=== PATIENT | female | born 1955 | race Caucasian/White ===

== ENCOUNTER 2017-11-01 23:59 | Inpatient (IN) | payer MEDICAID ==
[~2017-11-01] VITALS: Ht 160 cm; Wt 68.2 kg
[~2017-11-01 23:59] MED LIST: ALB0.5UD IH; ALEN70TA13 PO; ASPI81TA52 PO; BUDE10.23 IH; CARB1TAB23 PO; GLIP-126 PO; INSU100V36 SQ; INSU100V9 SQ; LEVA15HF4 IH; LOSA50TA37 PO; METF500T PO; NORCO10T PO; OMEP40CA37 PO; RANI150T12 PO; SPIIN INH; SUCR1TAB PO; TEMA15CA5 PO; TIZA4CAP PO; VERA-1 PO
[2017-11-02] MEDS ORDERED: dextrose 50%-water 50ml dispensing syringe IV ONE ×3 (00:12→03:30)
[2017-11-02] MEDS ORDERED: phenobarbital inj 260 MG in normal saline 100ml IV soln 99 ML IV STA (00:33)
[2017-11-02] MEDS ORDERED: LORazepam 2 mg/ml vial IV ONE (00:35)
[2017-11-02] MEDS ORDERED: thiamine inj. 100 MG in normal saline 100ml IV soln 99 ML IV ONE (00:35)
[2017-11-02] MEDS ORDERED: magnesium 2GM in 50ml NS 50 ML IV ONE (00:35)
[2017-11-02] MEDS ORDERED: ondansetron/PF 4mg/2ml inj IV ONE (00:35)
[2017-11-02] MEDS ORDERED: BUPIVAcaine/PF 2.5 mg/ml (0.25%) 30ml vial IJ ONE (00:35)
[2017-11-02] MEDS ORDERED: normal saline 1000ML IV soln IVB ONE (00:35)
[2017-11-02] MEDS ORDERED: TETanus/Pertussis (Acell)/Diphther VAC/PF (Tdap-Adult) 0.5ml syringe IM ONE (00:35)
[2017-11-02] MEDS ORDERED: thiamine 100mg/ml 2ml inj. IV STA (00:57)
[2017-11-02 00:59] LABS: PARTIAL THROMBOPLASTIN TIME 25 SECONDS (22-32); PROTHROMBIN TIME 9.9 SECONDS (9.0-12.0)
[2017-11-02 01:00] LABS: CLARITY,URINE CLEAR (Clear); COLOR,URINE YELLOW (Yellow); GLUCOSE, URINE 250 mg/dl (Neg); KETONES,URINE NEGATIVE (Neg); LEUKOCYTE ESTERASE ,URINE NEGATIVE (Neg); NITRITES, URINE NEGATIVE (Neg); OCCULT BLOOD,URINE TRACE-INTACT (Neg); PH,URINE 5.5 (4.8-8.0); PROTEIN,URINE NEGATIVE (Neg); UROBILINOGEN,URINE 0.2 E.U/dL (0.2-1.0)
[2017-11-02] MEDS ORDERED: haloperidol lactate 5mg/ml inj IM ONE ×2 (01:00→01:01)
[2017-11-02] MEDS ORDERED: diphenhydrAMINE 50 mg/ml inj IV ONE (01:00)
[2017-11-02 01:02] LABS: UA COLLECTION TYPE FOLEY CATH
[2017-11-02] MEDS ORDERED: diphenhydrAMINE 50 mg/ml inj ONE (01:02)
[2017-11-02 01:10] LABS: URINE AMPHETAMINE SCREEN NEGATIVE (Neg); URINE BARBITUATE SCREEN NEGATIVE (Neg); URINE BENZODIAZEPINES SCREEN NEGATIVE (Neg); URINE CANNABINOID SCREEN NEGATIVE (Neg); URINE COCAINE SCREEN NEGATIVE (Neg); URINE METHADONE SCREEN NEGATIVE (Neg); URINE OPIATE SCREEN POSITIVE (Neg); URINE PHENCYCLIDINE SCREEN NEGATIVE (Neg)
[2017-11-02] MEDS ORDERED: phenobarbital inj 130 MG in normal saline 100ml IV soln 99 ML IV STA (01:11)
[2017-11-02 01:22] LABS: BASOPHILS # (AUTO) 0.1 X10'3 (0-0.2); BASOPHILS % (AUTO) 1.3 % (0-1); EOSINOPHILS # (AUTO) 0.2 X10'3 (0-0.9); EOSINOPHILS % (AUTO) 1.9 % (0-6); HEMATOCRIT 39.6 % (35.0-45.0); HEMOGLOBIN 13.8 g/dl (12.0-16.0); LYMPHOCYTES # (AUTO) 2.9 X10'3 (1.1-4.8); LYMPHOCYTES % (AUTO) 27.9 % (21-51); MEAN CORPUSCULAR HEMOGLOBIN 32.6 PG (27.0-31.0); MEAN CORPUSCULAR HGB CONC 34.8 % (33.0-36.5); MEAN CORPUSCULAR VOLUME 93.7 FL (78-98); MEAN PLATELET VOLUME 7.4 FL (7.4-10.4); MONOCYTES # (AUTO) 0.9 X10'3 (0-0.9); MONOCYTES % (AUTO) 8.9 % (2-12); NEUTROPHILS # (AUTO) 6.2 X10'3 (1.8-7.7); PLATELET COUNT 197 X10'3 (140-440); RED BLOOD COUNT 4.23 X10'6 (4.20-5.60); RED CELL DISTRIBUTION WIDTH 12.5 % (11.5-14.5); WHITE BLOOD COUNT 10.3 X10'3 (4.5-11.0)
[2017-11-02 01:24] LABS: BACTERIA,URINE NONE SEEN /HPF (Neg); MUCUS STRANDS FEW /LPF (Neg); RBC,URINE 0-2 /HPF (0-2); SQUAMOUS EPITHELIAL CELL,UR FEW /LPF (FEW); WBC,URINE 0-4 /HPF (0-4)
[2017-11-02 01:35] LABS: ALANINE AMINOTRANSFERASE 62 U/L (12-78); ALBUMIN 3.7 G/DL (3.4-5.0); ALBUMIN/GLOBULIN RATIO 1.3 (1.1-1.5); ALKALINE PHOSPHATASE 83 IU/L (46-116); ANION GAP 9 (8-16); ASPARTATE AMINO TRANSFERASE 36 U/L (10-37); BILIRUBIN,TOTAL 0.2 MG/DL (0.1-1.0); BLOOD UREA NITROGEN 17 MG/DL (7-18); BUN/CREATININE RATIO 21.3 (6.6-38.0); CALCIUM 8.1 MG/DL (8.5-10.1); CHLORIDE 110 MMOL/L (99-107); CREATINE KINASE 289 U/L (26-192); ETHANOL 0.227 GM/DL (0.0-0.010); GLUCOSE 51 MG/DL (70-104); LIPASE < 50 U/L (73-393); MAGNESIUM 1.7 MG/DL (1.5-2.4); SODIUM 146 MMOL/L (135-145); TOTAL CARBON DIOXIDE 26.6 MMOL/L (24-32); TOTAL PROTEIN 6.6 G/DL (6.4-8.2); TROPONIN I < 0.04 NG/ML (0.0-0.05); eGFR 73 ML/MIN
[2017-11-02 01:36] LABS: POTASSIUM 3.8 MMOL/L (3.5-5.1)
[2017-11-02] MEDS ORDERED: iohexol 300mg/ml 100ml inj. ONE (01:43)
[2017-11-02] MEDS ORDERED: sodium chloride inj. 154 MEQ in Dextrose 10%-water IV solution 961.5 ML IV SCH (03:40)
[2017-11-02] MEDS ORDERED: Dextrose 10%-water IV solution 1,000 ML ONE (03:50)
[2017-11-02] MEDS ORDERED: dextrose 5%-1/2 normal saline 1,000 ML IV SCH (03:59)
[2017-11-02] MEDS ORDERED: magnesium Cl slow-release 64mg tablet PO PRN (04:00)
[2017-11-02] MEDS ORDERED: magnesium 4gm in 100ml NS 100 ML IV PRN (04:00)
[2017-11-02] MEDS ORDERED: pantoprazole 40 MG vial IV ONE (04:00)
[2017-11-02] MEDS ORDERED: dextrose 50%-water 50ml dispensing syringe IV PRN ×3 (04:00→12:55)
[2017-11-02] MEDS ORDERED: thiamine 100mg/ml 2ml inj. IV ONE (04:00)
[2017-11-02] MEDS ORDERED: haloperidol lactate 5mg/ml inj IM PRN (04:00)
[2017-11-02] MEDS ORDERED: magnesium 2GM in 50ml NS 50 ML IV PRN (04:00)
[2017-11-02] MEDS ORDERED: magnesium hydroxide 30ml (MOM) UD suspension PO PRN (04:00)
[2017-11-02] MEDS ORDERED: potassium Cl 40MEQ/NS 500ml 500 ML IV PRN ×2 (04:00)
[2017-11-02] MEDS ORDERED: ondansetron/PF 4mg/2ml inj IV PRN (04:00)
[2017-11-02] MEDS ORDERED: haloperidol 5mg tablet PO PRN (04:00)
[2017-11-02] MEDS ORDERED: acetaminophen 325mg tablet PO PRN (04:00)
[2017-11-02] MEDS ORDERED: potassium Cl 20 mEq SR tablet PO PRN ×2 (04:00)
[2017-11-02] MEDS ORDERED: LORazepam 2 mg/ml vial IV PRN (04:00)
[2017-11-02 05:00] VITALS: BP 163/98
[2017-11-02 07:00] VITALS: BP 173/101
[2017-11-02] MEDS: pantoprazole 40mg Tablet.DR PO SCH (07:30)
[2017-11-02] MEDS: K and/or MAG REPLACEMENT MC SCH (08:00)
[2017-11-02] MEDS: verapamil SR 120mg (sust. release) tab PO SCH ×2 (08:00→12:49)
[2017-11-02] MEDS ORDERED: famotidine 20mg tablet PO SCH (08:00)
[2017-11-02] MEDS: losartan 50mg tablet PO SCH ×2 (08:00→12:49)
[2017-11-02 08:26] LABS: PHOSPHORUS 3.5 MG/DL (2.3-4.5)
[2017-11-02] MEDS: thiamine inj. 100 MG, magnesium sulf injection 2 GM, MVI, adult No.4 with vit. K 10 ML ... IV SCH ×4 (10:00)
[2017-11-02 11:00] VITALS: BP 181/89
[2017-11-02 11:45] LABS: OCCULT BLOOD STOOL POSITIVE (Neg)
[2017-11-02] MEDS ORDERED: insulin Lispro (HumaLOG) vial - multi-dose SQ SCH (12:55)
[2017-11-02] MEDS ORDERED: MESSAGE TO PHARMACY PO ONE (12:55)
[2017-11-02] MEDS ORDERED: glucagon, human recombinant 1mg kit SUBCUT PRN (12:55)
[2017-11-02] MEDS ORDERED: dextrose ORAL solution 15 GM/59 ML bottle PO PRN ×2 (12:55)
[2017-11-02 13:00] LABS: BASOPHILS % (AUTO) 0.6 % (0-1); EOSINOPHILS # (AUTO) 0.1 X10'3 (0-0.9); EOSINOPHILS % (AUTO) 1.3 % (0-6); HEMATOCRIT 40.5 % (35.0-45.0); HEMOGLOBIN 13.9 g/dl (12.0-16.0); LYMPHOCYTES # (AUTO) 2.2 X10'3 (1.1-4.8); MEAN CORPUSCULAR HEMOGLOBIN 32.3 PG (27.0-31.0); MEAN CORPUSCULAR HGB CONC 34.3 % (33.0-36.5); MEAN CORPUSCULAR VOLUME 94.1 FL (78-98); MEAN PLATELET VOLUME 7.4 FL (7.4-10.4); MONOCYTES # (AUTO) 0.6 X10'3 (0-0.9); MONOCYTES % (AUTO) 8.6 % (2-12); NEUTROPHILS # (AUTO) 4.4 X10'3 (1.8-7.7); NEUTROPHILS % (AUTO) 59.5 % (42-75); PLATELET COUNT 155 X10'3 (140-440); RED BLOOD COUNT 4.31 X10'6 (4.20-5.60); RED CELL DISTRIBUTION WIDTH 12.6 % (11.5-14.5); WHITE BLOOD COUNT 7.4 X10'3 (4.5-11.0)
[2017-11-02 13:10] LABS: ALBUMIN 3.9 G/DL (3.4-5.0); ANION GAP 13 (8-16); BLOOD UREA NITROGEN 18 MG/DL (7-18); BUN/CREATININE RATIO 22.5 (6.6-38.0); CALCIUM 8.3 MG/DL (8.5-10.1); CHLORIDE 110 MMOL/L (99-107); POTASSIUM 3.9 MMOL/L (3.5-5.1); SODIUM 146 MMOL/L (135-145); TOTAL CARBON DIOXIDE 23.3 MMOL/L (24-32); eGFR 73 ML/MIN
[2017-11-02 13:12] LABS: GLUCOSE 46 MG/DL (70-104)
[2017-11-02 15:00] VITALS: BP 181/100
[2017-11-02] MEDS ORDERED: diltiazem CD 120mg capsule (once-daily) PO SCH (16:00)
[2017-11-02] MEDS: potassium CL 20mEq in D5-1/2NS 1,000 ML IV SCH (16:44)
[2017-11-02] MEDS: lisinopril 20mg tablet PO SCH (16:44)
[2017-11-02 19:00] VITALS: BP 143/103
[2017-11-02] MEDS ORDERED: heparin, porcine 5000 units/ml vial SQ SCH (20:00)
[2017-11-02] MEDS: carbidoba-levodopa 25-100mg tablet PO SCH (21:34)
[2017-11-02] MEDS: mag hydrox/Alum hydrox/simeth 30ml oral suspension PO PRN (21:44)
[2017-11-02 23:00] VITALS: BP 141/79
[2017-11-03 03:00] VITALS: BP 143/69
[2017-11-03] MEDS: potassium CL 20mEq in D5-1/2NS 1,000 ML IV SCH (05:14)
[2017-11-03 07:00] VITALS: BP 158/87
[2017-11-03] MEDS: K and/or MAG REPLACEMENT MC SCH (08:00)
[2017-11-03 08:23] LABS: ALANINE AMINOTRANSFERASE 39 U/L (12-78); ALBUMIN 3.1 G/DL (3.4-5.0); ALBUMIN/GLOBULIN RATIO 1.1 (1.1-1.5); ALKALINE PHOSPHATASE 74 IU/L (46-116); ANION GAP 6 (8-16); ASPARTATE AMINO TRANSFERASE 37 U/L (10-37); BILIRUBIN,TOTAL 0.6 MG/DL (0.1-1.0); BLOOD UREA NITROGEN 7 MG/DL (7-18); BUN/CREATININE RATIO 11.7 (6.6-38.0); CALCIUM 7.6 MG/DL (8.5-10.1); CHLORIDE 106 MMOL/L (99-107); GLUCOSE 140 MG/DL (70-104); MAGNESIUM 1.7 MG/DL (1.5-2.4); POTASSIUM 3.7 MMOL/L (3.5-5.1); SODIUM 141 MMOL/L (135-145); TOTAL CARBON DIOXIDE 28.8 MMOL/L (24-32); TOTAL PROTEIN 5.8 G/DL (6.4-8.2); eGFR > 90 ML/MIN
[2017-11-03 08:28] LABS: BASOPHILS % (AUTO) 0.1 % (0-1); EOSINOPHILS # (AUTO) 0.1 X10'3 (0-0.9); EOSINOPHILS % (AUTO) 1.1 % (0-6); HEMOGLOBIN 12.9 g/dl (12.0-16.0); LYMPHOCYTES # (AUTO) 1.8 X10'3 (1.1-4.8); MEAN CORPUSCULAR HEMOGLOBIN 32.2 PG (27.0-31.0); MEAN CORPUSCULAR HGB CONC 34.8 % (33.0-36.5); MEAN CORPUSCULAR VOLUME 92.7 FL (78-98); MEAN PLATELET VOLUME 7.3 FL (7.4-10.4); MONOCYTES # (AUTO) 0.8 X10'3 (0-0.9); MONOCYTES % (AUTO) 8.6 % (2-12); NEUTROPHILS # (AUTO) 6.2 X10'3 (1.8-7.7); NEUTROPHILS % (AUTO) 70.2 % (42-75); PLATELET COUNT 138 X10'3 (140-440); RED BLOOD COUNT 3.99 X10'6 (4.20-5.60); RED CELL DISTRIBUTION WIDTH 12.5 % (11.5-14.5); WHITE BLOOD COUNT 8.8 X10'3 (4.5-11.0)
[2017-11-03] MEDS: losartan 50mg tablet PO SCH (08:58)
[2017-11-03] MEDS: verapamil SR 120mg (sust. release) tab PO SCH (08:59)
[2017-11-03] MEDS: lisinopril 20mg tablet PO SCH (08:59)
[2017-11-03] MEDS: calcium carbonate/vitamin D3 tablet PO SCH (08:59)
[2017-11-03] MEDS ORDERED: sodium chloride 0.45% 1,000 ML IV SCH (09:10)
[2017-11-03] MEDS: pantoprazole 40mg Tablet.DR PO SCH (09:15)
[2017-11-03] MEDS: thiamine inj. 100 MG, magnesium sulf injection 2 GM, MVI, adult No.4 with vit. K 10 ML ... IV SCH ×4 (09:16)
[2017-11-03 11:00] VITALS: BP 171/97
[2017-11-03] MEDS: mag hydrox/Alum hydrox/simeth 30ml oral suspension PO PRN (13:10)
[2017-11-03] MEDS ORDERED: FLU VACC QS2017-18 36MOS UP/PF 60 MCG/0.5 ML SYRINGE IMVAC ONE (13:30)
[2017-11-03 15:00] VITALS: BP 147/81
[2017-11-03 18:30] VITALS: BP 146/80
[2017-11-03] MEDS: carbidoba-levodopa 25-100mg tablet PO SCH (20:20)
[2017-11-03] MEDS ORDERED: insulin glargine (Lantus) pen - multi-dose SQ SCH (21:00)
[2017-11-03 22:00] VITALS: BP 161/84
[2017-11-04 02:00] VITALS: BP 170/100
[2017-11-04] MEDS: HYDROcodone/acetaminophen 5mg/325mg tablet PO PRN ×2 (03:13→08:02)
[2017-11-04] MEDS ORDERED: LORazepam 1 MG tablet PO PRN (04:00)
[2017-11-04] MEDS ORDERED: LORazepam 2 mg/ml vial IV PRN (04:00)
[2017-11-04 05:56] LABS: BASOPHILS % (AUTO) 0.3 % (0-1); EOSINOPHILS # (AUTO) 0.2 X10'3 (0-0.9); EOSINOPHILS % (AUTO) 2.8 % (0-6); HEMATOCRIT 37.3 % (35.0-45.0); HEMOGLOBIN 12.8 g/dl (12.0-16.0); LYMPHOCYTES # (AUTO) 1.6 X10'3 (1.1-4.8); LYMPHOCYTES % (AUTO) 22.9 % (21-51); MEAN CORPUSCULAR HEMOGLOBIN 32.1 PG (27.0-31.0); MEAN CORPUSCULAR HGB CONC 34.4 % (33.0-36.5); MEAN CORPUSCULAR VOLUME 93.2 FL (78-98); MEAN PLATELET VOLUME 7.4 FL (7.4-10.4); MONOCYTES # (AUTO) 0.7 X10'3 (0-0.9); MONOCYTES % (AUTO) 10.2 % (2-12); NEUTROPHILS # (AUTO) 4.5 X10'3 (1.8-7.7); NEUTROPHILS % (AUTO) 63.8 % (42-75); PLATELET COUNT 139 X10'3 (140-440); RED CELL DISTRIBUTION WIDTH 12.7 % (11.5-14.5); WHITE BLOOD COUNT 7.1 X10'3 (4.5-11.0)
[2017-11-04 06:20] LABS: ALANINE AMINOTRANSFERASE 17 U/L (12-78); ALKALINE PHOSPHATASE 75 IU/L (46-116); ANION GAP 3 (8-16); ASPARTATE AMINO TRANSFERASE 28 U/L (10-37); BILIRUBIN,TOTAL 0.6 MG/DL (0.1-1.0); BLOOD UREA NITROGEN 9 MG/DL (7-18); BUN/CREATININE RATIO 11.3 (6.6-38.0); CALCIUM 8.2 MG/DL (8.5-10.1); CHLORIDE 108 MMOL/L (99-107); GLUCOSE 111 MG/DL (70-104); MAGNESIUM 1.8 MG/DL (1.5-2.4); SODIUM 143 MMOL/L (135-145); TOTAL CARBON DIOXIDE 31.6 MMOL/L (24-32); eGFR 73 ML/MIN
[2017-11-04 07:00] VITALS: BP 153/95
[2017-11-04] MEDS: pantoprazole 40mg Tablet.DR PO SCH (07:42)
[2017-11-04] MEDS: losartan 50mg tablet PO SCH (07:42)
[2017-11-04] MEDS: lisinopril 20mg tablet PO SCH (07:42)
[2017-11-04] MEDS: verapamil SR 120mg (sust. release) tab PO SCH (07:43)
[2017-11-04] MEDS: calcium carbonate/vitamin D3 tablet PO SCH (07:43)
[2017-11-04] MEDS ORDERED: multivitamins, therapeutics tablet PO SCH (08:00)
[2017-11-04] MEDS: K and/or MAG REPLACEMENT MC SCH (08:00)
[2017-11-04] MEDS ORDERED: thiamine 100mg tablet PO SCH (08:00)
[2017-11-04] MEDS ORDERED: Potassium Cl inj 20 MEQ in sodium chloride 0.45% 990 ML IV SCH (09:10)
[2017-11-04] MEDS ORDERED: LISI-600 PO (10:57)
[2017-11-04] MEDS ORDERED: THI100T PO (10:57)
[2017-11-04] MEDS ORDERED: FOLI1TAB16 PO (10:57)
[2017-11-04 11:00] VITALS: BP 150/100
[2017-11-06] MEDS ORDERED: LORazepam 2 mg/ml vial IV PRN (04:00)
[2017-11-06] MEDS ORDERED: LORazepam 1 MG tablet PO PRN (04:00)
== END 2017-11-04 12:40 | disposition home or self-care (01) | DRG 775 ==
LOC: ER 23:59 → ED HOLD 11-02 03:59 → PCU 3S 11-02 05:02
PROVIDERS: ADMIT Internal Medicine; ATTEND Internal Medicine
PROC: BW251ZZ Computerized Tomography (CT Scan) of Chest, Abdomen and Pelvis using Low Osmolar Contrast (ICD-10-PCS; principal; 2017-11-02)
DX: F10.229 Alcohol dependence with intoxication, unspecified (principal); F10.239 Alcohol dependence with withdrawal, unspecified; G92 Toxic encephalopathy; E87.0 Hyperosmolality and hypernatremia; E11.649 Type 2 diabetes mellitus with hypoglycemia without coma; M62.82 Rhabdomyolysis; F03.90 Unspecified dementia, unspecified severity, without behavioral disturbance, psychotic disturbance, mood disturbance, and anxiety; G20 Parkinson's disease; K92.2 Gastrointestinal hemorrhage, unspecified; E83.51 Hypocalcemia; S30.1XXA Contusion of abdominal wall, initial encounter; F15.90 Other stimulant use, unspecified, uncomplicated; Y90.1 Blood alcohol level of 20-39 mg/100 ml; S02.2XXA Fracture of nasal bones, initial encounter for closed fracture; S50.11XA Contusion of right forearm, initial encounter; E86.0 Dehydration; I49.8 Other specified cardiac arrhythmias; F41.9 Anxiety disorder, unspecified; G89.29 Other chronic pain; M54.9 Dorsalgia, unspecified; B19.20 Unspecified viral hepatitis C without hepatic coma; E78.00 Pure hypercholesterolemia, unspecified; E78.5 Hyperlipidemia, unspecified; J43.9 Emphysema, unspecified; K21.9 Gastro-esophageal reflux disease without esophagitis; S81.011A Laceration without foreign body, right knee, initial encounter; Z60.2 Problems related to living alone; S20.219A Contusion of unspecified front wall of thorax, initial encounter; I10 Essential (primary) hypertension; M81.0 Age-related osteoporosis without current pathological fracture; W18.39XA Other fall on same level, initial encounter; R29.6 Repeated falls; Z79.82 Long term (current) use of aspirin; Z86.010 Personal history of colon polyps; Z86.73 Personal history of transient ischemic attack (TIA), and cerebral infarction without residual deficits; Z82.5 Family history of asthma and other chronic lower respiratory diseases; Z87.01 Personal history of pneumonia (recurrent); Z87.11 Personal history of peptic ulcer disease; Z88.0 Allergy status to penicillin; Z88.1 Allergy status to other antibiotic agents; Z88.8 Allergy status to other drugs, medicaments and biological substances; Z91.013 Allergy to seafood; Z88.6 Allergy status to analgesic agent; Z90.49 Acquired absence of other specified parts of digestive tract; Z98.891 History of uterine scar from previous surgery; Z82.49 Family history of ischemic heart disease and other diseases of the circulatory system; Z79.4 Long term (current) use of insulin; Y93.89 Activity, other specified; Y92.89 Other specified places as the place of occurrence of the external cause; Y99.8 Other external cause status
CPT/HCPCS: 36415; 70450; 70486; 71260; 72125; 74177; 80048; 80053; 80305; 80320; 81001; 82272; 82550; 82553; 82948; 83036; 83690; 83735; 83874; 84100; 84484; 85025; 85610; 85730; 86885; 86900; 86901; 87070; 90471; 90715; 93005; 96365; 96372; 96375; 96376; 99285; A4315; A6209; A6212; J1200; J1630; J1815; J2060; J2405; J2560; J3411; J3475; J3480; J3490; J7030; J7060; J7131; Q2037; Q9967

== ENCOUNTER 2018-02-08 01:03 | Emergency (ER) | payer MEDICAID ==
[~2018-02-08] VITALS: Ht 149.9 cm; Wt 54.5 kg
[~2018-02-08 01:03] MED LIST changes: +FOLI1TAB16 PO; -GLIP-126 PO; +LISI-600 PO; -METF500T PO; -NORCO10T PO; -RANI150T12 PO; -SUCR1TAB PO; +THI100T PO; -TIZA4CAP PO
[2018-02-08 01:46] VITALS: BP 161/113
[2018-02-08] MEDS ORDERED: dexamethasone sod phosphate 10mg/ml inj IV STA (02:13)
[2018-02-08] MEDS ORDERED: ipratropium/albuterol 3ml nebule NEB ONE (02:15)
[2018-02-08 02:20] LABS: PROTHROMBIN TIME 10.5 SECONDS (9.0-12.0)
[2018-02-08 02:26] LABS: ALANINE AMINOTRANSFERASE 61 U/L (12-78); ALBUMIN 3.5 G/DL (3.4-5.0); ALBUMIN/GLOBULIN RATIO 0.9 (1.1-1.5); ALKALINE PHOSPHATASE 91 IU/L (46-116); ANION GAP 9 (8-16); ASPARTATE AMINO TRANSFERASE 34 U/L (10-37); BLOOD UREA NITROGEN 18 MG/DL (7-18); BUN/CREATININE RATIO 21.4 (6.6-38.0); CALCIUM 8.8 MG/DL (8.5-10.1); CHLORIDE 102 MMOL/L (99-107); CREATININE 0.84 MG/DL (0.40-0.90); GLUCOSE 212 MG/DL (70-104); POTASSIUM 4.8 MMOL/L (3.5-5.1); SODIUM 139 MMOL/L (135-145); TOTAL CARBON DIOXIDE 28.1 MMOL/L (24-32); TOTAL PROTEIN 7.4 G/DL (6.4-8.2); eGFR 69 ML/MIN
[2018-02-08 02:46] LABS: ABG HCO3 25.3 mmol/L (22.0-26.0); ABG OXYGEN SATURATION 94.1 % (95-98); ABG PH (T) 7.385 (7.350-7.450); ALLEN'S TEST Positive; FLOW 2 L/min; FMetHb 0.1 % (0.3-1.12); FO2Hb 93.1 % (94-100); PATIENT TEMPERATURE 36.7
[2018-02-08] MEDS ORDERED: DOXY100C43 PO (02:57)
[2018-02-08] MEDS ORDERED: PRED5TAB PO (02:57)
[2018-02-08 02:58] LABS: BASOPHILS % (AUTO) 0.3 % (0-1); EOSINOPHILS % (AUTO) 0 % (0-6); HEMATOCRIT 40.3 % (35.0-45.0); HEMOGLOBIN 13.6 g/dl (12.0-16.0); LYMPHOCYTES # (AUTO) 1.1 X10'3 (1.1-4.8); MEAN CORPUSCULAR HEMOGLOBIN 32.1 PG (27.0-31.0); MEAN CORPUSCULAR HGB CONC 33.8 % (33.0-36.5); MEAN CORPUSCULAR VOLUME 94.9 FL (78-98); MEAN PLATELET VOLUME 7.6 FL (7.4-10.4); MONOCYTES # (AUTO) 1.1 X10'3 (0-0.9); MONOCYTES % (AUTO) 8.3 % (2-12); NEUTROPHILS # (AUTO) 11.4 X10'3 (1.8-7.7); NEUTROPHILS % (AUTO) 83.4 % (42-75); PLATELET COUNT 163 X10'3 (140-440); RED BLOOD COUNT 4.25 X10'6 (4.20-5.60); RED CELL DISTRIBUTION WIDTH 14.2 % (11.5-14.5); WHITE BLOOD COUNT 13.6 X10'3 (4.5-11.0)
[2018-02-08 07:12] LABS: PLATELET ESTIMATE NORMAL; TOTAL CELLS COUNTED 100
== END 2018-02-08 03:25 | disposition home or self-care (01) ==
LOC: ER 01:03
DX: J44.1 Chronic obstructive pulmonary disease with (acute) exacerbation (principal); E78.00 Pure hypercholesterolemia, unspecified; I10 Essential (primary) hypertension; I49.9 Cardiac arrhythmia, unspecified; K21.9 Gastro-esophageal reflux disease without esophagitis; G89.29 Other chronic pain; F15.10 Other stimulant abuse, uncomplicated; Z86.19 Personal history of other infectious and parasitic diseases; Z86.73 Personal history of transient ischemic attack (TIA), and cerebral infarction without residual deficits; Z87.891 Personal history of nicotine dependence; Z90.49 Acquired absence of other specified parts of digestive tract; Z98.890 Other specified postprocedural states; Z60.2 Problems related to living alone; Z99.81 Dependence on supplemental oxygen; Z88.0 Allergy status to penicillin; Z88.8 Allergy status to other drugs, medicaments and biological substances; Z91.013 Allergy to seafood; Z79.82 Long term (current) use of aspirin; Z79.4 Long term (current) use of insulin; Z79.899 Other long term (current) drug therapy
CPT/HCPCS: 36415; 36600; 71045; 80053; 82803; 83880; 85018; 85025; 85610; 93005; 94640; 94760; 96374; 99285; J1100; 84484

== ENCOUNTER 2018-02-23 22:49 | Inpatient (IN) | payer MEDICAID ==
[~2018-02-23] VITALS: Ht 149.9 cm; Wt 69.1 kg
[2018-02-23 08:04] VITALS: BP 147/73
[~2018-02-23 22:49] MED LIST changes: +PRED5TAB PO
[2018-02-23] MEDS ORDERED: normal saline 1000ml 1,000 ML IV ONE (23:25)
[2018-02-23] MEDS ORDERED: normal saline 1000ML IV soln IV ONE (23:30)
[2018-02-23] MEDS ORDERED: flumazenil 0.1 mg/ml inj. IV ONE (23:30)
[2018-02-24] VITALS (21 sets, daily range): BP systolic 110–158; BP diastolic 60–99
[2018-02-24 00:02] LABS: CLARITY,URINE CLEAR (Clear); COLOR,URINE YELLOW (Yellow); GLUCOSE, URINE NEGATIVE (Neg); KETONES,URINE TRACE mg/dl (Neg); LEUKOCYTE ESTERASE ,URINE NEGATIVE (Neg); NITRITES, URINE NEGATIVE (Neg); OCCULT BLOOD,URINE NEGATIVE (Neg); PROTEIN,URINE TRACE mg/dl (Neg); UA COLLECTION TYPE CLN CATCH MIDSTREAM; UROBILINOGEN,URINE 0.2 E.U/dL (0.2-1.0)
[2018-02-24 00:08] LABS: BACTERIA,URINE 1+ /HPF (Neg); MUCUS STRANDS FEW /LPF (Neg); RBC,URINE 0-2 /HPF (0-2); SQUAMOUS EPITHELIAL CELL,UR NONE SEEN /LPF (FEW)
[2018-02-24 00:10] LABS: URINE AMPHETAMINE SCREEN NEGATIVE (Neg); URINE BARBITUATE SCREEN NEGATIVE (Neg); URINE BENZODIAZEPINES SCREEN NEGATIVE (Neg); URINE CANNABINOID SCREEN NEGATIVE (Neg); URINE COCAINE SCREEN NEGATIVE (Neg); URINE METHADONE SCREEN NEGATIVE (Neg); URINE OPIATE SCREEN POSITIVE (Neg); URINE PHENCYCLIDINE SCREEN NEGATIVE (Neg)
[2018-02-24] MEDS ORDERED: NORepinephrine 8mg/ 250ml NS 250 ML IV SCH (00:20)
[2018-02-24 00:22] LABS: BASOPHILS % (AUTO) 0.4 % (0-1); EOSINOPHILS # (AUTO) 0.1 X10'3 (0-0.9); EOSINOPHILS % (AUTO) 0.8 % (0-6); HEMATOCRIT 30.2 % (35.0-45.0); HEMOGLOBIN 10.2 g/dl (12.0-16.0); LYMPHOCYTES # (AUTO) 2.2 X10'3 (1.1-4.8); LYMPHOCYTES % (AUTO) 27.5 % (21-51); MEAN CORPUSCULAR HEMOGLOBIN 31.8 PG (27.0-31.0); MEAN CORPUSCULAR HGB CONC 33.6 % (33.0-36.5); MEAN CORPUSCULAR VOLUME 94.6 FL (78-98); MEAN PLATELET VOLUME 6.9 FL (7.4-10.4); NEUTROPHILS # (AUTO) 4.6 X10'3 (1.8-7.7); NEUTROPHILS % (AUTO) 58.3 % (42-75); PLATELET COUNT 136 X10'3 (140-440); RED BLOOD COUNT 3.19 X10'6 (4.20-5.60); RED CELL DISTRIBUTION WIDTH 14.3 % (11.5-14.5); WHITE BLOOD COUNT 7.9 X10'3 (4.5-11.0)
[2018-02-24] MEDS ORDERED: vancomycin inj 1,000 MG in normal saline 250ml IV soln 250 ML IV STA (00:29)
[2018-02-24] MEDS ORDERED: CefTRIAXone 2gm/D5W 50ml 50 ML IV ONE (00:30)
[2018-02-24] MEDS ORDERED: acetaminophen 650mg rectal suppository RC STA (00:31)
[2018-02-24 00:35] LABS: PARTIAL THROMBOPLASTIN TIME 28 SECONDS (22-32); PROTHROMBIN TIME 10.8 SECONDS (9.0-12.0)
[2018-02-24 00:38] LABS: ALANINE AMINOTRANSFERASE 16 U/L (12-78); ALBUMIN 2.5 G/DL (3.4-5.0); ALKALINE PHOSPHATASE 65 IU/L (46-116); ANION GAP 8 (8-16); ASPARTATE AMINO TRANSFERASE 56 U/L (10-37); BILIRUBIN,TOTAL 0.3 MG/DL (0.1-1.0); BLOOD UREA NITROGEN 19 MG/DL (7-18); BUN/CREATININE RATIO 9.2 (6.6-38.0); CALCIUM 7.4 MG/DL (8.5-10.1); CHLORIDE 104 MMOL/L (99-107); CREATININE 2.06 MG/DL (0.40-0.90); ETHANOL < 0.010 GM/DL (0.0-0.010); GLUCOSE 110 MG/DL (70-104); MAGNESIUM 1.8 MG/DL (1.5-2.4); POTASSIUM 4.6 MMOL/L (3.5-5.1); SODIUM 137 MMOL/L (135-145); TOTAL CARBON DIOXIDE 24.9 MMOL/L (24-32); TOTAL PROTEIN 4.9 G/DL (6.4-8.2); eGFR 24 ML/MIN
[2018-02-24] MEDS ORDERED: rocuronium 10mg/ml inj IV ONE ×2 (00:40→06:00)
[2018-02-24] MEDS ORDERED: vancomycin/NS 1 GM ADD-VANTAGE 250 ML IV SCH (01:00)
[2018-02-24] MEDS ORDERED: propofol 1000mg/100ml bottle 100 ML IV PRN (01:36)
[2018-02-24] MEDS ORDERED: acetaminophen 325mg tablet PO PRN ×2 (01:55→20:00)
[2018-02-24] MEDS ORDERED: potassium Cl 40MEQ/250ML bag 250 ML IV SCH (01:55)
[2018-02-24] MEDS: K, MAG and/or Phos replacement - Verify level? MC SCH ×2 (01:55→08:00)
[2018-02-24] MEDS ORDERED: ondansetron/PF 4mg/2ml inj IV PRN (01:55)
[2018-02-24] MEDS ORDERED: potassium Cl 40MEQ/250ML bag 250 ML IV PRN (01:55)
[2018-02-24] MEDS ORDERED: morphine 4 MG/ML inj SYRINge IV PRN ×2 (01:55)
[2018-02-24] MEDS ORDERED: potassium Cl 20 mEq SR tablet PO PRN ×2 (01:55)
[2018-02-24] MEDS ORDERED: ipratropium/albuterol 3ml nebule NEB PRN (01:55)
[2018-02-24 02:27] LABS: ACETAMINOPHEN 10.7 UG/ML (10-30)
[2018-02-24] MEDS: FENTANYL-0.9 % NACL/PF 100 ML IV PRN ×3 (04:23→20:58)
[2018-02-24] MEDS: midazolam 100mg in NS 100ml 100 ML IV PRN ×2 (04:23→11:53)
[2018-02-24 04:26] LABS: ABG BASE EXCESS -4.4 mmol/L (-2.0-3.0); ABG HCO3 21.2 mmol/L (22.0-26.0); ABG PCO2 (T) 41.5 mmHg (32.0-45.0); ABG PH (T) 7.328 (7.350-7.450); ABG PO2 (T) 91.4 mmHg (83-108); FCOHb 0.3 % (0.5-1.5); FMetHb 0.2 % (0.3-1.12); FO2Hb 95.5 % (94-100); MINUTE VOLUME 7 L/min; PATIENT TEMPERATURE 37.2; PEEP 5 cm H2O; RESPIRATORY RATE 16 b/min; RESPIRATORY RATE (OBSERVED) 16 b/min; TIDAL VOLUME 400 mL; TOTAL HEMOGLOBIN 11.9 G/dl (12.0-16.0)
[2018-02-24] MEDS: normal saline 1000ml 1,000 ML IV SCH ×3 (04:30→20:58)
[2018-02-24] MEDS ORDERED: NORepinephrine bitartrate 8 MG in NS 250 ML BAG (32 mcg/ml) IV ONE (06:00)
[2018-02-24] MEDS ORDERED: sodium chloride 0.9% 10ml vial - diluent IJ ONE (06:00)
[2018-02-24] MEDS ORDERED: insulin Lispro (HumaLOG) vial - multi-dose SQ SCH (06:10)
[2018-02-24] MEDS ORDERED: dextrose 50%-water 50ml dispensing syringe IV PRN ×2 (06:10)
[2018-02-24] MEDS ORDERED: dextrose ORAL solution 15 GM/59 ML bottle PO PRN ×2 (06:10)
[2018-02-24] MEDS ORDERED: dextrose 50%-water 50ml dispensing syringe IV ONE (06:10)
[2018-02-24] MEDS ORDERED: glucagon, human recombinant 1mg kit SUBCUT PRN (06:10)
[2018-02-24] MEDS: pantoprazole 40 MG vial IV SCH (07:46)
[2018-02-24] MEDS: heparin, porcine 5000 units/ml vial SQ SCH ×2 (07:47→20:10)
[2018-02-24] MEDS: lactobacillus rhamnosus 10,000 MMU CELLS/CAPSULE PO SCH ×2 (07:47→20:10)
[2018-02-24] MEDS ORDERED: levoFLOXACIN-Levaquin 750MG/D5 150 ML IV SCH (08:00)
[2018-02-24 08:58] LABS: PHOSPHORUS 4.3 MG/DL (2.3-4.5)
[2018-02-24 09:27] LABS: SMUDGE CELLS FEW; TOTAL CELLS COUNTED 100
[2018-02-24 09:40] LABS: HEMOGLOBIN A1C 8.3 % (4.5-6.2); PLATELET ESTIMATE NORMAL
[2018-02-24] MEDS ORDERED: folic acid inj. 2 MG, thiamine inj. 100 MG, MVI, adult No.4 with vit. K 10 ML in dextro... IV SCH ×4 (11:00)
[2018-02-24] MEDS ORDERED: ACET-2006 PO (13:12)
[2018-02-24] MEDS ORDERED: LACT10SO67 PO (13:12)
[2018-02-24] MEDS ORDERED: GABA-532 PO (13:12)
[2018-02-24] MEDS ORDERED: FERR325T28 PO (13:12)
[2018-02-24] MEDS ORDERED: ONDA4TAB12 PO (13:12)
[2018-02-24] MEDS ORDERED: LOSA100T28 PO (13:12)
[2018-02-24] MEDS ORDERED: QUET25TA PO (13:12)
[2018-02-24] MEDS ORDERED: TIZA4TAB11 PO (13:12)
[2018-02-24] MEDS ORDERED: albuterol 2.5 MG/3 ML nebule NEB PRN (14:40)
[2018-02-24] MEDS ORDERED: LEVALBUTEROL TARTRATE IH PRN (14:40)
[2018-02-24] MEDS ORDERED: ondansetron 4mg rapidly disintigrating tab PO PRN (14:40)
[2018-02-24] MEDS ORDERED: non-formulary drug (Alendronate Sodium 1 TABLET) PO SCH (14:40)
[2018-02-24] MEDS: CefTRIAXone 2gm/D5W 50ml 50 ML IV SCH (14:42)
[2018-02-24] MEDS: albuterol 2.5 MG/3 ML nebule NEB SCH ×2 (15:24→19:27)
[2018-02-24] MEDS ORDERED: non-formulary drug (Budesonide/Formoterol Fumarate (Symbicort 160-4.5 Mcg Inhaler) 1 PUFF) IH SCH (20:00)
[2018-02-24] MEDS: gabapentin 300mg capsule PO SCH (20:10)
[2018-02-24] MEDS: carbidoba-levodopa 25-100mg tablet PO SCH (20:10)
[2018-02-24] MEDS: ferrous sulfate 325mg tablet PO SCH (20:13)
[2018-02-24] MEDS: QUEtiapine 25mg tablet PO SCH (21:00)
[2018-02-24] MEDS: insulin glargine (Lantus) pen - multi-dose SQ SCH (21:00)
[2018-02-25] VITALS (24 sets, daily range): BP systolic 90–158; BP diastolic 47–79
[2018-02-25] MEDS: budesonide 0.5mg/2ml UD nebule IH SCH ×3 (00:34→19:25)
[2018-02-25] MEDS ORDERED: vancomycin/NS 1 GM ADD-VANTAGE 250 ML IV SCH (01:00)
[2018-02-25] MEDS: midazolam 100mg in NS 100ml 100 ML IV PRN (02:09)
[2018-02-25] MEDS: mineral oil/petrolatum ophthal oint EACHEYE SCH ×4 (02:09→20:01)
[2018-02-25 03:01] LABS: BASOPHILS % (AUTO) 0.7 % (0-1); EOSINOPHILS # (AUTO) 0.1 X10'3 (0-0.9); EOSINOPHILS % (AUTO) 1.6 % (0-6); HEMATOCRIT 32.9 % (35.0-45.0); LYMPHOCYTES # (AUTO) 1.2 X10'3 (1.1-4.8); LYMPHOCYTES % (AUTO) 22.8 % (21-51); MEAN CORPUSCULAR HEMOGLOBIN 31.7 PG (27.0-31.0); MEAN CORPUSCULAR HGB CONC 33.4 % (33.0-36.5); MEAN CORPUSCULAR VOLUME 94.9 FL (78-98); MONOCYTES # (AUTO) 0.6 X10'3 (0-0.9); MONOCYTES % (AUTO) 11.2 % (2-12); NEUTROPHILS # (AUTO) 3.3 X10'3 (1.8-7.7); NEUTROPHILS % (AUTO) 63.7 % (42-75); PLATELET COUNT 123 X10'3 (140-440); RED BLOOD COUNT 3.46 X10'6 (4.20-5.60); RED CELL DISTRIBUTION WIDTH 14.5 % (11.5-14.5); WHITE BLOOD COUNT 5.1 X10'3 (4.5-11.0)
[2018-02-25 03:28] LABS: ALANINE AMINOTRANSFERASE 33 U/L (12-78); ALBUMIN 2.2 G/DL (3.4-5.0); ALBUMIN/GLOBULIN RATIO 0.8 (1.1-1.5); ALKALINE PHOSPHATASE 83 IU/L (46-116); ANION GAP 9 (8-16); ASPARTATE AMINO TRANSFERASE 90 U/L (10-37); BILIRUBIN,TOTAL 0.4 MG/DL (0.1-1.0); BLOOD UREA NITROGEN 6 MG/DL (7-18); BUN/CREATININE RATIO 11.8 (6.6-38.0); CALCIUM 7.2 MG/DL (8.5-10.1); CHLORIDE 109 MMOL/L (99-107); CREATININE 0.51 MG/DL (0.40-0.90); GLUCOSE 91 MG/DL (70-104); MAGNESIUM 1.4 MG/DL (1.5-2.4); PHOSPHORUS 2.3 MG/DL (2.3-4.5); POTASSIUM 3.7 MMOL/L (3.5-5.1); SODIUM 142 MMOL/L (135-145); eGFR > 90 ML/MIN
[2018-02-25 04:11] LABS: ABG HCO3 23.5 mmol/L (22.0-26.0); ABG OXYGEN SATURATION 94.1 % (95-98); ABG PCO2 (T) 44.3 mmHg (32.0-45.0); ABG PH (T) 7.346 (7.350-7.450); ABG PO2 (T) 78.4 mmHg (83-108); FCOHb 0.4 % (0.5-1.5); FMetHb 0.3 % (0.3-1.12); FO2Hb 93.4 % (94-100); MINUTE VOLUME 7 L/min; PATIENT TEMPERATURE 37.7; PEEP 5 cm H2O; RESPIRATORY RATE 16 b/min; RESPIRATORY RATE (OBSERVED) 16 b/min; TIDAL VOLUME 400 mL; TOTAL HEMOGLOBIN 12.3 G/dl (12.0-16.0)
[2018-02-25] MEDS: albuterol 2.5 MG/3 ML nebule NEB SCH ×4 (07:02→19:26)
[2018-02-25] MEDS: pantoprazole 40 MG vial IV SCH (07:14)
[2018-02-25] MEDS: heparin, porcine 5000 units/ml vial SQ SCH ×2 (07:14→20:01)
[2018-02-25] MEDS: thiamine 100mg tablet PO SCH (07:15)
[2018-02-25] MEDS: CefTRIAXone 2gm/D5W 50ml 50 ML IV SCH (07:15)
[2018-02-25] MEDS: folic acid 1mg tablet PO SCH (07:15)
[2018-02-25] MEDS: lactobacillus rhamnosus 10,000 MMU CELLS/CAPSULE PO SCH ×2 (07:15→20:01)
[2018-02-25] MEDS: ferrous sulfate 325mg tablet PO SCH ×2 (07:15→20:00)
[2018-02-25] MEDS: lisinopril 20mg tablet PO SCH (07:16)
[2018-02-25] MEDS: gabapentin 300mg capsule PO SCH ×3 (07:16→20:00)
[2018-02-25] MEDS: multivitamins, therapeutics tablet PO SCH (07:16)
[2018-02-25] MEDS: normal saline 1000ml 1,000 ML IV SCH (07:16)
[2018-02-25] MEDS: K, MAG and/or Phos replacement - Verify level? MC SCH (07:16)
[2018-02-25] MEDS: lactulose 20gm/30ml cup PO SCH (07:20)
[2018-02-25] MEDS ORDERED: aspirin 81mg tablet.DR PO SCH (08:00)
[2018-02-25] MEDS: K and/or MAG REPLACEMENT MC SCH (08:00)
[2018-02-25] MEDS ORDERED: potassium Cl 20 mEq SR tablet PO PRN ×2 (09:10)
[2018-02-25] MEDS: vancomycin/NS 1 GM ADD-VANTAGE 250 ML IV SCH ×2 (09:25→16:52)
[2018-02-25] MEDS: FENTANYL-0.9 % NACL/PF 100 ML IV PRN (10:05)
[2018-02-25] MEDS: magnesium 2GM in 50ml NS 50 ML IV PRN ×2 (10:05→16:52)
[2018-02-25] MEDS: dexmedetomidin/NS 400mcg/100ml 100 ML IV SCH (10:47)
[2018-02-25] MEDS: carbidoba-levodopa 25-100mg tablet PO SCH (20:01)
[2018-02-25] MEDS: QUEtiapine 25mg tablet PO SCH (21:00)
[2018-02-25] MEDS: insulin regular, human vial - multi-dose SQ SCH (21:17)
[2018-02-25] MEDS: insulin glargine (Lantus) pen - multi-dose SQ SCH (21:18)
[2018-02-26] VITALS (20 sets, daily range): BP systolic 108–174; BP diastolic 60–84
[2018-02-26] MEDS ORDERED: VANCOMYCIN LEVEL IV NR (00:30)
[2018-02-26] MEDS: vancomycin/NS 1 GM ADD-VANTAGE 250 ML IV SCH (00:53)
[2018-02-26] MEDS: insulin regular, human vial - multi-dose SQ SCH (02:39)
[2018-02-26] MEDS: mineral oil/petrolatum ophthal oint EACHEYE SCH ×4 (02:40→20:43)
[2018-02-26 02:49] LABS: BASOPHILS % (AUTO) 0.7 % (0-1); EOSINOPHILS # (AUTO) 0.1 X10'3 (0-0.9); EOSINOPHILS % (AUTO) 1.6 % (0-6); HEMATOCRIT 32.9 % (35.0-45.0); HEMOGLOBIN 11.1 g/dl (12.0-16.0); LYMPHOCYTES # (AUTO) 1.2 X10'3 (1.1-4.8); MEAN CORPUSCULAR HEMOGLOBIN 32.2 PG (27.0-31.0); MEAN CORPUSCULAR HGB CONC 33.7 % (33.0-36.5); MEAN CORPUSCULAR VOLUME 95.6 FL (78-98); MEAN PLATELET VOLUME 6.9 FL (7.4-10.4); MONOCYTES # (AUTO) 0.6 X10'3 (0-0.9); MONOCYTES % (AUTO) 11.8 % (2-12); NEUTROPHILS # (AUTO) 2.8 X10'3 (1.8-7.7); NEUTROPHILS % (AUTO) 59.9 % (42-75); PLATELET COUNT 123 X10'3 (140-440); RED BLOOD COUNT 3.44 X10'6 (4.20-5.60); RED CELL DISTRIBUTION WIDTH 14.1 % (11.5-14.5); WHITE BLOOD COUNT 4.7 X10'3 (4.5-11.0)
[2018-02-26 03:14] LABS: ALANINE AMINOTRANSFERASE 40 U/L (12-78); ALBUMIN 2.1 G/DL (3.4-5.0); ALBUMIN/GLOBULIN RATIO 0.7 (1.1-1.5); ALKALINE PHOSPHATASE 88 IU/L (46-116); ANION GAP 5 (8-16); ASPARTATE AMINO TRANSFERASE 37 U/L (10-37); BILIRUBIN,TOTAL 0.3 MG/DL (0.1-1.0); BLOOD UREA NITROGEN 8 MG/DL (7-18); BUN/CREATININE RATIO 14.8 (6.6-38.0); CALCIUM 7.6 MG/DL (8.5-10.1); CHLORIDE 107 MMOL/L (99-107); CREATININE 0.54 MG/DL (0.40-0.90); GLUCOSE 209 MG/DL (70-104); MAGNESIUM 1.9 MG/DL (1.5-2.4); PHOSPHORUS 2.2 MG/DL (2.3-4.5); POTASSIUM 4.3 MMOL/L (3.5-5.1); PREALBUMIN 11.7 MG/DL (19-36); SODIUM 140 MMOL/L (135-145); TOTAL CARBON DIOXIDE 27.8 MMOL/L (24-32); TOTAL PROTEIN 5.2 G/DL (6.4-8.2); eGFR > 90 ML/MIN
[2018-02-26 03:36] LABS: ABG BASE EXCESS -0.1 mmol/L (-2.0-3.0); ABG HCO3 25.2 mmol/L (22.0-26.0); ABG PCO2 (T) 44.5 mmHg (32.0-45.0); ABG PH (T) 7.373 (7.350-7.450); ABG PO2 (T) 67.5 mmHg (83-108); FCOHb 0.4 % (0.5-1.5); FMetHb 0.3 % (0.3-1.12); FO2Hb 91.4 % (94-100); MINUTE VOLUME 6 L/min; PATIENT TEMPERATURE 37.4; PEEP 5 cm H2O; RESPIRATORY RATE 12 b/min; RESPIRATORY RATE (OBSERVED) 12 b/min; TIDAL VOLUME 425 mL
[2018-02-26] MEDS: dexmedetomidin/NS 400mcg/100ml 100 ML IV SCH (05:48)
[2018-02-26] MEDS: CefTRIAXone 2gm/D5W 50ml 50 ML IV SCH (07:13)
[2018-02-26] MEDS: pantoprazole 40 MG vial IV SCH (07:21)
[2018-02-26] MEDS: albuterol 2.5 MG/3 ML nebule NEB SCH ×4 (07:25→20:58)
[2018-02-26] MEDS: heparin, porcine 5000 units/ml vial SQ SCH ×2 (07:26→20:43)
[2018-02-26] MEDS: gabapentin 300mg capsule PO SCH ×3 (07:27→20:42)
[2018-02-26] MEDS: lactobacillus rhamnosus 10,000 MMU CELLS/CAPSULE PO SCH ×2 (07:28→20:42)
[2018-02-26] MEDS: lisinopril 20mg tablet PO SCH (07:28)
[2018-02-26] MEDS: folic acid 1mg tablet PO SCH (07:28)
[2018-02-26] MEDS: multivitamins, therapeutics tablet PO SCH (07:28)
[2018-02-26] MEDS: ferrous sulfate 325mg tablet PO SCH ×2 (07:28→20:42)
[2018-02-26] MEDS: thiamine 100mg tablet PO SCH (07:28)
[2018-02-26] MEDS: lactulose 20gm/30ml cup PO SCH (07:29)
[2018-02-26] MEDS: K, MAG and/or Phos replacement - Verify level? MC SCH (08:00)
[2018-02-26] MEDS ORDERED: levoFLOXACIN-Levaquin 500mg/D5 150 ML IV SCH (08:00)
[2018-02-26] MEDS: K and/or MAG REPLACEMENT MC SCH (08:00)
[2018-02-26] MEDS: budesonide 0.5mg/2ml UD nebule IH SCH ×2 (09:19→20:59)
[2018-02-26] MEDS: vancomycin inj 1,250 MG in normal saline 250ml IV soln 250 ML IV SCH ×2 (10:05→17:33)
[2018-02-26] MEDS ORDERED: aspirin 81mg tablet.DR PO SCH (10:35)
[2018-02-26] MEDS: aspirin 81mg tab.chew PO SCH (11:08)
[2018-02-26 11:10] LABS: ABG HCO3 26.3 mmol/L (22.0-26.0); ABG OXYGEN SATURATION 94.5 % (95-98); ABG PCO2 (T) 44.8 mmHg (32.0-45.0); ABG PH (T) 7.387 (7.350-7.450); ABG PO2 (T) 70.8 mmHg (83-108); FCOHb 0.2 % (0.5-1.5); FMetHb 0.1 % (0.3-1.12); FO2Hb 94.2 % (94-100); MINUTE VOLUME 8 L/min; PEEP 5 cm H2O; RESPIRATORY RATE (OBSERVED) 18 b/min; TIDAL VOLUME 513 mL; TOTAL HEMOGLOBIN 12.4 G/dl (12.0-16.0)
[2018-02-26] MEDS: acetaminophen 325mg tablet PO PRN ×2 (14:56→21:26)
[2018-02-26] MEDS: carbidoba-levodopa 25-100mg tablet PO SCH (20:42)
[2018-02-26] MEDS: QUEtiapine 25mg tablet PO SCH (20:43)
[2018-02-26] MEDS: insulin glargine (Lantus) pen - multi-dose SQ SCH (21:33)
[2018-02-26] MEDS: losartan 50mg tablet PO SCH (22:59)
[2018-02-27] VITALS (14 sets, daily range): BP systolic 132–176; BP diastolic 76–98
[2018-02-27] MEDS ORDERED: VANCOMYCIN LEVEL IV NR (00:30)
[2018-02-27] MEDS: vancomycin inj 1,250 MG in normal saline 250ml IV soln 250 ML IV SCH (00:55)
[2018-02-27 00:59] LABS: ALANINE AMINOTRANSFERASE 11 U/L (12-78); ALBUMIN 2.4 G/DL (3.4-5.0); ALBUMIN/GLOBULIN RATIO 0.7 (1.1-1.5); ALKALINE PHOSPHATASE 86 IU/L (46-116); ANION GAP 3 (8-16); ASPARTATE AMINO TRANSFERASE 34 U/L (10-37); BILIRUBIN,TOTAL 0.3 MG/DL (0.1-1.0); BLOOD UREA NITROGEN 7 MG/DL (7-18); BUN/CREATININE RATIO 10.3 (6.6-38.0); CALCIUM 8.5 MG/DL (8.5-10.1); CHLORIDE 110 MMOL/L (99-107); CREATININE 0.68 MG/DL (0.40-0.90); GLUCOSE 227 MG/DL (70-104); MAGNESIUM 1.6 MG/DL (1.5-2.4); PHOSPHORUS 2.9 MG/DL (2.3-4.5); POTASSIUM 4.3 MMOL/L (3.5-5.1); SODIUM 145 MMOL/L (135-145); TOTAL CARBON DIOXIDE 31.6 MMOL/L (24-32); TOTAL PROTEIN 5.7 G/DL (6.4-8.2); eGFR 88 ML/MIN
[2018-02-27 01:12] LABS: VANCOMYCIN,TROUGH 23.6 UG/ML (6.0-14.0)
[2018-02-27 01:52] LABS: BASOPHILS # (AUTO) 0.1 X10'3 (0-0.2); BASOPHILS % (AUTO) 1.6 % (0-1); EOSINOPHILS # (AUTO) 0.1 X10'3 (0-0.9); EOSINOPHILS % (AUTO) 1.8 % (0-6); HEMOGLOBIN 10.8 g/dl (12.0-16.0); LYMPHOCYTES # (AUTO) 0.8 X10'3 (1.1-4.8); LYMPHOCYTES % (AUTO) 17.9 % (21-51); MEAN CORPUSCULAR HEMOGLOBIN 32.1 PG (27.0-31.0); MEAN CORPUSCULAR HGB CONC 33.7 % (33.0-36.5); MEAN CORPUSCULAR VOLUME 95.2 FL (78-98); MEAN PLATELET VOLUME 7.2 FL (7.4-10.4); MONOCYTES # (AUTO) 0.5 X10'3 (0-0.9); MONOCYTES % (AUTO) 11.8 % (2-12); NEUTROPHILS % (AUTO) 66.9 % (42-75); PLATELET COUNT 133 X10'3 (140-440); RED BLOOD COUNT 3.36 X10'6 (4.20-5.60); RED CELL DISTRIBUTION WIDTH 14.2 % (11.5-14.5); WHITE BLOOD COUNT 4.5 X10'3 (4.5-11.0)
[2018-02-27] MEDS: mineral oil/petrolatum ophthal oint EACHEYE SCH ×4 (01:55→21:38)
[2018-02-27] MEDS ORDERED: magnesium 2GM in 50ml NS 50 ML IV ONE (05:05)
[2018-02-27] MEDS: albuterol 2.5 MG/3 ML nebule NEB SCH ×4 (07:00→19:00)
[2018-02-27] MEDS: lactulose 20gm/30ml cup PO SCH (08:00)
[2018-02-27] MEDS: K and/or MAG REPLACEMENT MC SCH (08:00)
[2018-02-27] MEDS: K, MAG and/or Phos replacement - Verify level? MC SCH (08:00)
[2018-02-27] MEDS ORDERED: furosemide 40mg/4ml inj IV ONE (08:45)
[2018-02-27] MEDS ORDERED: vancomycin/NS 1 GM ADD-VANTAGE 250 ML IV SCH (09:00)
[2018-02-27] MEDS: aspirin 81mg tab.chew PO SCH (09:18)
[2018-02-27] MEDS: lactobacillus rhamnosus 10,000 MMU CELLS/CAPSULE PO SCH ×2 (09:18→20:18)
[2018-02-27] MEDS: losartan 50mg tablet PO SCH ×2 (09:18→20:17)
[2018-02-27] MEDS: gabapentin 300mg capsule PO SCH ×3 (09:18→20:17)
[2018-02-27] MEDS: folic acid 1mg tablet PO SCH (09:19)
[2018-02-27] MEDS: ferrous sulfate 325mg tablet PO SCH ×2 (09:19→20:17)
[2018-02-27] MEDS: thiamine 100mg tablet PO SCH (09:19)
[2018-02-27] MEDS: multivitamins, therapeutics tablet PO SCH (09:19)
[2018-02-27] MEDS: heparin, porcine 5000 units/ml vial SQ SCH ×2 (09:21→20:19)
[2018-02-27] MEDS: insulin Lispro (HumaLOG) vial - multi-dose SQ SCH ×3 (09:32→20:15)
[2018-02-27] MEDS: budesonide 0.5mg/2ml UD nebule IH SCH ×2 (09:36→20:02)
[2018-02-27] MEDS: levoFLOXACIN 500mg tablet PO SCH (11:51)
[2018-02-27] MEDS: sucralfate 1gm/10ml UD suspension PO SCH ×3 (11:52→20:17)
[2018-02-27 12:40] LABS: MAGNESIUM 1.9 MG/DL (1.5-2.4)
[2018-02-27] MEDS: HYDROcodone/acetaminophen 10/325mg tab PO PRN ×2 (13:13→21:40)
[2018-02-27] MEDS: QUEtiapine 25mg tablet PO SCH (20:17)
[2018-02-27] MEDS: carbidoba-levodopa 25-100mg tablet PO SCH (20:18)
[2018-02-27] MEDS: insulin glargine (Lantus) pen - multi-dose SQ SCH (23:45)
[2018-02-28 02:00] VITALS: BP 150/82
[2018-02-28] MEDS: mineral oil/petrolatum ophthal oint EACHEYE SCH ×4 (02:00→20:49)
[2018-02-28 05:03] LABS: BASOPHILS % (AUTO) 0.6 % (0-1); EOSINOPHILS # (AUTO) 0.2 X10'3 (0-0.9); EOSINOPHILS % (AUTO) 5.2 % (0-6); HEMATOCRIT 33.9 % (35.0-45.0); HEMOGLOBIN 11.4 g/dl (12.0-16.0); LYMPHOCYTES # (AUTO) 1.1 X10'3 (1.1-4.8); LYMPHOCYTES % (AUTO) 28.7 % (21-51); MEAN CORPUSCULAR HGB CONC 33.6 % (33.0-36.5); MEAN CORPUSCULAR VOLUME 95.1 FL (78-98); MEAN PLATELET VOLUME 6.8 FL (7.4-10.4); MONOCYTES # (AUTO) 0.5 X10'3 (0-0.9); MONOCYTES % (AUTO) 13.8 % (2-12); NEUTROPHILS # (AUTO) 1.9 X10'3 (1.8-7.7); NEUTROPHILS % (AUTO) 51.7 % (42-75); PLATELET COUNT 146 X10'3 (140-440); RED BLOOD COUNT 3.56 X10'6 (4.20-5.60); RED CELL DISTRIBUTION WIDTH 13.7 % (11.5-14.5); WHITE BLOOD COUNT 3.7 X10'3 (4.5-11.0)
[2018-02-28 05:13] LABS: ALBUMIN 2.4 G/DL (3.4-5.0); ANION GAP 2 (8-16); BILIRUBIN,TOTAL 0.4 MG/DL (0.1-1.0); BLOOD UREA NITROGEN 11 MG/DL (7-18); BUN/CREATININE RATIO 17.7 (6.6-38.0); CALCIUM 8.8 MG/DL (8.5-10.1); CHLORIDE 108 MMOL/L (99-107); CREATININE 0.62 MG/DL (0.40-0.90); GLUCOSE 147 MG/DL (70-104); MAGNESIUM 1.6 MG/DL (1.5-2.4); PHOSPHORUS 2.6 MG/DL (2.3-4.5); POTASSIUM 3.6 MMOL/L (3.5-5.1); SODIUM 145 MMOL/L (135-145); TOTAL CARBON DIOXIDE 34.7 MMOL/L (24-32); TOTAL PROTEIN 5.7 G/DL (6.4-8.2); eGFR > 90 ML/MIN
[2018-02-28 05:14] LABS: ALANINE AMINOTRANSFERASE 22 U/L (12-78); ALBUMIN/GLOBULIN RATIO 0.7 (1.1-1.5); ALKALINE PHOSPHATASE 75 IU/L (46-116); ASPARTATE AMINO TRANSFERASE 39 U/L (10-37)
[2018-02-28 06:00] VITALS: BP 166/85
[2018-02-28] MEDS: gabapentin 300mg capsule PO SCH ×3 (08:16→20:49)
[2018-02-28] MEDS: thiamine 100mg tablet PO SCH (08:17)
[2018-02-28] MEDS: lactobacillus rhamnosus 10,000 MMU CELLS/CAPSULE PO SCH ×2 (08:17→20:49)
[2018-02-28] MEDS: losartan 50mg tablet PO SCH ×2 (08:17→20:49)
[2018-02-28] MEDS: multivitamins, therapeutics tablet PO SCH (08:17)
[2018-02-28] MEDS: sucralfate 1gm/10ml UD suspension PO SCH ×4 (08:18→20:49)
[2018-02-28] MEDS: lactulose 20gm/30ml cup PO SCH (08:18)
[2018-02-28] MEDS: folic acid 1mg tablet PO SCH (08:18)
[2018-02-28] MEDS: ferrous sulfate 325mg tablet PO SCH ×2 (08:18→20:49)
[2018-02-28] MEDS: HYDROcodone/acetaminophen 10/325mg tab PO PRN ×3 (08:18→20:54)
[2018-02-28] MEDS: heparin, porcine 5000 units/ml vial SQ SCH ×2 (08:21→20:53)
[2018-02-28] MEDS ORDERED: VANCOMYCIN LEVEL IV NR (08:30)
[2018-02-28] MEDS: insulin Lispro (HumaLOG) vial - multi-dose SQ SCH ×3 (08:34→19:27)
[2018-02-28] MEDS: albuterol 2.5 MG/3 ML nebule NEB SCH ×4 (08:42→20:31)
[2018-02-28] MEDS: budesonide 0.5mg/2ml UD nebule IH SCH ×2 (08:42→20:31)
[2018-02-28] MEDS: levoFLOXACIN 500mg tablet PO SCH (10:40)
[2018-02-28 11:00] VITALS: BP 140/86
[2018-02-28 15:00] VITALS: BP 161/87
[2018-02-28 18:00] VITALS: BP 169/94
[2018-02-28] MEDS: QUEtiapine 25mg tablet PO SCH (20:49)
[2018-02-28] MEDS: carbidoba-levodopa 25-100mg tablet PO SCH (20:54)
[2018-02-28] MEDS: insulin glargine (Lantus) pen - multi-dose SQ SCH (21:47)
[2018-02-28 22:00] VITALS: BP 145/91
[2018-03-01 02:00] VITALS: BP 135/75
[2018-03-01] MEDS: mineral oil/petrolatum ophthal oint EACHEYE SCH ×2 (02:00→08:26)
[2018-03-01 05:25] LABS: BASOPHILS % (AUTO) 0.6 % (0-1); EOSINOPHILS # (AUTO) 0.2 X10'3 (0-0.9); EOSINOPHILS % (AUTO) 7.6 % (0-6); HEMATOCRIT 34.7 % (35.0-45.0); HEMOGLOBIN 11.6 g/dl (12.0-16.0); LYMPHOCYTES # (AUTO) 1.2 X10'3 (1.1-4.8); LYMPHOCYTES % (AUTO) 39.3 % (21-51); MEAN CORPUSCULAR HEMOGLOBIN 31.6 PG (27.0-31.0); MEAN CORPUSCULAR HGB CONC 33.4 % (33.0-36.5); MEAN CORPUSCULAR VOLUME 94.4 FL (78-98); MEAN PLATELET VOLUME 6.9 FL (7.4-10.4); MONOCYTES # (AUTO) 0.5 X10'3 (0-0.9); MONOCYTES % (AUTO) 16.2 % (2-12); NEUTROPHILS # (AUTO) 1.1 X10'3 (1.8-7.7); NEUTROPHILS % (AUTO) 36.3 % (42-75); PLATELET COUNT 162 X10'3 (140-440); RED BLOOD COUNT 3.68 X10'6 (4.20-5.60); RED CELL DISTRIBUTION WIDTH 13.9 % (11.5-14.5); WHITE BLOOD COUNT 2.9 X10'3 (4.5-11.0)
[2018-03-01 05:50] LABS: TOTAL CELLS COUNTED 100
[2018-03-01 05:51] LABS: PLATELET ESTIMATE NORMAL
[2018-03-01 06:00] VITALS: BP 156/81
[2018-03-01 06:00] LABS: ALANINE AMINOTRANSFERASE 32 U/L (12-78); ALBUMIN 2.6 G/DL (3.4-5.0); ALBUMIN/GLOBULIN RATIO 0.8 (1.1-1.5); ALKALINE PHOSPHATASE 78 IU/L (46-116); ANION GAP 5 (8-16); ASPARTATE AMINO TRANSFERASE 37 U/L (10-37); BILIRUBIN,TOTAL 0.3 MG/DL (0.1-1.0); CALCIUM 8.6 MG/DL (8.5-10.1); CHLORIDE 105 MMOL/L (99-107); CREATININE 0.59 MG/DL (0.40-0.90); GLUCOSE 164 MG/DL (70-104); MAGNESIUM 1.7 MG/DL (1.5-2.4); PHOSPHORUS 4.2 MG/DL (2.3-4.5); POTASSIUM 3.9 MMOL/L (3.5-5.1); SODIUM 144 MMOL/L (135-145); TOTAL CARBON DIOXIDE 33.8 MMOL/L (24-32); eGFR > 90 ML/MIN
[2018-03-01 06:11] LABS: BLOOD UREA NITROGEN 9 MG/DL (7-18); BUN/CREATININE RATIO 15.3 (6.6-38.0)
[2018-03-01] MEDS: albuterol 2.5 MG/3 ML nebule NEB SCH (07:27)
[2018-03-01] MEDS: HYDROcodone/acetaminophen 10/325mg tab PO PRN (08:21)
[2018-03-01] MEDS: losartan 50mg tablet PO SCH (08:23)
[2018-03-01] MEDS: sucralfate 1gm/10ml UD suspension PO SCH ×2 (08:23→11:33)
[2018-03-01] MEDS: aspirin 81mg tab.chew PO SCH (08:23)
[2018-03-01] MEDS: lactobacillus rhamnosus 10,000 MMU CELLS/CAPSULE PO SCH (08:24)
[2018-03-01] MEDS: ferrous sulfate 325mg tablet PO SCH (08:24)
[2018-03-01] MEDS: multivitamins, therapeutics tablet PO SCH (08:25)
[2018-03-01] MEDS: gabapentin 300mg capsule PO SCH ×2 (08:25→13:19)
[2018-03-01] MEDS: thiamine 100mg tablet PO SCH (08:25)
[2018-03-01] MEDS: folic acid 1mg tablet PO SCH (08:25)
[2018-03-01] MEDS: heparin, porcine 5000 units/ml vial SQ SCH (08:26)
[2018-03-01] MEDS ORDERED: LEVO500T89 PO (08:35)
[2018-03-01] MEDS ORDERED: SUCR1ORA PO (08:35)
[2018-03-01] MEDS: insulin Lispro (HumaLOG) vial - multi-dose SQ SCH ×2 (08:41→13:24)
[2018-03-01] MEDS: budesonide 0.5mg/2ml UD nebule IH SCH (09:00)
[2018-03-01 11:00] VITALS: BP 164/104
[2018-03-01] MEDS: levoFLOXACIN 500mg tablet PO SCH (11:33)
[2018-03-01 13:53] VITALS: BP 158/82
== END 2018-03-01 13:30 | disposition home or self-care (01) | DRG 710 ==
LOC: ER 22:50 → ED HOLD 02-24 01:51 → CICU 2S 02-24 02:55 → PCU 3S 02-27 12:55
PROVIDERS: ADMIT Internal Medicine Critical Care Medicine; ATTEND Internal Medicine Critical Care Medicine
PROC: 5A1945Z Respiratory Ventilation, 24-96 Consecutive Hours (ICD-10-PCS; principal; 2018-02-24)
PROC: 03HY32Z Insertion of Monitoring Device into Upper Artery, Percutaneous Approach (ICD-10-PCS; 2018-02-24)
PROC: 0BH17EZ Insertion of Endotracheal Airway into Trachea, Via Natural or Artificial Opening (ICD-10-PCS; 2018-02-24)
PROC: 02HV33Z Insertion of Infusion Device into Superior Vena Cava, Percutaneous Approach (ICD-10-PCS; 2018-02-24)
PROC: B548ZZA Ultrasonography of Superior Vena Cava, Guidance (ICD-10-PCS; 2018-02-24)
PROC: 4A133B1 Monitoring of Arterial Pressure, Peripheral, Percutaneous Approach (ICD-10-PCS; 2018-02-24)
PROC: 4A133J1 Monitoring of Arterial Pulse, Peripheral, Percutaneous Approach (ICD-10-PCS; 2018-02-24)
DX: A41.9 Sepsis, unspecified organism (principal); J96.00 Acute respiratory failure, unspecified whether with hypoxia or hypercapnia; I47.2 Ventricular tachycardia; N17.9 Acute kidney failure, unspecified; J18.9 Pneumonia, unspecified organism; E11.51 Type 2 diabetes mellitus with diabetic peripheral angiopathy without gangrene; I95.9 Hypotension, unspecified; D64.9 Anemia, unspecified; E11.9 Type 2 diabetes mellitus without complications; J43.9 Emphysema, unspecified; E78.00 Pure hypercholesterolemia, unspecified; K21.9 Gastro-esophageal reflux disease without esophagitis; B19.20 Unspecified viral hepatitis C without hepatic coma; F41.9 Anxiety disorder, unspecified; G89.29 Other chronic pain; Z60.2 Problems related to living alone; M54.9 Dorsalgia, unspecified; F15.90 Other stimulant use, unspecified, uncomplicated; Z88.0 Allergy status to penicillin; Z88.1 Allergy status to other antibiotic agents; Z88.8 Allergy status to other drugs, medicaments and biological substances; Z91.013 Allergy to seafood; Z86.73 Personal history of transient ischemic attack (TIA), and cerebral infarction without residual deficits; Z87.11 Personal history of peptic ulcer disease; Z82.49 Family history of ischemic heart disease and other diseases of the circulatory system; Z82.5 Family history of asthma and other chronic lower respiratory diseases; Z98.891 History of uterine scar from previous surgery; Z90.49 Acquired absence of other specified parts of digestive tract; Z87.891 Personal history of nicotine dependence; Z79.4 Long term (current) use of insulin
CPT/HCPCS: 36415; 36556; 36569; 36600; 70450; 71045; 76937; 80053; 80202; 80305; 80320; 80329; 81001; 81003; 82140; 82803; 82948; 83036; 83605; 83735; 84100; 84132; 84134; 84145; 85007; 85018; 85025; 85610; 85730; 87040; 87070; 87088; 93005; 94002; 94003; 94640; 94760; 96361; 96365; 96367; 99291; A6212; A6213; A6222; A6223; A6257; A6258; A6449; C9113; J0696; J1644; J1815; J1940; J1956; J2250; J2704; J3370; J3411; J3475; J3490; J7030; J7060; J7626

== ENCOUNTER 2018-03-30 23:51 | Emergency (ER) | payer MEDICAID ==
[~2018-03-30] VITALS: Ht 175.3 cm; Wt 70.5 kg
[~2018-03-30 23:51] MED LIST changes: +ACET-2006 PO; -ALB0.5UD IH; +FERR325T28 PO; +GABA-532 PO; +LACT10SO67 PO; +LEVO500T89 PO; -LISI-600 PO; +LOSA100T28 PO; -LOSA50TA37 PO; -OMEP40CA37 PO; +ONDA4TAB12 PO; -PRED5TAB PO; +QUET25TA PO; +SUCR1ORA PO; -TEMA15CA5 PO
[2018-03-31] MEDS ORDERED: HYDROcodone/acetaminophen 10/325mg tab PO ONE (02:50)
[2018-03-31] MEDS ORDERED: ondansetron 4mg rapidly disintigrating tab PO ONE (02:50)
[2018-03-31] MEDS ORDERED: ONDA4TAB9 PO (05:34)
[2018-03-31] MEDS ORDERED: HYDR-3965 PO (05:34)
[2018-03-31 05:40] VITALS: BP 146/98
[2018-03-31 06:11] LABS: CLARITY,URINE CLEAR (Clear); COLOR,URINE YELLOW (Yellow); GLUCOSE, URINE >=1000 mg/dl (Neg); KETONES,URINE NEGATIVE (Neg); LEUKOCYTE ESTERASE ,URINE NEGATIVE (Neg); NITRITES, URINE NEGATIVE (Neg); OCCULT BLOOD,URINE LARGE (Neg); PROTEIN,URINE NEGATIVE (Neg); UROBILINOGEN,URINE 0.2 E.U/dL (0.2-1.0)
[2018-03-31 06:14] LABS: UA COLLECTION TYPE CLN CATCH MIDSTREAM
[2018-03-31 06:18] LABS: BACTERIA,URINE NONE SEEN /HPF (Neg); MUCUS STRANDS NONE SEEN /LPF (Neg); RBC,URINE 0-2 /HPF (0-2); SQUAMOUS EPITHELIAL CELL,UR NONE SEEN /LPF (FEW); WBC,URINE NONE SEEN /HPF (0-4)
[2018-04-02 13:02] LABS: OCCULT BLOOD STOOL NEGATIVE (Neg)
== END 2018-03-31 06:16 | disposition home or self-care (01) ==
LOC: ER 23:51
DX: S32.2XXA Fracture of coccyx, initial encounter for closed fracture (principal); S30.814A Abrasion of vagina and vulva, initial encounter; E11.9 Type 2 diabetes mellitus without complications; I10 Essential (primary) hypertension; E78.00 Pure hypercholesterolemia, unspecified; Z86.73 Personal history of transient ischemic attack (TIA), and cerebral infarction without residual deficits; J44.9 Chronic obstructive pulmonary disease, unspecified; K21.9 Gastro-esophageal reflux disease without esophagitis; G89.29 Other chronic pain; Z90.49 Acquired absence of other specified parts of digestive tract; Z98.890 Other specified postprocedural states; F15.90 Other stimulant use, unspecified, uncomplicated; Z91.013 Allergy to seafood; Z88.0 Allergy status to penicillin; Z88.1 Allergy status to other antibiotic agents; Z88.6 Allergy status to analgesic agent; Z79.82 Long term (current) use of aspirin; Z79.4 Long term (current) use of insulin; Z79.899 Other long term (current) drug therapy; Z60.2 Problems related to living alone; W01.190A Fall on same level from slipping, tripping and stumbling with subsequent striking against furniture, initial encounter; Y93.89 Activity, other specified; Y92.89 Other specified places as the place of occurrence of the external cause; Y99.8 Other external cause status
CPT/HCPCS: 72131; 72192; 81001; 82272; 82948; 99285; J7030

== ENCOUNTER 2018-04-04 22:06 | Emergency (ER) | payer MEDICAID ==
[~2018-04-04] VITALS: Ht 149.9 cm; Wt 63.6 kg
[~2018-04-04 22:06] MED LIST changes: +HYDR-3965 PO; +ONDA4TAB9 PO
[2018-04-04] MEDS ORDERED: normal saline 1000ML IV soln IV ONE (22:35)
[2018-04-04] MEDS ORDERED: ipratropium/albuterol 3ml nebule NEB ONE (22:35)
[2018-04-04] MEDS ORDERED: albuterol 2.5 MG/3 ML nebule NEB ONE (22:35)
[2018-04-04 22:46] LABS: BASOPHILS % (AUTO) 0.5 % (0-1); EOSINOPHILS # (AUTO) 0.1 X10'3 (0-0.9); EOSINOPHILS % (AUTO) 1.4 % (0-6); HEMATOCRIT 41.3 % (35.0-45.0); HEMOGLOBIN 14.2 g/dl (12.0-16.0); LYMPHOCYTES # (AUTO) 3.1 X10'3 (1.1-4.8); LYMPHOCYTES % (AUTO) 34.4 % (21-51); MEAN CORPUSCULAR HEMOGLOBIN 32.6 PG (27.0-31.0); MEAN CORPUSCULAR HGB CONC 34.3 % (33.0-36.5); MEAN CORPUSCULAR VOLUME 94.8 FL (78-98); MEAN PLATELET VOLUME 7.2 FL (7.4-10.4); MONOCYTES # (AUTO) 1.1 X10'3 (0-0.9); MONOCYTES % (AUTO) 11.6 % (2-12); NEUTROPHILS # (AUTO) 4.7 X10'3 (1.8-7.7); NEUTROPHILS % (AUTO) 52.1 % (42-75); PLATELET COUNT 221 X10'3 (140-440); RED BLOOD COUNT 4.36 X10'6 (4.20-5.60); RED CELL DISTRIBUTION WIDTH 13.5 % (11.5-14.5); WHITE BLOOD COUNT 9.1 X10'3 (4.5-11.0)
[2018-04-04 22:57] LABS: PARTIAL THROMBOPLASTIN TIME 25 SECONDS (22-32); PROTHROMBIN TIME 10.1 SECONDS (9.0-12.0)
[2018-04-04 23:00] LABS: ALANINE AMINOTRANSFERASE 32 U/L (12-78); ALBUMIN 3.9 G/DL (3.4-5.0); ALBUMIN/GLOBULIN RATIO 1.1 (1.1-1.5); ALKALINE PHOSPHATASE 100 IU/L (46-116); ANION GAP 9 (8-16); ASPARTATE AMINO TRANSFERASE 47 U/L (10-37); BILIRUBIN,TOTAL 0.4 MG/DL (0.1-1.0); BLOOD UREA NITROGEN 12 MG/DL (7-18); BUN/CREATININE RATIO 8.9 (6.6-38.0); CALCIUM 8.8 MG/DL (8.5-10.1); CHLORIDE 101 MMOL/L (99-107); CREATININE 1.35 MG/DL (0.40-0.90); GLUCOSE 270 MG/DL (70-104); MAGNESIUM 1.2 MG/DL (1.5-2.4); POTASSIUM 4.1 MMOL/L (3.5-5.1); SODIUM 139 MMOL/L (135-145); TOTAL CARBON DIOXIDE 29.3 MMOL/L (24-32); TOTAL PROTEIN 7.6 G/DL (6.4-8.2); eGFR 40 ML/MIN
[2018-04-04 23:01] LABS: ABG BASE EXCESS -1.2 mmol/L (-2.0-3.0); ABG HCO3 24.7 mmol/L (22.0-26.0); ABG OXYGEN SATURATION 93.8 % (95-98); ABG PCO2 (T) 43.7 mmHg (32.0-45.0); ABG PH (T) 7.365 (7.350-7.450); ABG PO2 (T) 70.2 mmHg (83-108); FCOHb 0.7 % (0.5-1.5); FLOW 4 L/min; FMetHb 0.1 % (0.3-1.12); PATIENT TEMPERATURE 35.9; TOTAL HEMOGLOBIN 13.9 G/dl (12.0-16.0)
[2018-04-05 00:04] LABS: CLARITY,URINE CLEAR (Clear); COLOR,URINE YELLOW (Yellow); GLUCOSE, URINE 250 mg/dl (Neg); KETONES,URINE NEGATIVE (Neg); LEUKOCYTE ESTERASE ,URINE NEGATIVE (Neg); NITRITES, URINE NEGATIVE (Neg); OCCULT BLOOD,URINE NEGATIVE (Neg); PROTEIN,URINE TRACE mg/dl (Neg); UROBILINOGEN,URINE 0.2 E.U/dL (0.2-1.0)
[2018-04-05 00:09] LABS: UA COLLECTION TYPE STRAIGHT CATH
[2018-04-05 00:11] LABS: RBC,URINE NONE SEEN /HPF (0-2); WBC,URINE 0-4 /HPF (0-4)
[2018-04-05 00:12] LABS: BACTERIA,URINE NONE SEEN /HPF (Neg); HYALINE CASTS >30 /LPF (NEGATIVE); MUCUS STRANDS MANY /LPF (Neg); SQUAMOUS EPITHELIAL CELL,UR NONE SEEN /LPF (FEW); TRANSITIONAL EPI CELLS,URINE MODERATE /HPF
[2018-04-05 00:13] LABS: URINE AMPHETAMINE SCREEN NEGATIVE (Neg); URINE BARBITUATE SCREEN NEGATIVE (Neg); URINE BENZODIAZEPINES SCREEN NEGATIVE (Neg); URINE CANNABINOID SCREEN NEGATIVE (Neg); URINE COCAINE SCREEN NEGATIVE (Neg); URINE METHADONE SCREEN NEGATIVE (Neg); URINE OPIATE SCREEN POSITIVE (Neg); URINE PHENCYCLIDINE SCREEN NEGATIVE (Neg)
[2018-04-05] MEDS ORDERED: triamcinolone acetonide 40mg/ml inj IM ONE (00:50)
[2018-04-05] MEDS ORDERED: methylPREDNISolone sod succ 125mg/2ml vial IV ONE (00:50)
[2018-04-05] MEDS ORDERED: levoFLOXACIN 750MG TABLET PO ONE (00:50)
[2018-04-05] MEDS ORDERED: albuterol 2.5 MG/3 ML nebule NEB ONE (00:50)
[2018-04-05] MEDS ORDERED: LEVO500T2 PO (00:51)
[2018-04-05 01:49] VITALS: BP 129/74
== END 2018-04-05 01:50 | disposition home or self-care (01) ==
LOC: ER 22:07
DX: J44.1 Chronic obstructive pulmonary disease with (acute) exacerbation (principal); M53.3 Sacrococcygeal disorders, not elsewhere classified; F15.90 Other stimulant use, unspecified, uncomplicated; E78.00 Pure hypercholesterolemia, unspecified; I10 Essential (primary) hypertension; Z86.73 Personal history of transient ischemic attack (TIA), and cerebral infarction without residual deficits; K21.9 Gastro-esophageal reflux disease without esophagitis; E11.9 Type 2 diabetes mellitus without complications; G89.29 Other chronic pain; Z90.49 Acquired absence of other specified parts of digestive tract; Z98.890 Other specified postprocedural states; Z91.013 Allergy to seafood; Z88.0 Allergy status to penicillin; Z88.1 Allergy status to other antibiotic agents; Z88.6 Allergy status to analgesic agent; Z88.8 Allergy status to other drugs, medicaments and biological substances; Z79.82 Long term (current) use of aspirin; Z79.4 Long term (current) use of insulin; Z79.899 Other long term (current) drug therapy
CPT/HCPCS: 36415; 36600; 70450; 71045; 80053; 80305; 81001; 82803; 82948; 83605; 83735; 84145; 85018; 85025; 85610; 85730; 87040; 93005; 94640; 94760; 96372; 96374; 99285; J2930; J3301; 81003; J7030

== ENCOUNTER 2018-04-06 00:05 | Emergency (ER) | payer MEDICAID ==
[~2018-04-06] VITALS: Ht 149.9 cm; Wt 65.5 kg
[~2018-04-06 00:05] MED LIST changes: +LEVO500T2 PO
[2018-04-06 00:07] VITALS: BP_SYST 169
[2018-04-06] MEDS ORDERED: HYDROcodone/acetaminophen 10/325mg tab PO ONE (00:20)
[2018-04-06 00:36] VITALS: BP_DIAS 169
== END 2018-04-06 00:39 | disposition home or self-care (01) ==
LOC: ER 00:05
DX: G89.29 Other chronic pain (principal); M54.5 Low back pain; E78.00 Pure hypercholesterolemia, unspecified; I10 Essential (primary) hypertension; J44.9 Chronic obstructive pulmonary disease, unspecified; K21.9 Gastro-esophageal reflux disease without esophagitis; E11.9 Type 2 diabetes mellitus without complications; F15.90 Other stimulant use, unspecified, uncomplicated; Z90.89 Acquired absence of other organs; Z98.890 Other specified postprocedural states; Z60.2 Problems related to living alone; Z91.013 Allergy to seafood; Z88.0 Allergy status to penicillin; Z88.8 Allergy status to other drugs, medicaments and biological substances; Z79.82 Long term (current) use of aspirin; Z79.4 Long term (current) use of insulin; Z79.899 Other long term (current) drug therapy
CPT/HCPCS: 99282; 99283

== ENCOUNTER 2018-06-01 00:55 | Emergency (ER) | payer MEDICAID ==
[~2018-06-01] VITALS: Ht 167.6 cm; Wt 64.8 kg
[~2018-06-01 00:55] MED LIST changes: -HYDR-3965 PO; -LEVO500T2 PO; -ONDA4TAB9 PO
[2018-06-01] MEDS ORDERED: levoFLOXACIN-Levaquin 750MG/D5 150 ML IV STA (01:47)
[2018-06-01] MEDS ORDERED: normal saline 1000ML IV soln IV ONE (01:50)
[2018-06-01 03:20] LABS: BASOPHILS # (AUTO) 0.1 X10'3 (0-0.2); BASOPHILS % (AUTO) 0.4 % (0-1); EOSINOPHILS # (AUTO) 0.1 X10'3 (0-0.9); HEMATOCRIT 41.2 % (35.0-45.0); LYMPHOCYTES # (AUTO) 1.9 X10'3 (1.1-4.8); LYMPHOCYTES % (AUTO) 12.9 % (21-51); MEAN CORPUSCULAR HEMOGLOBIN 31.9 PG (27.0-31.0); MEAN CORPUSCULAR VOLUME 93.7 FL (78-98); MONOCYTES # (AUTO) 1.2 X10'3 (0-0.9); MONOCYTES % (AUTO) 8.1 % (2-12); NEUTROPHILS # (AUTO) 11.3 X10'3 (1.8-7.7); NEUTROPHILS % (AUTO) 77.6 % (42-75); PLATELET COUNT 158 X10'3 (140-440); RED BLOOD COUNT 4.39 X10'6 (4.20-5.60); RED CELL DISTRIBUTION WIDTH 14.4 % (11.5-14.5); WHITE BLOOD COUNT 14.5 X10'3 (4.5-11.0)
[2018-06-01 03:26] LABS: PARTIAL THROMBOPLASTIN TIME 25 SECONDS (22-32)
[2018-06-01 03:31] LABS: ALANINE AMINOTRANSFERASE 55 U/L (12-78); ALBUMIN 3.7 G/DL (3.4-5.0); ALBUMIN/GLOBULIN RATIO 1.1 (1.1-1.5); ALKALINE PHOSPHATASE 89 IU/L (46-116); ANION GAP 10 (8-16); ASPARTATE AMINO TRANSFERASE 28 U/L (10-37); BILIRUBIN,TOTAL 0.5 MG/DL (0.1-1.0); BLOOD UREA NITROGEN 20 MG/DL (7-18); CALCIUM 8.6 MG/DL (8.5-10.1); CHLORIDE 101 MMOL/L (99-107); CREATININE 0.91 MG/DL (0.40-0.90); GLUCOSE 115 MG/DL (70-104); SODIUM 136 MMOL/L (135-145); TOTAL CARBON DIOXIDE 25.1 MMOL/L (24-32); eGFR 63 ML/MIN
[2018-06-01] MEDS ORDERED: LEVO750T21 PO (05:07)
[2018-06-01 05:23] LABS: CLARITY,URINE CLEAR (Clear); COLOR,URINE YELLOW (Yellow); GLUCOSE, URINE 100 mg/dl (Neg); KETONES,URINE NEGATIVE (Neg); LEUKOCYTE ESTERASE ,URINE NEGATIVE (Neg); NITRITES, URINE NEGATIVE (Neg); OCCULT BLOOD,URINE NEGATIVE (Neg); PROTEIN,URINE NEGATIVE (Neg); UROBILINOGEN,URINE 0.2 E.U/dL (0.2-1.0)
[2018-06-01 05:33] LABS: UA COLLECTION TYPE CLN CATCH MIDSTREAM
[2018-06-01 05:34] VITALS: BP 138/84
[2018-06-01 11:11] LABS: PLATELET ESTIMATE NORMAL; SMUDGE CELLS 2+; TOTAL CELLS COUNTED 100; TOXIC GRANULATION 1+; TOXIC VACUOLATION 1+
== END 2018-06-01 05:39 | disposition left against medical advice (07) ==
LOC: ER 00:55
DX: J18.9 Pneumonia, unspecified organism (principal); K59.00 Constipation, unspecified; F15.90 Other stimulant use, unspecified, uncomplicated; E78.00 Pure hypercholesterolemia, unspecified; G89.29 Other chronic pain; I10 Essential (primary) hypertension; J44.9 Chronic obstructive pulmonary disease, unspecified; K21.9 Gastro-esophageal reflux disease without esophagitis; Z86.73 Personal history of transient ischemic attack (TIA), and cerebral infarction without residual deficits; E11.9 Type 2 diabetes mellitus without complications; Z90.49 Acquired absence of other specified parts of digestive tract; Z98.890 Other specified postprocedural states; Z91.013 Allergy to seafood; Z88.0 Allergy status to penicillin; Z88.1 Allergy status to other antibiotic agents; Z88.6 Allergy status to analgesic agent; Z88.8 Allergy status to other drugs, medicaments and biological substances; Z79.82 Long term (current) use of aspirin; Z79.4 Long term (current) use of insulin; Z79.899 Other long term (current) drug therapy; Z60.2 Problems related to living alone
CPT/HCPCS: 36415; 71045; 74176; 80053; 81003; 83605; 84145; 84484; 85025; 85610; 85730; 87040; 93005; 96365; 99285; J1956; J7030

== ENCOUNTER 2018-07-07 17:51 | Emergency (ER) | payer MEDICAID ==
[~2018-07-07] VITALS: Ht 149.9 cm; Wt 61.4 kg
[~2018-07-07 17:51] MED LIST changes: +LOSA100T15 PO; -LOSA100T28 PO
[2018-07-07 19:42] LABS: BASOPHILS # (AUTO) 0.1 X10'3 (0-0.2); BASOPHILS % (AUTO) 2.3 % (0-1); EOSINOPHILS # (AUTO) 0.1 X10'3 (0-0.9); EOSINOPHILS % (AUTO) 2.1 % (0-6); HEMATOCRIT 44.3 % (35.0-45.0); HEMOGLOBIN 14.5 g/dl (12.0-16.0); LYMPHOCYTES # (AUTO) 1.5 X10'3 (1.1-4.8); LYMPHOCYTES % (AUTO) 22.8 % (21-51); MEAN CORPUSCULAR HEMOGLOBIN 30.9 PG (27.0-31.0); MEAN CORPUSCULAR HGB CONC 32.8 % (33.0-36.5); MEAN CORPUSCULAR VOLUME 94.1 FL (78-98); MEAN PLATELET VOLUME 7.2 FL (7.4-10.4); MONOCYTES # (AUTO) 0.5 X10'3 (0-0.9); NEUTROPHILS # (AUTO) 4.2 X10'3 (1.8-7.7); NEUTROPHILS % (AUTO) 64.8 % (42-75); PLATELET COUNT 229 X10'3 (140-440); RED BLOOD COUNT 4.71 X10'6 (4.20-5.60); RED CELL DISTRIBUTION WIDTH 13.2 % (11.5-14.5); WHITE BLOOD COUNT 6.4 X10'3 (4.5-11.0)
[2018-07-07 19:51] LABS: ALANINE AMINOTRANSFERASE 14 U/L (12-78); ALBUMIN 3.6 G/DL (3.4-5.0); ALBUMIN/GLOBULIN RATIO 0.9 (1.1-1.5); ALKALINE PHOSPHATASE 82 IU/L (46-116); ANION GAP 7 (8-16); ASPARTATE AMINO TRANSFERASE 27 U/L (10-37); BILIRUBIN,TOTAL 0.5 MG/DL (0.1-1.0); BLOOD UREA NITROGEN 12 MG/DL (7-18); BUN/CREATININE RATIO 14.8 (6.6-38.0); CALCIUM 9.7 MG/DL (8.5-10.1); CHLORIDE 97 MMOL/L (99-107); CREATININE 0.81 MG/DL (0.40-0.90); GLUCOSE 306 MG/DL (70-104); POTASSIUM 4.4 MMOL/L (3.5-5.1); SODIUM 134 MMOL/L (135-145); TOTAL CARBON DIOXIDE 29.6 MMOL/L (24-32); TOTAL PROTEIN 7.4 G/DL (6.4-8.2); eGFR 72 ML/MIN
[2018-07-07 19:57] LABS: PARTIAL THROMBOPLASTIN TIME 25 SECONDS (22-32)
[2018-07-07] MEDS ORDERED: normal saline 1000ML IV soln IVB ONE ×2 (20:40→20:45)
[2018-07-07] MEDS ORDERED: ketorolac trometh inj. 60 MG/2 ML VIAL IM ONE (23:05)
[2018-07-07 23:19] VITALS: BP 149/83
== END 2018-07-07 23:20 | disposition home or self-care (01) ==
LOC: ER 17:56
DX: R55 Syncope and collapse (principal); E78.00 Pure hypercholesterolemia, unspecified; I10 Essential (primary) hypertension; J44.9 Chronic obstructive pulmonary disease, unspecified; K21.9 Gastro-esophageal reflux disease without esophagitis; G89.29 Other chronic pain; E11.9 Type 2 diabetes mellitus without complications; F15.90 Other stimulant use, unspecified, uncomplicated; Z98.890 Other specified postprocedural states; Z90.49 Acquired absence of other specified parts of digestive tract; Z86.73 Personal history of transient ischemic attack (TIA), and cerebral infarction without residual deficits; Z79.899 Other long term (current) drug therapy; Z79.82 Long term (current) use of aspirin; Z79.4 Long term (current) use of insulin; Z91.013 Allergy to seafood; Z88.0 Allergy status to penicillin; Z88.6 Allergy status to analgesic agent; Z88.1 Allergy status to other antibiotic agents
CPT/HCPCS: 36415; 70450; 71045; 80053; 82948; 84484; 85025; 85610; 85730; 93005; 96360; 96372; 99285; J1885

== ENCOUNTER 2018-07-13 12:36 | Emergency (ER) | payer MEDICAID ==
[~2018-07-13] VITALS: Ht 149.9 cm; Wt 61.8 kg
[2018-07-13] MEDS ORDERED: aspirin 81mg tab.chew PO ONE (12:45)
[2018-07-13] MEDS ORDERED: normal saline 1000ML IV soln IVB ONE (12:45)
[2018-07-13 13:14] LABS: BASOPHILS % (AUTO) 0.6 % (0-1); EOSINOPHILS # (AUTO) 0.2 X10'3 (0-0.9); EOSINOPHILS % (AUTO) 4.1 % (0-6); HEMATOCRIT 36.8 % (35.0-45.0); HEMOGLOBIN 12.3 g/dl (12.0-16.0); LYMPHOCYTES # (AUTO) 2.1 X10'3 (1.1-4.8); LYMPHOCYTES % (AUTO) 40.6 % (21-51); MEAN CORPUSCULAR HEMOGLOBIN 31.8 PG (27.0-31.0); MEAN CORPUSCULAR HGB CONC 33.4 % (33.0-36.5); MEAN CORPUSCULAR VOLUME 95.4 FL (78-98); MONOCYTES # (AUTO) 0.7 X10'3 (0-0.9); MONOCYTES % (AUTO) 13.3 % (2-12); NEUTROPHILS # (AUTO) 2.1 X10'3 (1.8-7.7); NEUTROPHILS % (AUTO) 41.4 % (42-75); PLATELET COUNT 208 X10'3 (140-440); RED BLOOD COUNT 3.86 X10'6 (4.20-5.60); RED CELL DISTRIBUTION WIDTH 14.1 % (11.5-14.5); WHITE BLOOD COUNT 5.1 X10'3 (4.5-11.0)
[2018-07-13 13:27] LABS: ALANINE AMINOTRANSFERASE 33 U/L (12-78); ALBUMIN 3.2 G/DL (3.4-5.0); ALBUMIN/GLOBULIN RATIO 1.1 (1.1-1.5); ALKALINE PHOSPHATASE 67 IU/L (46-116); ANION GAP 6 (8-16); ASPARTATE AMINO TRANSFERASE 19 U/L (10-37); BILIRUBIN,TOTAL 0.3 MG/DL (0.1-1.0); BLOOD UREA NITROGEN 10 MG/DL (7-18); BUN/CREATININE RATIO 10.9 (6.6-38.0); CALCIUM 8.9 MG/DL (8.5-10.1); CHLORIDE 102 MMOL/L (99-107); CREATININE 0.92 MG/DL (0.40-0.90); GLUCOSE 281 MG/DL (70-104); POTASSIUM 4.3 MMOL/L (3.5-5.1); SODIUM 138 MMOL/L (135-145); TOTAL PROTEIN 6.2 G/DL (6.4-8.2); eGFR 62 ML/MIN
[2018-07-13 13:33] LABS: ETHANOL < 0.010 GM/DL (0.0-0.010); MAGNESIUM 1.3 MG/DL (1.5-2.4)
[2018-07-13 13:55] LABS: CLARITY,URINE CLOUDY (Clear); COLOR,URINE YELLOW (Yellow); GLUCOSE, URINE 500 mg/dl (Neg); KETONES,URINE NEGATIVE (Neg); LEUKOCYTE ESTERASE ,URINE MODERATE (Neg); NITRITES, URINE NEGATIVE (Neg); OCCULT BLOOD,URINE NEGATIVE (Neg); PH,URINE 5.5 (4.8-8.0); PROTEIN,URINE NEGATIVE (Neg); UROBILINOGEN,URINE 0.2 E.U/dL (0.2-1.0)
[2018-07-13 13:56] LABS: UA COLLECTION TYPE CLN CATCH MIDSTREAM
[2018-07-13 14:03] LABS: MUCUS STRANDS NONE SEEN /LPF (Neg); SQUAMOUS EPITHELIAL CELL,UR FEW /LPF (FEW); TRANSITIONAL EPI CELLS,URINE FEW /HPF
[2018-07-13 14:04] LABS: HYALINE CASTS 0-3 /LPF (NEGATIVE)
[2018-07-13 14:05] LABS: AMORPHOUS URATES 2+; BACTERIA,URINE FEW /HPF (Neg); WBC,URINE 50-100 /HPF (0-4)
[2018-07-13] MEDS ORDERED: CEPH500C5 PO (14:15)
[2018-07-13] MEDS ORDERED: cephalexin 500mg capsule PO ONE (14:15)
[2018-07-13 14:58] VITALS: BP 157/91
== END 2018-07-13 14:59 | disposition home or self-care (01) ==
LOC: ER 12:36
DX: R55 Syncope and collapse (principal); R41.82 Altered mental status, unspecified; F15.10 Other stimulant abuse, uncomplicated; I10 Essential (primary) hypertension; J44.9 Chronic obstructive pulmonary disease, unspecified; K21.9 Gastro-esophageal reflux disease without esophagitis; E78.00 Pure hypercholesterolemia, unspecified; G89.29 Other chronic pain; F41.9 Anxiety disorder, unspecified; E11.9 Type 2 diabetes mellitus without complications; Z87.11 Personal history of peptic ulcer disease; Z87.440 Personal history of urinary (tract) infections; Z79.82 Long term (current) use of aspirin; Z79.4 Long term (current) use of insulin; Z79.899 Other long term (current) drug therapy; Z88.2 Allergy status to sulfonamides; Z88.0 Allergy status to penicillin; Z88.1 Allergy status to other antibiotic agents; Z88.6 Allergy status to analgesic agent; Z88.8 Allergy status to other drugs, medicaments and biological substances
CPT/HCPCS: 36415; 71045; 80053; 80320; 81001; 83735; 83880; 84484; 85025; 87088; 93005; 96360; 99285

== ENCOUNTER 2018-10-29 08:41 | Emergency (ER) | payer MEDICAID ==
[~2018-10-29] VITALS: Ht 149.9 cm; Wt 59.1 kg
[~2018-10-29 08:41] MED LIST changes: -ALEN70TA13 PO; +CALC-3 PO; +FLUO20CA39 PO; -LACT10SO67 PO; -LEVO500T89 PO; -LOSA100T15 PO; +PRED10TA PO; -SUCR1ORA PO; -THI100T PO; +TIZA4CAP PO
--- NOTE | 2018-10-29 09:53 | NUR ---
pt went to [facility] 5 days ago had additional UA ran. timi stated pt had no uti.
[2018-10-29] MEDS ORDERED: normal saline 1000ml 1,000 ML IV ONE (10:40)
[2018-10-29 11:27] LABS: BASOPHILS % (AUTO) 0.6 % (0-1); EOSINOPHILS # (AUTO) 0.1 X10'3 (0-0.9); EOSINOPHILS % (AUTO) 1.8 % (0-6); HEMATOCRIT 38.1 % (35.0-45.0); LYMPHOCYTES # (AUTO) 2.1 X10'3 (1.1-4.8); LYMPHOCYTES % (AUTO) 30.3 % (21-51); MEAN CORPUSCULAR HEMOGLOBIN 31.7 PG (27.0-31.0); MEAN CORPUSCULAR HGB CONC 34.3 g/dL (33.0-36.5); MEAN CORPUSCULAR VOLUME 92.5 FL (78-98); MEAN PLATELET VOLUME 7.4 FL (7.4-10.4); MONOCYTES # (AUTO) 0.5 X10'3 (0-0.9); MONOCYTES % (AUTO) 7.9 % (2-12); NEUTROPHILS # (AUTO) 4.1 X10'3 (1.8-7.7); NEUTROPHILS % (AUTO) 59.4 % (42-75); PLATELET COUNT 178 X10'3 (140-440); RED BLOOD COUNT 4.11 X10'6 (4.20-5.60); RED CELL DISTRIBUTION WIDTH 12.8 % (11.5-14.5); WHITE BLOOD COUNT 6.8 X10'3 (4.5-11.0)
[2018-10-29 11:40] LABS: URINE HCG NEGATIVE (NEG)
[2018-10-29 11:41] LABS: ALANINE AMINOTRANSFERASE 18 U/L (12-78); ALBUMIN 3.4 G/DL (3.4-5.0); ALKALINE PHOSPHATASE 80 IU/L (46-116); ANION GAP 10 (8-16); BILIRUBIN,TOTAL 0.2 MG/DL (0.1-1.0); BLOOD UREA NITROGEN 20 MG/DL (7-18); BUN/CREATININE RATIO 18.7 (6.6-38.0); CALCIUM 8.6 MG/DL (8.5-10.1); CHLORIDE 104 MMOL/L (99-107); CREATININE 1.07 MG/DL (0.40-0.90); GLUCOSE 266 MG/DL (70-104); MAGNESIUM 1.6 MG/DL (1.5-2.4); POTASSIUM 4.3 MMOL/L (3.5-5.1); SODIUM 141 MMOL/L (135-145); TOTAL CARBON DIOXIDE 27.2 MMOL/L (24-32); TOTAL PROTEIN 6.9 G/DL (6.4-8.2); eGFR 52 ML/MIN
[2018-10-29 11:43] LABS: ASPARTATE AMINO TRANSFERASE 14 U/L (10-37)
[2018-10-29 11:44] LABS: PARTIAL THROMBOPLASTIN TIME 24 SECONDS (22-32); PROTHROMBIN TIME 9.9 SECONDS (9.0-12.0)
[2018-10-29 11:46] LABS: CLARITY,URINE SLIGHTLY CLOUDY (Clear); COLOR,URINE YELLOW (Yellow); GLUCOSE, URINE NEGATIVE (Neg); KETONES,URINE TRACE mg/dl (Neg); LEUKOCYTE ESTERASE ,URINE TRACE (Neg); NITRITES, URINE NEGATIVE (Neg); OCCULT BLOOD,URINE NEGATIVE (Neg); PH,URINE 5.5 (4.8-8.0); PROTEIN,URINE NEGATIVE (Neg); UA COLLECTION TYPE STRAIGHT CATH; UROBILINOGEN,URINE 0.2 E.U/dL (0.2-1.0)
[2018-10-29 11:51] LABS: BACTERIA,URINE FEW /HPF (Neg); SQUAMOUS EPITHELIAL CELL,UR FEW /LPF (FEW); URINE AMPHETAMINE SCREEN NEGATIVE (Neg); URINE BARBITUATE SCREEN NEGATIVE (Neg); URINE BENZODIAZEPINES SCREEN NEGATIVE (Neg); URINE CANNABINOID SCREEN NEGATIVE (Neg); URINE COCAINE SCREEN NEGATIVE (Neg); URINE METHADONE SCREEN NEGATIVE (Neg); URINE OPIATE SCREEN POSITIVE (Neg); URINE PHENCYCLIDINE SCREEN NEGATIVE (Neg)
[2018-10-29 11:52] LABS: RBC,URINE 0-2 /HPF (0-2); TRANSITIONAL EPI CELLS,URINE FEW /HPF; WBC,URINE 0-4 /HPF (0-4)
--- NOTE | 2018-10-29 12:13 | NUR ---
assumed care of pt from Raúl VAZQUEZ
--- NOTE | 2018-10-29 12:20 | NUR ---
pt is sleeping, resp even and unlabored
[2018-10-29 13:02] VITALS: BP 127/59
== END 2018-10-29 13:03 | disposition home or self-care (01) ==
LOC: ER 08:43
DX: R41.0 Disorientation, unspecified (principal); T46.1X5A Adverse effect of calcium-channel blockers, initial encounter; E78.00 Pure hypercholesterolemia, unspecified; I10 Essential (primary) hypertension; J44.9 Chronic obstructive pulmonary disease, unspecified; K21.9 Gastro-esophageal reflux disease without esophagitis; G89.29 Other chronic pain; E11.9 Type 2 diabetes mellitus without complications; F15.90 Other stimulant use, unspecified, uncomplicated; Z98.890 Other specified postprocedural states; Z90.49 Acquired absence of other specified parts of digestive tract; Z86.73 Personal history of transient ischemic attack (TIA), and cerebral infarction without residual deficits; Z91.013 Allergy to seafood; Z88.8 Allergy status to other drugs, medicaments and biological substances; Z88.0 Allergy status to penicillin; Z88.1 Allergy status to other antibiotic agents; Z79.82 Long term (current) use of aspirin; Z79.4 Long term (current) use of insulin; Y92.89 Other specified places as the place of occurrence of the external cause
CPT/HCPCS: 36415; 71045; 80053; 80305; 81001; 81025; 82140; 83605; 83735; 84145; 85025; 85610; 85730; 87040; 87088; 93005; 96360; 99284; J7030

== ENCOUNTER 2018-11-05 09:06 | Inpatient (IN) | payer MEDICAID ==
[~2018-11-05] VITALS: Ht 147.3 cm; Wt 60.0 kg
[2018-11-05] MEDS ORDERED: normal saline 1000ML IV soln IVB ONE (09:45)
[2018-11-05 10:35] LABS: BASOPHILS % (AUTO) 0.6 % (0-1); EOSINOPHILS # (AUTO) 0.1 X10'3 (0-0.9); HEMATOCRIT 35.2 % (35.0-45.0); HEMOGLOBIN 12.2 g/dl (12.0-16.0); LYMPHOCYTES # (AUTO) 1.6 X10'3 (1.1-4.8); LYMPHOCYTES % (AUTO) 20.4 % (21-51); MEAN CORPUSCULAR HEMOGLOBIN 31.5 PG (27.0-31.0); MEAN CORPUSCULAR HGB CONC 34.6 g/dL (33.0-36.5); MEAN PLATELET VOLUME 8.1 FL (7.4-10.4); MONOCYTES # (AUTO) 0.7 X10'3 (0-0.9); MONOCYTES % (AUTO) 9.2 % (2-12); NEUTROPHILS # (AUTO) 5.5 X10'3 (1.8-7.7); NEUTROPHILS % (AUTO) 68.8 % (42-75); PLATELET COUNT 183 X10'3 (140-440); RED BLOOD COUNT 3.86 X10'6 (4.20-5.60); RED CELL DISTRIBUTION WIDTH 13.1 % (11.5-14.5)
[2018-11-05 10:50] LABS: PARTIAL THROMBOPLASTIN TIME 24 SECONDS (22-32)
[2018-11-05 10:58] LABS: ANION GAP 11 (8-16); BLOOD UREA NITROGEN 20 MG/DL (7-18); BUN/CREATININE RATIO 18.9 (6.6-38.0); CALCIUM 9.2 MG/DL (8.5-10.1); CHLORIDE 97 MMOL/L (99-107); CREATININE 1.06 MG/DL (0.40-0.90); SODIUM 134 MMOL/L (135-145); TOTAL CARBON DIOXIDE 26.5 MMOL/L (24-32); eGFR 52 ML/MIN
[2018-11-05 10:59] LABS: ALANINE AMINOTRANSFERASE 20 U/L (12-78); ALBUMIN/GLOBULIN RATIO 0.8 (1.1-1.5); ALKALINE PHOSPHATASE 83 IU/L (46-116); BILIRUBIN,TOTAL 0.4 MG/DL (0.1-1.0); MAGNESIUM 1.8 MG/DL (1.5-2.4); TOTAL PROTEIN 6.8 G/DL (6.4-8.2)
[2018-11-05 11:00] LABS: ASPARTATE AMINO TRANSFERASE 19 U/L (10-37); POTASSIUM 4.9 MMOL/L (3.5-5.1)
[2018-11-05 11:05] LABS: GLUCOSE 529 MG/DL (70-104)
[2018-11-05] MEDS ORDERED: insulin regular, human 10 units/0.1 ml syringe IV ONE (11:15)
[2018-11-05] MEDS ORDERED: dextrose 50%-water 50ml dispensing syringe IV PRN ×2 (11:45)
[2018-11-05] MEDS ORDERED: ipratropium/albuterol 3ml nebule NEB PRN (11:45)
[2018-11-05] MEDS ORDERED: potassium Cl 40MEQ/NS 500ml 500 ML IV PRN ×2 (11:45)
[2018-11-05] MEDS ORDERED: potassium Cl 20 mEq SR tablet PO PRN ×2 (11:45)
[2018-11-05] MEDS ORDERED: mag hydrox/Alum hydrox/simeth 30ml oral suspension PO PRN (11:45)
[2018-11-05] MEDS ORDERED: glucagon, human recombinant 1mg kit SUBCUT PRN (11:45)
[2018-11-05] MEDS ORDERED: ondansetron/PF 4mg/2ml inj IV PRN (11:45)
[2018-11-05] MEDS ORDERED: acetaminophen 325mg tablet PO PRN ×2 (11:45→12:10)
[2018-11-05] MEDS ORDERED: dextrose ORAL solution 15 GM/59 ML bottle PO PRN ×2 (11:45)
[2018-11-05] MEDS ORDERED: magnesium 2GM in 50ml NS 50 ML IV PRN (11:45)
[2018-11-05] MEDS ORDERED: magnesium 4gm in 100ml NS 100 ML IV PRN (11:45)
[2018-11-05] MEDS ORDERED: MESSAGE TO PHARMACY PO ONE (11:45)
[2018-11-05] MEDS ORDERED: LEVALBUTEROL TARTRATE IH PRN (12:10)
[2018-11-05] MEDS ORDERED: ondansetron 4mg rapidly disintigrating tab PO PRN (12:10)
[2018-11-05] MEDS: gabapentin 300mg capsule PO SCH ×2 (13:00→21:14)
[2018-11-05 13:18] LABS: CLARITY,URINE CLEAR (Clear); COLOR,URINE YELLOW (Yellow); GLUCOSE, URINE >=1000 mg/dl (Neg); KETONES,URINE NEGATIVE (Neg); LEUKOCYTE ESTERASE ,URINE NEGATIVE (Neg); NITRITES, URINE NEGATIVE (Neg); OCCULT BLOOD,URINE NEGATIVE (Neg); PROTEIN,URINE NEGATIVE (Neg); UROBILINOGEN,URINE 0.2 E.U/dL (0.2-1.0)
[2018-11-05 13:26] LABS: URINE AMPHETAMINE SCREEN NEGATIVE (Neg); URINE BARBITUATE SCREEN NEGATIVE (Neg); URINE BENZODIAZEPINES SCREEN NEGATIVE (Neg); URINE CANNABINOID SCREEN NEGATIVE (Neg); URINE COCAINE SCREEN NEGATIVE (Neg); URINE METHADONE SCREEN NEGATIVE (Neg); URINE OPIATE SCREEN POSITIVE (Neg); URINE PHENCYCLIDINE SCREEN NEGATIVE (Neg)
[2018-11-05 13:28] LABS: HEMOGLOBIN A1C 9.6 % (4.5-6.2)
[2018-11-05 13:50] LABS: UA COLLECTION TYPE STRAIGHT CATH
[2018-11-05 13:51] LABS: SQUAMOUS EPITHELIAL CELL,UR FEW /LPF (FEW)
[2018-11-05 13:52] LABS: BACTERIA,URINE FEW /HPF (Neg); RBC,URINE 0-2 /HPF (0-2); WBC,URINE 0-4 /HPF (0-4)
--- NOTE | 2018-11-05 14:17 | NUR ---
RELIEVING RN FOR BREAK, PT IS IN MRI, FAMILY AT BEDSIDE
[2018-11-05] MEDS: normal saline 1000ml 1,000 ML IV SCH ×2 (15:35→21:35)
[2018-11-05] MEDS ORDERED: cyclobenzaprine 10mg tablet PO PRN (16:00)
[2018-11-05 18:00] VITALS: BP 150/91
--- NOTE | 2018-11-05 18:24 | NUR ---
PAGER ID: [phone] MESSAGE: Margi cortés re Marce boyce in [id number]- can you call me? She wants pain med for back and legs 05/08 and and can we feed her? Thank you!
--- NOTE | 2018-11-05 18:54 | NUR ---
Patient in room ORTHO 4009. I have received report from Margi VAZQUEZ and had the opportunity to ask questions and assume patient care.
[2018-11-05] MEDS: insulin Lispro (HumaLOG) vial - multi-dose SQ SCH (19:24)
[2018-11-05] MEDS ORDERED: non-formulary drug (Budesonide/Formoterol Fumarate (Symbicort 160-4.5 Mcg Inhaler) 1 PUFF) IH SCH (20:00)
[2018-11-05] MEDS: budesonide 0.5mg/2ml UD nebule IH SCH (20:08)
[2018-11-05] MEDS: ferrous sulfate 325mg tablet PO SCH (21:13)
[2018-11-05] MEDS: QUEtiapine 25mg tablet PO SCH (21:14)
[2018-11-05] MEDS: calcium carbonate/vitamin D3 tablet PO SCH (21:14)
[2018-11-05] MEDS: carbidoba-levodopa 25-100mg tablet PO SCH (21:14)
[2018-11-05] MEDS: HYDROcodone/acetaminophen 5mg/325mg tablet PO PRN (21:15)
[2018-11-05] MEDS: insulin glargine (Lantus) pen - multi-dose SQ SCH (21:24)
[2018-11-05 22:00] VITALS: BP 152/102
[2018-11-06 02:00] VITALS: BP 123/87
[2018-11-06] MEDS: HYDROcodone/acetaminophen 5mg/325mg tablet PO PRN ×4 (02:07→19:54)
[2018-11-06] MEDS: normal saline 1000ml 1,000 ML IV SCH ×4 (03:30→16:24)
[2018-11-06 06:00] VITALS: BP 158/88
[2018-11-06 06:20] LABS: BASOPHILS % (AUTO) 0.6 % (0-1); EOSINOPHILS # (AUTO) 0.2 X10'3 (0-0.9); EOSINOPHILS % (AUTO) 2.7 % (0-6); HEMATOCRIT 37.9 % (35.0-45.0); HEMOGLOBIN 12.8 g/dl (12.0-16.0); LYMPHOCYTES # (AUTO) 2.3 X10'3 (1.1-4.8); LYMPHOCYTES % (AUTO) 34.3 % (21-51); MEAN CORPUSCULAR HEMOGLOBIN 31.2 PG (27.0-31.0); MEAN CORPUSCULAR HGB CONC 33.9 g/dL (33.0-36.5); MEAN CORPUSCULAR VOLUME 92.2 FL (78-98); MEAN PLATELET VOLUME 7.7 FL (7.4-10.4); MONOCYTES # (AUTO) 0.7 X10'3 (0-0.9); NEUTROPHILS # (AUTO) 3.5 X10'3 (1.8-7.7); NEUTROPHILS % (AUTO) 52.4 % (42-75); PLATELET COUNT 188 X10'3 (140-440); RED BLOOD COUNT 4.11 X10'6 (4.20-5.60); RED CELL DISTRIBUTION WIDTH 12.9 % (11.5-14.5); WHITE BLOOD COUNT 6.8 X10'3 (4.5-11.0)
--- NOTE | 2018-11-06 06:38 | NUR ---
Problems reprioritized. Patient report given, questions answered & plan of care reviewed with Margi VAZQUEZ.
[2018-11-06 06:44] LABS: ALANINE AMINOTRANSFERASE 19 U/L (12-78); ALBUMIN/GLOBULIN RATIO 0.8 (1.1-1.5); ALKALINE PHOSPHATASE 87 IU/L (46-116); ANION GAP 11 (8-16); ASPARTATE AMINO TRANSFERASE 15 U/L (10-37); BILIRUBIN,TOTAL 0.3 MG/DL (0.1-1.0); BLOOD UREA NITROGEN 9 MG/DL (7-18); BUN/CREATININE RATIO 12.9 (6.6-38.0); CALCIUM 8.5 MG/DL (8.5-10.1); CHLORIDE 109 MMOL/L (99-107); CHOL/HDL RATIO 4.8 (0.00-4.99); CHOLESTEROL 148 MG/DL (0-200); GLUCOSE 98 MG/DL (70-104); HDL CHOLESTEROL 31 MG/DL (35-60); LDL CHOLESTEROL 92 MG/DL (50-100); MAGNESIUM 1.6 MG/DL (1.5-2.4); SODIUM 146 MMOL/L (135-145); TOTAL PROTEIN 6.7 G/DL (6.4-8.2); TRIGLYCERIDES 179 MG/DL (20-135); eGFR 85 ML/MIN
[2018-11-06] MEDS: K and/or MAG REPLACEMENT MC SCH (08:00)
[2018-11-06] MEDS: ferrous sulfate 325mg tablet PO SCH ×2 (08:09→21:11)
[2018-11-06] MEDS: gabapentin 300mg capsule PO SCH ×3 (08:09→21:11)
[2018-11-06] MEDS: enoxaparin 40mg/0.4ml syringe SQ SCH (08:09)
[2018-11-06] MEDS: calcium carbonate/vitamin D3 tablet PO SCH ×2 (08:09→21:11)
[2018-11-06] MEDS: folic acid 1mg tablet PO SCH (08:09)
[2018-11-06] MEDS: FLUoxetine 20mg capsule PO SCH (08:10)
[2018-11-06] MEDS: aspirin 81mg tablet.DR PO SCH (08:10)
--- NOTE | 2018-11-06 09:39 | NUR ---
PAGER ID: [phone] MESSAGE: reggie [phone] mraga Marce Taylor in 4009a- sbp ranging from 167-187, HR 98. verapamil 240mg QD at home. Poss subacute infarct on MRI, do we still need to hold BP meds? Arranging for tele neuro consult this am
--- NOTE | 2018-11-06 09:42 | NUR ---
Initial: Pt admit with encephalopathy and frequent falls likely secondary to subacute CVA per H&P. Pt with T2DM current A1c 9.6. Pt currently not appropriate for education at this time greg/roro brink. Pt seen by ABHINAV 09/01/18 and given written and verbal DM ed with referral to outpatient DM class and RD contact information. Pt currently on CHO controlled diet w/no documented PO intake. LBM 11/06. Will continue to follow. Recommendations: 1) Continue with CHO controlled diet 2) Monitor need for additional DM ed 3) Wt per rx Addendum: 11/06/18 at [address] Amended: Links added.
[2018-11-06 10:00] VITALS: BP 166/82
[2018-11-06] MEDS: ipratropium 0.5 MG/2.5ML nebule NEB SCH ×3 (10:14→20:11)
[2018-11-06] MEDS: budesonide 0.5mg/2ml UD nebule IH SCH ×2 (10:14→20:10)
[2018-11-06 14:00] VITALS: BP 160/87
[2018-11-06] MEDS: insulin Lispro (HumaLOG) vial - multi-dose SQ SCH ×2 (14:17→19:22)
[2018-11-06] MEDS: verapamil SR 120mg (sust. release) tab PO SCH (14:21)
[2018-11-06] MEDS: atorvastatin 20mg tablet PO SCH (17:25)
[2018-11-06 18:00] VITALS: BP 154/97
--- NOTE | 2018-11-06 18:57 | NUR ---
Patient in room ORTHO 4009. I have received report from Margi VAZQUEZ and had the opportunity to ask questions and assume patient care.
[2018-11-06] MEDS: QUEtiapine 25mg tablet PO SCH (21:11)
[2018-11-06] MEDS: carbidoba-levodopa 25-100mg tablet PO SCH (21:12)
[2018-11-06] MEDS: insulin glargine (Lantus) pen - multi-dose SQ SCH (21:14)
[2018-11-06 22:00] VITALS: BP 167/95
[2018-11-07] MEDS: normal saline 1000ml 1,000 ML IV SCH (01:59)
[2018-11-07 02:00] VITALS: BP 173/108
[2018-11-07] MEDS: ipratropium 0.5 MG/2.5ML nebule NEB SCH ×2 (02:00→08:07)
[2018-11-07] MEDS: HYDROcodone/acetaminophen 5mg/325mg tablet PO PRN ×3 (02:01→11:13)
[2018-11-07 06:00] VITALS: BP 181/117
--- NOTE | 2018-11-07 06:36 | NUR ---
Problems reprioritized. Patient report given, questions answered & plan of care reviewed with Mely VAZQUEZ.
[2018-11-07 07:12] LABS: BASOPHILS % (AUTO) 0.3 % (0-1); EOSINOPHILS # (AUTO) 0.1 X10'3 (0-0.9); EOSINOPHILS % (AUTO) 2.5 % (0-6); HEMATOCRIT 33.1 % (35.0-45.0); HEMOGLOBIN 11.4 g/dl (12.0-16.0); LYMPHOCYTES # (AUTO) 1.7 X10'3 (1.1-4.8); LYMPHOCYTES % (AUTO) 28.1 % (21-51); MEAN CORPUSCULAR HEMOGLOBIN 31.6 PG (27.0-31.0); MEAN CORPUSCULAR HGB CONC 34.5 g/dL (33.0-36.5); MEAN CORPUSCULAR VOLUME 91.7 FL (78-98); MEAN PLATELET VOLUME 7.6 FL (7.4-10.4); MONOCYTES # (AUTO) 0.6 X10'3 (0-0.9); MONOCYTES % (AUTO) 10.7 % (2-12); NEUTROPHILS # (AUTO) 3.5 X10'3 (1.8-7.7); NEUTROPHILS % (AUTO) 58.4 % (42-75); PLATELET COUNT 173 X10'3 (140-440); RED BLOOD COUNT 3.62 X10'6 (4.20-5.60); RED CELL DISTRIBUTION WIDTH 12.7 % (11.5-14.5)
[2018-11-07 07:15] LABS: ALANINE AMINOTRANSFERASE 12 U/L (12-78); ALBUMIN 2.8 G/DL (3.4-5.0); ALBUMIN/GLOBULIN RATIO 0.8 (1.1-1.5); ALKALINE PHOSPHATASE 78 IU/L (46-116); ANION GAP 10 (8-16); ASPARTATE AMINO TRANSFERASE 16 U/L (10-37); BILIRUBIN,TOTAL 0.3 MG/DL (0.1-1.0); BLOOD UREA NITROGEN 9 MG/DL (7-18); CALCIUM 9.3 MG/DL (8.5-10.1); CHLORIDE 106 MMOL/L (99-107); CHOL/HDL RATIO 4.3 (0.00-4.99); CHOLESTEROL 120 MG/DL (0-200); GLUCOSE 131 MG/DL (70-104); HDL CHOLESTEROL 28 MG/DL (35-60); LDL CHOLESTEROL 75 MG/DL (50-100); MAGNESIUM 1.4 MG/DL (1.5-2.4); POTASSIUM 3.9 MMOL/L (3.5-5.1); SODIUM 143 MMOL/L (135-145); TOTAL CARBON DIOXIDE 26.7 MMOL/L (24-32); TOTAL PROTEIN 6.1 G/DL (6.4-8.2); TRIGLYCERIDES 147 MG/DL (20-135); eGFR > 90 ML/MIN
[2018-11-07] MEDS: K and/or MAG REPLACEMENT MC SCH (08:00)
[2018-11-07] MEDS: budesonide 0.5mg/2ml UD nebule IH SCH (08:07)
[2018-11-07 09:30] VITALS: BP 181/117
[2018-11-07] MEDS: insulin Lispro (HumaLOG) vial - multi-dose SQ SCH (09:39)
[2018-11-07] MEDS: ferrous sulfate 325mg tablet PO SCH (09:41)
[2018-11-07] MEDS: calcium carbonate/vitamin D3 tablet PO SCH (09:41)
[2018-11-07] MEDS: atorvastatin 20mg tablet PO SCH (09:41)
[2018-11-07] MEDS: verapamil SR 120mg (sust. release) tab PO SCH (09:42)
[2018-11-07] MEDS: aspirin 81mg tablet.DR PO SCH (09:42)
[2018-11-07] MEDS: folic acid 1mg tablet PO SCH (09:42)
[2018-11-07] MEDS: gabapentin 300mg capsule PO SCH (09:42)
[2018-11-07] MEDS: FLUoxetine 20mg capsule PO SCH (09:42)
[2018-11-07] MEDS: enoxaparin 40mg/0.4ml syringe SQ SCH (09:43)
[2018-11-07 10:00] VITALS: BP 192/116
[2018-11-07] MEDS ORDERED: ATOR20TA66 PO (11:02)
[2018-11-07] MEDS ORDERED: MAGN400T6 PO (11:07)
--- NOTE | 2018-11-07 12:00 | NUR ---
Patient discharging home. Refused 1200 blood glucose check.
--- NOTE | 2018-11-07 12:45 | NUR ---
Patient discharged home with daughter. Stable and appropriate for discharge. All belongings taken from room. Medications called into [facility] on [address]. radiation monitor and IV removed.
[2018-11-07] MEDS ORDERED: CLON0.1T PO (19:57)
[2018-11-07] MEDS ORDERED: LISI-600 PO (19:57)
== END 2018-11-07 12:50 | disposition home health service (06) | DRG 45 ==
LOC: ER 09:07 → ED HOLD 11:44 → ORTHO 4S 16:59
PROVIDERS: ADMIT Family Medicine; ATTEND Family Medicine
DX: I63.9 Cerebral infarction, unspecified (principal); G93.41 Metabolic encephalopathy; I11.0 Hypertensive heart disease with heart failure; E11.65 Type 2 diabetes mellitus with hyperglycemia; I50.9 Heart failure, unspecified; J44.9 Chronic obstructive pulmonary disease, unspecified; G25.81 Restless legs syndrome; G89.29 Other chronic pain; B19.20 Unspecified viral hepatitis C without hepatic coma; R29.6 Repeated falls; E78.5 Hyperlipidemia, unspecified; F32.9 Major depressive disorder, single episode, unspecified; F10.21 Alcohol dependence, in remission; F41.9 Anxiety disorder, unspecified; K21.9 Gastro-esophageal reflux disease without esophagitis; E78.00 Pure hypercholesterolemia, unspecified; H54.7 Unspecified visual loss; M81.0 Age-related osteoporosis without current pathological fracture; F15.90 Other stimulant use, unspecified, uncomplicated; M54.9 Dorsalgia, unspecified; Z86.73 Personal history of transient ischemic attack (TIA), and cerebral infarction without residual deficits; Z88.8 Allergy status to other drugs, medicaments and biological substances; Z88.1 Allergy status to other antibiotic agents; Z88.0 Allergy status to penicillin; Z91.013 Allergy to seafood; Z82.5 Family history of asthma and other chronic lower respiratory diseases; Z90.49 Acquired absence of other specified parts of digestive tract; Z87.11 Personal history of peptic ulcer disease; Z87.01 Personal history of pneumonia (recurrent); Z79.899 Other long term (current) drug therapy
CPT/HCPCS: 36415; 70450; 70544; 70547; 70551; 71045; 72125; 80053; 80061; 80305; 81001; 82948; 83036; 83605; 83735; 83880; 84145; 84484; 85025; 85610; 85730; 87040; 87070; 92616; 93005; 93306; 93880; 94640; 94760; 96361; 96374; 97116; 97162; 97530; 99285; G0378; J1650; J1815; J3475; J7030; J7626

== ENCOUNTER 2018-12-21 14:54 | Emergency (ER) | payer MEDICAID ==
[~2018-12-21] VITALS: Ht 149.9 cm; Wt 60.0 kg
[~2018-12-21 14:54] MED LIST changes: +ATOR20TA66 PO; +CLON0.1T PO; +MAGN400T6 PO; -PRED10TA PO; -VERA-1 PO; +VERA240T12 PO
[2018-12-21 15:41] LABS: BASOPHILS % (AUTO) 0.3 % (0-1); EOSINOPHILS % (AUTO) 0.2 % (0-6); HEMATOCRIT 42.5 % (35.0-45.0); HEMOGLOBIN 14.2 g/dl (12.0-16.0); LYMPHOCYTES # (AUTO) 1.1 X10'3 (1.1-4.8); MEAN CORPUSCULAR HEMOGLOBIN 31.4 PG (27.0-31.0); MEAN CORPUSCULAR HGB CONC 33.5 g/dL (33.0-36.5); MEAN CORPUSCULAR VOLUME 93.8 FL (78-98); MEAN PLATELET VOLUME 7.3 FL (7.4-10.4); MONOCYTES # (AUTO) 0.5 X10'3 (0-0.9); NEUTROPHILS # (AUTO) 3.2 X10'3 (1.8-7.7); NEUTROPHILS % (AUTO) 65.5 % (42-75); PLATELET COUNT 137 X10'3 (140-440); RED BLOOD COUNT 4.53 X10'6 (4.20-5.60); WHITE BLOOD COUNT 4.8 X10'3 (4.5-11.0)
[2018-12-21 15:55] LABS: ALANINE AMINOTRANSFERASE 94 U/L (12-78); ALBUMIN 3.4 G/DL (3.4-5.0); ALBUMIN/GLOBULIN RATIO 0.9 (1.1-1.5); ALKALINE PHOSPHATASE 110 IU/L (46-116); ANION GAP 7 (8-16); ASPARTATE AMINO TRANSFERASE 58 U/L (10-37); BILIRUBIN,TOTAL 0.3 MG/DL (0.1-1.0); BLOOD UREA NITROGEN 18 MG/DL (7-18); BUN/CREATININE RATIO 20.9 (6.6-38.0); CALCIUM 8.7 MG/DL (8.5-10.1); CHLORIDE 101 MMOL/L (99-107); CREATININE 0.86 MG/DL (0.40-0.90); GLUCOSE 254 MG/DL (70-104); POTASSIUM 4.4 MMOL/L (3.5-5.1); SODIUM 134 MMOL/L (135-145); TOTAL CARBON DIOXIDE 26.2 MMOL/L (24-32); TOTAL PROTEIN 7.2 G/DL (6.4-8.2); eGFR 67 ML/MIN
[2018-12-21 16:30] LABS: CLARITY,URINE SLIGHTLY CLOUDY (Clear); COLOR,URINE YELLOW (Yellow); GLUCOSE, URINE 500 mg/dl (Neg); KETONES,URINE NEGATIVE (Neg); LEUKOCYTE ESTERASE ,URINE MODERATE (Neg); NITRITES, URINE NEGATIVE (Neg); OCCULT BLOOD,URINE NEGATIVE (Neg); PROTEIN,URINE TRACE mg/dl (Neg); UA COLLECTION TYPE CLN CATCH MIDSTREAM; UROBILINOGEN,URINE 0.2 E.U/dL (0.2-1.0)
[2018-12-21 16:42] LABS: WBC,URINE 50-100 /HPF (0-4)
[2018-12-21 16:43] LABS: BACTERIA,URINE 1+ /HPF (Neg); RBC,URINE NONE SEEN /HPF (0-2); SQUAMOUS EPITHELIAL CELL,UR MODERATE /LPF (FEW); WBC CLUMPS,URINE MODERATE /HPF (NEGATIVE)
--- NOTE | 2018-12-21 17:29 | NUR ---
REPORT TO PRIMARY RN KASSANDRA
--- NOTE | 2018-12-21 17:47 | NUR ---
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
[2018-12-21] MEDS ORDERED: CefTRIAXone 250MG inj IM ONE (17:50)
[2018-12-21] MEDS ORDERED: ipratropium/albuterol 3ml nebule NEB ONE (17:50)
[2018-12-21] MEDS ORDERED: CefTRIAXone 250MG IM Kit w/LIDOcaine IM ONE (17:55)
[2018-12-21] MEDS ORDERED: CefTRIAXone 1000mg IM Kit (w/lidocaine diluent) IM ONE (17:55)
[2018-12-21] MEDS ORDERED: NITR100C PO (19:00)
[2018-12-21] MEDS ORDERED: DOXY100C43 PO (19:00)
[2018-12-21 19:19] VITALS: BP 168/102
[2018-12-21] MEDS ORDERED: IPRA3AMP31 IH (19:25)
[2018-12-21] MEDS ORDERED: GUAI237S46 PO (19:25)
== END 2018-12-22 01:36 | disposition home or self-care (01) ==
LOC: ER 14:55
DX: J44.1 Chronic obstructive pulmonary disease with (acute) exacerbation (principal); N39.0 Urinary tract infection, site not specified; I10 Essential (primary) hypertension; E78.00 Pure hypercholesterolemia, unspecified; K21.9 Gastro-esophageal reflux disease without esophagitis; E11.9 Type 2 diabetes mellitus without complications; G89.29 Other chronic pain; M54.9 Dorsalgia, unspecified; F15.90 Other stimulant use, unspecified, uncomplicated; Z87.891 Personal history of nicotine dependence; Z88.8 Allergy status to other drugs, medicaments and biological substances; Z88.1 Allergy status to other antibiotic agents; Z88.0 Allergy status to penicillin; Z91.013 Allergy to seafood; Z79.82 Long term (current) use of aspirin; Z79.4 Long term (current) use of insulin
CPT/HCPCS: 36415; 71046; 80053; 81001; 83605; 85025; 87040; 87077; 87088; 87186; 87502; 87503; 94640; 94760; 96372; 99284; J0696

== ENCOUNTER 2018-12-31 09:42 | Inpatient (IN) | payer MEDICAID | END 2019-01-02 15:45 | disposition home health service (06) | LOC: ER 09:42 → ED HOLD 14:17 → ORTHO 4S 15:52 ==

== ENCOUNTER 2019-03-03 03:54 | Inpatient (IN) | payer MEDICAID ==
[~2019-03-03] VITALS: Ht 149.9 cm; Wt 68.1 kg
[~2019-03-03 03:54] MED LIST changes: +ALBU18HF2 IH; -ATOR20TA66 PO; +CALC3.7S3 NS; -CLON0.1T PO; -GABA-532 PO; +INSU100I31 SQ; +INSU100I39 SQ; -INSU100V36 SQ; -INSU100V9 SQ; -LEVA15HF4 IH; +LOSA100T57 PO; -MAGN400T6 PO; +MELO-102 PO; +MIRT15TA8 PO; +OMEP-50 PO; -ONDA4TAB12 PO; +POLY1DRO2 EACHEYE; +PRED5DRO23 RIGHTEYE; -QUET25TA PO; -TIZA4CAP PO; +VERA120T9 PO; -VERA240T12 PO
[2019-03-03] MEDS ORDERED: dexamethasone sod phosphate 10mg/ml inj IV STA (03:56)
[2019-03-03] MEDS ORDERED: levoFLOXACIN-Levaquin 750MG/D5 150 ML IV ONE (04:00)
[2019-03-03] MEDS ORDERED: CefTRIAXone 2gm/D5W 50ml 50 ML IV ONE (04:00)
[2019-03-03] MEDS ORDERED: ipratropium/albuterol 3ml nebule NEB ONE (04:00)
[2019-03-03] MEDS ORDERED: normal saline 1000ML IV soln IV ONE (04:00)
[2019-03-03 04:16] LABS: ABG BASE EXCESS -0.3 mmol/L (-2.0-3.0); ABG HCO3 21.8 mmol/L (22.0-26.0); ABG OXYGEN SATURATION 96.4 % (95-98); ABG PCO2 (T) 32.9 mmHg (32.0-45.0); FCOHb 0.8 % (0.5-1.5); FMetHb 0.1 % (0.3-1.12); FO2Hb 95.5 % (94-100); PATIENT TEMPERATURE 40.2; RESPIRATORY RATE 20 b/min; RESPIRATORY RATE (OBSERVED) 28 b/min; TOTAL HEMOGLOBIN 13.4 G/dl (12.0-16.0)
[2019-03-03 04:16] LABS: BASOPHILS % (AUTO) 0.2 % (0-1); EOSINOPHILS # (AUTO) 0.1 X10'3 (0-0.9); EOSINOPHILS % (AUTO) 0.9 % (0-6); HEMATOCRIT 38.8 % (35.0-45.0); LYMPHOCYTES # (AUTO) 1.5 X10'3 (1.1-4.8); LYMPHOCYTES % (AUTO) 16.9 % (21-51); MEAN CORPUSCULAR HEMOGLOBIN 31.5 PG (27.0-31.0); MEAN CORPUSCULAR HGB CONC 33.5 g/dL (33.0-36.5); MEAN CORPUSCULAR VOLUME 94.3 FL (78-98); MEAN PLATELET VOLUME 7.7 FL (7.4-10.4); MONOCYTES # (AUTO) 0.2 X10'3 (0-0.9); MONOCYTES % (AUTO) 1.8 % (2-12); NEUTROPHILS # (AUTO) 7.2 X10'3 (1.8-7.7); NEUTROPHILS % (AUTO) 80.2 % (42-75); PLATELET COUNT 123 X10'3 (140-440); RED BLOOD COUNT 4.12 X10'6 (4.20-5.60); RED CELL DISTRIBUTION WIDTH 13.8 % (11.5-14.5)
[2019-03-03 04:24] LABS: CLARITY,URINE CLOUDY (Clear); COLOR,URINE YELLOW (Yellow); GLUCOSE, URINE NEGATIVE (Neg); KETONES,URINE NEGATIVE (Neg); LEUKOCYTE ESTERASE ,URINE LARGE (Neg); NITRITES, URINE NEGATIVE (Neg); OCCULT BLOOD,URINE LARGE (Neg); PROTEIN,URINE 30 mg/dl (Neg); UROBILINOGEN,URINE 0.2 E.U/dL (0.2-1.0)
[2019-03-03 04:25] LABS: UA COLLECTION TYPE FOLEY CATH
[2019-03-03 04:31] LABS: BACTERIA,URINE 4+ /HPF (Neg); SQUAMOUS EPITHELIAL CELL,UR FEW /LPF (FEW); WBC CLUMPS,URINE FEW /HPF (NEGATIVE); WBC,URINE TNTC /HPF (0-4)
[2019-03-03 04:36] LABS: URINE HCG NEGATIVE (NEG)
[2019-03-03 04:36] LABS: PARTIAL THROMBOPLASTIN TIME 25 SECONDS (22-32)
[2019-03-03 04:38] LABS: ALANINE AMINOTRANSFERASE 28 U/L (12-78); ALBUMIN/GLOBULIN RATIO 0.8 (1.1-1.5); ALKALINE PHOSPHATASE 114 IU/L (46-116); ANION GAP 10 (8-16); ASPARTATE AMINO TRANSFERASE 29 U/L (10-37); BILIRUBIN,TOTAL 0.4 MG/DL (0.1-1.0); BLOOD UREA NITROGEN 15 MG/DL (7-18); BUN/CREATININE RATIO 16.3 (6.6-38.0); CHLORIDE 106 MMOL/L (99-107); CREATININE 0.92 MG/DL (0.40-0.90); GLUCOSE 241 MG/DL (70-104); MAGNESIUM 1.2 MG/DL (1.5-2.4); POTASSIUM 4.3 MMOL/L (3.5-5.1); SODIUM 139 MMOL/L (135-145); TOTAL CARBON DIOXIDE 22.8 MMOL/L (24-32); TOTAL PROTEIN 6.7 G/DL (6.4-8.2); TROPONIN I < 0.04 NG/ML (0.0-0.05); eGFR 62 ML/MIN
[2019-03-03] MEDS ORDERED: magnesium 2GM in 50ml NS 50 ML IV ONE ×2 (05:00→05:05)
--- NOTE | 2019-03-03 05:16 | NUR ---
Dr. Infante to bedside to evaluate patient for admission. Patient updated on POC and daughter to bedside.
[2019-03-03] MEDS ORDERED: ondansetron/PF 4mg/2ml inj IV PRN (05:30)
[2019-03-03] MEDS ORDERED: acetaminophen 325mg tablet PO PRN (05:30)
[2019-03-03] MEDS ORDERED: acetaminophen 650mg rectal suppository RC PRN (05:30)
[2019-03-03] MEDS ORDERED: dextrose 50%-water 50ml dispensing syringe IV PRN ×2 (05:35)
[2019-03-03] MEDS ORDERED: glucagon, human recombinant 1mg kit SUBCUT PRN (05:35)
[2019-03-03] MEDS ORDERED: dextrose ORAL solution 15 GM/59 ML bottle PO PRN ×2 (05:35)
[2019-03-03] MEDS ORDERED: MESSAGE TO PHARMACY PO ONE (05:35)
[2019-03-03] MEDS: normal saline 1000ml 1,000 ML IV SCH (06:01)
--- NOTE | 2019-03-03 06:41 | NUR ---
CALLED REPORT TO JONATAN, BUT SHE'S GETTING REPORT. JONATAN WILL CALL BACK
[2019-03-03] MEDS ORDERED: GABA-532 PO (06:45)
[2019-03-03] MEDS ORDERED: QUET25TA34 PO (06:45)
[2019-03-03] MEDS ORDERED: TIZA-248 PO (06:45)
[2019-03-03 07:58] VITALS: BP 117/65
[2019-03-03] MEDS: prednisoLONE acetate 1% ophth susp 5ml RIGHTEYE SCH ×4 (08:00→21:00)
[2019-03-03] MEDS ORDERED: acetaminophen 1,000mg/100ml IV 100 ML IV ONE (08:00)
[2019-03-03] MEDS: budesonide 0.5mg/2ml UD nebule IH SCH ×2 (08:32→20:19)
[2019-03-03] MEDS: ipratropium/albuterol 3ml nebule NEB SCH ×3 (08:32→20:19)
[2019-03-03 11:11] VITALS: BP 122/66
[2019-03-03] MEDS: FLUoxetine 20mg capsule PO SCH (11:45)
[2019-03-03] MEDS: losartan 50mg tablet PO SCH (11:46)
[2019-03-03] MEDS: pantoprazole 40mg Tablet.DR PO SCH (11:46)
[2019-03-03] MEDS: aspirin 81mg tablet.DR PO SCH (11:46)
[2019-03-03] MEDS: levoFLOXACIN-Levaquin 500mg/D5 100 ML IV SCH (11:47)
[2019-03-03] MEDS: heparin, porcine 5000 units/ml vial SQ SCH ×2 (11:50→21:54)
[2019-03-03] MEDS: verapamil SR 120mg (sust. release) tab PO SCH (12:44)
[2019-03-03] MEDS: HYDROcodone/acetaminophen 5mg/325mg tablet PO PRN ×2 (12:44→19:20)
--- NOTE | 2019-03-03 13:00 | NUR ---
Note Insulin coverage dose is held. No insulin is available.
--- NOTE | 2019-03-03 14:54 | NUR ---
DM consult: Pt admit w/ SOB possible aspiration PNA per MD note. hx DM A1C previous admit in November 07.6 new A1C 9.2. Pt hx multiple CVA's w/ physical assessment pending as well for further mental status information. Currently NPO ABHINAV ordered TOOL CRIB ATTENDANT BSS. Will monitor for diet advancement and appropriateness for DM ed this admit. Addendum: 03/03/19 at [address] Amended: Links added.
--- NOTE | 2019-03-03 14:57 | NUR ---
Gram Negative Rods resulted in Blood Cultures
[2019-03-03] MEDS: CefTRIAXone/D5W-Rocephin 1gm 50 ML IV SCH (16:04)
--- NOTE | 2019-03-03 17:45 | NUR ---
Daughter is the only one who can give a complete and accurate list of home medications.
[2019-03-03 18:00] VITALS: BP 129/84
--- NOTE | 2019-03-03 18:15 | NUR ---
Patient in room PCU 3012. I have received report from Malissa VAZQUEZ and had the opportunity to ask questions and assume patient care. Patient resting in bed, will continue to monitor.
--- NOTE | 2019-03-03 18:31 | NUR ---
Problems reprioritized. Patient report given, questions answered & plan of care reviewed with Kay Francisco RN's.
[2019-03-03] MEDS: insulin Lispro (HumaLOG) vial - multi-dose SQ SCH ×2 (19:16→21:50)
[2019-03-03] MEDS: insulin glargine (Lantus) pen - multi-dose SQ SCH (21:51)
[2019-03-03] MEDS: lactobacillus rhamnosus 10,000 MMU CELLS/CAPSULE PO SCH (21:54)
[2019-03-03] MEDS: mirtazapine 15mg tablet PO SCH (21:55)
[2019-03-03] MEDS: polyvinyl alcohol ophthalmic drops 15ml bottle EACHEYE PRN (22:02)
[2019-03-03] MEDS: carbidoba-levodopa 25-100mg tablet PO SCH (22:05)
[2019-03-03 23:00] VITALS: BP 136/76
[2019-03-04] MEDS: normal saline 1000ml 1,000 ML IV SCH ×4 (01:30→22:58)
[2019-03-04] MEDS: ipratropium/albuterol 3ml nebule NEB SCH ×4 (02:43→20:12)
[2019-03-04 03:00] VITALS: BP 157/92
[2019-03-04] MEDS: HYDROcodone/acetaminophen 5mg/325mg tablet PO PRN ×3 (03:59→22:02)
[2019-03-04 06:00] LABS: BASOPHILS % (AUTO) 0.1 % (0-1); EOSINOPHILS % (AUTO) 0 % (0-6); HEMATOCRIT 33.2 % (35.0-45.0); HEMOGLOBIN 11.1 g/dl (12.0-16.0); LYMPHOCYTES % (AUTO) 5.8 % (21-51); MEAN CORPUSCULAR HEMOGLOBIN 31.6 PG (27.0-31.0); MEAN CORPUSCULAR HGB CONC 33.4 g/dL (33.0-36.5); MEAN CORPUSCULAR VOLUME 94.8 FL (78-98); MEAN PLATELET VOLUME 7.9 FL (7.4-10.4); MONOCYTES % (AUTO) 5.8 % (2-12); NEUTROPHILS # (AUTO) 14.5 X10'3 (1.8-7.7); NEUTROPHILS % (AUTO) 88.3 % (42-75); RED CELL DISTRIBUTION WIDTH 13.9 % (11.5-14.5); WHITE BLOOD COUNT 16.4 X10'3 (4.5-11.0)
[2019-03-04 06:07] LABS: ALANINE AMINOTRANSFERASE 11 U/L (12-78); ALBUMIN 2.6 G/DL (3.4-5.0); ALBUMIN/GLOBULIN RATIO 0.7 (1.1-1.5); ALKALINE PHOSPHATASE 86 IU/L (46-116); ANION GAP 8 (8-16); ASPARTATE AMINO TRANSFERASE 19 U/L (10-37); BILIRUBIN,TOTAL 0.2 MG/DL (0.1-1.0); BLOOD UREA NITROGEN 12 MG/DL (7-18); BUN/CREATININE RATIO 17.1 (6.6-38.0); CALCIUM 8.3 MG/DL (8.5-10.1); CHLORIDE 108 MMOL/L (99-107); GLUCOSE 173 MG/DL (70-104); POTASSIUM 4.3 MMOL/L (3.5-5.1); SODIUM 140 MMOL/L (135-145); TOTAL CARBON DIOXIDE 24.1 MMOL/L (24-32); TOTAL PROTEIN 6.4 G/DL (6.4-8.2); eGFR 85 ML/MIN
--- NOTE | 2019-03-04 06:38 | NUR ---
Problems reprioritized. Patient report given, questions answered & plan of care reviewed with Malissa VAZQUEZ.
--- NOTE | 2019-03-04 06:39 | NUR ---
Orientee documentation: I have reviewed and agree with all interventions, assessments performed and documented by Saba VAZQUEZ. Orientee Medication Administration: For this medication-pass time frame, all medication were reviewed, dispensed, administered and documented per hospital policy by Saba VAZQUEZ.
[2019-03-04 07:02] LABS: PLATELET COUNT 84 X10'3 (140-440)
[2019-03-04 07:10] VITALS: BP 153/92
[2019-03-04] MEDS: heparin, porcine 5000 units/ml vial SQ SCH ×2 (08:00→19:58)
[2019-03-04] MEDS: prednisoLONE acetate 1% ophth susp 5ml RIGHTEYE SCH ×4 (08:00→22:58)
[2019-03-04] MEDS: budesonide 0.5mg/2ml UD nebule IH SCH ×2 (08:15→20:12)
[2019-03-04] MEDS: FLUoxetine 20mg capsule PO SCH (08:45)
[2019-03-04] MEDS: aspirin 81mg tablet.DR PO SCH (08:45)
[2019-03-04] MEDS: verapamil SR 120mg (sust. release) tab PO SCH (08:45)
[2019-03-04] MEDS: lactobacillus rhamnosus 10,000 MMU CELLS/CAPSULE PO SCH ×2 (08:45→22:03)
[2019-03-04] MEDS: pantoprazole 40mg Tablet.DR PO SCH (08:45)
[2019-03-04] MEDS: losartan 50mg tablet PO SCH (08:46)
[2019-03-04] MEDS: insulin Lispro (HumaLOG) vial - multi-dose SQ SCH ×3 (09:15→21:57)
[2019-03-04 11:00] VITALS: BP 143/93
--- NOTE | 2019-03-04 13:04 | NUR ---
Page to regarding discharge instructions PAGER ID: [phone] MESSAGE: Ravin Klein. Pt. Claudia in 3012C has discharge orders and I noticed that the discharge medications have not been ordered.
--- NOTE | 2019-03-04 14:54 | NUR ---
Blood Glucose Coverage: Pt. refused insulin coverage after her was discharged home. The blood glucose coverage will start again after the PM meal.
--- NOTE | 2019-03-04 15:30 | NUR ---
Initial: Pt admit w/ community acquired PNA advanced to carb controlled/heart healthy/mechanical soft ground meats thin liquids since edentulous per PROVIDER RELATIONS REPRESENTATIVE BSS and recs. PO 100% meal last night. Pending today's PO documentation. Pt not present during RD visit; written DM ed and RD contact information left at pt bedside. GLU down to 136 from 385 previous. Will continue to monitor for additional protein needs. Rec: 1. continue carb controlled/heart healthy/mech soft ground meats/thin liquid diet per PROVIDER RELATIONS REPRESENTATIVE/MD 2. wt per rx Addendum: 03/04/19 at [address] Amended: Links added.
[2019-03-04 15:42] VITALS: BP 146/72
[2019-03-04] MEDS: CefTRIAXone/D5W-Rocephin 1gm 50 ML IV SCH (16:06)
[2019-03-04] MEDS: levoFLOXACIN-Levaquin 500mg/D5 100 ML IV SCH (16:07)
--- NOTE | 2019-03-04 16:33 | NUR ---
IV access was accidentally discontinued This happened during report, the PICC line nurse was requested, When the PICC line nurse was at the Pt. bedside, Attending also came to bedside and told Nursing and the PICC team to hold off on the line placement. The intention was to discharge today. The discharge order was received and the Pt. prepared to go home. Later the Discharge was cancelled by the MD. A line was started by the PICC team and the IV antibiotics were given.
--- NOTE | 2019-03-04 18:40 | NUR ---
Patient in room PCU 3012. I have received report from Malissa VAZQUEZ/ Angeline RN and had the opportunity to ask questions and assume patient care. Checked on patient and assisted her to the restroom. Will continue to monitor closely.
[2019-03-04 19:00] VITALS: BP 160/94
[2019-03-04] MEDS: insulin glargine (Lantus) pen - multi-dose SQ SCH (21:56)
[2019-03-04] MEDS: polyvinyl alcohol ophthalmic drops 15ml bottle EACHEYE PRN (22:01)
[2019-03-04] MEDS: mirtazapine 15mg tablet PO SCH (22:01)
[2019-03-04] MEDS: carbidoba-levodopa 25-100mg tablet PO SCH (22:02)
[2019-03-04] MEDS ORDERED: losartan 50mg tablet PO ONE (22:45)
--- NOTE | 2019-03-04 22:45 | NUR ---
Called Dr. Infante re: patient's high BP (173/100). Telephone order to administer 1 time extra dose of Cozaar 50mg PO Stat.
[2019-03-04 23:00] VITALS: BP 173/100
[2019-03-05] MEDS: ipratropium/albuterol 3ml nebule NEB SCH ×3 (02:12→14:54)
[2019-03-05 03:00] VITALS: BP 177/108
--- NOTE | 2019-03-05 03:10 | NUR ---
Notified Dr. Infante of high BP (173/103). No new orders given, he would like to keep monitoring patient.
[2019-03-05 05:41] LABS: BASOPHILS % (AUTO) 0.1 % (0-1); EOSINOPHILS # (AUTO) 0.1 X10'3 (0-0.9); EOSINOPHILS % (AUTO) 0.4 % (0-6); HEMATOCRIT 35.4 % (35.0-45.0); HEMOGLOBIN 12.3 g/dl (12.0-16.0); LYMPHOCYTES # (AUTO) 1.4 X10'3 (1.1-4.8); LYMPHOCYTES % (AUTO) 10.6 % (21-51); MEAN CORPUSCULAR HEMOGLOBIN 32.7 PG (27.0-31.0); MEAN CORPUSCULAR HGB CONC 34.7 g/dL (33.0-36.5); MEAN CORPUSCULAR VOLUME 94.4 FL (78-98); MEAN PLATELET VOLUME 8.3 FL (7.4-10.4); MONOCYTES # (AUTO) 1.2 X10'3 (0-0.9); MONOCYTES % (AUTO) 8.7 % (2-12); NEUTROPHILS # (AUTO) 10.7 X10'3 (1.8-7.7); NEUTROPHILS % (AUTO) 80.2 % (42-75); PLATELET COUNT 110 X10'3 (140-440); RED BLOOD COUNT 3.76 X10'6 (4.20-5.60); RED CELL DISTRIBUTION WIDTH 14.1 % (11.5-14.5); WHITE BLOOD COUNT 13.3 X10'3 (4.5-11.0)
[2019-03-05 05:42] LABS: ALANINE AMINOTRANSFERASE 10 U/L (12-78); ALBUMIN 2.8 G/DL (3.4-5.0); ALBUMIN/GLOBULIN RATIO 0.7 (1.1-1.5); ALKALINE PHOSPHATASE 85 IU/L (46-116); ANION GAP 8 (8-16); ASPARTATE AMINO TRANSFERASE 14 U/L (10-37); BILIRUBIN,TOTAL 0.2 MG/DL (0.1-1.0); BLOOD UREA NITROGEN 17 MG/DL (7-18); BUN/CREATININE RATIO 22.4 (6.6-38.0); CALCIUM 9.1 MG/DL (8.5-10.1); CHLORIDE 107 MMOL/L (99-107); CREATININE 0.76 MG/DL (0.40-0.90); GLUCOSE 157 MG/DL (70-104); POTASSIUM 4.4 MMOL/L (3.5-5.1); SODIUM 140 MMOL/L (135-145); TOTAL CARBON DIOXIDE 25.4 MMOL/L (24-32); eGFR 77 ML/MIN
--- NOTE | 2019-03-05 06:14 | NUR ---
Patient in room PCU 3012. I have received report from GEORGE Corea and had the opportunity to ask questions and assume patient care. Patient is currently resting in bed, bed locked and low, no acute distress, complaining of pain, will address jonathan.
--- NOTE | 2019-03-05 06:28 | NUR ---
Problems reprioritized. Patient report given, questions answered & plan of care reviewed with Betsy VAZQUEZ and Millicent RN.
--- NOTE | 2019-03-05 06:32 | NUR ---
Received report from Nahomy VAZQUEZ and Saba VAZQUEZ. Patient laying in bed, awake and denies complaints at this time. Fluids running per MD order. Bed is low and locked with call light within reach. Will continue to monitor patient at this time.
[2019-03-05 06:56] VITALS: BP 190/114
[2019-03-05] MEDS: HYDROcodone/acetaminophen 5mg/325mg tablet PO PRN ×2 (07:05→12:11)
[2019-03-05] MEDS: normal saline 1000ml 1,000 ML IV SCH (07:05)
[2019-03-05] MEDS: pantoprazole 40mg Tablet.DR PO SCH (07:16)
[2019-03-05] MEDS: aspirin 81mg tablet.DR PO SCH (07:16)
[2019-03-05] MEDS: lactobacillus rhamnosus 10,000 MMU CELLS/CAPSULE PO SCH (07:16)
[2019-03-05] MEDS: FLUoxetine 20mg capsule PO SCH (07:16)
[2019-03-05] MEDS: verapamil SR 120mg (sust. release) tab PO SCH (07:16)
[2019-03-05] MEDS: losartan 50mg tablet PO SCH (07:17)
[2019-03-05] MEDS: levoFLOXACIN-Levaquin 500mg/D5 100 ML IV SCH (07:17)
[2019-03-05] MEDS: budesonide 0.5mg/2ml UD nebule IH SCH (07:56)
[2019-03-05] MEDS: heparin, porcine 5000 units/ml vial SQ SCH (08:00)
[2019-03-05] MEDS: insulin Lispro (HumaLOG) vial - multi-dose SQ SCH ×2 (08:09→13:11)
[2019-03-05] MEDS: prednisoLONE acetate 1% ophth susp 5ml RIGHTEYE SCH ×2 (09:47→13:11)
[2019-03-05 10:09] VITALS: BP 169/98
--- NOTE | 2019-03-05 10:41 | NUR ---
PAGER ID: [phone] MESSAGE: Betsy VAZQUEZ Ext [phone] FYI 3012C Claudia +MDRO in blood and urine. Thank you.
[2019-03-05 11:00] VITALS: BP 164/96
[2019-03-05] MEDS ORDERED: LEVO750T21 PO (12:26)
--- NOTE | 2019-03-05 15:15 | NUR ---
PIV removed from L forearm, catheter tip intact, hemostasis achieved, coban applied over gauze and patient instructed to remove after 1 hour. Telemetry also removed pending ride for discharge.
--- NOTE | 2019-03-05 15:56 | NUR ---
Patient belongings gathered with assistance from family. Patient has discharge packet in hand, denies complaints, has no questions, appears to be in no distress at this time. Patient wheeled down to personal vehicle.
== END 2019-03-05 15:52 | disposition home or self-care (01) | DRG 720 ==
LOC: ER 03:54 → PCU 3S 07:11 → CMPBEDREQ 19:59 → PCU 3S 03-05 10:49
PROVIDERS: ADMIT Internal Medicine; ATTEND Internal Medicine
PROC: 5A09357 Assistance with Respiratory Ventilation, Less than 24 Consecutive Hours, Continuous Positive Airway Pressure (ICD-10-PCS; principal; 2019-03-03)
DX: A41.51 Sepsis due to Escherichia coli [E. coli] (principal); N17.9 Acute kidney failure, unspecified; G20 Parkinson's disease; E11.65 Type 2 diabetes mellitus with hyperglycemia; J43.9 Emphysema, unspecified; B19.20 Unspecified viral hepatitis C without hepatic coma; E78.00 Pure hypercholesterolemia, unspecified; E78.5 Hyperlipidemia, unspecified; F32.9 Major depressive disorder, single episode, unspecified; R06.03 Acute respiratory distress; F15.90 Other stimulant use, unspecified, uncomplicated; F41.9 Anxiety disorder, unspecified; M54.9 Dorsalgia, unspecified; N10 Acute pyelonephritis; Z60.2 Problems related to living alone; G89.4 Chronic pain syndrome; I10 Essential (primary) hypertension; K21.9 Gastro-esophageal reflux disease without esophagitis; Z86.73 Personal history of transient ischemic attack (TIA), and cerebral infarction without residual deficits; Z87.11 Personal history of peptic ulcer disease; Z88.8 Allergy status to other drugs, medicaments and biological substances; Z88.1 Allergy status to other antibiotic agents; Z88.0 Allergy status to penicillin; Z91.013 Allergy to seafood; Z82.49 Family history of ischemic heart disease and other diseases of the circulatory system; Z82.5 Family history of asthma and other chronic lower respiratory diseases; Z79.899 Other long term (current) drug therapy
CPT/HCPCS: 36415; 36600; 71045; 76775; 80053; 81001; 81025; 82803; 82948; 83036; 83605; 83735; 83880; 84145; 84484; 85018; 85025; 85610; 85730; 87040; 87070; 87077; 87088; 87186; 92508; 92616; 93005; 94640; 94660; 94760; 96365; 96368; 96375; 97116; 97161; 97530; 99291; G0378; J0131; J0696; J1100; J1644; J1815; J1956; J3475; J7030; J7626

== ENCOUNTER 2019-04-12 12:30 | Emergency (ER) | payer MEDICAID ==
[~2019-04-12] VITALS: Ht 149.9 cm; Wt 61.8 kg
[~2019-04-12 12:30] MED LIST changes: +GABA-532 PO; +QUET25TA34 PO; +TIZA4TAB5 PO
[2019-04-12 13:08] LABS: BASOPHILS % (AUTO) 0.6 % (0-1); EOSINOPHILS # (AUTO) 0.1 X10'3 (0-0.9); EOSINOPHILS % (AUTO) 1.5 % (0-6); HEMATOCRIT 36.9 % (35.0-45.0); HEMOGLOBIN 12.3 g/dl (12.0-16.0); LYMPHOCYTES % (AUTO) 26.6 % (21-51); MEAN CORPUSCULAR HEMOGLOBIN 31.7 PG (27.0-31.0); MEAN CORPUSCULAR HGB CONC 33.3 g/dL (33.0-36.5); MEAN CORPUSCULAR VOLUME 95.4 FL (78-98); MONOCYTES # (AUTO) 0.6 X10'3 (0-0.9); MONOCYTES % (AUTO) 7.8 % (2-12); NEUTROPHILS # (AUTO) 4.8 X10'3 (1.8-7.7); NEUTROPHILS % (AUTO) 63.5 % (42-75); PLATELET COUNT 159 X10'3 (140-440); RED BLOOD COUNT 3.87 X10'6 (4.20-5.60); RED CELL DISTRIBUTION WIDTH 13.3 % (11.5-14.5); WHITE BLOOD COUNT 7.6 X10'3 (4.5-11.0)
[2019-04-12 13:19] LABS: ALANINE AMINOTRANSFERASE 18 U/L (12-78); ALBUMIN 3.4 G/DL (3.4-5.0); ALKALINE PHOSPHATASE 80 IU/L (46-116); ANION GAP 9 (8-16); ASPARTATE AMINO TRANSFERASE 9 U/L (10-37); BILIRUBIN,TOTAL 0.5 MG/DL (0.1-1.0); BLOOD UREA NITROGEN 22 MG/DL (7-18); BUN/CREATININE RATIO 23.7 (6.6-38.0); CALCIUM 7.9 MG/DL (8.5-10.1); CHLORIDE 103 MMOL/L (99-107); CREATININE 0.93 MG/DL (0.40-0.90); GLUCOSE 114 MG/DL (70-104); PARTIAL THROMBOPLASTIN TIME 29 SECONDS (22-32); SODIUM 136 MMOL/L (135-145); TOTAL PROTEIN 6.9 G/DL (6.4-8.2); eGFR 61 ML/MIN
[2019-04-12] MEDS ORDERED: DOXY100C43 PO (15:06)
[2019-04-12 15:18] VITALS: BP 113/77
== END 2019-04-12 15:20 | disposition home or self-care (01) ==
LOC: ER 12:30
DX: I95.9 Hypotension, unspecified (principal); L73.9 Follicular disorder, unspecified; E78.00 Pure hypercholesterolemia, unspecified; J44.9 Chronic obstructive pulmonary disease, unspecified; K21.9 Gastro-esophageal reflux disease without esophagitis; I10 Essential (primary) hypertension; E11.9 Type 2 diabetes mellitus without complications; F41.9 Anxiety disorder, unspecified; R79.1 Abnormal coagulation profile; G89.29 Other chronic pain; F15.90 Other stimulant use, unspecified, uncomplicated; Z86.19 Personal history of other infectious and parasitic diseases; Z86.73 Personal history of transient ischemic attack (TIA), and cerebral infarction without residual deficits; Z90.49 Acquired absence of other specified parts of digestive tract; Z98.890 Other specified postprocedural states; Z60.2 Problems related to living alone; Z87.891 Personal history of nicotine dependence; Z91.013 Allergy to seafood; Z88.0 Allergy status to penicillin; Z88.8 Allergy status to other drugs, medicaments and biological substances; Z88.6 Allergy status to analgesic agent; Z88.1 Allergy status to other antibiotic agents; Z79.82 Long term (current) use of aspirin; Z79.4 Long term (current) use of insulin; Z79.899 Other long term (current) drug therapy
CPT/HCPCS: 36415; 71045; 80053; 82948; 84484; 85025; 85610; 85730; 93005; 99284

== ENCOUNTER 2019-04-17 16:44 | Emergency (ER) | payer MEDICAID ==
[~2019-04-17] VITALS: Ht 149.9 cm; Wt 66.4 kg
[~2019-04-17 16:44] MED LIST changes: +DOXY100C43 PO
[2019-04-17] MEDS ORDERED: cloNIDine 0.1 mg tablet PO ONE (18:00)
[2019-04-17] MEDS ORDERED: furosemide 20MG tablet PO ONE (18:00)
[2019-04-17 18:36] LABS: BASOPHILS % (AUTO) 0.7 % (0-1); EOSINOPHILS # (AUTO) 0.1 X10'3 (0-0.9); EOSINOPHILS % (AUTO) 2.2 % (0-6); HEMATOCRIT 37.8 % (35.0-45.0); HEMOGLOBIN 12.8 g/dl (12.0-16.0); LYMPHOCYTES # (AUTO) 1.9 X10'3 (1.1-4.8); MEAN CORPUSCULAR HEMOGLOBIN 32.1 PG (27.0-31.0); MEAN CORPUSCULAR VOLUME 94.4 FL (78-98); MEAN PLATELET VOLUME 7.2 FL (7.4-10.4); MONOCYTES # (AUTO) 0.5 X10'3 (0-0.9); MONOCYTES % (AUTO) 7.8 % (2-12); NEUTROPHILS # (AUTO) 3.7 X10'3 (1.8-7.7); NEUTROPHILS % (AUTO) 58.3 % (42-75); PLATELET COUNT 168 X10'3 (140-440); RED CELL DISTRIBUTION WIDTH 13.1 % (11.5-14.5); WHITE BLOOD COUNT 6.3 X10'3 (4.5-11.0)
--- NOTE | 2019-04-17 18:37 | NUR ---
Gloria dunn in ED - 04/17/19 at 1849 by GURDEEP pt assisted to restroom by [employer],urine sample collected,pt denies any dizziness.
[2019-04-17 18:53] LABS: ALANINE AMINOTRANSFERASE 21 U/L (12-78); ALBUMIN 3.5 G/DL (3.4-5.0); ALKALINE PHOSPHATASE 83 IU/L (46-116); ANION GAP 7 (8-16); ASPARTATE AMINO TRANSFERASE 8 U/L (10-37); BILIRUBIN,TOTAL 0.2 MG/DL (0.1-1.0); BLOOD UREA NITROGEN 12 MG/DL (7-18); CALCIUM 8.5 MG/DL (8.5-10.1); CHLORIDE 102 MMOL/L (99-107); CREATININE 0.86 MG/DL (0.40-0.90); GLUCOSE 273 MG/DL (70-104); POTASSIUM 4.3 MMOL/L (3.5-5.1); SODIUM 137 MMOL/L (135-145); TOTAL CARBON DIOXIDE 28.1 MMOL/L (24-32); TOTAL PROTEIN 7.1 G/DL (6.4-8.2); eGFR 67 ML/MIN
[2019-04-17 19:19] VITALS: BP 150/99
[2019-04-17] MEDS ORDERED: POTA10TA10 PO (19:35)
[2019-04-17] MEDS ORDERED: FURO-150 PO (19:35)
== END 2019-04-17 19:44 | disposition home or self-care (01) ==
LOC: ER 16:45
DX: I10 Essential (primary) hypertension (principal); K59.00 Constipation, unspecified; E78.00 Pure hypercholesterolemia, unspecified; J44.9 Chronic obstructive pulmonary disease, unspecified; K21.9 Gastro-esophageal reflux disease without esophagitis; E11.9 Type 2 diabetes mellitus without complications; G89.29 Other chronic pain; F41.9 Anxiety disorder, unspecified; F15.90 Other stimulant use, unspecified, uncomplicated; F10.99 Alcohol use, unspecified with unspecified alcohol-induced disorder; Z86.19 Personal history of other infectious and parasitic diseases; Z86.2 Personal history of diseases of the blood and blood-forming organs and certain disorders involving the immune mechanism; Z86.73 Personal history of transient ischemic attack (TIA), and cerebral infarction without residual deficits; Z90.49 Acquired absence of other specified parts of digestive tract; Z98.890 Other specified postprocedural states; Z87.891 Personal history of nicotine dependence; Z60.2 Problems related to living alone; Z91.013 Allergy to seafood; Z88.0 Allergy status to penicillin; Z88.1 Allergy status to other antibiotic agents; Z88.8 Allergy status to other drugs, medicaments and biological substances; Z88.6 Allergy status to analgesic agent; Z79.82 Long term (current) use of aspirin; Z79.4 Long term (current) use of insulin; Z79.899 Other long term (current) drug therapy; Y90.9 Presence of alcohol in blood, level not specified
CPT/HCPCS: 36415; 80053; 85025; 93005; 99284

== ENCOUNTER 2019-07-20 10:16 | Emergency (ER) | payer MEDICAID ==
[~2019-07-20] VITALS: Ht 149.9 cm; Wt 70.0 kg
[~2019-07-20 10:16] MED LIST changes: -DOXY100C43 PO; +FURO-150 PO
--- NOTE | 2019-07-20 10:39 | NUR ---
PT FELL YESTERDAY AFTER PASSING OUT. HER CAREGIVER WAS WITH HER AND CAUGHT HER SHE FELL. DID NOT HIT HEAD. PT HAS AN IMPLANTED HEART MONITOR. DR SUAZO IS HER HEARING SPECIALIST. PT IS ON BLOOD THINNER ELIQUIS.
[2019-07-20 10:55] LABS: BASOPHILS # (AUTO) 0.1 X10'3 (0-0.2); EOSINOPHILS # (AUTO) 0.1 X10'3 (0-0.9); EOSINOPHILS % (AUTO) 1.5 % (0-6); HEMATOCRIT 43.8 % (35.0-45.0); HEMOGLOBIN 14.9 g/dl (12.0-16.0); LYMPHOCYTES # (AUTO) 2.8 X10'3 (1.1-4.8); LYMPHOCYTES % (AUTO) 30.4 % (21-51); MEAN CORPUSCULAR HEMOGLOBIN 31.6 PG (27.0-31.0); MEAN CORPUSCULAR HGB CONC 33.9 g/dL (33.0-36.5); MEAN CORPUSCULAR VOLUME 93.3 FL (78-98); MEAN PLATELET VOLUME 7.1 FL (7.4-10.4); MONOCYTES % (AUTO) 11.4 % (2-12); NEUTROPHILS # (AUTO) 5.1 X10'3 (1.8-7.7); NEUTROPHILS % (AUTO) 55.7 % (42-75); PLATELET COUNT 183 X10'3 (140-440); RED CELL DISTRIBUTION WIDTH 13.1 % (11.5-14.5); WHITE BLOOD COUNT 9.1 X10'3 (4.5-11.0)
[2019-07-20 11:05] LABS: PARTIAL THROMBOPLASTIN TIME 30 SECONDS (22-32)
[2019-07-20 11:07] LABS: ALANINE AMINOTRANSFERASE 17 U/L (12-78); ALBUMIN 3.7 G/DL (3.4-5.0); ALBUMIN/GLOBULIN RATIO 0.8 (1.1-1.5); ALKALINE PHOSPHATASE 89 IU/L (46-116); ANION GAP 9 (8-16); ASPARTATE AMINO TRANSFERASE 9 U/L (10-37); BILIRUBIN,TOTAL 0.4 MG/DL (0.1-1.0); BLOOD UREA NITROGEN 17 MG/DL (7-18); BUN/CREATININE RATIO 17.9 (6.6-38.0); CHLORIDE 106 MMOL/L (99-107); CREATININE 0.95 MG/DL (0.40-0.90); GLUCOSE 183 MG/DL (70-104); POTASSIUM 4.5 MMOL/L (3.5-5.1); SODIUM 142 MMOL/L (135-145); TOTAL CARBON DIOXIDE 26.6 MMOL/L (24-32); TOTAL PROTEIN 8.1 G/DL (6.4-8.2); eGFR 59 ML/MIN
--- NOTE | 2019-07-20 11:21 | NUR ---
PT TAKEN OUT TO CT VIA W/C BY TECH.
[2019-07-20 11:44] LABS: CLARITY,URINE CLEAR (Clear); COLOR,URINE YELLOW (Yellow); GLUCOSE, URINE NEGATIVE (Neg); KETONES,URINE NEGATIVE (Neg); LEUKOCYTE ESTERASE ,URINE NEGATIVE (Neg); NITRITES, URINE NEGATIVE (Neg); OCCULT BLOOD,URINE NEGATIVE (Neg); PROTEIN,URINE NEGATIVE (Neg); UROBILINOGEN,URINE 0.2 E.U/dL (0.2-1.0)
[2019-07-20 11:49] LABS: UA COLLECTION TYPE STRAIGHT CATH
--- NOTE | 2019-07-20 11:57 | NUR ---
WILL HOLD OFF ON THE IV ACCESS OK PER DR GONZALES. WILL ASSESS LATER IF NEEDED.
[2019-07-20 12:35] VITALS: BP 129/86
== END 2019-07-20 13:28 | disposition home or self-care (01) ==
LOC: ER 10:17
DX: R55 Syncope and collapse (principal); R30.0 Dysuria; E78.00 Pure hypercholesterolemia, unspecified; I10 Essential (primary) hypertension; J44.9 Chronic obstructive pulmonary disease, unspecified; K21.9 Gastro-esophageal reflux disease without esophagitis; E11.9 Type 2 diabetes mellitus without complications; G89.29 Other chronic pain; F15.90 Other stimulant use, unspecified, uncomplicated; Z87.891 Personal history of nicotine dependence; Z86.73 Personal history of transient ischemic attack (TIA), and cerebral infarction without residual deficits; Z90.49 Acquired absence of other specified parts of digestive tract; Z98.890 Other specified postprocedural states; Z91.013 Allergy to seafood; Z88.0 Allergy status to penicillin; Z88.1 Allergy status to other antibiotic agents; Z88.6 Allergy status to analgesic agent; Z79.82 Long term (current) use of aspirin; Z79.899 Other long term (current) drug therapy; Z79.4 Long term (current) use of insulin
CPT/HCPCS: 36415; 70450; 71045; 80053; 81003; 85025; 85610; 85730; 93005; 99284

== ENCOUNTER 2019-07-23 19:37 | Inpatient (IN) | payer MEDICAID ==
[~2019-07-23] VITALS: Ht 149.9 cm; Wt 66.3 kg
[2019-07-23 20:45] LABS: BASOPHILS # (AUTO) 0.1 X10'3 (0-0.2); BASOPHILS % (AUTO) 0.5 % (0-1); EOSINOPHILS # (AUTO) 0.1 X10'3 (0-0.9); EOSINOPHILS % (AUTO) 0.8 % (0-6); HEMATOCRIT 37.8 % (35.0-45.0); LYMPHOCYTES # (AUTO) 2.9 X10'3 (1.1-4.8); LYMPHOCYTES % (AUTO) 24.7 % (21-51); MEAN CORPUSCULAR HEMOGLOBIN 31.9 PG (27.0-31.0); MEAN CORPUSCULAR HGB CONC 34.3 g/dL (33.0-36.5); MEAN PLATELET VOLUME 7.3 FL (7.4-10.4); MONOCYTES # (AUTO) 1.2 X10'3 (0-0.9); MONOCYTES % (AUTO) 10.2 % (2-12); NEUTROPHILS # (AUTO) 7.4 X10'3 (1.8-7.7); NEUTROPHILS % (AUTO) 63.8 % (42-75); PLATELET COUNT 199 X10'3 (140-440); RED BLOOD COUNT 4.07 X10'6 (4.20-5.60); WHITE BLOOD COUNT 11.7 X10'3 (4.5-11.0)
[2019-07-23 20:49] LABS: PARTIAL THROMBOPLASTIN TIME 30 SECONDS (22-32)
[2019-07-23 20:52] LABS: ALANINE AMINOTRANSFERASE 25 U/L (12-78); ALBUMIN 3.2 G/DL (3.4-5.0); ALBUMIN/GLOBULIN RATIO 0.7 (1.1-1.5); ALKALINE PHOSPHATASE 96 IU/L (46-116); ANION GAP 7 (8-16); ASPARTATE AMINO TRANSFERASE 18 U/L (10-37); BILIRUBIN,TOTAL 0.5 MG/DL (0.1-1.0); BLOOD UREA NITROGEN 9 MG/DL (7-18); BUN/CREATININE RATIO 9.9 (6.6-38.0); CALCIUM 8.8 MG/DL (8.5-10.1); CHLORIDE 99 MMOL/L (99-107); CREATININE 0.91 MG/DL (0.40-0.90); GLUCOSE 90 MG/DL (70-104); POTASSIUM 4.2 MMOL/L (3.5-5.1); SODIUM 133 MMOL/L (135-145); TOTAL CARBON DIOXIDE 26.6 MMOL/L (24-32); TOTAL PROTEIN 8.1 G/DL (6.4-8.2); eGFR 62 ML/MIN
[2019-07-23] MEDS ORDERED: DOXYCYCLINE 100MG CAPSULE PO STA (21:14)
[2019-07-23] MEDS ORDERED: CefTRIAXone 2gm/D5W 50ml 50 ML IV ONE (21:15)
[2019-07-23] MEDS ORDERED: magnesium 2GM in 50ml NS 50 ML IV PRN (21:30)
[2019-07-23] MEDS ORDERED: ondansetron/PF 4mg/2ml inj IV PRN (21:30)
[2019-07-23] MEDS ORDERED: magnesium 4gm in 100ml NS 100 ML IV PRN (21:30)
[2019-07-23] MEDS ORDERED: magnesium Cl slow-release 64mg tablet PO PRN (21:30)
[2019-07-23] MEDS ORDERED: mag hydrox/Alum hydrox/simeth 30ml oral suspension PO PRN (21:30)
[2019-07-23] MEDS ORDERED: potassium Cl 20 mEq SR tablet PO PRN ×2 (21:30)
[2019-07-23] MEDS ORDERED: potassium CL 10mEq/100ml bag 100 ML IV PRN ×2 (21:30)
[2019-07-23] MEDS ORDERED: acetaminophen 325mg tablet PO PRN ×2 (21:30)
[2019-07-23] MEDS ORDERED: magnesium hydroxide 30ml (MOM) UD suspension PO PRN (21:30)
[2019-07-23] MEDS ORDERED: ipratropium/albuterol 3ml nebule NEB PRN (21:30)
[2019-07-23 22:05] LABS: CLARITY,URINE CLEAR (Clear); COLOR,URINE YELLOW (Yellow); GLUCOSE, URINE NEGATIVE (Neg); KETONES,URINE NEGATIVE (Neg); LEUKOCYTE ESTERASE ,URINE TRACE (Neg); NITRITES, URINE NEGATIVE (Neg); OCCULT BLOOD,URINE MODERATE (Neg); PROTEIN,URINE NEGATIVE (Neg); UROBILINOGEN,URINE 0.2 E.U/dL (0.2-1.0)
[2019-07-23 22:09] LABS: UA COLLECTION TYPE CLN CATCH MIDSTREAM
[2019-07-23 22:11] LABS: BACTERIA,URINE FEW /HPF (Neg); RBC,URINE 0-2 /HPF (0-2); SQUAMOUS EPITHELIAL CELL,UR FEW /LPF (FEW); WBC,URINE 0-4 /HPF (0-4)
[2019-07-23] MEDS ORDERED: SOFO1TAB3 (22:28)
[2019-07-23] MEDS ORDERED: INSU100I31 (22:29)
[2019-07-23] MEDS ORDERED: CALC3.7S3 (22:34)
[2019-07-23] MEDS ORDERED: ALBU18HF2 INH (22:34)
[2019-07-23] MEDS ORDERED: APIX2.5T PO (22:34)
[2019-07-23] MEDS ORDERED: INSU100V40 (22:34)
[2019-07-23] MEDS ORDERED: INSU100I39 (22:34)
[2019-07-23] MEDS ORDERED: VERA120T9 PO (22:34)
[2019-07-23] MEDS ORDERED: POTA10TA36 PO (22:34)
--- NOTE | 2019-07-23 23:50 | NUR ---
I have received report from Lilli VAZQUEZ and had the opportunity to ask questions and assume patient care.
[2019-07-24] MEDS ORDERED: glucagon, human recombinant 1mg kit SUBCUT PRN (00:20)
[2019-07-24] MEDS ORDERED: dextrose 50%-water 50ml dispensing syringe IV PRN ×2 (00:20)
[2019-07-24] MEDS ORDERED: dextrose ORAL solution 15 GM/59 ML bottle PO PRN ×2 (00:20)
[2019-07-24] MEDS ORDERED: MESSAGE TO PHARMACY PO ONE (00:20)
[2019-07-24] MEDS ORDERED: ipratropium/albuterol 3ml nebule NEB PRN (00:20)
[2019-07-24] MEDS ORDERED: ACETAMINOPHEN PO PRN (00:20)
[2019-07-24 00:30] VITALS: BP 138/80
[2019-07-24 06:24] LABS: ALBUMIN 2.9 G/DL (3.4-5.0); ANION GAP 9 (8-16); BLOOD UREA NITROGEN 10 MG/DL (7-18); BUN/CREATININE RATIO 11.9 (6.6-38.0); CALCIUM 9.1 MG/DL (8.5-10.1); CHLORIDE 102 MMOL/L (99-107); CREATININE 0.84 MG/DL (0.40-0.90); GLUCOSE 164 MG/DL (70-104); MAGNESIUM 1.9 MG/DL (1.5-2.4); POTASSIUM 4.3 MMOL/L (3.5-5.1); SODIUM 137 MMOL/L (135-145); eGFR 68 ML/MIN
--- NOTE | 2019-07-24 06:30 | NUR ---
Patient report given, questions answered & plan of care reviewed with Agapito VAZQUEZ.
[2019-07-24 06:37] LABS: BASOPHILS % (AUTO) 0.4 % (0-1); EOSINOPHILS # (AUTO) 0.1 X10'3 (0-0.9); EOSINOPHILS % (AUTO) 1.5 % (0-6); HEMATOCRIT 38.1 % (35.0-45.0); HEMOGLOBIN 13.1 g/dl (12.0-16.0); LYMPHOCYTES # (AUTO) 1.5 X10'3 (1.1-4.8); LYMPHOCYTES % (AUTO) 18.5 % (21-51); MEAN CORPUSCULAR HGB CONC 34.3 g/dL (33.0-36.5); MEAN CORPUSCULAR VOLUME 93.3 FL (78-98); MEAN PLATELET VOLUME 7.4 FL (7.4-10.4); MONOCYTES % (AUTO) 12.2 % (2-12); NEUTROPHILS # (AUTO) 5.5 X10'3 (1.8-7.7); NEUTROPHILS % (AUTO) 67.4 % (42-75); PLATELET COUNT 200 X10'3 (140-440); RED BLOOD COUNT 4.09 X10'6 (4.20-5.60); WHITE BLOOD COUNT 8.1 X10'3 (4.5-11.0)
--- NOTE | 2019-07-24 06:38 | NUR ---
Patient in room ORTHO 4010. I have received report from GEORGE Montes De Oca and had the opportunity to ask questions and assume patient care.
[2019-07-24] MEDS ORDERED: ipratropium/albuterol 3ml nebule NEB SCH (07:00)
[2019-07-24 07:13] LABS: HEMOGLOBIN A1C 9.8 % (4.5-6.2)
[2019-07-24] MEDS: budesonide 0.5mg/2ml UD nebule IH SCH ×2 (07:25→19:52)
[2019-07-24] MEDS: ipratropium/albuterol 3ml nebule NEB SCH ×4 (07:25→19:52)
[2019-07-24] MEDS: K and/or MAG REPLACEMENT MC SCH (07:56)
[2019-07-24] MEDS: DOXYCYCLINE 100MG CAPSULE PO SCH ×2 (07:59→20:13)
[2019-07-24] MEDS: calcium carbonate/vitamin D3 tablet PO SCH ×2 (07:59→20:14)
[2019-07-24] MEDS: FLUoxetine 20mg capsule PO SCH (07:59)
[2019-07-24] MEDS: folic acid 1mg tablet PO SCH (07:59)
[2019-07-24] MEDS: aspirin 81mg tablet.DR PO SCH (08:00)
[2019-07-24] MEDS ORDERED: LOSARTAN POTASSIUM PO SCH (08:00)
[2019-07-24] MEDS ORDERED: enoxaparin 40mg/0.4ml syringe SQ SCH (08:00)
[2019-07-24] MEDS ORDERED: verapamil SR 120mg (sust. release) tab PO SCH (08:00)
[2019-07-24] MEDS: furosemide 20MG tablet PO SCH (08:05)
[2019-07-24] MEDS: CefTRIAXone 2gm/D5W 50ml 50 ML IV SCH (08:53)
[2019-07-24 10:00] VITALS: BP 124/75
[2019-07-24] MEDS ORDERED: GABA600T13 PO (10:49)
[2019-07-24] MEDS ORDERED: VERA100C2 PO (10:49)
[2019-07-24] MEDS ORDERED: LOSA50TA3 PO (10:51)
[2019-07-24] MEDS ORDERED: gabapentin 300mg capsule PO SCH (11:00)
[2019-07-24] MEDS: losartan 50mg tablet PO SCH (11:38)
[2019-07-24] MEDS: gabapentin 300mg capsule PO SCH ×4 (11:38→20:14)
--- NOTE | 2019-07-24 15:04 | NUR ---
DM consult: Pt with A1c 9.8 up from 9.2 in February of this year per records. Pt seen at bedside with daughter present. Per pt daughter manages DM for pt. Daughter reports pt sees her MD q 3 months for DM management, takes her medications per rx, and checks BG levels 3-6 times a day with fluctuating results. Per daughter patient has had a low of 40 and has also been too high for the glucometer to detect. Daughter reports insulin rx to be used based on CHO intake however was not taught how to do so, so daughter gauges insulin by patient's BG levels. Encouraged pt/daughter to f/u with MD to review appropriate insulin rx. Per pt she has moved housing locations and she gets bored so likes to snack on CHO heavy foods such as crackers and popcorn in high quantities. Discussed CHO intake in moderation, protein intake for satiety, and finding additional hobbies as to not use food to fill time during states of boredom. Pt/daughter provided with written and verbal DM education with referral to outpatient DM class. All questions were answered at this time. RD contact information provided. Pt currently on CHO controlled diet documented with 100% PO intake, pt states she gets full from meals and doesn't require extra at this time. Pt reports difficulty swallowing at times, RD consulted ST for BSS. LBM 07/24 however both pt and daughter states LBM was 07/23. Per pt regular BM schedule is q other day and pt takes Lactulose at home if constipated. Pt agrees to power pudding with dinner tonight to help with BM, d/w dietary. Will continue to follow. Addendum: 07/24/19 at [address] Amended: Links added.
--- NOTE | 2019-07-24 15:45 | NUR ---
PAGER ID: [phone] MESSAGE: RM [id number] Marce Taylor can she get something for pain compliant of 10 out of 10. GEORGE Altman Ext [phone]
[2019-07-24] MEDS: HYDROcodone/acetaminophen 5mg/325mg tablet PO PRN (15:56)
[2019-07-24 17:00] VITALS: BP 116/54
--- NOTE | 2019-07-24 18:13 | NUR ---
Problems reprioritized. Patient report given, questions answered & plan of care reviewed with GEORGE Barth.
--- NOTE | 2019-07-24 18:15 | NUR ---
Patient in room ORTHO 4010. I have received report from Agapito VAZQUEZ and had the opportunity to ask questions and assume patient care.
[2019-07-24] MEDS: insulin Lispro (HumaLOG) vial - multi-dose SQ SCH (18:58)
[2019-07-24] MEDS: lactobacillus rhamnosus 10,000 MMU CELLS/CAPSULE PO SCH (20:14)
[2019-07-24] MEDS ORDERED: mirtazapine 15mg tablet PO SCH (21:00)
[2019-07-24] MEDS ORDERED: QUEtiapine 25mg tablet PO SCH (21:00)
[2019-07-24] MEDS ORDERED: carbidoba-levodopa 25-100mg tablet PO SCH (21:00)
[2019-07-24] MEDS ORDERED: insulin glargine (Lantus) pen - multi-dose SQ SCH (21:00)
[2019-07-24 22:00] VITALS: BP 102/62
[2019-07-25] MEDS: HYDROcodone/acetaminophen 5mg/325mg tablet PO PRN ×2 (03:29→09:38)
[2019-07-25 06:00] VITALS: BP 113/72
--- NOTE | 2019-07-25 06:16 | NUR ---
received report from raquel velez
[2019-07-25 06:20] LABS: ALBUMIN 2.6 G/DL (3.4-5.0); ANION GAP 7 (8-16); BLOOD UREA NITROGEN 19 MG/DL (7-18); BUN/CREATININE RATIO 23.2 (6.6-38.0); CHLORIDE 104 MMOL/L (99-107); CREATININE 0.82 MG/DL (0.40-0.90); GLUCOSE 168 MG/DL (70-104); MAGNESIUM 1.8 MG/DL (1.5-2.4); POTASSIUM 4.5 MMOL/L (3.5-5.1); SODIUM 140 MMOL/L (135-145); TOTAL CARBON DIOXIDE 28.8 MMOL/L (24-32); eGFR 70 ML/MIN
--- NOTE | 2019-07-25 06:35 | NUR ---
Problems reprioritized. Patient report given, questions answered & plan of care reviewed with Nilda VAZQUEZ.
[2019-07-25 06:42] LABS: BASOPHILS % (AUTO) 0.6 % (0-1); EOSINOPHILS # (AUTO) 0.1 X10'3 (0-0.9); EOSINOPHILS % (AUTO) 2.1 % (0-6); HEMATOCRIT 35.8 % (35.0-45.0); HEMOGLOBIN 12.3 g/dl (12.0-16.0); LYMPHOCYTES # (AUTO) 1.7 X10'3 (1.1-4.8); LYMPHOCYTES % (AUTO) 28.1 % (21-51); MEAN CORPUSCULAR HGB CONC 34.3 g/dL (33.0-36.5); MEAN CORPUSCULAR VOLUME 93.5 FL (78-98); MEAN PLATELET VOLUME 7.3 FL (7.4-10.4); MONOCYTES # (AUTO) 0.7 X10'3 (0-0.9); MONOCYTES % (AUTO) 12.2 % (2-12); NEUTROPHILS # (AUTO) 3.5 X10'3 (1.8-7.7); PLATELET COUNT 211 X10'3 (140-440); RED BLOOD COUNT 3.82 X10'6 (4.20-5.60); WHITE BLOOD COUNT 6.1 X10'3 (4.5-11.0)
[2019-07-25] MEDS ORDERED: apixaban 2.5mg tablet PO SCH (08:00)
[2019-07-25] MEDS: aspirin 81mg tablet.DR PO SCH (08:00)
[2019-07-25] MEDS: furosemide 20MG tablet PO SCH (08:00)
[2019-07-25] MEDS: K and/or MAG REPLACEMENT MC SCH (08:00)
--- NOTE | 2019-07-25 08:00 | NUR ---
patient has heart loop recorder placed under skin, palpated on the left upper chest
[2019-07-25] MEDS: lactobacillus rhamnosus 10,000 MMU CELLS/CAPSULE PO SCH (08:18)
[2019-07-25] MEDS: DOXYCYCLINE 100MG CAPSULE PO SCH (08:18)
[2019-07-25] MEDS: losartan 50mg tablet PO SCH (08:19)
[2019-07-25] MEDS: gabapentin 300mg capsule PO SCH ×2 (08:19→13:03)
[2019-07-25] MEDS: folic acid 1mg tablet PO SCH (08:20)
[2019-07-25] MEDS: FLUoxetine 20mg capsule PO SCH (08:20)
[2019-07-25] MEDS: calcium carbonate/vitamin D3 tablet PO SCH (08:21)
[2019-07-25] MEDS: CefTRIAXone 2gm/D5W 50ml 50 ML IV SCH (08:22)
[2019-07-25] MEDS: budesonide 0.5mg/2ml UD nebule IH SCH (08:27)
[2019-07-25] MEDS: ipratropium/albuterol 3ml nebule NEB SCH ×2 (08:27→12:21)
[2019-07-25] MEDS: insulin Lispro (HumaLOG) vial - multi-dose SQ SCH (09:32)
[2019-07-25 10:00] VITALS: BP 108/65
[2019-07-25] MEDS ORDERED: CEFD300C3 PO (11:45)
[2019-07-25] MEDS ORDERED: LACT1CAP26 PO (11:47)
[2019-07-25] MEDS ORDERED: DOXY100C2 PO (11:49)
--- NOTE | 2019-07-25 13:42 | NUR ---
pt d/c with instructions, understanding of instructions and w/all belongings in wheelchair accompanied by daughter and granddaughter to private vehicle to go home and f/u w/pcp
== END 2019-07-25 13:45 | disposition home or self-care (01) | DRG 140 ==
LOC: ER 19:39 → ED HOLD 21:48 → ORTHO 4S 23:59
PROVIDERS: ADMIT Hospitalist; ATTEND Hospitalist
DX: J43.9 Emphysema, unspecified (principal); J18.9 Pneumonia, unspecified organism; I11.0 Hypertensive heart disease with heart failure; I50.9 Heart failure, unspecified; R04.2 Hemoptysis; E11.9 Type 2 diabetes mellitus without complications; E78.00 Pure hypercholesterolemia, unspecified; F15.90 Other stimulant use, unspecified, uncomplicated; K21.9 Gastro-esophageal reflux disease without esophagitis; B19.20 Unspecified viral hepatitis C without hepatic coma; M54.9 Dorsalgia, unspecified; Z60.2 Problems related to living alone; F41.9 Anxiety disorder, unspecified; G89.4 Chronic pain syndrome; Z79.899 Other long term (current) drug therapy; Z88.1 Allergy status to other antibiotic agents; Z88.0 Allergy status to penicillin; Z88.8 Allergy status to other drugs, medicaments and biological substances; Z90.49 Acquired absence of other specified parts of digestive tract; Z98.891 History of uterine scar from previous surgery; Z79.82 Long term (current) use of aspirin; Z82.49 Family history of ischemic heart disease and other diseases of the circulatory system; Z82.5 Family history of asthma and other chronic lower respiratory diseases; Z86.73 Personal history of transient ischemic attack (TIA), and cerebral infarction without residual deficits; Z87.01 Personal history of pneumonia (recurrent); Z87.11 Personal history of peptic ulcer disease; Z95.2 Presence of prosthetic heart valve
CPT/HCPCS: 36415; 71045; 80048; 80053; 81001; 82948; 83036; 83605; 83735; 83880; 84145; 85025; 85610; 85730; 87040; 87081; 87088; 87502; 87503; 94640; 94760; 96365; 99285; G0378; J0696; J1650; J1815; J2405; J7626

== ENCOUNTER 2019-09-01 14:31 | Outpatient (CLI) | payer MEDICAID ==
[~2019-09-01 14:31] MED LIST changes: -ALBU18HF2 IH; +ALBU18HF2 INH; +APIX2.5T PO; +CALC3.7S3; -CALC3.7S3 NS; -FERR325T28 PO; -GABA-532 PO; +GABA600T13 PO; +INSU100I31; -INSU100I31 SQ; +INSU100I39; -INSU100I39 SQ; +INSU100V40; +LACT1CAP26 PO; -LOSA100T57 PO; +LOSA50TA3 PO; -MELO-102 PO; -OMEP-50 PO; -POLY1DRO2 EACHEYE; +POTA10TA36 PO; -PRED5DRO23 RIGHTEYE; +SOFO1TAB3; -TIZA4TAB5 PO; +VERA100C2 PO; -VERA120T9 PO
== END 2019-09-01 23:59 | disposition home or self-care (01) ==
LOC: RAD 14:31
PROVIDERS: ATTEND Family Medicine
DX: R13.14 Dysphagia, pharyngoesophageal phase (principal); K21.9 Gastro-esophageal reflux disease without esophagitis; R09.89 Other specified symptoms and signs involving the circulatory and respiratory systems; Z86.73 Personal history of transient ischemic attack (TIA), and cerebral infarction without residual deficits
CPT/HCPCS: 74230

== ENCOUNTER 2019-09-03 12:24 | Emergency (ER) | payer MEDICAID ==
[~2019-09-03] VITALS: Ht 149.9 cm; Wt 63.6 kg
[2019-09-03] MEDS ORDERED: ipratropium/albuterol 3ml nebule NEB ONE (14:20)
[2019-09-03] MEDS ORDERED: predniSONE 20 mg tablet PO ONE (14:20)
[2019-09-03] MEDS ORDERED: PRED10TA23 PO (14:25)
[2019-09-03 15:27] VITALS: BP 135/96
== END 2019-09-03 15:29 | disposition home or self-care (01) ==
LOC: ER 12:25
DX: J44.9 Chronic obstructive pulmonary disease, unspecified (principal); E78.00 Pure hypercholesterolemia, unspecified; K21.9 Gastro-esophageal reflux disease without esophagitis; G89.29 Other chronic pain; F41.9 Anxiety disorder, unspecified; E11.9 Type 2 diabetes mellitus without complications; I11.0 Hypertensive heart disease with heart failure; I50.9 Heart failure, unspecified; F15.90 Other stimulant use, unspecified, uncomplicated; Z86.19 Personal history of other infectious and parasitic diseases; Z86.73 Personal history of transient ischemic attack (TIA), and cerebral infarction without residual deficits; Z90.49 Acquired absence of other specified parts of digestive tract; Z98.890 Other specified postprocedural states; Z60.2 Problems related to living alone; Z91.013 Allergy to seafood; Z88.8 Allergy status to other drugs, medicaments and biological substances; Z88.0 Allergy status to penicillin; Z88.1 Allergy status to other antibiotic agents; Z79.82 Long term (current) use of aspirin; Z79.899 Other long term (current) drug therapy
CPT/HCPCS: 71046; 94640; 99284; J7512; 94760

== ENCOUNTER 2019-09-10 12:55 | Inpatient (IN) | payer MEDICAID ==
[~2019-09-10] VITALS: Ht 149.9 cm; Wt 67.0 kg
[~2019-09-10 12:55] MED LIST changes: -CALC3.7S3; +CALC3.7S3 NS; -INSU100I31; +INSU100I31 SQ; -INSU100I39; +INSU100I39 SQ; +PRED10TA23 PO
[2019-09-10 13:35] LABS: BASOPHILS # (AUTO) 0.1 X10'3 (0-0.2); BASOPHILS % (AUTO) 0.4 % (0-1); EOSINOPHILS % (AUTO) 0 % (0-6); HEMATOCRIT 37.9 % (35.0-45.0); HEMOGLOBIN 12.7 g/dl (12.0-16.0); LYMPHOCYTES # (AUTO) 0.6 X10'3 (1.1-4.8); LYMPHOCYTES % (AUTO) 3.9 % (21-51); MEAN CORPUSCULAR HEMOGLOBIN 32.3 PG (27.0-31.0); MEAN CORPUSCULAR HGB CONC 33.4 g/dL (33.0-36.5); MEAN CORPUSCULAR VOLUME 96.8 FL (78-98); MEAN PLATELET VOLUME 7.1 FL (7.4-10.4); MONOCYTES % (AUTO) 6.1 % (2-12); NEUTROPHILS # (AUTO) 14.2 X10'3 (1.8-7.7); NEUTROPHILS % (AUTO) 89.6 % (42-75); PLATELET COUNT 201 X10'3 (140-440); RED BLOOD COUNT 3.92 X10'6 (4.20-5.60); RED CELL DISTRIBUTION WIDTH 14.1 % (11.5-14.5); WHITE BLOOD COUNT 15.8 X10'3 (4.5-11.0)
[2019-09-10 13:56] LABS: ALANINE AMINOTRANSFERASE 25 U/L (12-78); ALBUMIN 3.4 G/DL (3.4-5.0); ALKALINE PHOSPHATASE 83 IU/L (46-116); ANION GAP 8 (8-16); ASPARTATE AMINO TRANSFERASE 12 U/L (10-37); BILIRUBIN,TOTAL 0.3 MG/DL (0.1-1.0); BLOOD UREA NITROGEN 17 MG/DL (7-18); BUN/CREATININE RATIO 11.2 (6.6-38.0); CALCIUM 8.9 MG/DL (8.5-10.1); CHLORIDE 100 MMOL/L (99-107); CREATININE 1.52 MG/DL (0.40-0.90); POTASSIUM 5.2 MMOL/L (3.5-5.1); SODIUM 137 MMOL/L (135-145); TOTAL CARBON DIOXIDE 28.6 MMOL/L (24-32); TOTAL PROTEIN 6.9 G/DL (6.4-8.2); eGFR 34 ML/MIN
[2019-09-10 14:02] LABS: GLUCOSE 475 MG/DL (70-104)
[2019-09-10] MEDS ORDERED: levoFLOXACIN-Levaquin 750MG/D5 150 ML IV STA (14:26)
[2019-09-10] MEDS ORDERED: normal saline 1000ML IV soln IVB ONE ×2 (14:30)
[2019-09-10] MEDS ORDERED: insulin regular, human 10 units/0.1 ml syringe IV ONE (14:30)
[2019-09-10] MEDS ORDERED: FERR325T32 PO (15:17)
[2019-09-10] MEDS ORDERED: normal saline 1000ml 1,000 ML IV SCH (15:26)
[2019-09-10] MEDS ORDERED: magnesium Cl slow-release 64mg tablet PO PRN (15:30)
[2019-09-10] MEDS ORDERED: magnesium 2GM in 50ml NS 50 ML IV PRN (15:30)
[2019-09-10] MEDS ORDERED: bisacodyl 10mg suppository rectal RC PRN (15:30)
[2019-09-10] MEDS ORDERED: dextrose ORAL solution 15 GM/59 ML bottle PO PRN (15:30)
[2019-09-10] MEDS ORDERED: magnesium 4gm in 100ml NS 100 ML IV PRN (15:30)
[2019-09-10] MEDS ORDERED: MESSAGE TO PHARMACY PO ONE (15:30)
[2019-09-10] MEDS ORDERED: mag hydrox/Alum hydrox/simeth 30ml oral suspension PO PRN (15:30)
[2019-09-10] MEDS ORDERED: potassium Cl 20 mEq SR tablet PO PRN ×2 (15:30)
[2019-09-10] MEDS ORDERED: metoclopramide 5 mg/ml inj IV PRN (15:30)
[2019-09-10] MEDS ORDERED: glucagon, human recombinant 1mg kit SUBCUT PRN (15:30)
[2019-09-10] MEDS ORDERED: magnesium hydroxide 30ml (MOM) UD suspension PO PRN (15:30)
[2019-09-10] MEDS ORDERED: ondansetron/PF 4mg/2ml inj IV PRN (15:30)
[2019-09-10] MEDS ORDERED: potassium CL 10mEq/100ml bag 100 ML IV PRN ×2 (15:30)
[2019-09-10] MEDS ORDERED: acetaminophen 325mg tablet PO PRN ×2 (15:30)
[2019-09-10] MEDS ORDERED: dextrose 50%-water 50ml dispensing syringe IV PRN ×2 (15:30)
[2019-09-10] MEDS ORDERED: APIX5TAB3 PO (15:49)
--- NOTE | 2019-09-10 16:15 | NUR ---
Patient in room ED 5. I have received report from GEORGE Pruitt and had the opportunity to ask questions and assume patient care.
--- NOTE | 2019-09-10 16:40 | NUR ---
Pt arrived to floor from ED
[2019-09-10 16:45] VITALS: BP 181/107
[2019-09-10] MEDS ORDERED: ACETAMINOPHEN PO PRN (17:05)
[2019-09-10 17:10] VITALS: BP 164/80
[2019-09-10 17:13] LABS: HEMOGLOBIN A1C 9.4 % (4.5-6.2)
[2019-09-10] MEDS: dextrose ORAL solution 15 GM/59 ML bottle PO PRN ×2 (17:19→21:06)
--- NOTE | 2019-09-10 17:20 | NUR ---
pt blood glucose 69. 15g oral dextrose administered per protocol. Will reassess in 15 minutes
--- NOTE | 2019-09-10 17:40 | NUR ---
pt blood glucose 152
[2019-09-10 18:00] VITALS: BP 166/91
--- NOTE | 2019-09-10 18:15 | NUR ---
Problems reprioritized. Patient report given, questions answered & plan of care reviewed with GEORGE Mcarthur.
[2019-09-10] MEDS: HYDROcodone/acetaminophen 5mg/325mg tablet PO PRN (18:30)
[2019-09-10] MEDS: albuterol 2.5 MG/3 ML nebule NEB SCH (19:11)
[2019-09-10] MEDS: budesonide 0.5mg/2ml UD nebule IH SCH (19:11)
[2019-09-10] MEDS: K and/or MAG REPLACEMENT MC SCH (20:00)
[2019-09-10] MEDS: QUEtiapine 25mg tablet PO SCH (20:44)
[2019-09-10] MEDS: carbidoba-levodopa 25-100mg tablet PO SCH (20:45)
[2019-09-10] MEDS: mirtazapine 15mg tablet PO SCH (20:45)
[2019-09-10] MEDS: apixaban 5mg tablet PO SCH (20:46)
[2019-09-10] MEDS: gabapentin 300mg capsule PO SCH (20:46)
[2019-09-10] MEDS: heparin, porcine 5000 units/ml vial SQ SCH (20:47)
[2019-09-10] MEDS: insulin glargine (Lantus) pen - multi-dose SQ SCH (21:00)
--- NOTE | 2019-09-10 21:24 | NUR ---
pt's blood sugar was 52, oral glucose given. recheck shows 108. will continue to monitor
[2019-09-11] VITALS: BP 147/74
--- NOTE | 2019-09-11 00:25 | NUR ---
PT CRITICAL BLOOD SUGAR 25MG/DL PT ABLE TO TAKE 2 DEXTROSE DRINKS PER PROTOCOL 0015 BLOOD GLUCOSE 95MG/DL HOSPITALIST PAGED. AWAITING CALL BACK WITH ORDERS
[2019-09-11] MEDS: dextrose 5%-normal saline 1,000 ML IV SCH ×3 (00:56→20:50)
--- NOTE | 2019-09-11 01:07 | NUR ---
DR. PINTO NOTIFIED OF BLOOD SUGARS. ORDERS OBTAINED FOR D5NS @ 100ML/HR AND TELEMETRY MONITORING. WILL CONTINUE TO MONITOR
[2019-09-11] MEDS: dextrose ORAL solution 15 GM/59 ML bottle PO PRN ×2 (02:13→07:28)
--- NOTE | 2019-09-11 02:20 | NUR ---
PT'S BLOOD GLUCOSE 68MG/DL 15G GLUCOSE GIVEN RECHECK SHOWS 98MG/DL WILL CONTINUE TO MONITOR
[2019-09-11] MEDS: albuterol 2.5 MG/3 ML nebule NEB SCH ×2 (02:40→08:56)
[2019-09-11 06:25] LABS: BASOPHILS % (AUTO) 0.2 % (0-1); EOSINOPHILS % (AUTO) 0.3 % (0-6); HEMOGLOBIN 12.1 g/dl (12.0-16.0); LYMPHOCYTES # (AUTO) 2.1 X10'3 (1.1-4.8); MEAN CORPUSCULAR HGB CONC 33.6 g/dL (33.0-36.5); MEAN CORPUSCULAR VOLUME 96.2 FL (78-98); RED BLOOD COUNT 3.74 X10'6 (4.20-5.60)
[2019-09-11 06:27] LABS: HEMATOCRIT 35.9 % (35.0-45.0); LYMPHOCYTES % (AUTO) 16.8 % (21-51); MEAN CORPUSCULAR HEMOGLOBIN 32.3 PG (27.0-31.0); MEAN PLATELET VOLUME 6.9 FL (7.4-10.4); MONOCYTES # (AUTO) 1.1 X10'3 (0-0.9); MONOCYTES % (AUTO) 8.6 % (2-12); NEUTROPHILS # (AUTO) 9.3 X10'3 (1.8-7.7); NEUTROPHILS % (AUTO) 74.1 % (42-75); PLATELET COUNT 175 X10'3 (140-440); RED CELL DISTRIBUTION WIDTH 14.3 % (11.5-14.5); WHITE BLOOD COUNT 12.5 X10'3 (4.5-11.0)
--- NOTE | 2019-09-11 06:33 | NUR ---
Report given to GEORGE Boone
[2019-09-11 06:50] LABS: ALANINE AMINOTRANSFERASE 12 U/L (12-78); ALBUMIN 2.9 G/DL (3.4-5.0); ALBUMIN/GLOBULIN RATIO 0.8 (1.1-1.5); ALKALINE PHOSPHATASE 87 IU/L (46-116); ANION GAP 6 (8-16); ASPARTATE AMINO TRANSFERASE 14 U/L (10-37); BILIRUBIN,TOTAL 0.4 MG/DL (0.1-1.0); BLOOD UREA NITROGEN 10 MG/DL (7-18); BUN/CREATININE RATIO 13.9 (6.6-38.0); CALCIUM 8.2 MG/DL (8.5-10.1); CHLORIDE 105 MMOL/L (99-107); CREATININE 0.72 MG/DL (0.40-0.90); GLUCOSE 111 MG/DL (70-104); MAGNESIUM 1.5 MG/DL (1.5-2.4); POTASSIUM 4.1 MMOL/L (3.5-5.1); SODIUM 142 MMOL/L (135-145); TOTAL CARBON DIOXIDE 31.3 MMOL/L (24-32); TOTAL PROTEIN 6.6 G/DL (6.4-8.2); eGFR 82 ML/MIN
[2019-09-11] MEDS: FLUoxetine 20mg capsule PO SCH (07:28)
[2019-09-11] MEDS: folic acid 1mg tablet PO SCH (07:29)
[2019-09-11] MEDS: losartan 50mg tablet PO SCH (07:29)
[2019-09-11] MEDS: potassium chloride 10mEq ER tablet PO SCH (07:29)
[2019-09-11] MEDS: apixaban 5mg tablet PO SCH ×2 (07:29→20:53)
[2019-09-11] MEDS: furosemide 20MG tablet PO SCH (07:29)
[2019-09-11 07:30] VITALS: BP 157/79
[2019-09-11] MEDS: levoFLOXACIN-Levaquin 250mg/D5 50 ML IV SCH (07:30)
[2019-09-11] MEDS: heparin, porcine 5000 units/ml vial SQ SCH ×2 (07:30→20:52)
[2019-09-11] MEDS: gabapentin 300mg capsule PO SCH ×3 (07:30→20:53)
[2019-09-11] MEDS: HYDROcodone/acetaminophen 5mg/325mg tablet PO PRN ×3 (07:32→21:05)
[2019-09-11] MEDS: K and/or MAG REPLACEMENT MC SCH (07:33)
[2019-09-11] MEDS ORDERED: insulin glargine (Lantus) pen - multi-dose SQ SCH (08:00)
[2019-09-11] MEDS: budesonide 0.5mg/2ml UD nebule IH SCH ×2 (08:56→19:23)
[2019-09-11 11:00] VITALS: BP 148/85
[2019-09-11] MEDS ORDERED: ipratropium/albuterol 3ml nebule NEB PRN (11:55)
--- NOTE | 2019-09-11 13:42 | NUR ---
DM consult: Pt with A1c 9.4. Pt recently admitted and seen by ABHINAV 07/24 with patient's daughter present where they were both provided with written DM education with referral to outpatient DM class with extensive verbal review and RD contact information. Patient's A1c was 9.8 at that time. No further DM education warranted at this time. Will continue to follow. Addendum: 09/11/19 at [address] Amended: Links added.
[2019-09-11] MEDS: ipratropium/albuterol 3ml nebule NEB SCH ×2 (14:52→19:23)
[2019-09-11 18:00] VITALS: BP 167/57
--- NOTE | 2019-09-11 18:00 | NUR ---
Patient in room KIRK 347. I have received report from Mely VAZQUEZ and had the opportunity to ask questions and assume patient care. Addendum: 09/12/19 at 0710 by Guillermina Koroma RN Amended: Links added.
--- NOTE | 2019-09-11 18:25 | NUR ---
Problems reprioritized. Patient report given, questions answered & plan of care reviewed with GEORGE Sarmiento.
--- NOTE | 2019-09-11 20:00 | NUR ---
Pt. awake alert to name and place. Reoriented pt. to time and event. No c/o SOB at this time; sats 98% via n/c on 2 l. Addendum: 09/12/19 at 0054 by Guillermina Koroma RN Amended: Links added.
[2019-09-11] MEDS: pantoprazole 40mg Tablet.DR PO SCH (20:53)
[2019-09-11] MEDS: QUEtiapine 25mg tablet PO SCH (20:53)
[2019-09-11] MEDS: carbidoba-levodopa 25-100mg tablet PO SCH (20:54)
[2019-09-11] MEDS: mirtazapine 15mg tablet PO SCH (20:54)
[2019-09-11] MEDS: VERAPAMIL 100 MG PO SCH (21:00)
[2019-09-11] MEDS: insulin glargine (Lantus) pen - multi-dose SQ SCH (22:29)
[2019-09-12] VITALS: BP 153/86
--- NOTE | 2019-09-12 06:00 | NUR ---
Patient report given questions answered & plan of care reviewed with Phoebe VAZQUEZ. Addendum: 09/12/19 at 0700 by Guillermina Koroma RN Amended: Links added.
[2019-09-12 06:30] VITALS: BP 160/91
--- NOTE | 2019-09-12 06:50 | NUR ---
Patient in room KIRK 357. I have received report from GEORGE Sarmiento and had the opportunity to ask questions and assume patient care.
[2019-09-12] MEDS: ipratropium/albuterol 3ml nebule NEB SCH ×6 (06:59→23:29)
[2019-09-12 07:51] LABS: BASOPHILS % (AUTO) 0.3 % (0-1); EOSINOPHILS # (AUTO) 0.1 X10'3 (0-0.9); EOSINOPHILS % (AUTO) 1.9 % (0-6); HEMATOCRIT 36.2 % (35.0-45.0); HEMOGLOBIN 12.2 g/dl (12.0-16.0); LYMPHOCYTES # (AUTO) 1.7 X10'3 (1.1-4.8); LYMPHOCYTES % (AUTO) 23.2 % (21-51); MEAN CORPUSCULAR HEMOGLOBIN 32.2 PG (27.0-31.0); MEAN CORPUSCULAR HGB CONC 33.6 g/dL (33.0-36.5); MEAN CORPUSCULAR VOLUME 95.9 FL (78-98); MEAN PLATELET VOLUME 7.1 FL (7.4-10.4); MONOCYTES # (AUTO) 0.8 X10'3 (0-0.9); MONOCYTES % (AUTO) 11.6 % (2-12); NEUTROPHILS # (AUTO) 4.6 X10'3 (1.8-7.7); PLATELET COUNT 172 X10'3 (140-440); RED BLOOD COUNT 3.78 X10'6 (4.20-5.60); RED CELL DISTRIBUTION WIDTH 14.1 % (11.5-14.5); WHITE BLOOD COUNT 7.3 X10'3 (4.5-11.0)
[2019-09-12] MEDS: budesonide 0.5mg/2ml UD nebule IH SCH ×2 (08:00→19:29)
[2019-09-12 08:15] LABS: ALANINE AMINOTRANSFERASE 14 U/L (12-78); ALBUMIN 2.7 G/DL (3.4-5.0); ALBUMIN/GLOBULIN RATIO 0.7 (1.1-1.5); ALKALINE PHOSPHATASE 80 IU/L (46-116); ANION GAP 1 (8-16); ASPARTATE AMINO TRANSFERASE 10 U/L (10-37); BILIRUBIN,TOTAL 0.3 MG/DL (0.1-1.0); BLOOD UREA NITROGEN 13 MG/DL (7-18); BUN/CREATININE RATIO 17.3 (6.6-38.0); CALCIUM 8.8 MG/DL (8.5-10.1); CHLORIDE 104 MMOL/L (99-107); CREATININE 0.75 MG/DL (0.40-0.90); GLUCOSE 196 MG/DL (70-104); MAGNESIUM 1.8 MG/DL (1.5-2.4); POTASSIUM 4.2 MMOL/L (3.5-5.1); SODIUM 139 MMOL/L (135-145); TOTAL CARBON DIOXIDE 34.2 MMOL/L (24-32); TOTAL PROTEIN 6.6 G/DL (6.4-8.2); eGFR 78 ML/MIN
[2019-09-12] MEDS: levoFLOXACIN-Levaquin 250mg/D5 50 ML IV SCH (08:55)
[2019-09-12] MEDS: FLUoxetine 20mg capsule PO SCH (08:56)
[2019-09-12] MEDS: furosemide 20MG tablet PO SCH (08:56)
[2019-09-12] MEDS: apixaban 5mg tablet PO SCH ×2 (08:56→20:13)
[2019-09-12] MEDS: losartan 50mg tablet PO SCH (08:56)
[2019-09-12] MEDS: pantoprazole 40mg Tablet.DR PO SCH ×2 (08:56→20:14)
[2019-09-12] MEDS: HYDROcodone/acetaminophen 5mg/325mg tablet PO PRN ×3 (08:57→20:13)
[2019-09-12] MEDS: gabapentin 300mg capsule PO SCH ×3 (08:57→20:14)
[2019-09-12] MEDS: folic acid 1mg tablet PO SCH (08:57)
[2019-09-12] MEDS: potassium chloride 10mEq ER tablet PO SCH (08:57)
[2019-09-12] MEDS: heparin, porcine 5000 units/ml vial SQ SCH ×2 (08:58→20:00)
[2019-09-12] MEDS: K and/or MAG REPLACEMENT MC SCH ×2 (09:32→20:00)
[2019-09-12] MEDS: amLODIPine 5mg tablet PO SCH (09:42)
[2019-09-12] MEDS: insulin Lispro (HumaLOG) vial - multi-dose SQ SCH ×2 (09:46→19:07)
--- NOTE | 2019-09-12 10:46 | NUR ---
09/11 RT med non-administered 10/31 not given
[2019-09-12 11:30] VITALS: BP 129/99
--- NOTE | 2019-09-12 18:30 | NUR ---
Patient in room KIRK 357. I have received report from GEORGE Sandhu and had the opportunity to ask questions and assume patient care.
--- NOTE | 2019-09-12 18:35 | NUR ---
Problems reprioritized. Patient report given, questions answered & plan of care reviewed with Taisha Sevilla RN.
[2019-09-12 19:00] VITALS: BP 139/84
[2019-09-12] MEDS: carbidoba-levodopa 25-100mg tablet PO SCH (20:13)
[2019-09-12] MEDS: QUEtiapine 25mg tablet PO SCH (20:13)
[2019-09-12] MEDS: mirtazapine 15mg tablet PO SCH (20:14)
[2019-09-12] MEDS: VERAPAMIL 100 MG PO SCH (20:41)
[2019-09-12] MEDS: insulin glargine (Lantus) pen - multi-dose SQ SCH (21:43)
[2019-09-13] VITALS: BP 121/81
[2019-09-13 05:15] LABS: BASOPHILS % (AUTO) 0.4 % (0-1); EOSINOPHILS # (AUTO) 0.2 X10'3 (0-0.9); EOSINOPHILS % (AUTO) 2.6 % (0-6); HEMATOCRIT 35.9 % (35.0-45.0); HEMOGLOBIN 12.2 g/dl (12.0-16.0); LYMPHOCYTES # (AUTO) 1.9 X10'3 (1.1-4.8); MEAN CORPUSCULAR HEMOGLOBIN 32.6 PG (27.0-31.0); MEAN CORPUSCULAR HGB CONC 34.1 g/dL (33.0-36.5); MEAN CORPUSCULAR VOLUME 95.7 FL (78-98); MEAN PLATELET VOLUME 6.8 FL (7.4-10.4); MONOCYTES # (AUTO) 0.8 X10'3 (0-0.9); MONOCYTES % (AUTO) 11.7 % (2-12); NEUTROPHILS # (AUTO) 3.8 X10'3 (1.8-7.7); NEUTROPHILS % (AUTO) 57.3 % (42-75); PLATELET COUNT 188 X10'3 (140-440); RED BLOOD COUNT 3.75 X10'6 (4.20-5.60); RED CELL DISTRIBUTION WIDTH 13.4 % (11.5-14.5); WHITE BLOOD COUNT 6.7 X10'3 (4.5-11.0)
[2019-09-13 05:48] LABS: ALANINE AMINOTRANSFERASE 10 U/L (12-78); ALBUMIN 2.9 G/DL (3.4-5.0); ALBUMIN/GLOBULIN RATIO 0.7 (1.1-1.5); ALKALINE PHOSPHATASE 82 IU/L (46-116); ANION GAP 4 (8-16); ASPARTATE AMINO TRANSFERASE 11 U/L (10-37); BILIRUBIN,TOTAL 0.4 MG/DL (0.1-1.0); BLOOD UREA NITROGEN 16 MG/DL (7-18); BUN/CREATININE RATIO 18.2 (6.6-38.0); CALCIUM 8.9 MG/DL (8.5-10.1); CHLORIDE 101 MMOL/L (99-107); CREATININE 0.88 MG/DL (0.40-0.90); GLUCOSE 241 MG/DL (70-104); MAGNESIUM 1.8 MG/DL (1.5-2.4); POTASSIUM 4.3 MMOL/L (3.5-5.1); SODIUM 137 MMOL/L (135-145); TOTAL CARBON DIOXIDE 32.1 MMOL/L (24-32); TOTAL PROTEIN 6.9 G/DL (6.4-8.2); eGFR 65 ML/MIN
--- NOTE | 2019-09-13 06:15 | NUR ---
Patient in room KIRK 357. I have received report from Taisha Sevilla RN and had the opportunity to ask questions and assume patient care.
--- NOTE | 2019-09-13 06:20 | NUR ---
Problems reprioritized. Patient report given, questions answered & plan of care reviewed with GEORGE Sandhu.
[2019-09-13 06:30] VITALS: BP 126/77
[2019-09-13] MEDS: K and/or MAG REPLACEMENT MC SCH ×2 (06:46→20:00)
[2019-09-13] MEDS: apixaban 5mg tablet PO SCH ×2 (07:44→19:23)
[2019-09-13] MEDS: levoFLOXACIN-Levaquin 250mg/D5 50 ML IV SCH (07:44)
[2019-09-13] MEDS: pantoprazole 40mg Tablet.DR PO SCH ×2 (07:44→19:23)
[2019-09-13] MEDS: losartan 50mg tablet PO SCH (07:45)
[2019-09-13] MEDS: amLODIPine 5mg tablet PO SCH (07:45)
[2019-09-13] MEDS: gabapentin 300mg capsule PO SCH ×3 (07:45→22:58)
[2019-09-13] MEDS: folic acid 1mg tablet PO SCH (07:45)
[2019-09-13] MEDS: FLUoxetine 20mg capsule PO SCH (07:45)
[2019-09-13] MEDS: potassium chloride 10mEq ER tablet PO SCH (07:45)
[2019-09-13] MEDS: furosemide 20MG tablet PO SCH (07:45)
[2019-09-13] MEDS: heparin, porcine 5000 units/ml vial SQ SCH ×2 (07:46→19:24)
[2019-09-13] MEDS: ipratropium/albuterol 3ml nebule NEB SCH ×5 (07:46→23:30)
[2019-09-13] MEDS: budesonide 0.5mg/2ml UD nebule IH SCH ×2 (07:46→19:41)
[2019-09-13] MEDS: HYDROcodone/acetaminophen 5mg/325mg tablet PO PRN ×4 (07:54→23:01)
[2019-09-13] MEDS: insulin Lispro (HumaLOG) vial - multi-dose SQ SCH ×3 (09:02→19:06)
[2019-09-13 11:00] VITALS: BP 99/59
--- NOTE | 2019-09-13 18:10 | NUR ---
Problems reprioritized. Patient report given, questions answered & plan of care reviewed with GEORGE Mccord.
--- NOTE | 2019-09-13 18:15 | NUR ---
Patient in room KIRK 357. I have received report from Phoebe VAZQUEZ and had the opportunity to ask questions and assume patient care.
--- NOTE | 2019-09-13 19:34 | NUR ---
Patient has pneumonia and coughing alot with productive sputum Addendum: 09/13/19 at 1948 by Suri Mancilla RN Amended: Links added.
[2019-09-13 20:00] VITALS: BP 126/66
[2019-09-13] MEDS: insulin glargine (Lantus) pen - multi-dose SQ SCH (21:23)
[2019-09-13] MEDS: VERAPAMIL 100 MG PO SCH (22:58)
[2019-09-13] MEDS: mirtazapine 15mg tablet PO SCH (22:59)
[2019-09-13] MEDS: QUEtiapine 25mg tablet PO SCH (22:59)
[2019-09-13] MEDS: carbidoba-levodopa 25-100mg tablet PO SCH (22:59)
[2019-09-14 00:32] VITALS: BP 130/106
[2019-09-14 06:25] LABS: BASOPHILS % (AUTO) 0.6 % (0-1); EOSINOPHILS # (AUTO) 0.2 X10'3 (0-0.9); EOSINOPHILS % (AUTO) 3.2 % (0-6); HEMATOCRIT 36.4 % (35.0-45.0); HEMOGLOBIN 12.3 g/dl (12.0-16.0); LYMPHOCYTES # (AUTO) 2.1 X10'3 (1.1-4.8); LYMPHOCYTES % (AUTO) 34.7 % (21-51); MEAN CORPUSCULAR HEMOGLOBIN 32.5 PG (27.0-31.0); MEAN CORPUSCULAR HGB CONC 33.8 g/dL (33.0-36.5); MEAN PLATELET VOLUME 7.2 FL (7.4-10.4); MONOCYTES # (AUTO) 0.8 X10'3 (0-0.9); MONOCYTES % (AUTO) 12.6 % (2-12); NEUTROPHILS # (AUTO) 2.9 X10'3 (1.8-7.7); NEUTROPHILS % (AUTO) 48.9 % (42-75); PLATELET COUNT 210 X10'3 (140-440); RED BLOOD COUNT 3.79 X10'6 (4.20-5.60); RED CELL DISTRIBUTION WIDTH 13.7 % (11.5-14.5)
[2019-09-14 06:30] VITALS: BP 119/71
--- NOTE | 2019-09-14 06:35 | NUR ---
Problems reprioritized. Patient report given, questions answered & plan of care reviewed with Cody VAZQUEZ.
--- NOTE | 2019-09-14 06:40 | NUR ---
Patient in room KIRK 358. I have received report from GEORGE Mccord and had the opportunity to ask questions and assume patient care.
[2019-09-14 06:52] LABS: ALANINE AMINOTRANSFERASE 10 U/L (12-78); ALBUMIN/GLOBULIN RATIO 0.7 (1.1-1.5); ALKALINE PHOSPHATASE 84 IU/L (46-116); ANION GAP 4 (8-16); ASPARTATE AMINO TRANSFERASE 11 U/L (10-37); BILIRUBIN,TOTAL 0.3 MG/DL (0.1-1.0); BLOOD UREA NITROGEN 21 MG/DL (7-18); BUN/CREATININE RATIO 17.6 (6.6-38.0); CALCIUM 8.8 MG/DL (8.5-10.1); CHLORIDE 101 MMOL/L (99-107); CREATININE 1.19 MG/DL (0.40-0.90); GLUCOSE 250 MG/DL (70-104); MAGNESIUM 1.9 MG/DL (1.5-2.4); POTASSIUM 4.4 MMOL/L (3.5-5.1); SODIUM 137 MMOL/L (135-145); TOTAL PROTEIN 7.3 G/DL (6.4-8.2); eGFR 46 ML/MIN
[2019-09-14] MEDS: K and/or MAG REPLACEMENT MC SCH (07:12)
[2019-09-14] MEDS: budesonide 0.5mg/2ml UD nebule IH SCH (09:05)
[2019-09-14] MEDS: ipratropium/albuterol 3ml nebule NEB SCH ×2 (09:06→11:00)
[2019-09-14] MEDS: gabapentin 300mg capsule PO SCH ×2 (09:32→12:39)
[2019-09-14] MEDS: apixaban 5mg tablet PO SCH (09:32)
[2019-09-14] MEDS: furosemide 20MG tablet PO SCH (09:32)
[2019-09-14] MEDS: pantoprazole 40mg Tablet.DR PO SCH (09:32)
[2019-09-14] MEDS: folic acid 1mg tablet PO SCH (09:32)
[2019-09-14] MEDS: losartan 50mg tablet PO SCH (09:32)
[2019-09-14] MEDS: amLODIPine 5mg tablet PO SCH (09:33)
[2019-09-14] MEDS: potassium chloride 10mEq ER tablet PO SCH (09:33)
[2019-09-14] MEDS: heparin, porcine 5000 units/ml vial SQ SCH (09:33)
[2019-09-14] MEDS: FLUoxetine 20mg capsule PO SCH (09:34)
[2019-09-14] MEDS: levoFLOXACIN-Levaquin 250mg/D5 50 ML IV SCH (09:34)
[2019-09-14] MEDS: insulin Lispro (HumaLOG) vial - multi-dose SQ SCH (09:42)
[2019-09-14] MEDS: HYDROcodone/acetaminophen 5mg/325mg tablet PO PRN ×2 (10:44→16:07)
[2019-09-14 11:00] VITALS: BP 110/70
[2019-09-14] MEDS: dextrose ORAL solution 15 GM/59 ML bottle PO PRN (11:30)
[2019-09-14] MEDS ORDERED: NOR5T PO (15:37)
[2019-09-14] MEDS ORDERED: LEVO750T21 PO (15:37)
[2019-09-14] MEDS ORDERED: HYDR-4383 PO (15:37)
--- NOTE | 2019-09-14 17:00 | NUR ---
DC inst provided to pt & pt's daughter. IV DC'd, tip intact. All belongings sent w/pt. WC to front lobby.
[2019-09-14] MEDS ORDERED: lactobacillus rhamnosus 10,000 MMU CELLS/CAPSULE PO SCH (20:00)
[2019-09-15] MEDS ORDERED: levoFLOXACIN 250mg tablet PO SCH (11:00)
== END 2019-09-14 17:01 | disposition home or self-care (01) | DRG 137 ==
LOC: ER 12:56 → ED HOLD 15:40 → SUR 3N 16:42
PROVIDERS: ADMIT Family Medicine; ATTEND Family Medicine
DX: J69.0 Pneumonitis due to inhalation of food and vomit (principal); J96.21 Acute and chronic respiratory failure with hypoxia; N17.9 Acute kidney failure, unspecified; E11.65 Type 2 diabetes mellitus with hyperglycemia; E66.01 Morbid (severe) obesity due to excess calories; I47.1 Supraventricular tachycardia; E78.00 Pure hypercholesterolemia, unspecified; E78.5 Hyperlipidemia, unspecified; E87.6 Hypokalemia; I48.91 Unspecified atrial fibrillation; B19.20 Unspecified viral hepatitis C without hepatic coma; F15.90 Other stimulant use, unspecified, uncomplicated; F32.9 Major depressive disorder, single episode, unspecified; F41.9 Anxiety disorder, unspecified; G89.29 Other chronic pain; K21.9 Gastro-esophageal reflux disease without esophagitis; M54.9 Dorsalgia, unspecified; I10 Essential (primary) hypertension; J43.9 Emphysema, unspecified; Z60.2 Problems related to living alone; Z79.01 Long term (current) use of anticoagulants; Z79.4 Long term (current) use of insulin; Z79.51 Long term (current) use of inhaled steroids; Z79.899 Other long term (current) drug therapy; Z86.73 Personal history of transient ischemic attack (TIA), and cerebral infarction without residual deficits; Z87.11 Personal history of peptic ulcer disease; Z87.440 Personal history of urinary (tract) infections; Z88.1 Allergy status to other antibiotic agents; Z95.2 Presence of prosthetic heart valve; Z99.81 Dependence on supplemental oxygen; Z88.8 Allergy status to other drugs, medicaments and biological substances; Z91.013 Allergy to seafood; Z82.5 Family history of asthma and other chronic lower respiratory diseases; Z82.49 Family history of ischemic heart disease and other diseases of the circulatory system; Z68.29 Body mass index [BMI] 29.0-29.9, adult; Z91.19 Patient's noncompliance with other medical treatment and regimen
CPT/HCPCS: 36415; 71045; 80053; 82948; 83036; 83605; 83735; 84145; 84484; 85025; 87040; 87070; 87081; 92508; 92616; 93005; 94640; 94667; 94668; 94760; 96365; 96375; 99285; G0378; J1644; J1815; J1956; J7030; J7042; J7626

== ENCOUNTER 2019-09-16 21:30 | Emergency (ER) | payer MEDICAID ==
[~2019-09-16] VITALS: Ht 149.9 cm; Wt 67.0 kg
[~2019-09-16 21:30] MED LIST changes: -APIX2.5T PO; +APIX5TAB3 PO; -ASPI81TA52 PO; +FERR325T32 PO; +HYDR-4383 PO; -INSU100V40; -LACT1CAP26 PO; +LEVO750T21 PO; +LIDOcaine 1% W/epiNEPHrine 1:100,000 20ml vial ONE; +NOR5T PO; -POTA10TA36 PO; -SOFO1TAB3
[2019-09-16] MEDS ORDERED: normal saline 1000ml 1,000 ML IV ONE (21:40)
[2019-09-16] MEDS ORDERED: morphine 4 MG/ML inj SYRINge IV ONE (21:40)
[2019-09-16] MEDS ORDERED: ondansetron/PF 4mg/2ml inj IV ONE (21:40)
--- NOTE | 2019-09-16 21:48 | NUR ---
Pt. to CT scan at this time with RN and tech.
[2019-09-16 21:56] LABS: BASOPHILS # (AUTO) 0.1 X10'3 (0-0.2); BASOPHILS % (AUTO) 0.6 % (0-1); EOSINOPHILS # (AUTO) 0.1 X10'3 (0-0.9); EOSINOPHILS % (AUTO) 0.7 % (0-6); HEMATOCRIT 32.8 % (35.0-45.0); HEMOGLOBIN 11.2 g/dl (12.0-16.0); LYMPHOCYTES # (AUTO) 2.3 X10'3 (1.1-4.8); LYMPHOCYTES % (AUTO) 25.4 % (21-51); MEAN CORPUSCULAR HEMOGLOBIN 32.3 PG (27.0-31.0); MEAN CORPUSCULAR HGB CONC 34.1 g/dL (33.0-36.5); MEAN CORPUSCULAR VOLUME 94.6 FL (78-98); MEAN PLATELET VOLUME 6.6 FL (7.4-10.4); MONOCYTES # (AUTO) 0.8 X10'3 (0-0.9); MONOCYTES % (AUTO) 8.9 % (2-12); NEUTROPHILS # (AUTO) 5.9 X10'3 (1.8-7.7); NEUTROPHILS % (AUTO) 64.4 % (42-75); PLATELET COUNT 234 X10'3 (140-440); RED BLOOD COUNT 3.47 X10'6 (4.20-5.60); RED CELL DISTRIBUTION WIDTH 13.6 % (11.5-14.5); WHITE BLOOD COUNT 9.1 X10'3 (4.5-11.0)
--- NOTE | 2019-09-16 22:01 | NUR ---
Pt. returned to ED room 16 at this time.
[2019-09-16 22:09] LABS: ALANINE AMINOTRANSFERASE 22 U/L (12-78); ALBUMIN 3.1 G/DL (3.4-5.0); ALBUMIN/GLOBULIN RATIO 0.8 (1.1-1.5); ALKALINE PHOSPHATASE 72 IU/L (46-116); ANION GAP 2 (8-16); ASPARTATE AMINO TRANSFERASE 17 U/L (10-37); BILIRUBIN,TOTAL 0.2 MG/DL (0.1-1.0); BLOOD UREA NITROGEN 23 MG/DL (7-18); BUN/CREATININE RATIO 19.5 (6.6-38.0); CHLORIDE 101 MMOL/L (99-107); CREATININE 1.18 MG/DL (0.40-0.90); GLUCOSE 188 MG/DL (70-104); POTASSIUM 4.4 MMOL/L (3.5-5.1); SODIUM 136 MMOL/L (135-145); TOTAL CARBON DIOXIDE 32.7 MMOL/L (24-32); TOTAL PROTEIN 7.1 G/DL (6.4-8.2); eGFR 46 ML/MIN
[2019-09-16 22:12] LABS: TROPONIN I < 0.04 NG/ML (0.0-0.05)
[2019-09-16 23:22] LABS: CLARITY,URINE CLEAR (Clear); COLOR,URINE YELLOW (Yellow); GLUCOSE, URINE NEGATIVE (Neg); KETONES,URINE NEGATIVE (Neg); LEUKOCYTE ESTERASE ,URINE NEGATIVE (Neg); NITRITES, URINE NEGATIVE (Neg); OCCULT BLOOD,URINE SMALL (Neg); PH,URINE 6.5 (4.8-8.0); PROTEIN,URINE NEGATIVE (Neg); UROBILINOGEN,URINE 0.2 E.U/dL (0.2-1.0)
[2019-09-16 23:25] LABS: URINE AMPHETAMINE SCREEN NEGATIVE (Neg); URINE BARBITUATE SCREEN NEGATIVE (Neg); URINE BENZODIAZEPINES SCREEN NEGATIVE (Neg); URINE CANNABINOID SCREEN NEGATIVE (Neg); URINE COCAINE SCREEN NEGATIVE (Neg); URINE METHADONE SCREEN NEGATIVE (Neg); URINE OPIATE SCREEN POSITIVE (Neg); URINE PHENCYCLIDINE SCREEN NEGATIVE (Neg)
[2019-09-16 23:28] LABS: UA COLLECTION TYPE VOIDED
--- NOTE | 2019-09-16 23:28 | NUR ---
has reviewed radiology results. Trauma alert cancelled at this time.
[2019-09-16 23:29] LABS: BACTERIA,URINE NONE SEEN /HPF (Neg); MUCUS STRANDS NONE SEEN /LPF (Neg); RBC,URINE NONE SEEN /HPF (0-2); SQUAMOUS EPITHELIAL CELL,UR FEW /LPF (FEW); WBC,URINE NONE SEEN /HPF (0-4)
[2019-09-16] MEDS ORDERED: ketorolac tromethamine 15mg/ml inj. IV ONE (23:30)
--- NOTE | 2019-09-16 23:52 | NUR ---
at bedside performing suturing of facial lac.
[2019-09-17 00:05] VITALS: BP 142/95
== END 2019-09-17 00:32 | disposition home or self-care (01) ==
LOC: ER 21:31
DX: S01.81XA Laceration without foreign body of other part of head, initial encounter (principal); S05.10XA Contusion of eyeball and orbital tissues, unspecified eye, initial encounter; R55 Syncope and collapse; R40.1 Stupor; E78.00 Pure hypercholesterolemia, unspecified; I10 Essential (primary) hypertension; J44.9 Chronic obstructive pulmonary disease, unspecified; K21.9 Gastro-esophageal reflux disease without esophagitis; E11.9 Type 2 diabetes mellitus without complications; G89.29 Other chronic pain; F41.9 Anxiety disorder, unspecified; F15.90 Other stimulant use, unspecified, uncomplicated; Z90.49 Acquired absence of other specified parts of digestive tract; Z98.890 Other specified postprocedural states; Z60.2 Problems related to living alone; Z91.013 Allergy to seafood; Z88.0 Allergy status to penicillin; Z88.1 Allergy status to other antibiotic agents; Z88.8 Allergy status to other drugs, medicaments and biological substances; Z79.4 Long term (current) use of insulin; Z79.899 Other long term (current) drug therapy; W18.39XA Other fall on same level, initial encounter; Y93.89 Activity, other specified; Y92.89 Other specified places as the place of occurrence of the external cause; Y99.8 Other external cause status
CPT/HCPCS: 12011; 36415; 70450; 70486; 71045; 72125; 72128; 72131; 80053; 80305; 81001; 83735; 84484; 85025; 85610; 93005; 96361; 96374; 96375; 99284; J1885; J2270; J2405; J7030

== ENCOUNTER 2019-10-14 07:56 | Inpatient (IN) | payer MEDICAID ==
[~2019-10-14] VITALS: Ht 149.9 cm; Wt 67.0 kg
[~2019-10-14 07:56] MED LIST changes: -LIDOcaine 1% W/epiNEPHrine 1:100,000 20ml vial ONE; -PRED10TA23 PO; -VERA100C2 PO; +VERA100C4 PO
[2019-10-14] MEDS ORDERED: albuterol 2.5 MG/3 ML nebule NEB ONE (08:45)
[2019-10-14] MEDS ORDERED: methylPREDNISolone sod succ 125mg/2ml vial IV ONE (08:45)
[2019-10-14 08:55] LABS: BASOPHILS # (AUTO) 0.1 X10'3 (0-0.2); BASOPHILS % (AUTO) 0.5 % (0-1); EOSINOPHILS # (AUTO) 0.1 X10'3 (0-0.9); EOSINOPHILS % (AUTO) 1.3 % (0-6); HEMATOCRIT 36.2 % (35.0-45.0); HEMOGLOBIN 12.4 g/dl (12.0-16.0); LYMPHOCYTES # (AUTO) 1.6 X10'3 (1.1-4.8); LYMPHOCYTES % (AUTO) 15.4 % (21-51); MEAN CORPUSCULAR HEMOGLOBIN 31.9 PG (27.0-31.0); MEAN CORPUSCULAR HGB CONC 34.3 g/dL (33.0-36.5); MEAN CORPUSCULAR VOLUME 93.1 FL (78-98); MEAN PLATELET VOLUME 7.2 FL (7.4-10.4); MONOCYTES % (AUTO) 9.6 % (2-12); NEUTROPHILS # (AUTO) 7.7 X10'3 (1.8-7.7); NEUTROPHILS % (AUTO) 73.2 % (42-75); PLATELET COUNT 228 X10'3 (140-440); RED BLOOD COUNT 3.89 X10'6 (4.20-5.60); RED CELL DISTRIBUTION WIDTH 13.4 % (11.5-14.5); WHITE BLOOD COUNT 10.5 X10'3 (4.5-11.0)
[2019-10-14 09:08] LABS: ALANINE AMINOTRANSFERASE 14 U/L (12-78); ALBUMIN 3.3 G/DL (3.4-5.0); ALBUMIN/GLOBULIN RATIO 0.8 (1.1-1.5); ALKALINE PHOSPHATASE 96 IU/L (46-116); ANION GAP 8 (8-16); ASPARTATE AMINO TRANSFERASE 13 U/L (10-37); BILIRUBIN,TOTAL 0.3 MG/DL (0.1-1.0); BLOOD UREA NITROGEN 18 MG/DL (7-18); BUN/CREATININE RATIO 17.5 (6.6-38.0); CALCIUM 8.9 MG/DL (8.5-10.1); CHLORIDE 101 MMOL/L (99-107); CREATININE 1.03 MG/DL (0.40-0.90); GLUCOSE 308 MG/DL (70-104); SODIUM 137 MMOL/L (135-145); TOTAL CARBON DIOXIDE 27.9 MMOL/L (24-32); TOTAL PROTEIN 7.6 G/DL (6.4-8.2); eGFR 54 ML/MIN
[2019-10-14 09:26] LABS: PARTIAL THROMBOPLASTIN TIME 30 SECONDS (22-32)
--- NOTE | 2019-10-14 10:05 | NUR ---
PT AMBULATED TO BR WITHOUT O2, DE-SAT TO 86% AND HAVING TO HOLD ONTO THE WALL FREQUENTLY.
[2019-10-14] MEDS ORDERED: levoFLOXACIN-Levaquin 750MG/D5 150 ML IV STA (10:27)
[2019-10-14] MEDS ORDERED: magnesium hydroxide 30ml (MOM) UD suspension PO PRN (10:35)
[2019-10-14] MEDS ORDERED: potassium CL 10mEq/100ml bag 100 ML IV PRN ×2 (10:35)
[2019-10-14] MEDS ORDERED: acetaminophen 325mg tablet PO PRN ×2 (10:35)
[2019-10-14] MEDS ORDERED: magnesium 2GM in 50ml NS 50 ML IV PRN (10:35)
[2019-10-14] MEDS ORDERED: HYDROcodone/acetaminophen 5mg/325mg tablet PO PRN (10:35)
[2019-10-14] MEDS ORDERED: mag hydrox/Alum hydrox/simeth 30ml oral suspension PO PRN (10:35)
[2019-10-14] MEDS ORDERED: morphine 2 MG/ML inj. syringe IV PRN ×2 (10:35)
[2019-10-14] MEDS ORDERED: magnesium Cl slow-release 64mg tablet PO PRN (10:35)
[2019-10-14] MEDS ORDERED: ondansetron/PF 4mg/2ml inj IV PRN (10:35)
[2019-10-14] MEDS ORDERED: bisacodyl 10mg suppository rectal RC PRN (10:35)
[2019-10-14] MEDS ORDERED: potassium Cl 20 mEq SR tablet PO PRN ×2 (10:35)
[2019-10-14] MEDS ORDERED: magnesium 4gm in 100ml NS 100 ML IV PRN (10:35)
[2019-10-14] MEDS: normal saline 1000ml 1,000 ML IV SCH ×2 (10:43→12:43)
[2019-10-14] MEDS ORDERED: MESSAGE TO PHARMACY PO ONE (10:45)
[2019-10-14] MEDS ORDERED: glucagon, human recombinant 1mg kit SUBCUT PRN (10:45)
[2019-10-14] MEDS ORDERED: dextrose 50%-water 50ml dispensing syringe IV PRN ×2 (10:45)
[2019-10-14] MEDS ORDERED: dextrose ORAL solution 15 GM/59 ML bottle PO PRN ×2 (10:45)
[2019-10-14] MEDS: ipratropium/albuterol 3ml nebule NEB SCH ×4 (11:00→23:36)
[2019-10-14] MEDS ORDERED: oseltamivir phos 75mg capsule PO ONE (11:20)
[2019-10-14 12:15] VITALS: BP 122/80
--- NOTE | 2019-10-14 12:31 | NUR ---
Patient in room PCU 3009 admitted from ED @ 1215. I have received report from Margaret VAZQUEZ and had the opportunity to ask questions and assume patient care. Pt was brought up in [facility] and ambulated self to bed, pt is on droplet precautions for positive for influenza A, pt oriented to room and ordered lunch tray.
[2019-10-14] MEDS: HYDROcodone/acetaminophen 10/325mg tab PO PRN ×3 (12:52→23:31)
[2019-10-14] MEDS: methylPREDNISolone sod succ 125mg/2ml vial IV SCH ×2 (14:54→19:28)
[2019-10-14 15:00] VITALS: BP 115/69
[2019-10-14] MEDS: insulin Lispro (HumaLOG) vial - multi-dose SQ SCH ×2 (15:03→19:18)
[2019-10-14 18:00] VITALS: BP 121/65
--- NOTE | 2019-10-14 18:30 | NUR ---
Problems reprioritized. Patient report given, questions answered & plan of care reviewed with Eren VAZQUEZ.
--- NOTE | 2019-10-14 18:30 | NUR ---
Patient in room PCU 3009. I have received report from GEORGE Alvarez and had the opportunity to ask questions and assume patient care. Patient has no IV. There is an order for a PICC RN ultrasound guided PIV.
[2019-10-14] MEDS: oseltamivir 30mg capsule PO SCH (19:29)
[2019-10-14] MEDS: K and/or MAG REPLACEMENT MC SCH (20:00)
[2019-10-14] MEDS: insulin glargine (Lantus) pen - multi-dose SQ SCH (21:32)
[2019-10-14 22:00] VITALS: BP 110/70
[2019-10-15 02:00] VITALS: BP 121/75
[2019-10-15] MEDS: methylPREDNISolone sod succ 125mg/2ml vial IV SCH ×4 (02:00→15:52)
--- NOTE | 2019-10-15 02:08 | NUR ---
Paged Dr. Calles PAGER ID: [phone] MESSAGE: Marce Taylor in Room 3009 has no IV access and there is an order for PICC RN. Can you switch her Solumedrol for prednisone PO? Same situation with Andrey Sorensen [id number] Thank you Eren
[2019-10-15] MEDS: ipratropium/albuterol 3ml nebule NEB SCH ×6 (03:24→23:43)
[2019-10-15] MEDS: HYDROcodone/acetaminophen 10/325mg tab PO PRN ×3 (05:28→14:09)
[2019-10-15 06:00] VITALS: BP 141/92
--- NOTE | 2019-10-15 06:16 | NUR ---
Problems reprioritized. Patient report given, questions answered & plan of care reviewed with GEORGE Ramirez. Patient stable at shift change. Patient needs to have a PICC IV place today.
--- NOTE | 2019-10-15 06:36 | NUR ---
Patient in room PCU 3009. I have received report from Eren VAZQUEZ and had the opportunity to ask questions and assume patient care.
[2019-10-15 06:40] LABS: BASOPHILS % (AUTO) 0.1 % (0-1); EOSINOPHILS % (AUTO) 0 % (0-6); HEMATOCRIT 32.1 % (35.0-45.0); LYMPHOCYTES # (AUTO) 0.8 X10'3 (1.1-4.8); LYMPHOCYTES % (AUTO) 9.4 % (21-51); MEAN CORPUSCULAR HEMOGLOBIN 32.3 PG (27.0-31.0); MEAN CORPUSCULAR HGB CONC 34.3 g/dL (33.0-36.5); MEAN PLATELET VOLUME 7.2 FL (7.4-10.4); MONOCYTES # (AUTO) 0.4 X10'3 (0-0.9); MONOCYTES % (AUTO) 4.3 % (2-12); NEUTROPHILS # (AUTO) 7.1 X10'3 (1.8-7.7); NEUTROPHILS % (AUTO) 86.2 % (42-75); PLATELET COUNT 216 X10'3 (140-440); RED BLOOD COUNT 3.42 X10'6 (4.20-5.60); RED CELL DISTRIBUTION WIDTH 13.4 % (11.5-14.5); WHITE BLOOD COUNT 8.2 X10'3 (4.5-11.0)
[2019-10-15 06:56] LABS: ALANINE AMINOTRANSFERASE 19 U/L (12-78); ALBUMIN 3.2 G/DL (3.4-5.0); ALBUMIN/GLOBULIN RATIO 0.8 (1.1-1.5); ALKALINE PHOSPHATASE 84 IU/L (46-116); ANION GAP 8 (8-16); ASPARTATE AMINO TRANSFERASE 8 U/L (10-37); BILIRUBIN,TOTAL 0.2 MG/DL (0.1-1.0); BLOOD UREA NITROGEN 28 MG/DL (7-18); BUN/CREATININE RATIO 25.7 (6.6-38.0); CHLORIDE 100 MMOL/L (99-107); CREATININE 1.09 MG/DL (0.40-0.90); GLUCOSE 382 MG/DL (70-104); MAGNESIUM 1.7 MG/DL (1.5-2.4); PHOSPHORUS 3.5 MG/DL (2.3-4.5); POTASSIUM 5.2 MMOL/L (3.5-5.1); SODIUM 135 MMOL/L (135-145); TOTAL CARBON DIOXIDE 27.5 MMOL/L (24-32); TOTAL PROTEIN 7.2 G/DL (6.4-8.2); eGFR 51 ML/MIN
--- NOTE | 2019-10-15 07:38 | NUR ---
PAGER ID: [phone] MESSAGE: [id number] Marce Taylor: NAKIA PT K is 5.2. Thanks Ale [phone]
[2019-10-15] MEDS: K and/or MAG REPLACEMENT MC SCH ×2 (08:00→20:00)
[2019-10-15] MEDS ORDERED: levoFLOXACIN-Levaquin 750MG/D5 150 ML IV SCH (08:00)
[2019-10-15] MEDS: oseltamivir 30mg capsule PO SCH ×2 (08:45→20:00)
[2019-10-15] MEDS: insulin Lispro (HumaLOG) vial - multi-dose SQ SCH ×3 (08:47→22:18)
[2019-10-15] MEDS: normal saline 1000ml 1,000 ML IV SCH (08:52)
[2019-10-15] MEDS ORDERED: methylPREDNISolone sod succ 125mg/2ml vial IV SCH (09:00)
[2019-10-15 11:00] VITALS: BP 128/71
--- NOTE | 2019-10-15 12:03 | NUR ---
Patient in room PCU 3009. I have received report from Ale VAZQUEZ and had the opportunity to ask questions and assume patient care.
--- NOTE | 2019-10-15 12:30 | NUR ---
Blood sugar 59, gave one oral dextrose medication, blood sugar came up to 93. Nonsymptomatic and eating lunch, I am not giving afternoon insulin, will continue to monitor closely.
[2019-10-15 15:00] VITALS: BP 145/87
[2019-10-15] MEDS ORDERED: GABA-532 PO (15:29)
[2019-10-15] MEDS ORDERED: POTA10TA19 PO (15:33)
[2019-10-15] MEDS ORDERED: METO50TA17 PO (15:36)
[2019-10-15] MEDS ORDERED: MELO-102 PO (15:39)
[2019-10-15] MEDS ORDERED: OMEP-50 PO (15:39)
[2019-10-15] MEDS ORDERED: FURO20TA4 PO (15:40)
[2019-10-15 18:00] VITALS: BP 152/90
--- NOTE | 2019-10-15 18:17 | NUR ---
Problems reprioritized. Patient report given, questions answered & plan of care reviewed with Oli VAZQUEZ.
--- NOTE | 2019-10-15 19:00 | NUR ---
Patient in room PCU 3009. I have received report from Syl VAZQUEZ and had the opportunity to ask questions and assume patient care.
[2019-10-15] MEDS: lactobacillus rhamnosus 10,000 MMU CELLS/CAPSULE PO SCH (20:00)
[2019-10-15] MEDS: insulin glargine (Lantus) pen - multi-dose SQ SCH (21:00)
[2019-10-15 22:00] VITALS: BP 152/90
[2019-10-16] MEDS: methylPREDNISolone sod succ 125mg/2ml vial IV SCH ×2 (00:04→08:25)
[2019-10-16] MEDS: HYDROcodone/acetaminophen 10/325mg tab PO PRN ×2 (00:07→12:45)
[2019-10-16 02:00] VITALS: BP 125/74
[2019-10-16] MEDS: ipratropium/albuterol 3ml nebule NEB SCH ×3 (03:05→11:00)
[2019-10-16] MEDS: normal saline 1000ml 1,000 ML IV SCH (05:48)
[2019-10-16 06:00] VITALS: BP 168/100
--- NOTE | 2019-10-16 06:37 | NUR ---
Patient in room PCU 3009. I have received report from Oli VAZQUEZ and had the opportunity to ask questions and assume patient care.
--- NOTE | 2019-10-16 07:00 | NUR ---
reported elevated phos of 4.[address] frye, received orders to redraw phos in 6 hours.
[2019-10-16 07:07] LABS: BASOPHILS % (AUTO) 0.1 % (0-1); EOSINOPHILS % (AUTO) 0 % (0-6); HEMATOCRIT 36.1 % (35.0-45.0); HEMOGLOBIN 12.3 g/dl (12.0-16.0); LYMPHOCYTES # (AUTO) 0.9 X10'3 (1.1-4.8); LYMPHOCYTES % (AUTO) 8.5 % (21-51); MEAN CORPUSCULAR HGB CONC 34.1 g/dL (33.0-36.5); MEAN CORPUSCULAR VOLUME 93.7 FL (78-98); MONOCYTES # (AUTO) 0.3 X10'3 (0-0.9); MONOCYTES % (AUTO) 2.6 % (2-12); NEUTROPHILS # (AUTO) 9.5 X10'3 (1.8-7.7); NEUTROPHILS % (AUTO) 88.8 % (42-75); PLATELET COUNT 284 X10'3 (140-440); RED BLOOD COUNT 3.85 X10'6 (4.20-5.60); RED CELL DISTRIBUTION WIDTH 13.4 % (11.5-14.5); WHITE BLOOD COUNT 10.6 X10'3 (4.5-11.0)
[2019-10-16 07:25] LABS: ALANINE AMINOTRANSFERASE 22 U/L (12-78); ALBUMIN 3.4 G/DL (3.4-5.0); ALBUMIN/GLOBULIN RATIO 0.8 (1.1-1.5); ALKALINE PHOSPHATASE 89 IU/L (46-116); ANION GAP 11 (8-16); ASPARTATE AMINO TRANSFERASE 14 U/L (10-37); BILIRUBIN,TOTAL 0.2 MG/DL (0.1-1.0); BLOOD UREA NITROGEN 31 MG/DL (7-18); BUN/CREATININE RATIO 28.4 (6.6-38.0); CALCIUM 9.2 MG/DL (8.5-10.1); CHLORIDE 103 MMOL/L (99-107); CREATININE 1.09 MG/DL (0.40-0.90); GLUCOSE 253 MG/DL (70-104); MAGNESIUM 1.9 MG/DL (1.5-2.4); PHOSPHORUS 4.8 MG/DL (2.3-4.5); POTASSIUM 4.8 MMOL/L (3.5-5.1); SODIUM 141 MMOL/L (135-145); TOTAL CARBON DIOXIDE 26.6 MMOL/L (24-32); TOTAL PROTEIN 7.6 G/DL (6.4-8.2); eGFR 51 ML/MIN
[2019-10-16] MEDS: K and/or MAG REPLACEMENT MC SCH (08:00)
[2019-10-16] MEDS: oseltamivir 30mg capsule PO SCH (08:25)
[2019-10-16] MEDS: lactobacillus rhamnosus 10,000 MMU CELLS/CAPSULE PO SCH (08:25)
[2019-10-16] MEDS: insulin Lispro (HumaLOG) vial - multi-dose SQ SCH ×2 (09:46→13:30)
[2019-10-16] MEDS ORDERED: OSEL30CA PO (14:22)
[2019-10-16] MEDS ORDERED: LEVO500T2 PO (15:08)
--- NOTE | 2019-10-16 16:30 | NUR ---
pt is stable for discharge per md orders, discharge instructions reviewed w/ pt and daughter all questions answered, new medication prescriptions written and handed to pt d/t pharmacy having no tamiflu and she requested a script so they can pick it up to a nearby pharmacy, tele monitor 38 removed and returned, piv dc'ed and clean dry dressing in place, pt discharged at 1630 to daughters home, wheeled down to lobby with hospital staff to private vehicle, all belongings w/ pt at time of discharge.
[2019-10-17] MEDS ORDERED: levoFLOXACIN-Levaquin 750MG/D5 150 ML IV SCH (08:00)
== END 2019-10-16 15:44 | disposition home or self-care (01) | DRG 140 ==
LOC: ER 07:57 → ED HOLD 10:41 → PCU 3S 12:14
PROVIDERS: ADMIT Family Medicine; ATTEND Family Medicine
DX: J44.1 Chronic obstructive pulmonary disease with (acute) exacerbation (principal); J96.00 Acute respiratory failure, unspecified whether with hypoxia or hypercapnia; E87.5 Hyperkalemia; I48.91 Unspecified atrial fibrillation; E11.9 Type 2 diabetes mellitus without complications; I10 Essential (primary) hypertension; G20 Parkinson's disease; E78.5 Hyperlipidemia, unspecified; F41.9 Anxiety disorder, unspecified; F31.9 Bipolar disorder, unspecified; J11.1 Influenza due to unidentified influenza virus with other respiratory manifestations; E78.00 Pure hypercholesterolemia, unspecified; G89.29 Other chronic pain; K21.9 Gastro-esophageal reflux disease without esophagitis; Z91.013 Allergy to seafood; Z88.1 Allergy status to other antibiotic agents; Z88.0 Allergy status to penicillin; Z88.8 Allergy status to other drugs, medicaments and biological substances; Z86.73 Personal history of transient ischemic attack (TIA), and cerebral infarction without residual deficits; Z79.01 Long term (current) use of anticoagulants; Z82.49 Family history of ischemic heart disease and other diseases of the circulatory system; Z87.11 Personal history of peptic ulcer disease; Z87.891 Personal history of nicotine dependence
CPT/HCPCS: 36415; 71045; 76937; 80053; 82948; 83036; 83605; 83735; 83880; 84100; 84145; 85025; 85610; 85730; 87040; 87070; 87077; 87081; 87186; 87502; 87503; 93005; 94640; 94760; 96374; 96375; 97161; 97530; 99285; G0378; J1815; J1956; J2930; J7030

== ENCOUNTER 2019-10-30 10:45 | Observation (INO) | payer MEDICAID ==
[~2019-10-30] VITALS: Ht 149.9 cm; Wt 63.0 kg
[~2019-10-30 10:45] MED LIST changes: -FURO-150 PO; +FURO20TA4 PO; +GABA-532 PO; -GABA600T13 PO; -HYDR-4383 PO; -LEVO750T21 PO; +MELO-102 PO; +METO50TA17 PO; -NOR5T PO; +OMEP-50 PO; +OSEL30CA PO; +POTA10TA19 PO
[2019-10-30] MEDS ORDERED: dextrose 50%-water 50ml dispensing syringe IV ONE (12:15)
[2019-10-30] MEDS ORDERED: dextrose 50%-water 50ml dispensing syringe IV STA (13:42)
[2019-10-30] MEDS ORDERED: Dextrose 10%-water IV solution 1,000 ML IV ONE (13:45)
--- NOTE | 2019-10-30 17:38 | NUR ---
D10 STOPPED AND A SANDWITCH WAS GIVEN AND WILL RECHECK BLOOD SUGAR PA KHANHA AWARE
--- NOTE | 2019-10-30 18:03 | NUR ---
blood sugar checked 63 d10 restarted and reported to pa
--- NOTE | 2019-10-30 18:19 | NUR ---
PT SITTING ON EDGE OF BED A/O X4. IV RUNNING PER MD ORDER.
[2019-10-30 18:58] LABS: BASOPHILS # (AUTO) 0.1 X10'3 (0-0.2); BASOPHILS % (AUTO) 0.7 % (0-1); EOSINOPHILS # (AUTO) 0.2 X10'3 (0-0.9); EOSINOPHILS % (AUTO) 2.6 % (0-6); HEMATOCRIT 36.4 % (35.0-45.0); HEMOGLOBIN 12.5 g/dl (12.0-16.0); LYMPHOCYTES % (AUTO) 27.5 % (21-51); MEAN CORPUSCULAR HEMOGLOBIN 32.4 PG (27.0-31.0); MEAN CORPUSCULAR HGB CONC 34.4 g/dL (33.0-36.5); MEAN CORPUSCULAR VOLUME 94.3 FL (78-98); MONOCYTES # (AUTO) 0.6 X10'3 (0-0.9); MONOCYTES % (AUTO) 7.8 % (2-12); NEUTROPHILS # (AUTO) 4.4 X10'3 (1.8-7.7); NEUTROPHILS % (AUTO) 61.4 % (42-75); PLATELET COUNT 182 X10'3 (140-440); RED BLOOD COUNT 3.86 X10'6 (4.20-5.60); RED CELL DISTRIBUTION WIDTH 14.2 % (11.5-14.5); WHITE BLOOD COUNT 7.2 X10'3 (4.5-11.0)
[2019-10-30 19:10] LABS: ALANINE AMINOTRANSFERASE 22 U/L (12-78); ALBUMIN 3.4 G/DL (3.4-5.0); ALBUMIN/GLOBULIN RATIO 1.1 (1.1-1.5); ALKALINE PHOSPHATASE 73 IU/L (46-116); ANION GAP 6 (8-16); ASPARTATE AMINO TRANSFERASE 11 U/L (10-37); BILIRUBIN,TOTAL 0.2 MG/DL (0.1-1.0); BLOOD UREA NITROGEN 13 MG/DL (7-18); BUN/CREATININE RATIO 16.9 (6.6-38.0); CALCIUM 8.6 MG/DL (8.5-10.1); CHLORIDE 109 MMOL/L (99-107); CREATININE 0.77 MG/DL (0.40-0.90); GLUCOSE 154 MG/DL (70-104); POTASSIUM 4.2 MMOL/L (3.5-5.1); SODIUM 144 MMOL/L (135-145); TOTAL CARBON DIOXIDE 28.8 MMOL/L (24-32); TOTAL PROTEIN 6.4 G/DL (6.4-8.2); eGFR 75 ML/MIN
[2019-10-30] MEDS ORDERED: magnesium hydroxide 30ml (MOM) UD suspension PO PRN (19:20)
[2019-10-30] MEDS ORDERED: acetaminophen 325mg tablet PO PRN ×2 (19:20→20:10)
[2019-10-30] MEDS ORDERED: mag hydrox/Alum hydrox/simeth 30ml oral suspension PO PRN (19:20)
[2019-10-30] MEDS ORDERED: ondansetron/PF 4mg/2ml inj IV PRN (19:20)
[2019-10-30] MEDS ORDERED: dextrose 50%-water 50ml dispensing syringe IV PRN ×2 (19:25)
[2019-10-30] MEDS ORDERED: MESSAGE TO PHARMACY PO ONE (19:25)
[2019-10-30] MEDS ORDERED: glucagon, human recombinant 1mg kit SUBCUT PRN (19:25)
[2019-10-30] MEDS ORDERED: dextrose ORAL solution 15 GM/59 ML bottle PO PRN ×2 (19:25)
[2019-10-30] MEDS ORDERED: albuterol 2.5 MG/3 ML nebule NEB PRN (20:05)
[2019-10-30] MEDS: ipratropium 0.5 MG/2.5ML nebule IH SCH (20:15)
[2019-10-30] MEDS: HYDROcodone/acetaminophen 5mg/325mg tablet PO PRN (20:29)
[2019-10-30 20:45] VITALS: BP 142/88
[2019-10-30] MEDS ORDERED: carbidoba-levodopa 25-100mg tablet PO SCH (21:00)
[2019-10-30] MEDS ORDERED: mirtazapine 15mg tablet PO SCH (21:00)
[2019-10-30] MEDS ORDERED: QUEtiapine 25mg tablet PO SCH (21:00)
[2019-10-30] MEDS: gabapentin 300mg capsule PO SCH (21:51)
[2019-10-30] MEDS: apixaban 5mg tablet PO SCH (22:02)
[2019-10-31] VITALS: BP 106/63
[2019-10-31] MEDS: ipratropium 0.5 MG/2.5ML nebule IH SCH ×2 (02:00→07:39)
[2019-10-31] MEDS: HYDROcodone/acetaminophen 5mg/325mg tablet PO PRN ×2 (04:36→09:23)
--- NOTE | 2019-10-31 06:31 | NUR ---
Problems reprioritized. Patient report given, questions answered & plan of care reviewed with Martha VAZQUEZ.
[2019-10-31 06:33] LABS: BASOPHILS % (AUTO) 0.7 % (0-1); EOSINOPHILS # (AUTO) 0.2 X10'3 (0-0.9); EOSINOPHILS % (AUTO) 4.1 % (0-6); HEMATOCRIT 35.6 % (35.0-45.0); HEMOGLOBIN 12.2 g/dl (12.0-16.0); LYMPHOCYTES # (AUTO) 1.9 X10'3 (1.1-4.8); LYMPHOCYTES % (AUTO) 34.6 % (21-51); MEAN CORPUSCULAR HEMOGLOBIN 32.1 PG (27.0-31.0); MEAN CORPUSCULAR HGB CONC 34.3 g/dL (33.0-36.5); MEAN CORPUSCULAR VOLUME 93.7 FL (78-98); MEAN PLATELET VOLUME 7.2 FL (7.4-10.4); MONOCYTES # (AUTO) 0.6 X10'3 (0-0.9); MONOCYTES % (AUTO) 10.4 % (2-12); NEUTROPHILS # (AUTO) 2.7 X10'3 (1.8-7.7); NEUTROPHILS % (AUTO) 50.2 % (42-75); PLATELET COUNT 168 X10'3 (140-440); RED CELL DISTRIBUTION WIDTH 14.2 % (11.5-14.5); WHITE BLOOD COUNT 5.4 X10'3 (4.5-11.0)
[2019-10-31 06:40] LABS: ALANINE AMINOTRANSFERASE 10 U/L (12-78); ALBUMIN 3.1 G/DL (3.4-5.0); ALBUMIN/GLOBULIN RATIO 1.1 (1.1-1.5); ALKALINE PHOSPHATASE 68 IU/L (46-116); ANION GAP 4 (8-16); ASPARTATE AMINO TRANSFERASE 12 U/L (10-37); BILIRUBIN,TOTAL 0.3 MG/DL (0.1-1.0); BLOOD UREA NITROGEN 10 MG/DL (7-18); BUN/CREATININE RATIO 13.7 (6.6-38.0); CALCIUM 8.5 MG/DL (8.5-10.1); CHLORIDE 109 MMOL/L (99-107); CREATININE 0.73 MG/DL (0.40-0.90); GLUCOSE 184 MG/DL (70-104); SODIUM 144 MMOL/L (135-145); TOTAL CARBON DIOXIDE 30.7 MMOL/L (24-32); eGFR 80 ML/MIN
[2019-10-31 07:00] VITALS: BP 132/81
[2019-10-31] MEDS ORDERED: pantoprazole 40mg Tablet.DR PO SCH (07:30)
[2019-10-31] MEDS: gabapentin 300mg capsule PO SCH (07:34)
[2019-10-31] MEDS: apixaban 5mg tablet PO SCH (07:35)
[2019-10-31] MEDS ORDERED: potassium chloride 10mEq ER tablet PO SCH (08:00)
[2019-10-31] MEDS ORDERED: FLUoxetine 20mg capsule PO SCH (08:00)
[2019-10-31] MEDS ORDERED: budesonide 0.5mg/2ml UD nebule IH SCH (08:00)
[2019-10-31] MEDS ORDERED: furosemide 20MG tablet PO SCH (08:00)
[2019-10-31] MEDS ORDERED: losartan 50mg tablet PO SCH (08:00)
--- NOTE | 2019-10-31 09:11 | NUR ---
No needs at this current time. Addendum: 10/31/19 at 0911 by Lisa Shaikh RN Amended: Links added.
--- NOTE | 2019-10-31 12:46 | NUR ---
Pt. discharged in a stable condition. Discharge paperwork reviewed with pt. No new prescriptions. IV DC'd, bandage applied. Daughter here to give pt. a ride home. Pt. knows to f/u with PCP within a week.
== END 2019-10-31 12:20 | disposition home or self-care (01) ==
LOC: ER 10:46 → ED HOLD 19:19 → EDBEDREQ 20:12 → SUR 3N 20:44
PROVIDERS: ADMIT Internal Medicine; ATTEND Internal Medicine
DX: E11.649 Type 2 diabetes mellitus with hypoglycemia without coma (principal); E11.51 Type 2 diabetes mellitus with diabetic peripheral angiopathy without gangrene; T38.3X1A Poisoning by insulin and oral hypoglycemic [antidiabetic] drugs, accidental (unintentional), initial encounter; K21.9 Gastro-esophageal reflux disease without esophagitis; G89.29 Other chronic pain; E78.00 Pure hypercholesterolemia, unspecified; I10 Essential (primary) hypertension; J43.9 Emphysema, unspecified; M54.9 Dorsalgia, unspecified; F41.9 Anxiety disorder, unspecified; Z87.11 Personal history of peptic ulcer disease; Z87.891 Personal history of nicotine dependence; Z95.2 Presence of prosthetic heart valve; Z79.4 Long term (current) use of insulin; Z79.51 Long term (current) use of inhaled steroids; Z79.01 Long term (current) use of anticoagulants; Z79.899 Other long term (current) drug therapy; Z86.73 Personal history of transient ischemic attack (TIA), and cerebral infarction without residual deficits; Z88.0 Allergy status to penicillin; Z88.1 Allergy status to other antibiotic agents; Z88.6 Allergy status to analgesic agent; Z88.8 Allergy status to other drugs, medicaments and biological substances; Z91.013 Allergy to seafood
CPT/HCPCS: 36415; 80053; 82948; 85025; 87081; 94640; 94760; 96365; 96366; 96376; 99284; G0378; J7626

== ENCOUNTER 2019-11-03 16:51 | Emergency (ER) | payer MEDICAID ==
[~2019-11-03] VITALS: Ht 152.4 cm; Wt 63.0 kg
[~2019-11-03 16:51] MED LIST changes: -CALC3.7S3 NS; -MELO-102 PO; -METO50TA17 PO; -MIRT15TA8 PO; -OSEL30CA PO
[2019-11-03] MEDS ORDERED: normal saline 1000ML IV soln IV ONE (17:45)
[2019-11-03] MEDS ORDERED: acetaminophen 325mg tablet PO STA (17:45)
[2019-11-03 18:06] LABS: BASOPHILS % (AUTO) 0.5 % (0-1); EOSINOPHILS # (AUTO) 0.2 X10'3 (0-0.9); HEMOGLOBIN 12.6 g/dl (12.0-16.0); LYMPHOCYTES # (AUTO) 1.1 X10'3 (1.1-4.8); LYMPHOCYTES % (AUTO) 13.7 % (21-51); MEAN CORPUSCULAR HEMOGLOBIN 31.8 PG (27.0-31.0); MEAN CORPUSCULAR VOLUME 93.4 FL (78-98); MEAN PLATELET VOLUME 6.9 FL (7.4-10.4); MONOCYTES # (AUTO) 0.7 X10'3 (0-0.9); MONOCYTES % (AUTO) 9.2 % (2-12); NEUTROPHILS # (AUTO) 5.8 X10'3 (1.8-7.7); NEUTROPHILS % (AUTO) 74.6 % (42-75); PLATELET COUNT 145 X10'3 (140-440); RED BLOOD COUNT 3.96 X10'6 (4.20-5.60); RED CELL DISTRIBUTION WIDTH 14.2 % (11.5-14.5); WHITE BLOOD COUNT 7.8 X10'3 (4.5-11.0)
[2019-11-03 18:19] LABS: PARTIAL THROMBOPLASTIN TIME 30 SECONDS (22-32)
[2019-11-03] MEDS ORDERED: ipratropium/albuterol 3ml nebule NEB ONE (18:20)
[2019-11-03 18:22] LABS: ALANINE AMINOTRANSFERASE 22 U/L (12-78); ALBUMIN 3.6 G/DL (3.4-5.0); ALBUMIN/GLOBULIN RATIO 1.1 (1.1-1.5); ALKALINE PHOSPHATASE 79 IU/L (46-116); ANION GAP 4 (8-16); ASPARTATE AMINO TRANSFERASE 14 U/L (10-37); BILIRUBIN,TOTAL 0.3 MG/DL (0.1-1.0); BLOOD UREA NITROGEN 9 MG/DL (7-18); BUN/CREATININE RATIO 13.2 (6.6-38.0); CALCIUM 8.9 MG/DL (8.5-10.1); CHLORIDE 104 MMOL/L (99-107); CREATININE 0.68 MG/DL (0.40-0.90); GLUCOSE 111 MG/DL (70-104); POTASSIUM 4.2 MMOL/L (3.5-5.1); SODIUM 138 MMOL/L (135-145); eGFR 87 ML/MIN
[2019-11-03 18:25] LABS: MAGNESIUM 1.5 MG/DL (1.5-2.4); TROPONIN I < 0.04 NG/ML (0.0-0.05)
[2019-11-03] MEDS ORDERED: levoFLOXACIN 750MG TABLET PO ONE (18:55)
[2019-11-03] MEDS ORDERED: methylPREDNISolone sod succ 125mg/2ml vial IV ONE (18:55)
[2019-11-03 19:29] LABS: URINE HCG NEGATIVE (NEG)
[2019-11-03 19:36] LABS: CLARITY,URINE CLEAR (Clear); COLOR,URINE STRAW (Yellow); GLUCOSE, URINE NEGATIVE (Neg); KETONES,URINE NEGATIVE (Neg); LEUKOCYTE ESTERASE ,URINE NEGATIVE (Neg); NITRITES, URINE NEGATIVE (Neg); OCCULT BLOOD,URINE NEGATIVE (Neg); PH,URINE 6.5 (4.8-8.0); PROTEIN,URINE NEGATIVE (Neg); UROBILINOGEN,URINE 0.2 E.U/dL (0.2-1.0)
[2019-11-03 19:49] LABS: UA COLLECTION TYPE CLN CATCH MIDSTREAM
[2019-11-03] MEDS ORDERED: ondansetron/PF 4mg/2ml inj IV ONE (20:15)
[2019-11-03] MEDS ORDERED: morphine 4 MG/ML inj SYRINge IV ONE (20:15)
[2019-11-03] MEDS ORDERED: PRED20TA PO (20:16)
[2019-11-03] MEDS ORDERED: LEVO750T21 PO (20:16)
[2019-11-03 20:39] VITALS: BP 168/83
== END 2019-11-03 20:54 | disposition home or self-care (01) ==
LOC: ER 16:52
DX: J44.1 Chronic obstructive pulmonary disease with (acute) exacerbation (principal); E78.00 Pure hypercholesterolemia, unspecified; I10 Essential (primary) hypertension; K21.9 Gastro-esophageal reflux disease without esophagitis; E11.9 Type 2 diabetes mellitus without complications; G89.29 Other chronic pain; F41.9 Anxiety disorder, unspecified; F15.90 Other stimulant use, unspecified, uncomplicated; Z86.73 Personal history of transient ischemic attack (TIA), and cerebral infarction without residual deficits; Z98.890 Other specified postprocedural states; Z91.013 Allergy to seafood; Z88.0 Allergy status to penicillin; Z88.1 Allergy status to other antibiotic agents; Z88.8 Allergy status to other drugs, medicaments and biological substances; Z79.4 Long term (current) use of insulin; Z79.01 Long term (current) use of anticoagulants; Z79.899 Other long term (current) drug therapy
CPT/HCPCS: 36415; 71045; 80053; 81003; 81025; 82948; 83605; 83735; 84145; 84484; 85025; 85610; 85730; 87040; 87502; 87503; 93005; 94640; 94760; 96374; 96375; 99284; J2270; J2405; J2930; J7030

== ENCOUNTER 2019-11-25 10:13 | Emergency (ER) | payer MEDICAID ==
[~2019-11-25] VITALS: Ht 149.9 cm; Wt 61.0 kg
[2019-11-25 10:21] VITALS: BP 120/69
[2019-11-25] MEDS ORDERED: HYDROcodone/acetaminophen 5mg/325mg tablet PO ONE (11:05)
[2019-11-25] MEDS ORDERED: ondansetron 4mg rapidly disintigrating tab PO ONE (11:05)
[2019-11-25] MEDS ORDERED: TRAM50TA2 PO (11:55)
[2019-11-25] MEDS ORDERED: CYCL-1 PO (11:55)
== END 2019-11-25 12:03 | disposition home or self-care (01) ==
LOC: ER 10:14
DX: G89.29 Other chronic pain (principal); M54.6 Pain in thoracic spine; M54.5 Low back pain; R10.32 Left lower quadrant pain; E78.00 Pure hypercholesterolemia, unspecified; I10 Essential (primary) hypertension; J44.9 Chronic obstructive pulmonary disease, unspecified; K21.9 Gastro-esophageal reflux disease without esophagitis; E11.9 Type 2 diabetes mellitus without complications; F41.9 Anxiety disorder, unspecified; F15.90 Other stimulant use, unspecified, uncomplicated; Z87.81 Personal history of (healed) traumatic fracture; Z86.2 Personal history of diseases of the blood and blood-forming organs and certain disorders involving the immune mechanism; Z86.19 Personal history of other infectious and parasitic diseases; Z86.73 Personal history of transient ischemic attack (TIA), and cerebral infarction without residual deficits; Z90.49 Acquired absence of other specified parts of digestive tract; Z98.890 Other specified postprocedural states; Z60.2 Problems related to living alone; Z72.89 Other problems related to lifestyle; Z91.013 Allergy to seafood; Z88.0 Allergy status to penicillin; Z88.8 Allergy status to other drugs, medicaments and biological substances; Z79.899 Other long term (current) drug therapy; Z79.4 Long term (current) use of insulin; Z79.01 Long term (current) use of anticoagulants
CPT/HCPCS: 72074; 72110; 99284

== ENCOUNTER 2020-01-08 20:16 | Inpatient (IN) | payer MEDICAID ==
[~2020-01-08] VITALS: Ht 149.9 cm; Wt 61.4 kg
[~2020-01-08 20:16] MED LIST changes: +CYCL-1 PO; +LEVO500T2 PO
[2020-01-08] MEDS ORDERED: ipratropium/albuterol 3ml nebule NEB ONE (20:40)
[2020-01-08] MEDS ORDERED: methylPREDNISolone sod succ 125mg/2ml vial IV ONE (20:55)
[2020-01-08] MEDS ORDERED: nitroGLYCERIN 0.4mg SUBLingual tab SL PRN ×2 (20:55→23:25)
[2020-01-08 21:01] LABS: BASOPHILS % (AUTO) 0.3 % (0-1); EOSINOPHILS # (AUTO) 0.1 X10'3 (0-0.9); HEMATOCRIT 38.7 % (35.0-45.0); HEMOGLOBIN 12.7 g/dl (12.0-16.0); LYMPHOCYTES # (AUTO) 1.6 X10'3 (1.1-4.8); LYMPHOCYTES % (AUTO) 12.5 % (21-51); MEAN CORPUSCULAR HEMOGLOBIN 30.8 PG (27.0-31.0); MEAN CORPUSCULAR HGB CONC 32.9 g/dL (33.0-36.5); MEAN CORPUSCULAR VOLUME 93.8 FL (78-98); MEAN PLATELET VOLUME 6.5 FL (7.4-10.4); MONOCYTES # (AUTO) 0.8 X10'3 (0-0.9); MONOCYTES % (AUTO) 6.3 % (2-12); NEUTROPHILS % (AUTO) 79.9 % (42-75); PLATELET COUNT 167 X10'3 (140-440); RED BLOOD COUNT 4.12 X10'6 (4.20-5.60); WHITE BLOOD COUNT 12.5 X10'3 (4.5-11.0)
--- NOTE | 2020-01-08 21:51 | NUR ---
Pt maintaining SaO2 without supplemental O2
[2020-01-08 22:18] LABS: ALANINE AMINOTRANSFERASE 22 U/L (12-78); ALBUMIN 3.8 G/DL (3.4-5.0); ALBUMIN/GLOBULIN RATIO 1.3 (1.1-1.5); ALKALINE PHOSPHATASE 68 IU/L (46-116); ANION GAP 9 (8-16); ASPARTATE AMINO TRANSFERASE 13 U/L (10-37); BILIRUBIN,TOTAL 0.3 MG/DL (0.1-1.0); BLOOD UREA NITROGEN 11 MG/DL (7-18); BUN/CREATININE RATIO 13.3 (6.6-38.0); CALCIUM 8.3 MG/DL (8.5-10.1); CHLORIDE 104 MMOL/L (99-107); CREATININE 0.83 MG/DL (0.40-0.90); GLUCOSE 278 MG/DL (70-104); POTASSIUM 4.5 MMOL/L (3.5-5.1); SODIUM 138 MMOL/L (135-145); TOTAL CARBON DIOXIDE 24.6 MMOL/L (24-32); TOTAL PROTEIN 6.8 G/DL (6.4-8.2); eGFR 69 ML/MIN
[2020-01-08] MEDS ORDERED: ipratropium/albuterol 3ml nebule NEB SCH (23:00)
[2020-01-08] MEDS ORDERED: magnesium hydroxide 30ml (MOM) UD suspension PO PRN (23:15)
[2020-01-08] MEDS ORDERED: HYDROcodone/acetaminophen 5mg/325mg tablet PO PRN (23:15)
[2020-01-08] MEDS ORDERED: mag hydrox/Alum hydrox/simeth 30ml oral suspension PO PRN (23:15)
[2020-01-08] MEDS ORDERED: ondansetron/PF 4mg/2ml inj IV PRN (23:15)
[2020-01-08] MEDS ORDERED: acetaminophen 325mg tablet PO PRN ×2 (23:15)
[2020-01-08] MEDS ORDERED: metoprolol tartrate 1mg/ml inj IV PRN (23:25)
[2020-01-08] MEDS ORDERED: aminophylline 250mg/10ml inj. IV PRN (23:25)
[2020-01-08] MEDS ORDERED: regadenoson 0.4mg/5ml syringe IV ONE (23:25)
[2020-01-09] VITALS (11 sets, daily range): BP systolic 113–167; BP diastolic 70–91
--- NOTE | 2020-01-09 00:20 | NUR ---
Received report form rn, pt brought to room Addendum: 01/09/20 at 0041 by Aleksandr Santacruz RN Amended: Links added.
[2020-01-09] MEDS: cyclobenzaprine 10mg tablet PO SCH ×2 (01:00→08:08)
[2020-01-09] MEDS: HYDROcodone/acetaminophen 10/325mg tab PO PRN ×2 (01:01→08:18)
[2020-01-09] MEDS ORDERED: albuterol 2.5 MG/3 ML nebule NEB SCH (02:00)
--- NOTE | 2020-01-09 03:13 | NUR ---
unable to draw labs x1 attempt, waiting for lab, or spencer VAZQUEZ. pt has multiple bruises and discolored areas Addendum: 01/09/20 at 0314 by Aleksandr Santacruz RN Amended: Links added.
[2020-01-09 06:11] LABS: BASOPHILS % (AUTO) 0.1 % (0-1); EOSINOPHILS % (AUTO) 0 % (0-6); HEMATOCRIT 39.7 % (35.0-45.0); HEMOGLOBIN 13.1 g/dl (12.0-16.0); LYMPHOCYTES # (AUTO) 0.7 X10'3 (1.1-4.8); LYMPHOCYTES % (AUTO) 5.3 % (21-51); MEAN CORPUSCULAR HEMOGLOBIN 31.3 PG (27.0-31.0); MEAN CORPUSCULAR VOLUME 94.9 FL (78-98); MEAN PLATELET VOLUME 6.9 FL (7.4-10.4); MONOCYTES # (AUTO) 0.1 X10'3 (0-0.9); MONOCYTES % (AUTO) 0.9 % (2-12); NEUTROPHILS # (AUTO) 12.1 X10'3 (1.8-7.7); NEUTROPHILS % (AUTO) 93.7 % (42-75); PLATELET COUNT 165 X10'3 (140-440); RED BLOOD COUNT 4.18 X10'6 (4.20-5.60); RED CELL DISTRIBUTION WIDTH 14.5 % (11.5-14.5); WHITE BLOOD COUNT 12.9 X10'3 (4.5-11.0)
[2020-01-09 06:17] LABS: ALANINE AMINOTRANSFERASE 17 U/L (12-78); ALBUMIN 3.4 G/DL (3.4-5.0); ALBUMIN/GLOBULIN RATIO 0.9 (1.1-1.5); ALKALINE PHOSPHATASE 63 IU/L (46-116); ANION GAP 8 (8-16); ASPARTATE AMINO TRANSFERASE 14 U/L (10-37); BILIRUBIN,TOTAL 0.4 MG/DL (0.1-1.0); BLOOD UREA NITROGEN 11 MG/DL (7-18); BUN/CREATININE RATIO 15.5 (6.6-38.0); CALCIUM 8.8 MG/DL (8.5-10.1); CHLORIDE 104 MMOL/L (99-107); CREATININE 0.71 MG/DL (0.40-0.90); GLUCOSE 253 MG/DL (70-104); POTASSIUM 4.9 MMOL/L (3.5-5.1); SODIUM 141 MMOL/L (135-145); TOTAL CARBON DIOXIDE 28.7 MMOL/L (24-32); TOTAL PROTEIN 7.4 G/DL (6.4-8.2); eGFR 83 ML/MIN
--- NOTE | 2020-01-09 06:42 | NUR ---
Problems reprioritized. Patient report given, questions answered & plan of care reviewed with GEORGE Suh. Addendum: 01/09/20 at 0643 by Aleksandr Santacruz RN Amended: Links added.
--- NOTE | 2020-01-09 07:16 | NUR ---
Patient in room PCU 3019. I have received report from GEORGE Lezama and had the opportunity to ask questions and assume patient care.
[2020-01-09] MEDS ORDERED: apixaban 5mg tablet PO SCH (08:00)
[2020-01-09] MEDS ORDERED: budesonide 0.5mg/2ml UD nebule IH SCH (08:00)
[2020-01-09] MEDS ORDERED: folic acid 1mg tablet PO SCH (08:00)
[2020-01-09] MEDS ORDERED: ipratropium 0.5 MG/2.5ML nebule NEB SCH (08:00)
[2020-01-09] MEDS ORDERED: gabapentin 300mg capsule PO SCH (08:00)
[2020-01-09] MEDS ORDERED: ipratropium/albuterol 3ml nebule IH SCH (08:00)
[2020-01-09] MEDS ORDERED: FLUoxetine 20mg capsule PO SCH (08:00)
[2020-01-09] MEDS ORDERED: potassium chloride 10mEq ER tablet PO SCH (08:00)
[2020-01-09] MEDS ORDERED: pantoprazole 40mg Tablet.DR PO SCH (08:00)
[2020-01-09] MEDS ORDERED: furosemide 20MG tablet PO SCH (08:00)
[2020-01-09] MEDS ORDERED: losartan 50mg tablet PO SCH (08:00)
[2020-01-09] MEDS ORDERED: insulin glargine (Lantus) pen - multi-dose SQ SCH (08:00)
--- NOTE | 2020-01-09 08:21 | NUR ---
Called pharmacy to clarify that scheduled AM lantus was correct. Pharmacy stated that this was the correct dose/time and stated that this was what she took at home
[2020-01-09] MEDS ORDERED: LEVO750T21 PO (11:57)
--- NOTE | 2020-01-09 12:32 | NUR ---
DM Consult: Pt admit w/ CP/fever hx DM A1C 10.2. Pt currently NPO for maryuri scan; written DM ed w/ RD contact information placed in pt chart. Addendum: 01/09/20 at [address] Amended: Links added.
--- NOTE | 2020-01-09 12:58 | NUR ---
Patient stable for discharge per MD, all discharge instructions reviewed with patient, all questions answered, new medication sent electronically to [facility] pharmacy on [address] in [place]. All belongings collected and sent with patient. PIV and tele monitor discontinued. Patient left the unit in wheelchair with nurses aide at 1258.
[2020-01-09] MEDS ORDERED: carbidoba-levodopa 25-100mg tablet PO SCH (21:00)
[2020-01-09] MEDS ORDERED: QUEtiapine 25mg tablet PO SCH (21:00)
== END 2020-01-09 12:58 | disposition home or self-care (01) | DRG 145 ==
LOC: ER 20:16 → ED HOLD 23:15 → PCU 3S 01-09 00:28
PROVIDERS: ADMIT Internal Medicine; ATTEND Internal Medicine
DX: J20.9 Acute bronchitis, unspecified (principal); J96.11 Chronic respiratory failure with hypoxia; G20 Parkinson's disease; I11.0 Hypertensive heart disease with heart failure; I50.9 Heart failure, unspecified; J43.9 Emphysema, unspecified; E11.9 Type 2 diabetes mellitus without complications; E78.00 Pure hypercholesterolemia, unspecified; I25.10 Atherosclerotic heart disease of native coronary artery without angina pectoris; I25.2 Old myocardial infarction; I48.0 Paroxysmal atrial fibrillation; Z79.01 Long term (current) use of anticoagulants; Z79.4 Long term (current) use of insulin; Z79.899 Other long term (current) drug therapy; Z82.49 Family history of ischemic heart disease and other diseases of the circulatory system; Z82.5 Family history of asthma and other chronic lower respiratory diseases; Z86.73 Personal history of transient ischemic attack (TIA), and cerebral infarction without residual deficits; Z87.891 Personal history of nicotine dependence; Z87.11 Personal history of peptic ulcer disease; Z95.2 Presence of prosthetic heart valve; Z88.0 Allergy status to penicillin; Z88.1 Allergy status to other antibiotic agents; Z91.013 Allergy to seafood
CPT/HCPCS: 36415; 71045; 78452; 80053; 82948; 83036; 83880; 84484; 85025; 87081; 93005; 93017; 94640; 94760; 96374; 99285; A9500; G0378; J1815; J2785; J2930; J7626

== ENCOUNTER 2020-01-11 19:04 | Emergency (ER) | payer MEDICAID ==
[~2020-01-11] VITALS: Ht 149.9 cm; Wt 135.0 kg
[~2020-01-11 19:04] MED LIST changes: -LEVO500T2 PO; +LEVO750T21 PO
[2020-01-11] MEDS ORDERED: methylPREDNISolone sod succ 125mg/2ml vial IV ONE (19:50)
[2020-01-11] MEDS ORDERED: ipratropium/albuterol 3ml nebule NEB ONE (19:50)
[2020-01-11 19:59] LABS: BASOPHILS % (AUTO) 0.3 % (0-1); EOSINOPHILS # (AUTO) 0.1 X10'3 (0-0.9); EOSINOPHILS % (AUTO) 0.6 % (0-6); HEMATOCRIT 41.4 % (35.0-45.0); HEMOGLOBIN 13.9 g/dl (12.0-16.0); LYMPHOCYTES # (AUTO) 2.6 X10'3 (1.1-4.8); LYMPHOCYTES % (AUTO) 20.2 % (21-51); MEAN CORPUSCULAR HEMOGLOBIN 31.5 PG (27.0-31.0); MEAN CORPUSCULAR HGB CONC 33.5 g/dL (33.0-36.5); MEAN PLATELET VOLUME 6.8 FL (7.4-10.4); MONOCYTES # (AUTO) 1.2 X10'3 (0-0.9); MONOCYTES % (AUTO) 9.2 % (2-12); NEUTROPHILS # (AUTO) 8.9 X10'3 (1.8-7.7); NEUTROPHILS % (AUTO) 69.7 % (42-75); PLATELET COUNT 191 X10'3 (140-440); RED BLOOD COUNT 4.41 X10'6 (4.20-5.60); RED CELL DISTRIBUTION WIDTH 13.5 % (11.5-14.5); WHITE BLOOD COUNT 12.8 X10'3 (4.5-11.0)
[2020-01-11 20:10] LABS: PARTIAL THROMBOPLASTIN TIME 28 SECONDS (22-32)
[2020-01-11 20:13] LABS: ALANINE AMINOTRANSFERASE 15 U/L (12-78); ALBUMIN 3.3 G/DL (3.4-5.0); ALBUMIN/GLOBULIN RATIO 0.9 (1.1-1.5); ALKALINE PHOSPHATASE 77 IU/L (46-116); ANION GAP 7 (8-16); ASPARTATE AMINO TRANSFERASE 12 U/L (10-37); BILIRUBIN,TOTAL 0.8 MG/DL (0.1-1.0); BLOOD UREA NITROGEN 11 MG/DL (7-18); BUN/CREATININE RATIO 14.3 (6.6-38.0); CALCIUM 8.8 MG/DL (8.5-10.1); CHLORIDE 96 MMOL/L (99-107); CREATININE 0.77 MG/DL (0.40-0.90); GLUCOSE 212 MG/DL (70-104); POTASSIUM 4.3 MMOL/L (3.5-5.1); SODIUM 133 MMOL/L (135-145); TOTAL CARBON DIOXIDE 30.5 MMOL/L (24-32); eGFR 75 ML/MIN
[2020-01-11 20:48] LABS: CLARITY,URINE CLEAR (Clear); COLOR,URINE STRAW (Yellow); GLUCOSE, URINE NEGATIVE (Neg); KETONES,URINE NEGATIVE (Neg); LEUKOCYTE ESTERASE ,URINE NEGATIVE (Neg); NITRITES, URINE NEGATIVE (Neg); OCCULT BLOOD,URINE TRACE-INTACT (Neg); PROTEIN,URINE NEGATIVE (Neg); UROBILINOGEN,URINE 0.2 E.U/dL (0.2-1.0)
[2020-01-11 20:52] LABS: UA COLLECTION TYPE CLN CATCH MIDSTREAM
[2020-01-11 20:55] LABS: BACTERIA,URINE NONE SEEN /HPF (Neg); RBC,URINE 0-2 /HPF (0-2); SQUAMOUS EPITHELIAL CELL,UR FEW /LPF (FEW); WBC,URINE 0-4 /HPF (0-4)
[2020-01-11] MEDS ORDERED: PRED20TA PO (21:10)
[2020-01-11 21:26] VITALS: BP 135/87
[2020-01-12] MEDS ORDERED: CYCL-394 PO (09:49)
[2020-01-12] MEDS ORDERED: LEVO750T46 PO (09:49)
[2020-01-12] MEDS ORDERED: PRED20TA PO (09:49)
== END 2020-01-11 21:41 | disposition home or self-care (01) ==
LOC: ER 19:04
DX: J44.1 Chronic obstructive pulmonary disease with (acute) exacerbation (principal); R06.02 Shortness of breath; R50.9 Fever, unspecified; R06.2 Wheezing; E78.00 Pure hypercholesterolemia, unspecified; I10 Essential (primary) hypertension; K21.9 Gastro-esophageal reflux disease without esophagitis; E11.9 Type 2 diabetes mellitus without complications; F41.9 Anxiety disorder, unspecified; G89.29 Other chronic pain; Z86.19 Personal history of other infectious and parasitic diseases; Z86.73 Personal history of transient ischemic attack (TIA), and cerebral infarction without residual deficits; Z87.11 Personal history of peptic ulcer disease; Z87.440 Personal history of urinary (tract) infections; Z90.89 Acquired absence of other organs; Z98.890 Other specified postprocedural states; Z86.2 Personal history of diseases of the blood and blood-forming organs and certain disorders involving the immune mechanism; Z88.0 Allergy status to penicillin; Z88.1 Allergy status to other antibiotic agents; Z88.8 Allergy status to other drugs, medicaments and biological substances; Z91.013 Allergy to seafood
CPT/HCPCS: 36415; 71045; 80053; 81001; 82948; 83605; 84145; 85025; 85610; 85730; 87040; 93005; 94640; 96374; 99285; J2930; 94760

== ENCOUNTER 2020-01-30 21:17 | Emergency (ER) | payer MEDICAID ==
[~2020-01-30] VITALS: Ht 149.9 cm; Wt 63.0 kg
[~2020-01-30 21:17] MED LIST changes: -CYCL-1 PO; +CYCL-394 PO; -LEVO750T21 PO; +LEVO750T46 PO; +PRED20TA PO
[2020-01-30 21:20] VITALS: BP 155/81
[2020-01-30] MEDS ORDERED: VALA10002 PO (21:43)
[2020-01-30] MEDS ORDERED: ACET-3068 PO (21:43)
== END 2020-01-30 21:58 | disposition home or self-care (01) ==
LOC: ER 21:18
DX: B02.9 Zoster without complications (principal); M19.90 Unspecified osteoarthritis, unspecified site; E78.00 Pure hypercholesterolemia, unspecified; I10 Essential (primary) hypertension; J43.9 Emphysema, unspecified; K21.9 Gastro-esophageal reflux disease without esophagitis; E11.9 Type 2 diabetes mellitus without complications; G89.29 Other chronic pain; F17.200 Nicotine dependence, unspecified, uncomplicated; F12.90 Cannabis use, unspecified, uncomplicated; F41.9 Anxiety disorder, unspecified; Z90.49 Acquired absence of other specified parts of digestive tract; Z87.59 Personal history of other complications of pregnancy, childbirth and the puerperium; Z86.19 Personal history of other infectious and parasitic diseases; Z98.890 Other specified postprocedural states; Z72.89 Other problems related to lifestyle; Z86.73 Personal history of transient ischemic attack (TIA), and cerebral infarction without residual deficits; Z88.0 Allergy status to penicillin; Z79.2 Long term (current) use of antibiotics; Z88.8 Allergy status to other drugs, medicaments and biological substances; Z79.4 Long term (current) use of insulin; Z79.01 Long term (current) use of anticoagulants; Z79.899 Other long term (current) drug therapy
CPT/HCPCS: 99283

== ENCOUNTER 2020-02-04 06:47 | Emergency (ER) | payer MEDICAID ==
[~2020-02-04] VITALS: Ht 149.9 cm; Wt 68.2 kg
[~2020-02-04 06:47] MED LIST changes: +ACET-3068 PO; +VALA10002 PO
[2020-02-04 07:22] LABS: BASOPHILS % (AUTO) 0.8 % (0-1); EOSINOPHILS # (AUTO) 0.2 X10'3 (0-0.9); EOSINOPHILS % (AUTO) 3.8 % (0-6); HEMATOCRIT 38.3 % (35.0-45.0); HEMOGLOBIN 12.6 g/dl (12.0-16.0); LYMPHOCYTES # (AUTO) 2.2 X10'3 (1.1-4.8); LYMPHOCYTES % (AUTO) 36.2 % (21-51); MEAN CORPUSCULAR HEMOGLOBIN 31.1 PG (27.0-31.0); MEAN CORPUSCULAR VOLUME 94.3 FL (78-98); MEAN PLATELET VOLUME 6.9 FL (7.4-10.4); MONOCYTES # (AUTO) 0.7 X10'3 (0-0.9); NEUTROPHILS # (AUTO) 2.9 X10'3 (1.8-7.7); NEUTROPHILS % (AUTO) 48.2 % (42-75); PLATELET COUNT 180 X10'3 (140-440); RED BLOOD COUNT 4.06 X10'6 (4.20-5.60); RED CELL DISTRIBUTION WIDTH 14.1 % (11.5-14.5); WHITE BLOOD COUNT 6.1 X10'3 (4.5-11.0)
[2020-02-04 07:38] LABS: ALANINE AMINOTRANSFERASE 14 U/L (12-78); ALBUMIN 3.6 G/DL (3.4-5.0); ALBUMIN/GLOBULIN RATIO 1.2 (1.1-1.5); ALKALINE PHOSPHATASE 74 IU/L (46-116); ANION GAP 6 (8-16); ASPARTATE AMINO TRANSFERASE 14 U/L (10-37); BILIRUBIN,TOTAL 0.4 MG/DL (0.1-1.0); BLOOD UREA NITROGEN 13 MG/DL (7-18); BUN/CREATININE RATIO 12.9 (6.6-38.0); CALCIUM 8.2 MG/DL (8.5-10.1); CHLORIDE 103 MMOL/L (99-107); CREATININE 1.01 MG/DL (0.40-0.90); GLUCOSE 218 MG/DL (70-104); POTASSIUM 4.6 MMOL/L (3.5-5.1); SODIUM 137 MMOL/L (135-145); TOTAL CARBON DIOXIDE 28.2 MMOL/L (24-32); TOTAL PROTEIN 6.6 G/DL (6.4-8.2); eGFR 55 ML/MIN
[2020-02-04] MEDS ORDERED: SOFO1TAB PO (07:42)
[2020-02-04] MEDS ORDERED: CALC3.7S5 BOTHNARES (07:42)
[2020-02-04] MEDS ORDERED: GABA-532 PO (07:42)
[2020-02-04] MEDS ORDERED: dexamethasone sod phosphate 10mg/ml inj IV STA (07:44)
[2020-02-04] MEDS ORDERED: magnesium 2GM in 50ml NS 50 ML IV ONE (07:45)
[2020-02-04] MEDS ORDERED: ALBUTEROL INHALER 1 PUFF/90 MCG INHALER IH PRN (07:45)
[2020-02-04] MEDS ORDERED: APIX2.5T PO (07:49)
[2020-02-04] MEDS ORDERED: MIRT15TA PO (07:50)
[2020-02-04] MEDS ORDERED: albuterol 2.5 MG/3 ML nebule NEB PRN (07:50)
[2020-02-04] MEDS ORDERED: FOLI0.4T2 PO (07:50)
[2020-02-04] MEDS ORDERED: FERR134T2 PO (07:50)
[2020-02-04 08:05] LABS: C-REACTIVE PROTEIN 0.56 MG/DL (0.0-0.5)
[2020-02-04] MEDS: acetaminophen w/codeine (30MG) #3 tablet PO ONE ×2 (08:18→08:31)
[2020-02-04] MEDS ORDERED: HYDROcodone/acetaminophen 5mg/325mg tablet PO ONE (08:25)
[2020-02-04] MEDS ORDERED: FURO-150 PO (08:40)
[2020-02-04] MEDS ORDERED: ALBU18HF2 IH (08:42)
--- NOTE | 2020-02-04 08:44 | NUR ---
PT WAS ASSISTED TO THE BEDSIDE COMMODE. PT AWARE OF PLAN. GETTING THE MAGNESIUM.
[2020-02-04 09:30] VITALS: BP 99/52
== END 2020-02-04 10:17 | disposition home or self-care (01) ==
LOC: ER 06:48
DX: J44.9 Chronic obstructive pulmonary disease, unspecified (principal); Z20.828 Contact with and (suspected) exposure to other viral communicable diseases; E78.00 Pure hypercholesterolemia, unspecified; I10 Essential (primary) hypertension; K21.9 Gastro-esophageal reflux disease without esophagitis; E11.9 Type 2 diabetes mellitus without complications; G89.29 Other chronic pain; F41.9 Anxiety disorder, unspecified; F15.90 Other stimulant use, unspecified, uncomplicated; Z86.73 Personal history of transient ischemic attack (TIA), and cerebral infarction without residual deficits; Z86.19 Personal history of other infectious and parasitic diseases; Z90.49 Acquired absence of other specified parts of digestive tract; Z98.890 Other specified postprocedural states; Z60.2 Problems related to living alone
CPT/HCPCS: 36415; 71045; 80053; 84484; 85025; 86140; 87635; 93005; 94640; 96365; 96375; 99285; J1100; J3475; 94760

== ENCOUNTER 2020-05-04 20:29 | Emergency (ER) | payer MEDICAID ==
[~2020-05-04] VITALS: Ht 149.9 cm; Wt 61.4 kg
[~2020-05-04 20:29] MED LIST changes: -ACET-3068 PO; +ALBU18HF2 IH; -ALBU18HF2 INH; +APIX2.5T PO; -APIX5TAB3 PO; +CALC3.7S5 BOTHNARES; -CYCL-394 PO; +FERR134T2 PO; -FERR325T32 PO; +FOLI0.4T2 PO; -FOLI1TAB16 PO; +FURO-150 PO; -FURO20TA4 PO; -LEVO750T46 PO; +MIRT15TA PO; -OMEP-50 PO; -PRED20TA PO; +SOFO1TAB PO
[2020-05-04] MEDS ORDERED: albuterol 2.5 MG/3 ML nebule NEB ONE (20:50)
--- NOTE | 2020-05-04 21:43 | NUR ---
PT ASSISTED TO BSC TO VOID AND THEN BACK TO BED.
[2020-05-04] MEDS ORDERED: HYDROcodone/acetaminophen 10/325mg tab PO ONE (22:00)
[2020-05-04] MEDS ORDERED: morphine 4 MG/ML inj SYRINge IM ONE (22:00)
[2020-05-04] MEDS ORDERED: ondansetron 4mg rapidly disintigrating tab PO ONE (22:00)
[2020-05-04] MEDS ORDERED: HYDR-4353 PO (22:02)
[2020-05-04] MEDS ORDERED: ALB0.5UD IH (22:04)
[2020-05-04] MEDS ORDERED: predniSONE 20 mg tablet PO ONE (22:10)
[2020-05-04] MEDS ORDERED: ipratropium/albuterol 3ml nebule NEB ONE (22:10)
[2020-05-04] MEDS ORDERED: LIDOcaine/epinephrine/tetracaine TOPICAL sol 3 ML syringe TOP ONE (22:15)
[2020-05-04] MEDS ORDERED: PRED20TA PO (22:19)
--- NOTE | 2020-05-04 22:29 | NUR ---
called pt's daughter siva to come get mother in 30 min once resp treatment is done and wound care is finished
[2020-05-04 22:47] VITALS: BP 127/82
[2020-05-05] MEDS ORDERED: MELO-102 PO (16:26)
[2020-05-05] MEDS ORDERED: MAGN400C PO (16:27)
== END 2020-05-04 22:48 | disposition home or self-care (01) ==
LOC: ER 20:31
DX: S40.012A Contusion of left shoulder, initial encounter (principal); S41.112A Laceration without foreign body of left upper arm, initial encounter; M54.2 Cervicalgia; M54.9 Dorsalgia, unspecified; J44.9 Chronic obstructive pulmonary disease, unspecified; E78.00 Pure hypercholesterolemia, unspecified; I10 Essential (primary) hypertension; J45.909 Unspecified asthma, uncomplicated; K21.9 Gastro-esophageal reflux disease without esophagitis; G89.29 Other chronic pain; E11.9 Type 2 diabetes mellitus without complications; F41.9 Anxiety disorder, unspecified; F17.200 Nicotine dependence, unspecified, uncomplicated; F15.90 Other stimulant use, unspecified, uncomplicated; Z86.73 Personal history of transient ischemic attack (TIA), and cerebral infarction without residual deficits; Z86.19 Personal history of other infectious and parasitic diseases; Z87.11 Personal history of peptic ulcer disease; Z86.2 Personal history of diseases of the blood and blood-forming organs and certain disorders involving the immune mechanism; Z87.440 Personal history of urinary (tract) infections; Z90.89 Acquired absence of other organs; Z98.890 Other specified postprocedural states; Z72.89 Other problems related to lifestyle; Z60.2 Problems related to living alone; Z88.0 Allergy status to penicillin; Z88.1 Allergy status to other antibiotic agents; Z88.8 Allergy status to other drugs, medicaments and biological substances; Z79.2 Long term (current) use of antibiotics; Z79.4 Long term (current) use of insulin; Z79.899 Other long term (current) drug therapy; X58.XXXA Exposure to other specified factors, initial encounter; Y93.89 Activity, other specified; Y92.89 Other specified places as the place of occurrence of the external cause; Y99.8 Other external cause status
CPT/HCPCS: 71045; 73030; 73060; 93005; 94640; 96372; 99284; J2270; J7512; 94760

== ENCOUNTER 2020-05-05 09:17 | Inpatient (IN) | payer MEDICAID ==
[~2020-05-05] VITALS: Ht 162.6 cm; Wt 65.0 kg
[~2020-05-05 09:17] MED LIST changes: +ALB0.5UD IH; +HYDR-4353 PO; +PRED20TA PO
[2020-05-05 10:18] LABS: BASOPHILS % (AUTO) 0.3 % (0-1); EOSINOPHILS % (AUTO) 0 % (0-6); HEMATOCRIT 42.7 % (35.0-45.0); LYMPHOCYTES # (AUTO) 0.8 X10'3 (1.1-4.8); LYMPHOCYTES % (AUTO) 8.9 % (21-51); MEAN CORPUSCULAR HEMOGLOBIN 31.3 PG (27.0-31.0); MEAN CORPUSCULAR HGB CONC 32.9 g/dL (33.0-36.5); MEAN PLATELET VOLUME 7.1 FL (7.4-10.4); MONOCYTES # (AUTO) 0.6 X10'3 (0-0.9); MONOCYTES % (AUTO) 6.7 % (2-12); NEUTROPHILS # (AUTO) 7.4 X10'3 (1.8-7.7); NEUTROPHILS % (AUTO) 84.1 % (42-75); PLATELET COUNT 167 X10'3 (140-440); RED BLOOD COUNT 4.49 X10'6 (4.20-5.60); RED CELL DISTRIBUTION WIDTH 13.3 % (11.5-14.5); WHITE BLOOD COUNT 8.8 X10'3 (4.5-11.0)
[2020-05-05 10:24] LABS: CLARITY,URINE SLIGHTLY CLOUDY (Clear); COLOR,URINE YELLOW (Yellow); GLUCOSE, URINE 100 mg/dl (Neg); KETONES,URINE NEGATIVE (Neg); LEUKOCYTE ESTERASE ,URINE TRACE (Neg); NITRITES, URINE NEGATIVE (Neg); OCCULT BLOOD,URINE NEGATIVE (Neg); PROTEIN,URINE 30 mg/dl (Neg)
[2020-05-05 10:25] LABS: UA COLLECTION TYPE CLN CATCH MIDSTREAM
[2020-05-05 10:29] LABS: BACTERIA,URINE FEW /HPF (Neg); COARSE GRANULAR CAST 0-3 /LPF (NEGATIVE); RBC,URINE 0-2 /HPF (0-2); SQUAMOUS EPITHELIAL CELL,UR FEW /LPF (FEW); WBC,URINE 0-4 /HPF (0-4)
[2020-05-05 10:31] LABS: URINE AMPHETAMINE SCREEN NEGATIVE (Neg); URINE BARBITUATE SCREEN NEGATIVE (Neg); URINE BENZODIAZEPINES SCREEN NEGATIVE (Neg); URINE CANNABINOID SCREEN NEGATIVE (Neg); URINE COCAINE SCREEN NEGATIVE (Neg); URINE METHADONE SCREEN NEGATIVE (Neg); URINE OPIATE SCREEN POSITIVE (Neg); URINE PHENCYCLIDINE SCREEN NEGATIVE (Neg)
[2020-05-05 10:32] LABS: ALANINE AMINOTRANSFERASE 40 U/L (12-78); ALBUMIN 3.7 G/DL (3.4-5.0); ALBUMIN/GLOBULIN RATIO 1.1 (1.1-1.5); ALKALINE PHOSPHATASE 76 IU/L (46-116); ANION GAP 6 (8-16); ASPARTATE AMINO TRANSFERASE 84 U/L (10-37); BILIRUBIN,TOTAL 1.3 MG/DL (0.1-1.0); BLOOD UREA NITROGEN 25 MG/DL (7-18); BUN/CREATININE RATIO 16.8 (6.6-38.0); CALCIUM 8.1 MG/DL (8.5-10.1); CHLORIDE 102 MMOL/L (99-107); CREATININE 1.49 MG/DL (0.40-0.90); ETHANOL < 0.010 GM/DL (0.0-0.010); GLUCOSE 186 MG/DL (70-104); SODIUM 136 MMOL/L (135-145); TOTAL CARBON DIOXIDE 27.8 MMOL/L (24-32); eGFR 35 ML/MIN
[2020-05-05 10:35] LABS: POTASSIUM 6.7 MMOL/L (3.5-5.1)
[2020-05-05] MEDS ORDERED: furosemide 40mg/4ml inj IV ONE (10:40)
[2020-05-05] MEDS ORDERED: insulin regular, human U-100 3ml vial - multi-dose IV ONE ×2 (10:40→11:40)
[2020-05-05] MEDS ORDERED: sodium bicarbonate (8.4%) 1 mEq/ml syringe IV ONE (10:40)
[2020-05-05] MEDS ORDERED: dextrose 50%-water 50ml dispensing syringe IV ONE (10:40)
[2020-05-05] MEDS ORDERED: calcium chloride 100 MG/1 ML inj IV ONE (10:40)
--- NOTE | 2020-05-05 11:00 | NUR ---
Pt gave verbal consent to update daughter Yoselyn ([phone]) on pt's status.
[2020-05-05] MEDS ORDERED: potassium CL 10mEq/100ml bag 100 ML IV PRN ×2 (11:10)
[2020-05-05] MEDS ORDERED: morphine 2 MG/ML inj. syringe IV PRN (11:10)
[2020-05-05] MEDS ORDERED: magnesium 4gm in 100ml NS 100 ML IV PRN (11:10)
[2020-05-05] MEDS ORDERED: magnesium Cl slow-release 64mg tablet PO PRN (11:10)
[2020-05-05] MEDS ORDERED: acetaminophen 325mg tablet PO PRN ×2 (11:10)
[2020-05-05] MEDS ORDERED: ondansetron/PF 4mg/2ml inj IV PRN (11:10)
[2020-05-05] MEDS ORDERED: magnesium 2GM in 50ml NS 50 ML IV PRN (11:10)
[2020-05-05] MEDS ORDERED: potassium Cl 20 mEq SR tablet PO PRN ×2 (11:10)
[2020-05-05] MEDS ORDERED: insulin regular, human 10 units/0.1 ml syringe IV ONE (11:35)
[2020-05-05] MEDS ORDERED: sodium polystyrene sulfonate 15gm/60ml oral suspension PO ONE (11:35)
[2020-05-05] MEDS ORDERED: albuterol 2.5 MG/3 ML nebule NEB SCH (12:00)
[2020-05-05] MEDS: normal saline 1000ml 1,000 ML IV SCH ×2 (12:01→20:49)
--- NOTE | 2020-05-05 12:16 | NUR ---
Patient in room ED 14. I have received report from JHOANA VAZQUEZ and had the opportunity to ask questions and assume patient care.
[2020-05-05 13:00] VITALS: BP 145/107
[2020-05-05] MEDS ORDERED: MELO-102 PO (16:26)
[2020-05-05] MEDS ORDERED: MAGN400C PO (16:27)
[2020-05-05] MEDS ORDERED: ACETAMINOPHEN PO PRN (16:40)
--- NOTE | 2020-05-05 16:50 | NUR ---
I called [facility] pharmacy in [place] to have them fax over med list- reviewed meds with daughter but Dr. Martin needs it confirmed since the patient is on so many medications. Waiting for fax they said they would send it.
[2020-05-05] MEDS ORDERED: albuterol 2.5 MG/3 ML nebule NEB PRN (17:10)
[2020-05-05] MEDS ORDERED: verapamil SR 120mg (sust. release) tab PO SCH (17:17)
[2020-05-05] MEDS: losartan 50mg tablet PO SCH (17:20)
[2020-05-05 18:00] VITALS: BP 190/110
[2020-05-05 18:45] VITALS: BP 159/90
--- NOTE | 2020-05-05 18:49 | NUR ---
Patient report given to Amanda VAZQUEZ
[2020-05-05] MEDS ORDERED: MESSAGE TO PHARMACY PO ONE (19:15)
[2020-05-05] MEDS ORDERED: dextrose ORAL solution 15 GM/59 ML bottle PO PRN ×2 (19:15)
[2020-05-05] MEDS ORDERED: glucagon, human recombinant 1mg kit SUBCUT PRN (19:15)
[2020-05-05] MEDS ORDERED: dextrose 50%-water 50ml dispensing syringe IV PRN ×2 (19:15)
[2020-05-05] MEDS: heparin, porcine 5000 units/ml vial SQ SCH (19:23)
[2020-05-05 20:00] VITALS: BP_SYST 137; BP_SYST 140; BP_SYST 149; BP_DIAS 84; BP_DIAS 87; BP_DIAS 88
[2020-05-05] MEDS: K and/or MAG REPLACEMENT MC SCH (20:00)
[2020-05-05] MEDS ORDERED: ipratropium 0.5 MG/2.5ML nebule IH SCH (20:00)
[2020-05-05] MEDS: verapamil SR 120mg (sust. release) tab PO SCH (20:09)
[2020-05-05] MEDS: carbidoba-levodopa 25-100mg tablet PO SCH (20:10)
[2020-05-05] MEDS: mirtazapine 15mg tablet PO SCH (20:10)
[2020-05-05] MEDS: QUEtiapine 25mg tablet PO SCH (20:10)
[2020-05-05] MEDS: ipratropium/albuterol 3ml nebule NEB SCH (20:39)
[2020-05-05] MEDS: budesonide 0.5mg/2ml UD nebule IH SCH (20:39)
[2020-05-05] MEDS: HYDROcodone/acetaminophen 5mg/325mg tablet PO PRN (20:53)
[2020-05-05] MEDS: insulin Lispro (HumaLOG) vial - multi-dose SQ SCH (21:28)
[2020-05-05] MEDS: insulin glargine (Lantus) pen - multi-dose SQ SCH (21:30)
[2020-05-05 22:00] VITALS: BP 135/82
[2020-05-06] MEDS: ipratropium/albuterol 3ml nebule NEB SCH ×4 (03:00→20:27)
[2020-05-06] MEDS: normal saline 1000ml 1,000 ML IV SCH ×3 (05:22→22:46)
[2020-05-06 06:10] VITALS: BP 113/68
--- NOTE | 2020-05-06 06:18 | NUR ---
Patient in room ORTHO 4011. I have received report from Amanda VAZQUEZ and had the opportunity to ask questions and assume patient care.
--- NOTE | 2020-05-06 06:25 | NUR ---
Problems reprioritized. Patient report given, questions answered & plan of care reviewed with GEORGE Baron.
[2020-05-06 06:29] LABS: BASOPHILS % (AUTO) 0.1 % (0-1); EOSINOPHILS % (AUTO) 0 % (0-6); HEMATOCRIT 38.1 % (35.0-45.0); HEMOGLOBIN 12.7 g/dl (12.0-16.0); LYMPHOCYTES # (AUTO) 1.4 X10'3 (1.1-4.8); LYMPHOCYTES % (AUTO) 18.6 % (21-51); MEAN CORPUSCULAR HEMOGLOBIN 31.7 PG (27.0-31.0); MEAN CORPUSCULAR HGB CONC 33.4 g/dL (33.0-36.5); MEAN CORPUSCULAR VOLUME 94.9 FL (78-98); MEAN PLATELET VOLUME 7.2 FL (7.4-10.4); MONOCYTES # (AUTO) 0.6 X10'3 (0-0.9); MONOCYTES % (AUTO) 8.3 % (2-12); NEUTROPHILS # (AUTO) 5.4 X10'3 (1.8-7.7); PLATELET COUNT 157 X10'3 (140-440); RED BLOOD COUNT 4.02 X10'6 (4.20-5.60); RED CELL DISTRIBUTION WIDTH 12.8 % (11.5-14.5); WHITE BLOOD COUNT 7.3 X10'3 (4.5-11.0)
[2020-05-06 06:44] LABS: ALANINE AMINOTRANSFERASE 16 U/L (12-78); ALBUMIN 3.1 G/DL (3.4-5.0); ALBUMIN/GLOBULIN RATIO 1.1 (1.1-1.5); ALKALINE PHOSPHATASE 64 IU/L (46-116); ANION GAP 6 (8-16); ASPARTATE AMINO TRANSFERASE 46 U/L (10-37); BILIRUBIN,TOTAL 0.3 MG/DL (0.1-1.0); BLOOD UREA NITROGEN 20 MG/DL (7-18); BUN/CREATININE RATIO 25.3 (6.6-38.0); CHLORIDE 106 MMOL/L (99-107); CREATININE 0.79 MG/DL (0.40-0.90); GLUCOSE 201 MG/DL (70-104); MAGNESIUM 1.5 MG/DL (1.5-2.4); POTASSIUM 3.6 MMOL/L (3.5-5.1); SODIUM 143 MMOL/L (135-145); TOTAL PROTEIN 5.9 G/DL (6.4-8.2); eGFR 73 ML/MIN
[2020-05-06] MEDS: HYDROcodone/acetaminophen 5mg/325mg tablet PO PRN ×2 (07:47→17:39)
[2020-05-06] MEDS: folic acid 1mg tablet PO SCH (07:47)
[2020-05-06] MEDS: losartan 50mg tablet PO SCH (07:47)
[2020-05-06] MEDS: heparin, porcine 5000 units/ml vial SQ SCH ×2 (07:48→19:24)
[2020-05-06] MEDS: FLUoxetine 20mg capsule PO SCH (07:48)
--- NOTE | 2020-05-06 07:57 | NUR ---
PAGER ID: [phone] MESSAGE: Dr. Martin patient Marce Taylor has psotive blood cultures, gram positive cocci in clusters aerobic drawn 05/05 11:47 IV draw. Loraine [id number] neuro
[2020-05-06 08:00] VITALS: BP_SYST 137; BP_SYST 155; BP_DIAS 68; BP_DIAS 86
[2020-05-06] MEDS: K and/or MAG REPLACEMENT MC SCH ×2 (08:00→19:24)
[2020-05-06] MEDS: verapamil SR 120mg (sust. release) tab PO SCH (08:00)
[2020-05-06] MEDS ORDERED: levoFLOXACIN-Levaquin 500mg/D5 100 ML IV SCH (08:40)
--- NOTE | 2020-05-06 09:52 | NUR ---
DM consult: Pt with A1c 9.9%, down from 10.2% from 01/08 per records. Pt currently documented as A/O x 1 and confused. DM education deferred at this time. Pt s/p RN BSS with no noted signs of aspiration. Pt on a mechanical soft chop all heart healthy CHO controlled diet. ST has been consulted for further assessment. Will continue to follow. Addendum: 05/06/20 at [address] Amended: Links added.
[2020-05-06 10:00] VITALS: BP 155/68
[2020-05-06] MEDS: insulin Lispro (HumaLOG) vial - multi-dose SQ SCH ×3 (10:10→19:22)
[2020-05-06] MEDS: budesonide 0.5mg/2ml UD nebule IH SCH ×2 (10:18→20:27)
--- NOTE | 2020-05-06 16:22 | NUR ---
Dr. Martin said to hold verapamil until fax comes from patient pharamcy, they were contacted yesterday and today regarding this patient; kristy cv Addendum: 05/06/20 at 1623 by Anne Marie Morrison RN [facility]
--- NOTE | 2020-05-06 16:59 | NUR ---
Dr. Martin also notified earlier this morning about positive blood cultures, and later this afternoon about mrsa nares.
[2020-05-06 18:00] VITALS: BP 160/87
--- NOTE | 2020-05-06 18:35 | NUR ---
I spoke to daughter Yoselyn she said she will bring verapamil for patient tomorrow.
[2020-05-06] MEDS: lactobacillus rhamnosus 10,000 MMU CELLS/CAPSULE PO SCH (19:24)
[2020-05-06 20:00] VITALS: BP_SYST 145; BP_SYST 156; BP_DIAS 80; BP_DIAS 88
[2020-05-06] MEDS: VERAPAMIL PO SCH (20:35)
[2020-05-06] MEDS: mirtazapine 15mg tablet PO SCH (20:45)
[2020-05-06] MEDS: QUEtiapine 25mg tablet PO SCH (20:46)
[2020-05-06] MEDS: carbidoba-levodopa 25-100mg tablet PO SCH (20:46)
[2020-05-06] MEDS: insulin glargine (Lantus) pen - multi-dose SQ SCH (21:16)
[2020-05-06 22:00] VITALS: BP 145/80
[2020-05-07] MEDS: ipratropium/albuterol 3ml nebule NEB SCH ×5 (02:57→23:38)
[2020-05-07 06:00] VITALS: BP 170/86
--- NOTE | 2020-05-07 06:32 | NUR ---
Problems reprioritized. Patient report given, questions answered & plan of care reviewed with Bee VAZQUEZ.
[2020-05-07 06:40] LABS: BASOPHILS % (AUTO) 0.4 % (0-1); EOSINOPHILS # (AUTO) 0.1 X10'3 (0-0.9); EOSINOPHILS % (AUTO) 2.2 % (0-6); HEMATOCRIT 36.7 % (35.0-45.0); HEMOGLOBIN 12.1 g/dl (12.0-16.0); LYMPHOCYTES % (AUTO) 40.7 % (21-51); MEAN CORPUSCULAR HEMOGLOBIN 31.1 PG (27.0-31.0); MEAN CORPUSCULAR VOLUME 94.4 FL (78-98); MEAN PLATELET VOLUME 7.1 FL (7.4-10.4); MONOCYTES # (AUTO) 0.5 X10'3 (0-0.9); MONOCYTES % (AUTO) 9.8 % (2-12); NEUTROPHILS # (AUTO) 2.4 X10'3 (1.8-7.7); NEUTROPHILS % (AUTO) 46.9 % (42-75); PLATELET COUNT 134 X10'3 (140-440); RED BLOOD COUNT 3.89 X10'6 (4.20-5.60)
[2020-05-07 07:10] LABS: ALANINE AMINOTRANSFERASE 16 U/L (12-78); ALBUMIN 2.8 G/DL (3.4-5.0); ALBUMIN/GLOBULIN RATIO 1.2 (1.1-1.5); ALKALINE PHOSPHATASE 51 IU/L (46-116); ANION GAP 6 (8-16); ASPARTATE AMINO TRANSFERASE 60 U/L (10-37); BILIRUBIN,TOTAL 0.2 MG/DL (0.1-1.0); BLOOD UREA NITROGEN 20 MG/DL (7-18); BUN/CREATININE RATIO 28.2 (6.6-38.0); CALCIUM 7.8 MG/DL (8.5-10.1); CHLORIDE 112 MMOL/L (99-107); CREATININE 0.71 MG/DL (0.40-0.90); GLUCOSE 71 MG/DL (70-104); MAGNESIUM 1.5 MG/DL (1.5-2.4); POTASSIUM 3.4 MMOL/L (3.5-5.1); SODIUM 148 MMOL/L (135-145); TOTAL CARBON DIOXIDE 30.4 MMOL/L (24-32); TOTAL PROTEIN 5.2 G/DL (6.4-8.2); eGFR 83 ML/MIN
[2020-05-07] MEDS: K and/or MAG REPLACEMENT MC SCH ×3 (08:00→21:15)
[2020-05-07] MEDS: budesonide 0.5mg/2ml UD nebule IH SCH (08:04)
[2020-05-07 10:00] VITALS: BP 181/98
[2020-05-07] MEDS: FLUoxetine 20mg capsule PO SCH (10:00)
[2020-05-07] MEDS: folic acid 1mg tablet PO SCH (10:00)
[2020-05-07] MEDS: losartan 50mg tablet PO SCH (10:00)
[2020-05-07] MEDS: lactobacillus rhamnosus 10,000 MMU CELLS/CAPSULE PO SCH ×2 (10:00→20:38)
[2020-05-07] MEDS: levoFLOXACIN 250mg tablet PO SCH (12:19)
[2020-05-07] MEDS: vancomycin/NS 1 GM ADD-VANTAGE 250 ML IV SCH ×2 (12:21→21:30)
[2020-05-07] MEDS: HYDROcodone/acetaminophen 5mg/325mg tablet PO PRN ×2 (12:24→20:51)
[2020-05-07] MEDS: insulin Lispro (HumaLOG) vial - multi-dose SQ SCH ×2 (13:58→18:54)
[2020-05-07] MEDS: normal saline 1000ml 1,000 ML IV SCH (15:07)
[2020-05-07] MEDS ORDERED: methylPREDNISolone sod succ 125mg/2ml vial IV ONE (15:55)
[2020-05-07 18:00] VITALS: BP 191/96
[2020-05-07 20:00] VITALS: BP_SYST 183; BP_SYST 184; BP_DIAS 100; BP_DIAS 99
[2020-05-07] MEDS: QUEtiapine 25mg tablet PO SCH (20:38)
[2020-05-07] MEDS: mirtazapine 15mg tablet PO SCH (20:38)
[2020-05-07] MEDS: apixaban 2.5mg tablet PO SCH (20:38)
[2020-05-07] MEDS: methylPREDNISolone sod succ/PF 40mg inj. IV SCH (20:38)
[2020-05-07] MEDS: carbidoba-levodopa 25-100mg tablet PO SCH (20:38)
[2020-05-07] MEDS: VERAPAMIL PO SCH (20:52)
[2020-05-07] MEDS: insulin glargine (Lantus) pen - multi-dose SQ SCH (20:57)
[2020-05-07] MEDS ORDERED: potassium Cl 20 mEq SR tablet PO PRN (21:15)
[2020-05-07] MEDS: potassium Cl 20 mEq SR tablet PO PRN (21:31)
[2020-05-07 22:00] VITALS: BP 177/94
[2020-05-08] MEDS: HYDROcodone/acetaminophen 5mg/325mg tablet PO PRN ×2 (02:27→10:23)
[2020-05-08] MEDS: potassium Cl 20 mEq SR tablet PO PRN (02:27)
[2020-05-08] MEDS: methylPREDNISolone sod succ/PF 40mg inj. IV SCH ×2 (02:27→09:23)
[2020-05-08] MEDS: ipratropium/albuterol 3ml nebule NEB SCH ×3 (03:54→11:50)
--- NOTE | 2020-05-08 06:20 | NUR ---
Patient in room ORTHO 4011. I have received report from raquel Leahy and had the opportunity to ask questions and assume patient care.
[2020-05-08 06:33] LABS: BASOPHILS % (AUTO) 0.4 % (0-1); EOSINOPHILS % (AUTO) 0 % (0-6); HEMATOCRIT 41.4 % (35.0-45.0); LYMPHOCYTES # (AUTO) 0.4 X10'3 (1.1-4.8); LYMPHOCYTES % (AUTO) 5.6 % (21-51); MEAN CORPUSCULAR HEMOGLOBIN 31.7 PG (27.0-31.0); MEAN CORPUSCULAR HGB CONC 33.8 g/dL (33.0-36.5); MEAN CORPUSCULAR VOLUME 93.7 FL (78-98); MEAN PLATELET VOLUME 7.1 FL (7.4-10.4); MONOCYTES # (AUTO) 0.1 X10'3 (0-0.9); MONOCYTES % (AUTO) 0.9 % (2-12); NEUTROPHILS # (AUTO) 6.9 X10'3 (1.8-7.7); NEUTROPHILS % (AUTO) 93.1 % (42-75); PLATELET COUNT 159 X10'3 (140-440); RED BLOOD COUNT 4.41 X10'6 (4.20-5.60); RED CELL DISTRIBUTION WIDTH 12.9 % (11.5-14.5); WHITE BLOOD COUNT 7.4 X10'3 (4.5-11.0)
--- NOTE | 2020-05-08 06:40 | NUR ---
Problems reprioritized. Patient report given, questions answered & plan of care reviewed with Kassy VAZQUEZ.
[2020-05-08 06:53] LABS: ALANINE AMINOTRANSFERASE 31 U/L (12-78); ALBUMIN 3.5 G/DL (3.4-5.0); ALBUMIN/GLOBULIN RATIO 1.1 (1.1-1.5); ALKALINE PHOSPHATASE 67 IU/L (46-116); ANION GAP 10 (8-16); ASPARTATE AMINO TRANSFERASE 35 U/L (10-37); BILIRUBIN,TOTAL 0.4 MG/DL (0.1-1.0); BLOOD UREA NITROGEN 22 MG/DL (7-18); BUN/CREATININE RATIO 20.6 (6.6-38.0); CALCIUM 8.5 MG/DL (8.5-10.1); CHLORIDE 104 MMOL/L (99-107); CREATININE 1.07 MG/DL (0.40-0.90); GLUCOSE 384 MG/DL (70-104); MAGNESIUM 1.5 MG/DL (1.5-2.4); POTASSIUM 4.2 MMOL/L (3.5-5.1); SODIUM 141 MMOL/L (135-145); TOTAL CARBON DIOXIDE 26.6 MMOL/L (24-32); TOTAL PROTEIN 6.7 G/DL (6.4-8.2); eGFR 52 ML/MIN
[2020-05-08 07:30] VITALS: BP 172/91
[2020-05-08 07:49] VITALS: BP_SYST 144; BP_SYST 156; BP_SYST 172; BP_DIAS 82; BP_DIAS 89; BP_DIAS 91
[2020-05-08] MEDS: K and/or MAG REPLACEMENT MC SCH ×2 (08:00)
[2020-05-08] MEDS: lactobacillus rhamnosus 10,000 MMU CELLS/CAPSULE PO SCH (09:23)
[2020-05-08] MEDS: apixaban 2.5mg tablet PO SCH (09:23)
[2020-05-08] MEDS: levoFLOXACIN 250mg tablet PO SCH (09:23)
[2020-05-08] MEDS: FLUoxetine 20mg capsule PO SCH (09:24)
[2020-05-08] MEDS: folic acid 1mg tablet PO SCH (09:24)
[2020-05-08] MEDS: losartan 50mg tablet PO SCH (09:25)
[2020-05-08] MEDS ORDERED: PRED10TA23 PO (09:43)
[2020-05-08] MEDS ORDERED: LEVO250T58 PO (09:43)
[2020-05-08] MEDS: insulin Lispro (HumaLOG) vial - multi-dose SQ SCH ×2 (09:58→13:19)
[2020-05-08 10:00] VITALS: BP 169/91
--- NOTE | 2020-05-08 13:00 | NUR ---
reviewed all discharge instructions with daughter TOLU by phone,including next dose due times for all meds,prescriptions confirmed ,info provided,also reviewed need for f/u appts with in 2-3 days,and statistician 3-4 weeks,Sl dc'd from Right upper arm,site clear,pt discharged via w/c with all belongings
[2020-05-08] MEDS ORDERED: VANCOMYCIN LEVEL IV ONE (21:30)
[2020-05-09] MEDS ORDERED: predniSONE 20 mg tablet PO SCH (08:00)
== END 2020-05-08 14:15 | disposition home or self-care (01) | DRG 425 ==
LOC: ER 09:17 → ED HOLD 11:07 → UNDOADMIN 11:07 → ED HOLD 11:35 → ORTHO 4S 13:18
PROVIDERS: ADMIT Internal Medicine; ATTEND Internal Medicine
DX: E87.5 Hyperkalemia (principal); N17.9 Acute kidney failure, unspecified; E11.22 Type 2 diabetes mellitus with diabetic chronic kidney disease; E11.65 Type 2 diabetes mellitus with hyperglycemia; E78.00 Pure hypercholesterolemia, unspecified; E78.5 Hyperlipidemia, unspecified; F41.9 Anxiety disorder, unspecified; N18.3 Chronic kidney disease, stage 3 (moderate); N39.0 Urinary tract infection, site not specified; G25.81 Restless legs syndrome; G89.4 Chronic pain syndrome; B19.20 Unspecified viral hepatitis C without hepatic coma; F15.90 Other stimulant use, unspecified, uncomplicated; K21.9 Gastro-esophageal reflux disease without esophagitis; M54.5 Low back pain; Z60.2 Problems related to living alone; I48.0 Paroxysmal atrial fibrillation; I13.0 Hypertensive heart and chronic kidney disease with heart failure and stage 1 through stage 4 chronic kidney disease, or unspecified chronic kidney disease; J43.9 Emphysema, unspecified; Z79.01 Long term (current) use of anticoagulants; Z79.4 Long term (current) use of insulin; Z86.73 Personal history of transient ischemic attack (TIA), and cerebral infarction without residual deficits; Z87.11 Personal history of peptic ulcer disease; Z87.891 Personal history of nicotine dependence; Z95.2 Presence of prosthetic heart valve; Z88.0 Allergy status to penicillin; Z88.8 Allergy status to other drugs, medicaments and biological substances; Z99.81 Dependence on supplemental oxygen
CPT/HCPCS: 36415; 70450; 71045; 80053; 80305; 80320; 81001; 82948; 83036; 83605; 83735; 84145; 85025; 87040; 87077; 87081; 87088; 87186; 92508; 92616; 93005; 94640; 94760; 97110; 97112; 97116; 97161; 97530; 99285; G0378; J1644; J1815; J1940; J1956; J2920; J2930; J3370; J3475; J7030; J7626

== ENCOUNTER 2020-08-18 09:26 | Emergency (ER) | payer MEDICARE, MEDICAID ==
[~2020-08-18] VITALS: Ht 149.9 cm; Wt 51.6 kg
[~2020-08-18 09:26] MED LIST changes: -ALB0.5UD IH; -HYDR-4353 PO; +LEVO250T58 PO; +MAGN400C PO; +MIRT-116 PO; -MIRT15TA PO; -PRED20TA PO; -VALA10002 PO
[2020-08-18 10:28] LABS: BASOPHILS # (AUTO) 0.1 X10'3 (0-0.2); BASOPHILS % (AUTO) 0.6 % (0-1); EOSINOPHILS # (AUTO) 0.1 X10'3 (0-0.9); EOSINOPHILS % (AUTO) 0.9 % (0-6); HEMATOCRIT 38.5 % (35.0-45.0); LYMPHOCYTES # (AUTO) 1.6 X10'3 (1.1-4.8); LYMPHOCYTES % (AUTO) 17.1 % (21-51); MEAN CORPUSCULAR HEMOGLOBIN 31.9 PG (27.0-31.0); MEAN CORPUSCULAR HGB CONC 33.8 g/dL (33.0-36.5); MEAN CORPUSCULAR VOLUME 94.4 FL (78-98); MEAN PLATELET VOLUME 7.5 FL (7.4-10.4); MONOCYTES # (AUTO) 0.9 X10'3 (0-0.9); MONOCYTES % (AUTO) 9.7 % (2-12); NEUTROPHILS # (AUTO) 6.9 X10'3 (1.8-7.7); NEUTROPHILS % (AUTO) 71.7 % (42-75); PLATELET COUNT 183 X10'3 (140-440); RED BLOOD COUNT 4.08 X10'6 (4.20-5.60); RED CELL DISTRIBUTION WIDTH 13.1 % (11.5-14.5); WHITE BLOOD COUNT 9.6 X10'3 (4.5-11.0)
[2020-08-18 10:39] LABS: CLARITY,URINE CLEAR (Clear); COLOR,URINE YELLOW (Yellow); GLUCOSE, URINE >=1000 mg/dl (Neg); KETONES,URINE NEGATIVE (Neg); LEUKOCYTE ESTERASE ,URINE NEGATIVE (Neg); NITRITES, URINE NEGATIVE (Neg); OCCULT BLOOD,URINE NEGATIVE (Neg); PROTEIN,URINE NEGATIVE (Neg); UROBILINOGEN,URINE 0.2 E.U/dL (0.2-1.0)
[2020-08-18 10:41] LABS: UA COLLECTION TYPE STRAIGHT CATH
[2020-08-18] MEDS ORDERED: normal saline 1000ML IV soln IVB ONE (10:45)
[2020-08-18 10:48] LABS: BACTERIA,URINE FEW /HPF (Neg); SQUAMOUS EPITHELIAL CELL,UR FEW /LPF (FEW)
[2020-08-18 10:49] LABS: RBC,URINE 0-2 /HPF (0-2); WBC,URINE 0-4 /HPF (0-4)
[2020-08-18 10:54] LABS: ALANINE AMINOTRANSFERASE 8 U/L (12-78); ALBUMIN 3.2 G/DL (3.4-5.0); ALBUMIN/GLOBULIN RATIO 0.8 (1.1-1.5); ALKALINE PHOSPHATASE 95 IU/L (46-116); ANION GAP 9 (8-16); ASPARTATE AMINO TRANSFERASE 6 U/L (10-37); BILIRUBIN,TOTAL 0.3 MG/DL (0.1-1.0); BLOOD UREA NITROGEN 17 MG/DL (7-18); BUN/CREATININE RATIO 18.7 (6.6-38.0); CALCIUM 9.3 MG/DL (8.5-10.1); CHLORIDE 102 MMOL/L (99-107); CREATININE 0.91 MG/DL (0.40-0.90); GLUCOSE 346 MG/DL (70-104); MAGNESIUM 2.1 MG/DL (1.5-2.4); POTASSIUM 3.8 MMOL/L (3.5-5.1); SODIUM 140 MMOL/L (135-145); TOTAL CARBON DIOXIDE 28.7 MMOL/L (24-32); TOTAL PROTEIN 7.3 G/DL (6.4-8.2); eGFR 62 ML/MIN
[2020-08-18] MEDS ORDERED: DOXY-1 PO (11:40)
[2020-08-18] MEDS ORDERED: METH4TAB81 PO (11:41)
[2020-08-18 12:51] VITALS: BP 142/75
--- NOTE | 2020-08-18 13:04 | NUR ---
family called they will be gere in 8 minutes
== END 2020-08-18 13:23 | disposition home or self-care (01) ==
LOC: ER 09:27
DX: J44.9 Chronic obstructive pulmonary disease, unspecified (principal); Z20.828 Contact with and (suspected) exposure to other viral communicable diseases; R09.02 Hypoxemia; E78.00 Pure hypercholesterolemia, unspecified; I10 Essential (primary) hypertension; K21.9 Gastro-esophageal reflux disease without esophagitis; G89.29 Other chronic pain; E11.9 Type 2 diabetes mellitus without complications; F41.9 Anxiety disorder, unspecified; F15.90 Other stimulant use, unspecified, uncomplicated; Z86.2 Personal history of diseases of the blood and blood-forming organs and certain disorders involving the immune mechanism; Z98.890 Other specified postprocedural states; Z90.49 Acquired absence of other specified parts of digestive tract; Z60.2 Problems related to living alone; Z72.89 Other problems related to lifestyle; Z88.8 Allergy status to other drugs, medicaments and biological substances; Z88.0 Allergy status to penicillin; Z88.1 Allergy status to other antibiotic agents; Z79.899 Other long term (current) drug therapy; Z79.01 Long term (current) use of anticoagulants; Z79.4 Long term (current) use of insulin
CPT/HCPCS: 36415; 71045; 80053; 81001; 83605; 83735; 84145; 85025; 87040; 87502; 87503; 87635; 93005; 96360; 99285; J7030

== ENCOUNTER 2020-09-08 12:38 | Emergency (ER) | payer MEDICARE, MEDICAID ==
[~2020-09-08] VITALS: Ht 152.4 cm; Wt 50.0 kg
[~2020-09-08 12:38] MED LIST changes: +METH4TAB81 PO
[2020-09-08] MEDS ORDERED: aspirin 81mg tab.chew PO ONE (14:40)
[2020-09-08] MEDS ORDERED: dexamethasone inj 6 MG in normal saline 100ml IV soln 100 ML IV STA (14:43)
[2020-09-08 15:18] LABS: BASOPHILS # (AUTO) 0.1 X10'3 (0-0.2); BASOPHILS % (AUTO) 0.7 % (0-1); EOSINOPHILS # (AUTO) 0.2 X10'3 (0-0.9); EOSINOPHILS % (AUTO) 2.3 % (0-6); HEMATOCRIT 43.3 % (35.0-45.0); HEMOGLOBIN 14.5 g/dl (12.0-16.0); LYMPHOCYTES # (AUTO) 2.5 X10'3 (1.1-4.8); LYMPHOCYTES % (AUTO) 33.4 % (21-51); MEAN CORPUSCULAR HEMOGLOBIN 30.9 PG (27.0-31.0); MEAN CORPUSCULAR HGB CONC 33.5 g/dL (33.0-36.5); MEAN CORPUSCULAR VOLUME 92.4 FL (78-98); MEAN PLATELET VOLUME 7.4 FL (7.4-10.4); MONOCYTES # (AUTO) 0.6 X10'3 (0-0.9); MONOCYTES % (AUTO) 8.7 % (2-12); NEUTROPHILS % (AUTO) 54.9 % (42-75); PLATELET COUNT 187 X10'3 (140-440); RED BLOOD COUNT 4.69 X10'6 (4.20-5.60); WHITE BLOOD COUNT 7.4 X10'3 (4.5-11.0)
[2020-09-08 15:31] LABS: ALANINE AMINOTRANSFERASE 17 U/L (12-78); ALBUMIN 3.3 G/DL (3.4-5.0); ALBUMIN/GLOBULIN RATIO 0.9 (1.1-1.5); ALKALINE PHOSPHATASE 87 IU/L (46-116); ANION GAP 6 (8-16); ASPARTATE AMINO TRANSFERASE 11 U/L (10-37); BILIRUBIN,TOTAL 0.3 MG/DL (0.1-1.0); BLOOD UREA NITROGEN 14 MG/DL (7-18); BUN/CREATININE RATIO 16.1 (6.6-38.0); CALCIUM 8.9 MG/DL (8.5-10.1); CHLORIDE 103 MMOL/L (99-107); CREATININE 0.87 MG/DL (0.40-0.90); GLUCOSE 303 MG/DL (70-104); POTASSIUM 4.4 MMOL/L (3.5-5.1); SODIUM 140 MMOL/L (135-145); TOTAL CARBON DIOXIDE 30.7 MMOL/L (24-32); TOTAL PROTEIN 7.1 G/DL (6.4-8.2); eGFR 65 ML/MIN
[2020-09-08 15:37] LABS: MAGNESIUM 1.7 MG/DL (1.5-2.4)
[2020-09-08] MEDS ORDERED: DEXA6TAB6 PO (16:28)
[2020-09-08] MEDS ORDERED: LEVO500T89 PO (16:28)
[2020-09-08 16:44] VITALS: BP 133/93
== END 2020-09-08 17:11 | disposition home or self-care (01) ==
LOC: ER 12:39
DX: J44.1 Chronic obstructive pulmonary disease with (acute) exacerbation (principal); E78.00 Pure hypercholesterolemia, unspecified; I10 Essential (primary) hypertension; K21.9 Gastro-esophageal reflux disease without esophagitis; E11.9 Type 2 diabetes mellitus without complications; G89.29 Other chronic pain; M54.9 Dorsalgia, unspecified; F41.9 Anxiety disorder, unspecified; I63.9 Cerebral infarction, unspecified; Z87.81 Personal history of (healed) traumatic fracture; Z98.890 Other specified postprocedural states; Z88.5 Allergy status to narcotic agent; Z88.0 Allergy status to penicillin; Z88.1 Allergy status to other antibiotic agents; Z88.8 Allergy status to other drugs, medicaments and biological substances; Z20.828 Contact with and (suspected) exposure to other viral communicable diseases
CPT/HCPCS: 36415; 71045; 80053; 83735; 83880; 84484; 85025; 87635; 93005; 96365; 99285; C9803; J1100

== ENCOUNTER 2020-12-08 08:48 | Emergency (ER) | payer MEDICARE, MEDICAID ==
[~2020-12-08] VITALS: Ht 152.4 cm; Wt 72.7 kg
[~2020-12-08 08:48] MED LIST changes: +DEXA6TAB6 PO; -FOLI0.4T2 PO; +FOLI0.4T6 PO
--- NOTE | 2020-12-08 09:19 | NUR ---
Spoke to daughter and obtained additional history. Daughter is currently awaiting results for COVID swab. Family had been exposed to positive people, all members then became symptomatic but none have received tests as of yet. Daughter is pt's caregiver, cocnerned for worsening of pt's chronic cough as well as some increased weakness and confusion over the past week.
[2020-12-08] MEDS ORDERED: dexamethasone inj 6 MG in normal saline 50ml IV soln 50 ML IV ONE (10:00)
[2020-12-08 10:05] LABS: BASOPHILS # (AUTO) 0.1 X10'3 (0-0.2); BASOPHILS % (AUTO) 0.6 % (0-1); EOSINOPHILS # (AUTO) 0.1 X10'3 (0-0.9); EOSINOPHILS % (AUTO) 1.1 % (0-6); HEMATOCRIT 40.2 % (35.0-45.0); HEMOGLOBIN 13.5 g/dl (12.0-16.0); LYMPHOCYTES % (AUTO) 23.2 % (21-51); MEAN CORPUSCULAR HEMOGLOBIN 31.6 PG (27.0-31.0); MEAN CORPUSCULAR HGB CONC 33.7 g/dL (33.0-36.5); MEAN CORPUSCULAR VOLUME 93.7 FL (78-98); MEAN PLATELET VOLUME 7.4 FL (7.4-10.4); MONOCYTES # (AUTO) 0.8 X10'3 (0-0.9); MONOCYTES % (AUTO) 8.8 % (2-12); NEUTROPHILS # (AUTO) 5.8 X10'3 (1.8-7.7); NEUTROPHILS % (AUTO) 66.3 % (42-75); PLATELET COUNT 194 X10'3 (140-440); RED BLOOD COUNT 4.28 X10'6 (4.20-5.60); RED CELL DISTRIBUTION WIDTH 13.7 % (11.5-14.5); WHITE BLOOD COUNT 8.7 X10'3 (4.5-11.0)
[2020-12-08 10:24] LABS: ALANINE AMINOTRANSFERASE 16 U/L (12-78); ALBUMIN 3.3 G/DL (3.4-5.0); ALBUMIN/GLOBULIN RATIO 0.9 (1.1-1.5); ALKALINE PHOSPHATASE 82 IU/L (46-116); ANION GAP 6 (8-16); ASPARTATE AMINO TRANSFERASE 10 U/L (10-37); BILIRUBIN,TOTAL 0.3 MG/DL (0.1-1.0); BLOOD UREA NITROGEN 11 MG/DL (7-18); BUN/CREATININE RATIO 14.7 (6.6-38.0); CALCIUM 9.1 MG/DL (8.5-10.1); CHLORIDE 102 MMOL/L (99-107); CREATININE 0.75 MG/DL (0.40-0.90); GLUCOSE 353 MG/DL (70-104); POTASSIUM 4.4 MMOL/L (3.5-5.1); SODIUM 139 MMOL/L (135-145); TOTAL CARBON DIOXIDE 30.9 MMOL/L (24-32); TOTAL PROTEIN 6.9 G/DL (6.4-8.2); eGFR 78 ML/MIN
[2020-12-08] MEDS ORDERED: DOXY100C76 PO (10:58)
[2020-12-08] MEDS ORDERED: METH4TAB81 PO (10:58)
[2020-12-08 11:08] LABS: D-DIMER < 0.19 MG/L FEU (0-0.50)
--- NOTE | 2020-12-08 11:18 | NUR ---
Called pt's daughter, Yoselyn, to let her know we were discharging the pt. She said she will be heading this way to get her.
[2020-12-08 11:43] VITALS: BP 113/58
== END 2020-12-08 11:46 | disposition home or self-care (01) ==
LOC: ER 08:49
DX: J44.1 Chronic obstructive pulmonary disease with (acute) exacerbation (principal); Z20.822 Contact with and (suspected) exposure to COVID-19; R22.42 Localized swelling, mass and lump, left lower limb; R22.41 Localized swelling, mass and lump, right lower limb; E78.00 Pure hypercholesterolemia, unspecified; I10 Essential (primary) hypertension; K21.9 Gastro-esophageal reflux disease without esophagitis; E11.9 Type 2 diabetes mellitus without complications; G89.29 Other chronic pain; F41.9 Anxiety disorder, unspecified; F15.90 Other stimulant use, unspecified, uncomplicated; Z86.2 Personal history of diseases of the blood and blood-forming organs and certain disorders involving the immune mechanism; Z90.49 Acquired absence of other specified parts of digestive tract; Z98.890 Other specified postprocedural states; Z86.73 Personal history of transient ischemic attack (TIA), and cerebral infarction without residual deficits; Z60.2 Problems related to living alone; Z72.89 Other problems related to lifestyle; Z88.8 Allergy status to other drugs, medicaments and biological substances; Z88.0 Allergy status to penicillin; Z79.899 Other long term (current) drug therapy; Z79.01 Long term (current) use of anticoagulants; Z79.4 Long term (current) use of insulin
CPT/HCPCS: 36415; 71045; 80053; 83605; 83880; 84145; 85025; 85379; 87040; 87635; 93005; 96365; 99285; C9803; J1100

== ENCOUNTER 2021-02-20 10:55 | Inpatient (IN) | payer MEDICAID, MEDICARE ==
[2021-02-20] VITALS (14 sets, daily range): BP systolic 89–150; BP diastolic 47–99
[~2021-02-20] VITALS: Ht 149.9 cm; Wt 60.5 kg
[~2021-02-20 10:55] MED LIST changes: -ACET-2006 PO; +ACET-3067 PO; -APIX2.5T PO; +APIX5TAB3 PO; -CARB1TAB23 PO; -DEXA6TAB6 PO; -FURO-150 PO; -LEVO250T58 PO; +LEVO750T46 PO; -MAGN400C PO; -METH4TAB81 PO; +METO-467 PO; +NITR0.4T51 SL; -POTA10TA19 PO; -QUET25TA34 PO; -SOFO1TAB PO; +SULF1TAB49 PO
[2021-02-20] MEDS ORDERED: aspirin 81mg tab.chew PO ONE (11:05)
[2021-02-20] MEDS ORDERED: famotidine/PF 10 mg/ml inj IV ONE (11:10)
[2021-02-20] MEDS ORDERED: pantoprazole 40 MG vial IV ONE (11:10)
[2021-02-20] MEDS ORDERED: ondansetron/PF 4mg/2ml inj IV ONE (11:10)
[2021-02-20 11:25] LABS: BASOPHILS % (AUTO) 0.5 % (0-1); EOSINOPHILS # (AUTO) 0.1 X10'3 (0-0.9); EOSINOPHILS % (AUTO) 1.3 % (0-6); HEMATOCRIT 41.8 % (35.0-45.0); HEMOGLOBIN 14.3 g/dl (12.0-16.0); LYMPHOCYTES % (AUTO) 26.6 % (21-51); MEAN CORPUSCULAR HEMOGLOBIN 31.4 PG (27.0-31.0); MEAN CORPUSCULAR HGB CONC 34.3 g/dL (33.0-36.5); MEAN CORPUSCULAR VOLUME 91.6 FL (78-98); MEAN PLATELET VOLUME 7.2 FL (7.4-10.4); MONOCYTES # (AUTO) 0.5 X10'3 (0-0.9); MONOCYTES % (AUTO) 6.8 % (2-12); NEUTROPHILS % (AUTO) 64.8 % (42-75); PLATELET COUNT 163 X10'3 (140-440); RED BLOOD COUNT 4.56 X10'6 (4.20-5.60); WHITE BLOOD COUNT 7.7 X10'3 (4.5-11.0)
[2021-02-20 11:53] LABS: ALANINE AMINOTRANSFERASE 21 U/L (12-78); ALBUMIN 3.3 G/DL (3.4-5.0); ALKALINE PHOSPHATASE 82 IU/L (46-116); ANION GAP 10 (8-16); ASPARTATE AMINO TRANSFERASE 13 U/L (10-37); BILIRUBIN,TOTAL 0.4 MG/DL (0.1-1.0); BLOOD UREA NITROGEN 9 MG/DL (7-18); BUN/CREATININE RATIO 11.8 (6.6-38.0); CALCIUM 8.7 MG/DL (8.5-10.1); CHLORIDE 100 MMOL/L (99-107); CREATININE 0.76 MG/DL (0.40-0.90); MAGNESIUM 1.7 MG/DL (1.5-2.4); POTASSIUM 3.8 MMOL/L (3.5-5.1); SODIUM 137 MMOL/L (135-145); TOTAL CARBON DIOXIDE 27.3 MMOL/L (24-32); TOTAL PROTEIN 6.6 G/DL (6.4-8.2); eGFR 76 ML/MIN
[2021-02-20 12:10] LABS: GLUCOSE 491 MG/DL (70-104)
[2021-02-20] MEDS ORDERED: normal saline 1000ml 1,000 ML IV ONE (12:10)
[2021-02-20] MEDS ORDERED: insulin regular, human 10 units/0.1 ml syringe IV ONE (12:15)
[2021-02-20] MEDS ORDERED: LIDOcaine 1% (10mg/ml)w/preservative injection 20ml MDV ONE (14:59)
[2021-02-20] MEDS ORDERED: nitroGLYCERIN-Tridil 50MG/D5W 250 ML IV ONE (14:59)
[2021-02-20] MEDS ORDERED: heparin 1,000unit/ml 10ml vial 10 ML ONE (14:59)
[2021-02-20] MEDS ORDERED: verapamil 2.5 mg/ml inj IV ONE (14:59)
[2021-02-20] MEDS ORDERED: iohexol 350MG/ML 100ml bottle IV ONE (15:00)
[2021-02-20] MEDS ORDERED: bisacodyl 10mg suppository rectal RC PRN (15:20)
[2021-02-20] MEDS ORDERED: potassium Cl 20 mEq SR tablet PO PRN ×2 (15:20)
[2021-02-20] MEDS ORDERED: HYDROcodone/acetaminophen 5mg/325mg tablet PO PRN (15:20)
[2021-02-20] MEDS ORDERED: acetaminophen 650mg rectal suppository RC PRN (15:20)
[2021-02-20] MEDS ORDERED: magnesium Cl slow-release 64mg tablet PO PRN (15:20)
[2021-02-20] MEDS ORDERED: glucagon, human recombinant 1mg kit SUBCUT PRN (15:20)
[2021-02-20] MEDS ORDERED: ondansetron/PF 4mg/2ml inj IV PRN (15:20)
[2021-02-20] MEDS ORDERED: magnesium 4gm in 100ml NS 100 ML IV PRN (15:20)
[2021-02-20] MEDS ORDERED: morphine 2 MG/ML inj. syringe IV PRN ×2 (15:20)
[2021-02-20] MEDS ORDERED: MESSAGE TO PHARMACY PO ONE (15:20)
[2021-02-20] MEDS ORDERED: dextrose 50%-water 50ml dispensing syringe IV PRN ×2 (15:20)
[2021-02-20] MEDS ORDERED: mag hydrox/Alum hydrox/simeth 30ml oral suspension PO PRN (15:20)
[2021-02-20] MEDS ORDERED: magnesium hydroxide 30ml (MOM) UD suspension PO PRN (15:20)
[2021-02-20] MEDS ORDERED: HYDROcodone/acetaminophen 10/325mg tab PO PRN (15:20)
[2021-02-20] MEDS ORDERED: dextrose ORAL solution 15 GM/59 ML bottle PO PRN ×2 (15:20)
[2021-02-20] MEDS ORDERED: acetaminophen 325mg tablet PO PRN ×2 (15:20)
[2021-02-20] MEDS ORDERED: magnesium 2GM in 50ml NS 50 ML IV PRN (15:20)
[2021-02-20] MEDS ORDERED: potassium Cl 40MEQ/1/2NS 520ml 520 ML IV PRN ×2 (15:20)
[2021-02-20 15:53] LABS: CLARITY,URINE SLIGHTLY CLOUDY (Clear); COLOR,URINE YELLOW (Yellow); GLUCOSE, URINE >=1000 mg/dl (Neg); KETONES,URINE NEGATIVE (Neg); LEUKOCYTE ESTERASE ,URINE NEGATIVE (Neg); NITRITES, URINE NEGATIVE (Neg); OCCULT BLOOD,URINE NEGATIVE (Neg); PROTEIN,URINE NEGATIVE (Neg); UROBILINOGEN,URINE 0.2 E.U/dL (0.2-1.0)
--- NOTE | 2021-02-20 15:53 | NUR ---
PAGER ID: [phone] MESSAGE: ED ROOM 12, Laith VAZQUEZ, #[phone], Pt still having 10/10 abd pain. PRN pain meds fall under in patient MAR. can we have 2mg Morphine IV order (or anything). ED doc deferred me to you. Thank you!
[2021-02-20 15:54] LABS: UA COLLECTION TYPE NON-SPECIFIED
[2021-02-20 16:11] LABS: SQUAMOUS EPITHELIAL CELL,UR MODERATE /LPF (FEW); WBC CLUMPS,URINE MANY /HPF (NEGATIVE)
[2021-02-20 16:12] LABS: BACTERIA,URINE FEW /HPF (Neg); RBC,URINE 0-2 /HPF (0-2)
[2021-02-20] MEDS ORDERED: diphenhydrAMINE 50 mg/ml inj ONE (16:34)
[2021-02-20] MEDS ORDERED: hydrocortisone sod succ/PF 100mg/2ml inj. ONE (16:34)
[2021-02-20] MEDS ORDERED: midazolam 1 mg/ML 2ml injection ONE (16:44)
--- NOTE | 2021-02-20 16:56 | NUR ---
Patient in room ED 12. I have received report from Laith VAZQUEZ and had the opportunity to ask questions and assume patient care.
--- NOTE | 2021-02-20 17:11 | NUR ---
Paged Dr. Jorgensen regarding COVID test needed. PAGER ID: [phone] MESSAGE: [phone] Marce Taylor. Can we order a rapid COVID test ? FELICIA Chávez
[2021-02-20] MEDS ORDERED: proCHLORperazine 10 MG/2 ml inj IV PRN (17:55)
[2021-02-20] MEDS ORDERED: OXAZEpam 15mg capsule PO PRN (17:55)
[2021-02-20] MEDS ORDERED: metoprolol tartrate 50mg tablet PO PRN (18:10)
--- NOTE | 2021-02-20 18:47 | NUR ---
Problems reprioritized. Patient report given, questions answered & plan of care reviewed with Betsy VAZQUEZ. Patient stable at transfer of care.
[2021-02-20] MEDS: K and/or MAG REPLACEMENT MC SCH (19:17)
[2021-02-20] MEDS: insulin Lispro (HumaLOG) vial - multi-dose SQ SCH ×2 (19:32→22:30)
[2021-02-20] MEDS: ferrous sulfate 325mg tablet PO SCH (19:34)
[2021-02-20] MEDS: normal saline 1000ml 1,000 ML IV SCH (19:39)
[2021-02-20] MEDS: apixaban 5mg tablet PO SCH (19:48)
[2021-02-20] MEDS: budesonide 0.5mg/2ml UD nebule IH SCH ×2 (19:59→20:10)
[2021-02-20] MEDS: albuterol 2.5 MG/3 ML nebule NEB PRN ×2 (20:00→20:10)
[2021-02-20 20:17] LABS: CLARITY,URINE CLEAR (Clear); COLOR,URINE YELLOW (Yellow); GLUCOSE, URINE >=1000 mg/dl (Neg); KETONES,URINE TRACE mg/dl (Neg); LEUKOCYTE ESTERASE ,URINE NEGATIVE (Neg); NITRITES, URINE NEGATIVE (Neg); OCCULT BLOOD,URINE TRACE-LYSED (Neg); PROTEIN,URINE TRACE mg/dl (Neg); UROBILINOGEN,URINE 0.2 E.U/dL (0.2-1.0)
[2021-02-20 20:26] LABS: UA COLLECTION TYPE NON-SPECIFIED
[2021-02-20 20:31] LABS: BACTERIA,URINE NONE SEEN /HPF (Neg); RBC,URINE 0-2 /HPF (0-2); SQUAMOUS EPITHELIAL CELL,UR FEW /LPF (FEW); WBC,URINE 0-4 /HPF (0-4)
[2021-02-20] MEDS: verapamil SR 120mg (sust. release) tab PO SCH ×2 (21:00→22:41)
[2021-02-20] MEDS ORDERED: insulin glargine (Lantus) pen - multi-dose SQ SCH (21:00)
[2021-02-20] MEDS ORDERED: mirtazapine 15mg tablet PO SCH (21:00)
[2021-02-20] MEDS: gabapentin 300mg capsule PO SCH (22:32)
[2021-02-21] MEDS ORDERED: acetaminophen w/codeine (60MG) #4 tablet PO SCH
[2021-02-21 04:00] VITALS: BP 112/64
[2021-02-21] MEDS: normal saline 1000ml 1,000 ML IV SCH (05:24)
[2021-02-21 06:00] VITALS: BP 136/77
[2021-02-21 06:03] LABS: BASOPHILS % (AUTO) 0.7 % (0-1); EOSINOPHILS # (AUTO) 0.1 X10'3 (0-0.9); EOSINOPHILS % (AUTO) 0.9 % (0-6); HEMATOCRIT 37.9 % (35.0-45.0); HEMOGLOBIN 12.9 g/dl (12.0-16.0); LYMPHOCYTES # (AUTO) 1.8 X10'3 (1.1-4.8); LYMPHOCYTES % (AUTO) 29.4 % (21-51); MEAN CORPUSCULAR HEMOGLOBIN 31.3 PG (27.0-31.0); MEAN CORPUSCULAR HGB CONC 34.1 g/dL (33.0-36.5); MEAN CORPUSCULAR VOLUME 91.8 FL (78-98); MEAN PLATELET VOLUME 7.3 FL (7.4-10.4); MONOCYTES # (AUTO) 0.5 X10'3 (0-0.9); MONOCYTES % (AUTO) 7.5 % (2-12); NEUTROPHILS # (AUTO) 3.7 X10'3 (1.8-7.7); NEUTROPHILS % (AUTO) 61.5 % (42-75); PLATELET COUNT 134 X10'3 (140-440); RED BLOOD COUNT 4.13 X10'6 (4.20-5.60); RED CELL DISTRIBUTION WIDTH 13.1 % (11.5-14.5); WHITE BLOOD COUNT 6.1 X10'3 (4.5-11.0)
[2021-02-21 06:18] LABS: ALANINE AMINOTRANSFERASE 16 U/L (12-78); ALBUMIN 2.9 G/DL (3.4-5.0); ALKALINE PHOSPHATASE 68 IU/L (46-116); ANION GAP 7 (8-16); ASPARTATE AMINO TRANSFERASE 9 U/L (10-37); BILIRUBIN,TOTAL 0.2 MG/DL (0.1-1.0); BLOOD UREA NITROGEN 7 MG/DL (7-18); BUN/CREATININE RATIO 11.5 (6.6-38.0); CALCIUM 8.3 MG/DL (8.5-10.1); CHLORIDE 107 MMOL/L (99-107); CHOL/HDL RATIO 7.3 (0.00-4.99); CHOLESTEROL 263 MG/DL (0-200); CREATININE 0.61 MG/DL (0.40-0.90); GLUCOSE 204 MG/DL (70-104); HDL CHOLESTEROL 36 MG/DL (35-60); LDL CHOLESTEROL 135 MG/DL (50-100); MAGNESIUM 1.7 MG/DL (1.5-2.4); PHOSPHORUS 3.6 MG/DL (2.3-4.5); POTASSIUM 3.6 MMOL/L (3.5-5.1); SODIUM 144 MMOL/L (135-145); TOTAL CARBON DIOXIDE 30.5 MMOL/L (24-32); TOTAL PROTEIN 5.8 G/DL (6.4-8.2); TRIGLYCERIDES 452 MG/DL (20-135); eGFR > 90 ML/MIN
--- NOTE | 2021-02-21 06:30 | NUR ---
Patient in room PCU 3011. I have received report from GEORGE Meyer and had the opportunity to ask questions and assume patient care.
[2021-02-21] MEDS: gabapentin 300mg capsule PO SCH ×2 (07:49→13:31)
[2021-02-21] MEDS: ferrous sulfate 325mg tablet PO SCH (07:51)
[2021-02-21] MEDS: apixaban 5mg tablet PO SCH (07:51)
[2021-02-21 08:00] VITALS: BP 136/77
[2021-02-21] MEDS: K and/or MAG REPLACEMENT MC SCH (08:00)
[2021-02-21] MEDS ORDERED: folic acid 1mg tablet PO SCH (08:00)
[2021-02-21] MEDS ORDERED: FLUoxetine 20mg capsule PO SCH (08:00)
[2021-02-21] MEDS ORDERED: CALCITONIN NASAL SPRAY BOTHNARES SCH (08:00)
[2021-02-21] MEDS ORDERED: ipratropium 0.5 MG/2.5ML nebule NEB PRN (08:00)
[2021-02-21] MEDS ORDERED: losartan 50mg tablet PO SCH (08:00)
[2021-02-21] MEDS: insulin Lispro (HumaLOG) vial - multi-dose SQ SCH ×2 (08:55→13:34)
[2021-02-21 11:00] VITALS: BP 121/58
[2021-02-21] MEDS ORDERED: ATOR20TA66 PO (12:35)
[2021-02-21] MEDS ORDERED: PANT40TA54 PO (12:35)
--- NOTE | 2021-02-21 13:45 | NUR ---
monitor worker removed. Right and left forearm IV removed with tip intact. Patient dressed with clothing brought from home. All possessions gathered. Patient wheeled down to daughter's car with all personal belongings. Discharge instructions and education given to both daughter and patient.
--- NOTE | 2021-02-21 14:00 | NUR ---
Preceptee documentation: I have reviewed and agree with all interventions, assessments performed and documented by GEORGE Boykin. Preceptee Medication Administration: For this medication-pass time frame, all medication were reviewed, dispensed, administered and documented per hospital policy by GEORGE Boykin.
--- NOTE | 2021-02-23 10:02 | NUR ---
CASE MANAGEMENT DISCHARGE FOLLOW UP: Spoke with pt's daughter, Yoselyn, via telephone as pt is not currently available. Reports that pt is doing good, no c/o CP. States pt has picked up medications and taking as directed. Has not set up f/u appointments with PCP or woodwork teacher, but will do so today. Has an appt for tomorrow with Michael Bieker. States no further questions/concerns at this time.
== END 2021-02-21 13:33 | disposition home health service (06) | DRG 243 ==
LOC: ER 10:56 → ED HOLD 15:20 → PCU 3S 17:35
PROVIDERS: ADMIT Family Medicine; ATTEND Family Medicine
PROC: 4A023N7 Measurement of Cardiac Sampling and Pressure, Left Heart, Percutaneous Approach (ICD-10-PCS; principal; 2021-02-20)
PROC: B2111ZZ Fluoroscopy of Multiple Coronary Arteries using Low Osmolar Contrast (ICD-10-PCS; 2021-02-20)
PROC: B2151ZZ Fluoroscopy of Left Heart using Low Osmolar Contrast (ICD-10-PCS; 2021-02-20)
DX: K21.9 Gastro-esophageal reflux disease without esophagitis (principal); E11.40 Type 2 diabetes mellitus with diabetic neuropathy, unspecified; I48.0 Paroxysmal atrial fibrillation; R07.89 Other chest pain; B19.20 Unspecified viral hepatitis C without hepatic coma; F03.90 Unspecified dementia, unspecified severity, without behavioral disturbance, psychotic disturbance, mood disturbance, and anxiety; D64.9 Anemia, unspecified; E11.65 Type 2 diabetes mellitus with hyperglycemia; E78.00 Pure hypercholesterolemia, unspecified; E78.5 Hyperlipidemia, unspecified; J43.9 Emphysema, unspecified; F15.90 Other stimulant use, unspecified, uncomplicated; F41.9 Anxiety disorder, unspecified; G89.29 Other chronic pain; Z20.822 Contact with and (suspected) exposure to COVID-19; M54.9 Dorsalgia, unspecified; M81.0 Age-related osteoporosis without current pathological fracture; I10 Essential (primary) hypertension; Z60.2 Problems related to living alone; Z79.01 Long term (current) use of anticoagulants; Z79.899 Other long term (current) drug therapy; Z82.49 Family history of ischemic heart disease and other diseases of the circulatory system; Z82.5 Family history of asthma and other chronic lower respiratory diseases; Z86.73 Personal history of transient ischemic attack (TIA), and cerebral infarction without residual deficits; Z87.11 Personal history of peptic ulcer disease; Z87.891 Personal history of nicotine dependence; Z95.2 Presence of prosthetic heart valve; Z79.82 Long term (current) use of aspirin; Z88.8 Allergy status to other drugs, medicaments and biological substances; Z88.1 Allergy status to other antibiotic agents; Z88.0 Allergy status to penicillin; Z91.013 Allergy to seafood; Z99.81 Dependence on supplemental oxygen
CPT/HCPCS: 36415; 71045; 80053; 80061; 81001; 82948; 83735; 83880; 84100; 84484; 85025; 87081; 87088; 87635; 93005; 93458; 94640; 94760; 96361; 96374; 96375; 97161; 97530; 99152; 99285; A4620; C1769; C1894; C9113; G0378; J1200; J1644; J1720; J1815; J2001; J2250; J2405; J3490; J7030; J7626; Q9967

== ENCOUNTER 2021-03-15 16:28 | Emergency (ER) | payer MEDICARE, MEDICAID ==
[~2021-03-15] VITALS: Ht 162.6 cm; Wt 60.8 kg
[~2021-03-15 16:28] MED LIST changes: +ATOR20TA66 PO; -LEVO750T46 PO; -NITR0.4T51 SL; +PANT40TA54 PO; -SULF1TAB49 PO
[2021-03-15] MEDS ORDERED: ipratropium/albuterol 3ml nebule NEB ONE (16:35)
[2021-03-15] MEDS ORDERED: methylPREDNISolone sod succ 125mg/2ml vial IV ONE (16:35)
[2021-03-15] MEDS ORDERED: normal saline 1000ML IV soln IVB ONE (16:50)
[2021-03-15] MEDS ORDERED: BUPR-317 PO (17:05)
[2021-03-15] MEDS ORDERED: GABA300C PO (17:05)
[2021-03-15] MEDS ORDERED: OXYB5TAB16 PO (17:05)
[2021-03-15] MEDS ORDERED: FERR-106 PO (17:05)
[2021-03-15] MEDS ORDERED: PANT-47 PO (17:05)
[2021-03-15 17:23] LABS: BASOPHILS % (AUTO) 0.5 % (0-1); EOSINOPHILS # (AUTO) 0.1 X10'3 (0-0.9); HEMOGLOBIN 12.9 g/dl (12.0-16.0); LYMPHOCYTES # (AUTO) 2.5 X10'3 (1.1-4.8); MEAN CORPUSCULAR HEMOGLOBIN 30.9 PG (27.0-31.0); MEAN CORPUSCULAR HGB CONC 33.9 g/dL (33.0-36.5); MEAN CORPUSCULAR VOLUME 91.3 FL (78-98); MEAN PLATELET VOLUME 7.2 FL (7.4-10.4); MONOCYTES # (AUTO) 0.6 X10'3 (0-0.9); MONOCYTES % (AUTO) 8.9 % (2-12); NEUTROPHILS # (AUTO) 3.7 X10'3 (1.8-7.7); NEUTROPHILS % (AUTO) 53.6 % (42-75); PLATELET COUNT 166 X10'3 (140-440); RED BLOOD COUNT 4.16 X10'6 (4.20-5.60); RED CELL DISTRIBUTION WIDTH 13.2 % (11.5-14.5)
[2021-03-15 17:37] LABS: ALANINE AMINOTRANSFERASE 18 U/L (12-78); ALBUMIN 3.3 G/DL (3.4-5.0); ALBUMIN/GLOBULIN RATIO 1.2 (1.1-1.5); ALKALINE PHOSPHATASE 66 IU/L (46-116); ANION GAP 7 (8-16); ASPARTATE AMINO TRANSFERASE 12 U/L (10-37); BILIRUBIN,TOTAL 0.2 MG/DL (0.1-1.0); BLOOD UREA NITROGEN 10 MG/DL (7-18); BUN/CREATININE RATIO 16.4 (6.6-38.0); CALCIUM 8.5 MG/DL (8.5-10.1); CHLORIDE 106 MMOL/L (99-107); CREATININE 0.61 MG/DL (0.40-0.90); GLUCOSE 221 MG/DL (70-104); POTASSIUM 3.5 MMOL/L (3.5-5.1); SODIUM 144 MMOL/L (135-145); TOTAL CARBON DIOXIDE 30.7 MMOL/L (24-32); TOTAL PROTEIN 6.1 G/DL (6.4-8.2); eGFR > 90 ML/MIN
[2021-03-15] MEDS ORDERED: levoFLOXACIN-Levaquin 750MG/D5 150 ML IV ONE (18:00)
[2021-03-15] MEDS ORDERED: albuterol 2.5 MG/3 ML nebule CONTNEB PRN (19:35)
--- NOTE | 2021-03-15 19:54 | NUR ---
PER PT, OKAY TO GIVE INFORMATION TO DAUGHTER TOLU
[2021-03-15] MEDS ORDERED: temazepam 15mg capsule PO PRN (21:00)
[2021-03-15] MEDS ORDERED: acetaminophen 325mg tablet PO PRN ×2 (21:25)
[2021-03-15] MEDS ORDERED: potassium Cl 40MEQ/1/2NS 520ml 520 ML IV PRN ×2 (21:25)
[2021-03-15] MEDS ORDERED: potassium Cl 20 mEq SR tablet PO PRN ×2 (21:25)
[2021-03-15] MEDS ORDERED: morphine 2 MG/ML inj. syringe IV PRN ×2 (21:25)
[2021-03-15] MEDS ORDERED: magnesium Cl slow-release 64mg tablet PO PRN (21:25)
[2021-03-15] MEDS ORDERED: mag hydrox/Alum hydrox/simeth 30ml oral suspension PO PRN (21:25)
[2021-03-15] MEDS ORDERED: magnesium 2GM in 50ml NS 50 ML IV PRN (21:25)
[2021-03-15] MEDS ORDERED: HYDROcodone/acetaminophen 5mg/325mg tablet PO PRN (21:25)
[2021-03-15] MEDS ORDERED: ondansetron/PF 4mg/2ml inj IV PRN (21:25)
[2021-03-15] MEDS ORDERED: HYDROcodone/acetaminophen 10/325mg tab PO PRN (21:25)
[2021-03-15] MEDS ORDERED: magnesium 4gm in 100ml NS 100 ML IV PRN (21:25)
[2021-03-15] MEDS: albuterol 2.5 MG/3 ML nebule NEB SCH (23:28)
--- NOTE | 2021-03-16 01:15 | NUR ---
Patient is wearing pull-up- still dry. Pure wick in place to keep her dry through the night.
[2021-03-16] MEDS ORDERED: ALBUTEROL INHALER 1 PUFF/90 MCG INHALER IH PRN (03:05)
[2021-03-16] MEDS ORDERED: metoprolol tartrate 50mg tablet PO PRN (03:05)
[2021-03-16] MEDS: albuterol 2.5 MG/3 ML nebule NEB SCH ×2 (03:24→07:05)
--- NOTE | 2021-03-16 04:02 | NUR ---
Patient able to use bedside commode with minimal assistace- noted that patient states she is blind and needs assistance locating things.
[2021-03-16] MEDS ORDERED: albuterol 2.5 MG/3 ML nebule NEB PRN (04:15)
[2021-03-16 04:45] LABS: BASOPHILS % (AUTO) 0.3 % (0-1); EOSINOPHILS % (AUTO) 0 % (0-6); HEMATOCRIT 38.4 % (35.0-45.0); HEMOGLOBIN 12.7 g/dl (12.0-16.0); LYMPHOCYTES # (AUTO) 0.5 X10'3 (1.1-4.8); LYMPHOCYTES % (AUTO) 7.9 % (21-51); MEAN CORPUSCULAR HEMOGLOBIN 31.4 PG (27.0-31.0); MEAN CORPUSCULAR VOLUME 94.9 FL (78-98); MEAN PLATELET VOLUME 7.3 FL (7.4-10.4); MONOCYTES # (AUTO) 0.1 X10'3 (0-0.9); NEUTROPHILS # (AUTO) 6.1 X10'3 (1.8-7.7); NEUTROPHILS % (AUTO) 90.8 % (42-75); PLATELET COUNT 141 X10'3 (140-440); RED BLOOD COUNT 4.05 X10'6 (4.20-5.60); RED CELL DISTRIBUTION WIDTH 13.8 % (11.5-14.5); WHITE BLOOD COUNT 6.7 X10'3 (4.5-11.0)
--- NOTE | 2021-03-16 04:47 | NUR ---
Patient moved over to hospital bed, ambulated with small shuffling steps with assistance- tolerated well.
[2021-03-16 04:59] LABS: ALBUMIN 3.3 G/DL (3.4-5.0); ANION GAP 19 (8-16); BLOOD UREA NITROGEN 12 MG/DL (7-18); CALCIUM 8.4 MG/DL (8.5-10.1); CHLORIDE 105 MMOL/L (99-107); CREATININE 1.09 MG/DL (0.40-0.90); GLUCOSE 433 MG/DL (70-104); MAGNESIUM 1.5 MG/DL (1.5-2.4); SODIUM 142 MMOL/L (135-145); TOTAL CARBON DIOXIDE 18.3 MMOL/L (24-32); eGFR 50 ML/MIN
[2021-03-16 05:01] LABS: POTASSIUM 3.7 MMOL/L (3.5-5.1)
--- NOTE | 2021-03-16 07:05 | NUR ---
Pt stating that she wants to go home as she has been able to get a room upstairs. I spoke to pt regarding her current treatment plan, reassurring her that though she was still in the ED we would be continuing any treatments that were ordered for her. Pt then requested to make a phone call. She was provided a phone and I assisted in dialing the number for a family for the pt. RT at bedside at this time, will reassess pt's desire to leave AMA following RT treatment.
[2021-03-16] MEDS ORDERED: oxybutynin 5mg tablet PO SCH (08:00)
[2021-03-16] MEDS ORDERED: budesonide 0.5mg/2ml UD nebule IH SCH (08:00)
[2021-03-16] MEDS ORDERED: heparin, porcine 5000 units/ml vial SQ SCH (08:00)
[2021-03-16] MEDS ORDERED: pantoprazole 40mg Tablet.DR PO SCH (08:00)
[2021-03-16] MEDS ORDERED: buPROPion SR 150mg tablet PO SCH (08:00)
[2021-03-16] MEDS ORDERED: CALCITONIN SALMON SYNTHETIC IH SCH (08:00)
[2021-03-16] MEDS ORDERED: losartan 50mg tablet PO SCH (08:00)
[2021-03-16] MEDS ORDERED: gabapentin 300mg capsule PO SCH (08:00)
[2021-03-16] MEDS ORDERED: FLUoxetine 20mg capsule PO SCH (08:00)
[2021-03-16] MEDS ORDERED: folic acid 1mg tablet PO SCH (08:00)
[2021-03-16] MEDS ORDERED: ipratropium 0.5 MG/2.5ML nebule NEB SCH (08:00)
[2021-03-16] MEDS ORDERED: levoFLOXACIN-Levaquin 500mg/D5 100 ML IV SCH (08:00)
[2021-03-16] MEDS ORDERED: methylPREDNISolone sod succ 125mg/2ml vial IV SCH (08:00)
[2021-03-16] MEDS ORDERED: K and/or MAG REPLACEMENT MC SCH (08:00)
[2021-03-16] MEDS ORDERED: apixaban 5mg tablet PO SCH (08:00)
[2021-03-16 10:19] VITALS: BP 132/75
[2021-03-16] MEDS ORDERED: VERAPAMIL 100 MG PO SCH (17:00)
[2021-03-16] MEDS ORDERED: mirtazapine 15mg tablet PO SCH (21:00)
--- NOTE | 2021-03-19 14:17 | NUR ---
CASE MANAGEMENT DISCHARGE FOLLOW UP: Spoke with pt's daughter, Yoselyn, via telephone. Reports pt has had no further complaints of abdominal pain. Verbalizes understanding of s/sx requiring further evaluation/emergent assistance. Verbalizes understanding of medications. Verbalizes compliance with MD discharge instructions. Verbalizes understanding of the importance in making/keeping follow-up appointments, states that pt saw her PCP on the day of admission and has a follow up appointment scheduled 8 weeks from now, will try to get earlier appointment if symptoms reoccur. States no further questions/concerns at this time.
== END 2021-03-16 11:45 | disposition home or self-care (01) ==
LOC: ER 16:29 → ED HOLD 21:21 → UNDOADMIN 21:21 → ER 03-16 11:45 → UNDODISIN 03-16 11:45
DX: R10.9 Unspecified abdominal pain (principal); J96.21 Acute and chronic respiratory failure with hypoxia; I48.20 Chronic atrial fibrillation, unspecified; I11.0 Hypertensive heart disease with heart failure; N18.9 Chronic kidney disease, unspecified; J43.9 Emphysema, unspecified; D64.9 Anemia, unspecified; E78.00 Pure hypercholesterolemia, unspecified; R07.89 Other chest pain; E78.5 Hyperlipidemia, unspecified; I25.10 Atherosclerotic heart disease of native coronary artery without angina pectoris; I25.2 Old myocardial infarction; I50.9 Heart failure, unspecified; Z79.01 Long term (current) use of anticoagulants; Z79.4 Long term (current) use of insulin; Z79.899 Other long term (current) drug therapy; Z86.73 Personal history of transient ischemic attack (TIA), and cerebral infarction without residual deficits; Z87.11 Personal history of peptic ulcer disease; Z87.891 Personal history of nicotine dependence; Z95.2 Presence of prosthetic heart valve; Z99.81 Dependence on supplemental oxygen; Z88.8 Allergy status to other drugs, medicaments and biological substances; Z88.6 Allergy status to analgesic agent; Z88.1 Allergy status to other antibiotic agents; Z88.0 Allergy status to penicillin; Z91.013 Allergy to seafood
CPT/HCPCS: 36415; 71045; 80048; 80053; 82948; 83735; 83880; 84484; 85025; 93005; 94640; 96361; 96365; 96366; 96375; 96376; 99285; J1956; J2930; J7030; 94760; A7015; G0378; J7626

== ENCOUNTER 2021-04-05 19:45 | Emergency (ER) | payer MEDICARE, MEDICAID ==
[~2021-04-05] VITALS: Ht 149.9 cm; Wt 7.0 kg
[~2021-04-05 19:45] MED LIST changes: -ATOR20TA66 PO; +BUPR-317 PO; +FERR-106 PO; -FERR134T2 PO; -GABA-532 PO; +GABA300C PO; +OXYB5TAB16 PO; +PANT-47 PO; -PANT40TA54 PO
[2021-04-05 20:03] VITALS: BP 16/74
[2021-04-05 20:25] LABS: BASOPHILS % (AUTO) 0.5 % (0-1); EOSINOPHILS # (AUTO) 0.2 X10'3 (0-0.9); EOSINOPHILS % (AUTO) 2.7 % (0-6); HEMATOCRIT 37.9 % (35.0-45.0); HEMOGLOBIN 12.8 g/dl (12.0-16.0); LYMPHOCYTES # (AUTO) 2.5 X10'3 (1.1-4.8); LYMPHOCYTES % (AUTO) 38.1 % (21-51); MEAN CORPUSCULAR HEMOGLOBIN 30.7 PG (27.0-31.0); MEAN CORPUSCULAR HGB CONC 33.8 g/dL (33.0-36.5); MEAN CORPUSCULAR VOLUME 90.8 FL (78-98); MEAN PLATELET VOLUME 7.4 FL (7.4-10.4); MONOCYTES # (AUTO) 0.7 X10'3 (0-0.9); MONOCYTES % (AUTO) 10.2 % (2-12); NEUTROPHILS # (AUTO) 3.2 X10'3 (1.8-7.7); NEUTROPHILS % (AUTO) 48.5 % (42-75); PLATELET COUNT 190 X10'3 (140-440); RED BLOOD COUNT 4.17 X10'6 (4.20-5.60); RED CELL DISTRIBUTION WIDTH 13.3 % (11.5-14.5); WHITE BLOOD COUNT 6.5 X10'3 (4.5-11.0)
[2021-04-05 20:44] LABS: ALANINE AMINOTRANSFERASE 22 U/L (12-78); ALBUMIN 3.5 G/DL (3.4-5.0); ALBUMIN/GLOBULIN RATIO 1.1 (1.1-1.5); ALKALINE PHOSPHATASE 72 IU/L (46-116); ANION GAP 8 (8-16); ASPARTATE AMINO TRANSFERASE 9 U/L (10-37); BILIRUBIN,TOTAL 0.4 MG/DL (0.1-1.0); BLOOD UREA NITROGEN 9 MG/DL (7-18); BUN/CREATININE RATIO 10.1 (6.6-38.0); CALCIUM 8.4 MG/DL (8.5-10.1); CHLORIDE 102 MMOL/L (99-107); CREATININE 0.89 MG/DL (0.40-0.90); GLUCOSE 320 MG/DL (70-104); SODIUM 137 MMOL/L (135-145); TOTAL CARBON DIOXIDE 27.4 MMOL/L (24-32); TOTAL PROTEIN 6.7 G/DL (6.4-8.2); eGFR 64 ML/MIN
[2021-04-05 20:45] LABS: LIPASE < 50 U/L (73-393); TROPONIN I < 0.04 NG/ML (0.0-0.05)
[2021-04-05 21:04] LABS: CLARITY,URINE CLEAR (Clear); COLOR,URINE YELLOW (Yellow); GLUCOSE, URINE >=1000 mg/dl (Neg); KETONES,URINE NEGATIVE (Neg); LEUKOCYTE ESTERASE ,URINE MODERATE (Neg); NITRITES, URINE NEGATIVE (Neg); OCCULT BLOOD,URINE TRACE-INTACT (Neg); PH,URINE 6.5 (4.8-8.0); PROTEIN,URINE NEGATIVE (Neg); UROBILINOGEN,URINE 0.2 E.U/dL (0.2-1.0)
[2021-04-05 21:05] LABS: UA COLLECTION TYPE FOLEY CATH
[2021-04-05 21:11] LABS: BACTERIA,URINE 2+ /HPF (Neg); RBC,URINE 0-2 /HPF (0-2); SQUAMOUS EPITHELIAL CELL,UR MODERATE /LPF (FEW)
[2021-04-05 21:12] LABS: RENAL CELLS, URINE FEW /HPF; TRANSITIONAL EPI CELLS,URINE MODERATE /HPF
== END 2021-04-05 21:36 | disposition home or self-care (01) ==
LOC: ER 19:46
DX: R10.13 Epigastric pain (principal); E78.00 Pure hypercholesterolemia, unspecified; I10 Essential (primary) hypertension; J43.9 Emphysema, unspecified; K21.9 Gastro-esophageal reflux disease without esophagitis; E11.9 Type 2 diabetes mellitus without complications; G89.29 Other chronic pain; F41.9 Anxiety disorder, unspecified; F15.90 Other stimulant use, unspecified, uncomplicated; Z86.73 Personal history of transient ischemic attack (TIA), and cerebral infarction without residual deficits; Z87.01 Personal history of pneumonia (recurrent); Z87.11 Personal history of peptic ulcer disease; Z86.2 Personal history of diseases of the blood and blood-forming organs and certain disorders involving the immune mechanism; Z87.440 Personal history of urinary (tract) infections; Z90.89 Acquired absence of other organs; Z98.890 Other specified postprocedural states; Z72.89 Other problems related to lifestyle; Z60.2 Problems related to living alone; Z91.013 Allergy to seafood; Z88.1 Allergy status to other antibiotic agents; Z88.8 Allergy status to other drugs, medicaments and biological substances; Z88.6 Allergy status to analgesic agent; Z79.4 Long term (current) use of insulin; Z79.899 Other long term (current) drug therapy
CPT/HCPCS: 36415; 80053; 81001; 83690; 84484; 85025; 87088; 93005; 99284

== ENCOUNTER 2021-05-27 14:12 | Emergency (ER) | payer MEDICARE, MEDICAID ==
[~2021-05-27] VITALS: Ht 149.9 cm; Wt 60.0 kg
[2021-05-27 14:45] VITALS: BP 113/61
--- NOTE | 2021-05-27 16:45 | NUR ---
PT'S DAUGHTER CALLED FOR STATUS OF PT. NOTIFIED THAT SHE HAS BEEN DISCHARGED AND ATTEMPTS HAD BEEN MADE TO CONTACT HER. PHONE NUMBERS ON RECORD ARE NOT CORRECT. DAUGHTER TOLU STATES THAT SHE IS ON HER WAY TO PICK PT US AND THAT SHE WILL UPDATE INFORMATION WITH ADMITTING.
== END 2021-05-27 17:10 | disposition home or self-care (01) ==
LOC: ER 14:13
DX: R07.89 Other chest pain (principal); I25.2 Old myocardial infarction; I25.10 Atherosclerotic heart disease of native coronary artery without angina pectoris; E78.00 Pure hypercholesterolemia, unspecified; I10 Essential (primary) hypertension; J43.9 Emphysema, unspecified; K21.9 Gastro-esophageal reflux disease without esophagitis; E11.9 Type 2 diabetes mellitus without complications; G89.29 Other chronic pain; F15.90 Other stimulant use, unspecified, uncomplicated; Z86.73 Personal history of transient ischemic attack (TIA), and cerebral infarction without residual deficits; Z86.19 Personal history of other infectious and parasitic diseases; Z87.11 Personal history of peptic ulcer disease; Z86.2 Personal history of diseases of the blood and blood-forming organs and certain disorders involving the immune mechanism; Z87.440 Personal history of urinary (tract) infections; Z87.81 Personal history of (healed) traumatic fracture; Z95.5 Presence of coronary angioplasty implant and graft; Z87.891 Personal history of nicotine dependence; Z72.89 Other problems related to lifestyle; Z91.013 Allergy to seafood; Z88.0 Allergy status to penicillin; Z88.1 Allergy status to other antibiotic agents; Z88.8 Allergy status to other drugs, medicaments and biological substances; Z79.4 Long term (current) use of insulin; Z79.899 Other long term (current) drug therapy
CPT/HCPCS: 93005; 99283

== ENCOUNTER 2021-08-19 11:28 | Emergency (ER) | payer MEDICARE, MEDICAID ==
[~2021-08-19] VITALS: Ht 154.9 cm; Wt 65.9 kg
[2021-08-19 11:37] VITALS: BP 115/66
[2021-08-19 12:27] LABS: BASOPHILS % (AUTO) 0.6 % (0-1); EOSINOPHILS # (AUTO) 0.1 X10'3 (0-0.9); EOSINOPHILS % (AUTO) 1.2 % (0-6); HEMATOCRIT 40.7 % (35.0-45.0); HEMOGLOBIN 13.9 g/dl (12.0-16.0); LYMPHOCYTES # (AUTO) 2.3 X10'3 (1.1-4.8); LYMPHOCYTES % (AUTO) 38.7 % (21-51); MEAN CORPUSCULAR HEMOGLOBIN 30.6 PG (27.0-31.0); MEAN CORPUSCULAR HGB CONC 34.2 g/dL (33.0-36.5); MEAN CORPUSCULAR VOLUME 89.2 FL (78-98); MEAN PLATELET VOLUME 7.1 FL (7.4-10.4); MONOCYTES # (AUTO) 0.5 X10'3 (0-0.9); MONOCYTES % (AUTO) 9.2 % (2-12); NEUTROPHILS % (AUTO) 50.3 % (42-75); PLATELET COUNT 182 X10'3 (140-440); RED BLOOD COUNT 4.56 X10'6 (4.20-5.60); RED CELL DISTRIBUTION WIDTH 14.3 % (11.5-14.5); WHITE BLOOD COUNT 5.9 X10'3 (4.5-11.0)
[2021-08-19 12:44] LABS: ALANINE AMINOTRANSFERASE 27 U/L (12-78); ALBUMIN 3.8 G/DL (3.4-5.0); ALBUMIN/GLOBULIN RATIO 1.2 (1.1-1.5); ALKALINE PHOSPHATASE 83 IU/L (46-116); ANION GAP 6 (8-16); ASPARTATE AMINO TRANSFERASE 11 U/L (10-37); BILIRUBIN,TOTAL 0.4 MG/DL (0.1-1.0); BLOOD UREA NITROGEN 11 MG/DL (7-18); BUN/CREATININE RATIO 15.1 (6.6-38.0); CALCIUM 8.9 MG/DL (8.5-10.1); CHLORIDE 104 MMOL/L (99-107); CREATININE 0.73 MG/DL (0.40-0.90); GLUCOSE 187 MG/DL (70-104); POTASSIUM 4.4 MMOL/L (3.5-5.1); SODIUM 141 MMOL/L (135-145); eGFR 80 ML/MIN
[2021-08-19 12:47] LABS: MAGNESIUM 1.8 MG/DL (1.5-2.4)
[2021-08-19] MEDS ORDERED: mag hydrox/Alum hydrox/simeth 30ml oral suspension PO ONE (14:15)
[2021-08-19] MEDS ORDERED: LIDOcaine Viscous 15ml cup MM ONE (14:15)
[2021-08-19] MEDS ORDERED: PANT-47 PO (14:18)
[2021-08-19] MEDS ORDERED: pantoprazole 40mg Tablet.DR PO ONE (14:19)
== END 2021-08-19 15:43 | disposition home or self-care (01) ==
LOC: ER 11:30
DX: R10.13 Epigastric pain (principal); R10.10 Upper abdominal pain, unspecified; E78.00 Pure hypercholesterolemia, unspecified; I10 Essential (primary) hypertension; J43.9 Emphysema, unspecified; K21.9 Gastro-esophageal reflux disease without esophagitis; G89.29 Other chronic pain; E11.9 Type 2 diabetes mellitus without complications; F12.90 Cannabis use, unspecified, uncomplicated; Z86.73 Personal history of transient ischemic attack (TIA), and cerebral infarction without residual deficits; Z87.01 Personal history of pneumonia (recurrent); Z87.11 Personal history of peptic ulcer disease; Z86.2 Personal history of diseases of the blood and blood-forming organs and certain disorders involving the immune mechanism; Z87.440 Personal history of urinary (tract) infections; Z87.81 Personal history of (healed) traumatic fracture; Z72.89 Other problems related to lifestyle; Z79.899 Other long term (current) drug therapy; Z79.4 Long term (current) use of insulin; Z88.0 Allergy status to penicillin; Z88.1 Allergy status to other antibiotic agents; Z91.013 Allergy to seafood; Z88.8 Allergy status to other drugs, medicaments and biological substances
CPT/HCPCS: 36415; 71045; 80053; 83735; 84484; 85025; 93005; 99285

== ENCOUNTER 2021-09-25 14:58 | Emergency (ER) | payer MEDICARE, MEDICAID ==
[~2021-09-25] VITALS: Ht 152.4 cm; Wt 38.6 kg
[2021-09-25 15:45] LABS: BASOPHILS # (AUTO) 0.1 X10'3 (0-0.2); BASOPHILS % (AUTO) 1.9 % (0-1); EOSINOPHILS # (AUTO) 0.1 X10'3 (0-0.9); EOSINOPHILS % (AUTO) 1.9 % (0-6); HEMATOCRIT 40.5 % (35.0-45.0); HEMOGLOBIN 14.1 g/dl (12.0-16.0); LYMPHOCYTES # (AUTO) 2.5 X10'3 (1.1-4.8); LYMPHOCYTES % (AUTO) 33.9 % (21-51); MEAN CORPUSCULAR HEMOGLOBIN 31.3 PG (27.0-31.0); MEAN CORPUSCULAR HGB CONC 34.7 g/dL (33.0-36.5); MEAN CORPUSCULAR VOLUME 90.2 FL (78-98); MEAN PLATELET VOLUME 7.1 FL (7.4-10.4); MONOCYTES # (AUTO) 0.6 X10'3 (0-0.9); MONOCYTES % (AUTO) 8.5 % (2-12); NEUTROPHILS % (AUTO) 53.8 % (42-75); PLATELET COUNT 151 X10'3 (140-440); RED BLOOD COUNT 4.49 X10'6 (4.20-5.60); RED CELL DISTRIBUTION WIDTH 13.1 % (11.5-14.5); WHITE BLOOD COUNT 7.4 X10'3 (4.5-11.0)
--- NOTE | 2021-09-25 15:45 | NUR ---
patient to ct.
[2021-09-25 15:52] LABS: ALANINE AMINOTRANSFERASE 23 U/L (12-78); ALBUMIN 3.8 G/DL (3.4-5.0); ALBUMIN/GLOBULIN RATIO 1.3 (1.1-1.5); ALKALINE PHOSPHATASE 65 IU/L (46-116); ANION GAP 11 (8-16); ASPARTATE AMINO TRANSFERASE 9 U/L (10-37); BILIRUBIN,TOTAL 0.3 MG/DL (0.1-1.0); BLOOD UREA NITROGEN 18 MG/DL (7-18); CALCIUM 8.8 MG/DL (8.5-10.1); CHLORIDE 104 MMOL/L (99-107); GLUCOSE 150 MG/DL (70-104); POTASSIUM 4.2 MMOL/L (3.5-5.1); SODIUM 142 MMOL/L (135-145); TOTAL CARBON DIOXIDE 26.7 MMOL/L (24-32); TOTAL PROTEIN 6.8 G/DL (6.4-8.2); eGFR 63 ML/MIN
[2021-09-25 16:05] VITALS: BP 126/92
--- NOTE | 2021-09-25 16:40 | NUR ---
c-spine cleared clnically by dr. nair
[2021-09-25] MEDS ORDERED: LIDOcaine 1% W/epiNEPHrine 1:100,000 20ml vial IJ ONE (16:50)
--- NOTE | 2021-09-25 16:56 | NUR ---
pt placed on bsc with mod assistance, steady on feet.
[2021-09-25] MEDS ORDERED: HYDROcodone/acetaminophen 5mg/325mg tablet PO ONE (17:05)
== END 2021-09-25 17:39 | disposition home or self-care (01) ==
LOC: ER 14:58
DX: S01.01XA Laceration without foreign body of scalp, initial encounter (principal); M54.2 Cervicalgia; R42 Dizziness and giddiness; R06.02 Shortness of breath; E78.00 Pure hypercholesterolemia, unspecified; I10 Essential (primary) hypertension; I25.2 Old myocardial infarction; J43.9 Emphysema, unspecified; K21.9 Gastro-esophageal reflux disease without esophagitis; E11.9 Type 2 diabetes mellitus without complications; G89.29 Other chronic pain; F41.9 Anxiety disorder, unspecified; F15.90 Other stimulant use, unspecified, uncomplicated; Z86.73 Personal history of transient ischemic attack (TIA), and cerebral infarction without residual deficits; Z87.01 Personal history of pneumonia (recurrent); Z86.19 Personal history of other infectious and parasitic diseases; Z87.11 Personal history of peptic ulcer disease; Z86.2 Personal history of diseases of the blood and blood-forming organs and certain disorders involving the immune mechanism; Z87.440 Personal history of urinary (tract) infections; Z90.89 Acquired absence of other organs; Z98.890 Other specified postprocedural states; Z72.89 Other problems related to lifestyle; Z60.2 Problems related to living alone; Z88.0 Allergy status to penicillin; Z88.1 Allergy status to other antibiotic agents; Z88.8 Allergy status to other drugs, medicaments and biological substances; Z91.013 Allergy to seafood; Z79.4 Long term (current) use of insulin; Z79.899 Other long term (current) drug therapy; W01.0XXA Fall on same level from slipping, tripping and stumbling without subsequent striking against object, initial encounter; Y93.89 Activity, other specified; Y92.89 Other specified places as the place of occurrence of the external cause; Y99.8 Other external cause status
CPT/HCPCS: 12001; 36415; 70450; 72125; 80053; 85025; 85610; 99285

== ENCOUNTER 2021-10-02 19:22 | Emergency (ER) | payer MEDICARE, MEDICAID ==
[~2021-10-02] VITALS: Ht 162.6 cm; Wt 81.0 kg
[2021-10-02 21:01] LABS: BASOPHILS % (AUTO) 0.2 % (0-1); EOSINOPHILS % (AUTO) 0.4 % (0-6); HEMATOCRIT 37.8 % (35.0-45.0); HEMOGLOBIN 13.1 g/dl (12.0-16.0); LYMPHOCYTES # (AUTO) 0.8 X10'3 (1.1-4.8); LYMPHOCYTES % (AUTO) 8.6 % (21-51); MEAN CORPUSCULAR HEMOGLOBIN 31.2 PG (27.0-31.0); MEAN CORPUSCULAR HGB CONC 34.6 g/dL (33.0-36.5); MEAN PLATELET VOLUME 6.9 FL (7.4-10.4); MONOCYTES # (AUTO) 0.8 X10'3 (0-0.9); MONOCYTES % (AUTO) 9.1 % (2-12); NEUTROPHILS # (AUTO) 7.1 X10'3 (1.8-7.7); NEUTROPHILS % (AUTO) 81.7 % (42-75); PLATELET COUNT 131 X10'3 (140-440); RED CELL DISTRIBUTION WIDTH 13.1 % (11.5-14.5); WHITE BLOOD COUNT 8.8 X10'3 (4.5-11.0)
[2021-10-02 21:17] LABS: ALANINE AMINOTRANSFERASE 20 U/L (12-78); ALBUMIN 3.5 G/DL (3.4-5.0); ALBUMIN/GLOBULIN RATIO 1.1 (1.1-1.5); ALKALINE PHOSPHATASE 67 IU/L (46-116); ANION GAP 8 (8-16); ASPARTATE AMINO TRANSFERASE 13 U/L (10-37); BILIRUBIN,TOTAL 0.4 MG/DL (0.1-1.0); BLOOD UREA NITROGEN 10 MG/DL (7-18); BUN/CREATININE RATIO 15.2 (6.6-38.0); CALCIUM 8.6 MG/DL (8.5-10.1); CHLORIDE 104 MMOL/L (99-107); CREATININE 0.66 MG/DL (0.40-0.90); GLUCOSE 98 MG/DL (70-104); POTASSIUM 3.5 MMOL/L (3.5-5.1); SODIUM 140 MMOL/L (135-145); TOTAL CARBON DIOXIDE 27.7 MMOL/L (24-32); TOTAL PROTEIN 6.6 G/DL (6.4-8.2); eGFR 90 ML/MIN
[2021-10-03 01:31] LABS: CLARITY,URINE CLEAR (Clear); GLUCOSE, URINE 250 mg/dl (Neg); KETONES,URINE NEGATIVE (Neg); LEUKOCYTE ESTERASE ,URINE TRACE (Neg); NITRITES, URINE NEGATIVE (Neg); OCCULT BLOOD,URINE NEGATIVE (Neg); PROTEIN,URINE NEGATIVE (Neg); UROBILINOGEN,URINE 0.2 E.U/dL (0.2-1.0)
[2021-10-03 02:02] LABS: COLOR,URINE STRAW (Yellow); UA COLLECTION TYPE CLN CATCH MIDSTREAM
[2021-10-03 02:05] LABS: BACTERIA,URINE NONE SEEN /HPF (Neg); RBC,URINE 0-2 /HPF (0-2); WBC,URINE 0-4 /HPF (0-4)
[2021-10-03 02:06] LABS: MUCUS STRANDS FEW /LPF (Neg); SQUAMOUS EPITHELIAL CELL,UR FEW /LPF (FEW)
[2021-10-03 03:00] VITALS: BP 134/78
== END 2021-10-03 03:27 | disposition home or self-care (01) ==
LOC: ER 19:23
DX: E11.649 Type 2 diabetes mellitus with hypoglycemia without coma (principal); Z20.822 Contact with and (suspected) exposure to COVID-19; R06.02 Shortness of breath; E78.00 Pure hypercholesterolemia, unspecified; I10 Essential (primary) hypertension; I25.2 Old myocardial infarction; J43.9 Emphysema, unspecified; K21.9 Gastro-esophageal reflux disease without esophagitis; E11.9 Type 2 diabetes mellitus without complications; G89.29 Other chronic pain; F41.9 Anxiety disorder, unspecified; F15.90 Other stimulant use, unspecified, uncomplicated; Z86.73 Personal history of transient ischemic attack (TIA), and cerebral infarction without residual deficits; Z87.01 Personal history of pneumonia (recurrent); Z86.19 Personal history of other infectious and parasitic diseases; Z87.11 Personal history of peptic ulcer disease; Z86.2 Personal history of diseases of the blood and blood-forming organs and certain disorders involving the immune mechanism; Z87.440 Personal history of urinary (tract) infections; Z90.89 Acquired absence of other organs; Z98.890 Other specified postprocedural states; Z72.89 Other problems related to lifestyle; Z60.2 Problems related to living alone; Z91.013 Allergy to seafood; Z88.0 Allergy status to penicillin; Z79.2 Long term (current) use of antibiotics; Z79.899 Other long term (current) drug therapy
CPT/HCPCS: 36415; 71045; 80053; 81001; 82948; 83605; 83880; 84145; 84484; 85025; 87040; 87077; 87088; 87186; 87635; 93005; 99285; C9803

== ENCOUNTER 2022-02-17 19:01 | Emergency (ER) | payer MEDICARE, MEDICAID ==
[~2022-02-17] VITALS: Ht 149.9 cm; Wt 56.4 kg
[~2022-02-17 19:01] MED LIST changes: +ACET-2 PO; -ACET-3067 PO; +ASPI81TA52 PO; +ATOR40TA PO; +DOCU100C40 PO; -FOLI0.4T6 PO; +FOLI1TAB27 PO; +FURO-150 PO; +HYDR-3972 PO; +IPRA3AMP9 NEB; +LEVO750T46 PO; +SENN-25 PO
--- NOTE | 2022-02-17 19:17 | NUR ---
Patient on levoquin 750 mg daily
[2022-02-17 19:46] LABS: BASOPHILS % (AUTO) 0.6 % (0-1); EOSINOPHILS # (AUTO) 0.2 X10'3 (0-0.9); EOSINOPHILS % (AUTO) 2.8 % (0-6); HEMATOCRIT 34.2 % (35.0-45.0); HEMOGLOBIN 11.5 g/dl (12.0-16.0); LYMPHOCYTES # (AUTO) 1.3 X10'3 (1.1-4.8); LYMPHOCYTES % (AUTO) 21.8 % (21-51); MEAN CORPUSCULAR HEMOGLOBIN 30.9 PG (27.0-31.0); MEAN CORPUSCULAR HGB CONC 33.7 g/dL (33.0-36.5); MEAN CORPUSCULAR VOLUME 91.7 FL (78-98); MEAN PLATELET VOLUME 6.8 FL (7.4-10.4); MONOCYTES # (AUTO) 0.5 X10'3 (0-0.9); MONOCYTES % (AUTO) 7.9 % (2-12); NEUTROPHILS # (AUTO) 3.8 X10'3 (1.8-7.7); NEUTROPHILS % (AUTO) 66.9 % (42-75); PLATELET COUNT 257 X10'3 (140-440); RED BLOOD COUNT 3.73 X10'6 (4.20-5.60); RED CELL DISTRIBUTION WIDTH 12.4 % (11.5-14.5); WHITE BLOOD COUNT 5.7 X10'3 (4.5-11.0)
[2022-02-17 20:01] LABS: ALANINE AMINOTRANSFERASE 55 U/L (12-78); ALBUMIN 2.2 G/DL (3.4-5.0); ALBUMIN/GLOBULIN RATIO 0.5 (1.1-1.5); ALKALINE PHOSPHATASE 94 IU/L (46-116); ANION GAP 6 (8-16); ASPARTATE AMINO TRANSFERASE 21 U/L (10-37); BILIRUBIN,TOTAL 0.3 MG/DL (0.1-1.0); BLOOD UREA NITROGEN 9 MG/DL (7-18); BUN/CREATININE RATIO 9.8 (6.6-38.0); CALCIUM 8.4 MG/DL (8.5-10.1); CHLORIDE 100 MMOL/L (99-107); CREATININE 0.92 MG/DL (0.40-0.90); GLUCOSE 335 MG/DL (70-104); POTASSIUM 3.7 MMOL/L (3.5-5.1); SODIUM 137 MMOL/L (135-145); TOTAL CARBON DIOXIDE 30.8 MMOL/L (24-32); TOTAL PROTEIN 6.5 G/DL (6.4-8.2); eGFR 61 ML/MIN
[2022-02-17 22:27] VITALS: BP 152/97
== END 2022-02-17 22:04 | disposition home or self-care (01) ==
LOC: ER 19:02
DX: Z00.00 Encounter for general adult medical examination without abnormal findings (principal); R10.13 Epigastric pain; R53.1 Weakness; R07.89 Other chest pain; E78.00 Pure hypercholesterolemia, unspecified; I10 Essential (primary) hypertension; I25.2 Old myocardial infarction; J43.9 Emphysema, unspecified; K21.9 Gastro-esophageal reflux disease without esophagitis; E11.9 Type 2 diabetes mellitus without complications; G89.29 Other chronic pain; F03.90 Unspecified dementia, unspecified severity, without behavioral disturbance, psychotic disturbance, mood disturbance, and anxiety; F15.90 Other stimulant use, unspecified, uncomplicated; Z87.81 Personal history of (healed) traumatic fracture; Z86.19 Personal history of other infectious and parasitic diseases; Z86.73 Personal history of transient ischemic attack (TIA), and cerebral infarction without residual deficits; Z86.718 Personal history of other venous thrombosis and embolism; Z90.49 Acquired absence of other specified parts of digestive tract; Z72.89 Other problems related to lifestyle; Z79.82 Long term (current) use of aspirin; Z79.4 Long term (current) use of insulin; Z79.899 Other long term (current) drug therapy; Z79.2 Long term (current) use of antibiotics; Z88.8 Allergy status to other drugs, medicaments and biological substances; Z91.013 Allergy to seafood
CPT/HCPCS: 36415; 71045; 80053; 83880; 84484; 85025; 93005; 99285

== ENCOUNTER 2022-10-02 18:49 | Emergency (ER) | payer MEDICARE, MEDICAID ==
[~2022-10-02] VITALS: Ht 152.4 cm; Wt 47.7 kg
[~2022-10-02 18:49] MED LIST changes: -ACET-2 PO; +APIX2.5T PO; -APIX5TAB3 PO; -ASPI81TA52 PO; -ATOR40TA PO; +ATOR40TA72 PO; -BUDE10.23 IH; -CALC-3 PO; +CALC-4 PO; +DICL100G30 TOP; +DOCU-22 PO; -DOCU100C40 PO; -FERR-106 PO; +FERR-39 PO; +FLUO-167 PO; -FLUO20CA39 PO; -FURO-150 PO; -HYDR-3972 PO; -INSU100I31 SQ; -INSU100I39 SQ; -IPRA3AMP9 NEB; +ISOS30TA84 PO; -LEVO750T46 PO; -LOSA50TA3 PO; +LOSA50TA64 PO; +MAGN400T39 PO; +MEMA10TA56 PO; -METO-467 PO; -MIRT-116 PO; +MIRT-87 PO; +NYST15CR36 TOP; -PANT-47 PO; +PANT40TA54 PO; +PRAM0.253 PO; +QUET25TA36 PO; -SENN-25 PO; +SENN-29 PO; +SIME125T7 PO; -SPIIN INH; +TAM75C PO
[2022-10-02 18:54] VITALS: BP 130/88
[2022-10-02] MEDS ORDERED: normal saline 1000ML IV soln IVB ONE (19:50)
[2022-10-02 20:11] LABS: BASOPHILS # (AUTO) 0.1 X10'3 (0-0.2); BASOPHILS % (AUTO) 0.9 % (0-1); EOSINOPHILS # (AUTO) 0.1 X10'3 (0-0.9); EOSINOPHILS % (AUTO) 0.8 % (0-6); HEMATOCRIT 35.6 % (35.0-45.0); HEMOGLOBIN 11.9 g/dl (12.0-16.0); LYMPHOCYTES % (AUTO) 18.9 % (21-51); MEAN CORPUSCULAR HEMOGLOBIN 30.9 PG (27.0-31.0); MEAN CORPUSCULAR HGB CONC 33.4 g/dL (33.0-36.5); MEAN CORPUSCULAR VOLUME 92.6 FL (78-98); MEAN PLATELET VOLUME 7.5 FL (7.4-10.4); MONOCYTES # (AUTO) 0.5 X10'3 (0-0.9); MONOCYTES % (AUTO) 4.8 % (2-12); NEUTROPHILS % (AUTO) 74.6 % (42-75); PLATELET COUNT 273 X10'3 (140-440); RED BLOOD COUNT 3.84 X10'6 (4.20-5.60); RED CELL DISTRIBUTION WIDTH 13.5 % (11.5-14.5); WHITE BLOOD COUNT 10.7 X10'3 (4.5-11.0)
--- NOTE | 2022-10-02 20:42 | NUR ---
TOLU(DAUGHTER) [phone] PLEASE CALL W/UPDATE
[2022-10-02 21:01] LABS: ALANINE AMINOTRANSFERASE 19 U/L (12-78); ALBUMIN 2.4 G/DL (3.4-5.0); ALBUMIN/GLOBULIN RATIO 0.7 (1.1-1.5); ALKALINE PHOSPHATASE 83 IU/L (46-116); ANION GAP 7 (8-16); ASPARTATE AMINO TRANSFERASE 15 U/L (10-37); BILIRUBIN,TOTAL 0.2 MG/DL (0.1-1.0); BLOOD UREA NITROGEN 8 MG/DL (7-18); BUN/CREATININE RATIO 11.6 (6.6-38.0); CALCIUM 7.4 MG/DL (8.5-10.1); CHLORIDE 108 MMOL/L (99-107); CREATININE 0.69 MG/DL (0.40-0.90); GLUCOSE 199 MG/DL (70-104); POTASSIUM 3.6 MMOL/L (3.5-5.1); SODIUM 141 MMOL/L (135-145); TOTAL CARBON DIOXIDE 26.3 MMOL/L (24-32); TOTAL PROTEIN 5.9 G/DL (6.4-8.2); eGFR 85 ML/MIN
[2022-10-02] MEDS ORDERED: predniSONE 5mg tablet PO ONE (22:35)
[2022-10-02 22:59] LABS: CLARITY,URINE SLIGHTLY CLOUDY (Clear); COLOR,URINE YELLOW (Yellow); GLUCOSE, URINE 500 mg/dl (Neg); KETONES,URINE NEGATIVE (Neg); LEUKOCYTE ESTERASE ,URINE TRACE (Neg); NITRITES, URINE POSITIVE (Neg); OCCULT BLOOD,URINE TRACE-INTACT (Neg); PROTEIN,URINE NEGATIVE (Neg); UROBILINOGEN,URINE 0.2 E.U/dL (0.2-1.0)
[2022-10-02 23:00] LABS: UA COLLECTION TYPE STRAIGHT CATH
[2022-10-02 23:02] LABS: BACTERIA,URINE 3+ /HPF (Neg); SQUAMOUS EPITHELIAL CELL,UR FEW /LPF (FEW); WBC,URINE TNTC /HPF (0-4)
--- NOTE | 2022-10-07 09:34 | NUR ---
TC TO PATIENT'S DAUGHTER, TOLU HOBBS, TO INFORM OF ANTIBIOTIC ORDER THAT WILL BE CALLED IN TO [facility] [address], [place]. NEW MEDICATION, MACROBID, CALLED IN TO [facility] [address].
== END 2022-10-02 23:32 | disposition home or self-care (01) ==
LOC: ER 18:49
DX: S00.81XA Abrasion of other part of head, initial encounter (principal); F03.90 Unspecified dementia, unspecified severity, without behavioral disturbance, psychotic disturbance, mood disturbance, and anxiety; I11.9 Hypertensive heart disease without heart failure; E78.00 Pure hypercholesterolemia, unspecified; J43.9 Emphysema, unspecified; K21.9 Gastro-esophageal reflux disease without esophagitis; G89.29 Other chronic pain; F41.9 Anxiety disorder, unspecified; M54.9 Dorsalgia, unspecified; Z87.81 Personal history of (healed) traumatic fracture; Y04.8XXA Assault by other bodily force, initial encounter; Y93.89 Activity, other specified; Y92.89 Other specified places as the place of occurrence of the external cause; Y99.8 Other external cause status
CPT/HCPCS: 36415; 70450; 71045; 72125; 80053; 81001; 85025; 87077; 87088; 87186; 93005; 96360; 99285; J7030

== ENCOUNTER 2023-07-05 15:04 | Emergency (ER) | payer MEDICARE, MEDICAID ==
[~2023-07-05] VITALS: Ht 147.3 cm; Wt 47.7 kg
[~2023-07-05 15:04] MED LIST changes: +ALB0.5UD IH; -ALBU18HF2 IH; -CALC3.7S5 BOTHNARES; -DICL100G30 TOP; -NYST15CR36 TOP; -OXYB5TAB16 PO; -SENN-29 PO; -SIME125T7 PO; -TAM75C PO; +epiNEPHrine 0.1mg/ml 10ml syringe ONE; +sod chloride 0.9% 10ml flush syringe IV ONE; +sodium bicarbonate (8.4%) 1 mEq/ml syringe ONE
--- NOTE | 2023-07-05 15:20 | NUR ---
code blue team includng ER doc at bedside
[2023-07-05 15:31] LABS: BASOPHILS # (AUTO) 0.1 X10'3 (0-0.2); BASOPHILS % (AUTO) 0.4 % (0-1); EOSINOPHILS # (AUTO) 0.1 X10'3 (0-0.9); EOSINOPHILS % (AUTO) 0.5 % (0-6); HEMOGLOBIN 11.1 g/dl (12.0-16.0); MEAN PLATELET VOLUME 6.8 FL (7.4-10.4)
[2023-07-05 15:33] LABS: HEMATOCRIT 34.7 % (35.0-45.0); LYMPHOCYTES % (AUTO) 64.1 % (21-51); MEAN CORPUSCULAR HEMOGLOBIN 31.2 PG (27.0-31.0); MEAN CORPUSCULAR HGB CONC 32.1 g/dL (33.0-36.5); MEAN CORPUSCULAR VOLUME 97.4 FL (78-98); MONOCYTES # (AUTO) 0.7 X10'3 (0-0.9); MONOCYTES % (AUTO) 4.6 % (2-12); NEUTROPHILS # (AUTO) 4.7 X10'3 (1.8-7.7); NEUTROPHILS % (AUTO) 30.4 % (42-75); PLATELET COUNT 184 X10'3 (140-440); RED BLOOD COUNT 3.56 X10'6 (4.20-5.60); RED CELL DISTRIBUTION WIDTH 14.8 % (11.5-14.5); WHITE BLOOD COUNT 15.5 X10'3 (4.5-11.0)
[2023-07-05] MEDS ORDERED: epiNEPHrine inj 5 MG in normal saline 250ml IV soln 245 ML IV SCH (15:35)
[2023-07-05 15:50] LABS: ALANINE AMINOTRANSFERASE 23 U/L (12-78); ALBUMIN 2.4 G/DL (3.4-5.0); ALBUMIN/GLOBULIN RATIO 0.9 (1.1-1.5); ALKALINE PHOSPHATASE 101 IU/L (46-116); ANION GAP 9 (8-16); ASPARTATE AMINO TRANSFERASE 31 U/L (10-37); BILIRUBIN,TOTAL 0.2 MG/DL (0.1-1.0); BLOOD UREA NITROGEN 11 MG/DL (7-18); BUN/CREATININE RATIO 14.9 (10.0-20.0); CALCIUM 8.6 MG/DL (8.5-10.1); CHLORIDE 106 MMOL/L (99-107); CREATININE 0.74 MG/DL (0.40-0.90); GLUCOSE 292 MG/DL (70-104); POTASSIUM 4.8 MMOL/L (3.5-5.1); PRO BRAIN NATRIURETIC PEPTIDE 425 PG/ML (0-125); SODIUM 139 MMOL/L (135-145); TOTAL PROTEIN 5.2 G/DL (6.4-8.2); eCRCL 48 ML/MIN; eGFR 78 ML/MIN
[2023-07-05 16:12] LABS: APTT 34 SECONDS (22-32); INR 1.1 INR; PROTHROMBIN TIME 11.4 SECONDS (9.0-12.0)
--- NOTE | 2023-07-05 16:26 | NUR ---
15:40- Patient has no palpable pulses. Dr. Wright at bedside throughout resuscitation, pronounced patient at this time. See code blue sheet for details.
--- NOTE | 2023-07-05 16:36 | NUR ---
15:55 - freight rate clerk contacted for this patient. Voice message directed me to call [facility] as it was weekend. I spoke to Vira ([facility] public speaking professor) to report that patient . She said she will relay the message to the freight rate clerk on duty. ER's direct phone number given for call back. 16:00 - [facility] was called. Reference # [id number]
--- NOTE | 2023-07-05 16:45 | NUR ---
Pacemaker was deactivated using magnet.
[2023-07-05 17:16] LABS: PLATELET ESTIMATE NORMAL; SMUDGE CELLS 2+; TOTAL CELLS COUNTED 100
[2023-07-05 17:17] LABS: BURR CELLS FEW; ELLIPTOCYTES 1+
--- NOTE | 2023-07-05 17:37 | NUR ---
Still awaiting for the phone call from the infectious disease technician at this time.
--- NOTE | 2023-07-05 18:13 | NUR ---
I called back Zach to follow up regarding this patient. Spoke to Geovanna over the phone about my phone call made to report the and that we have not received any phone call from the hot dip plater since then. Geovanna told me that the on-call hot dip plater was currently working on another case and will have the hot dip plater call us back as soon as the medical radiation dosimetrist hot dip plater is available. I gave the ER's direct phone number and requested the hot dip plater to speak to the charge nurse.
--- NOTE | 2023-07-05 19:24 | NUR ---
ROBERT LANDERS, CORONOR: OK TO RELEASE TO [facility] ORDOÑEZ.
== END 2023-07-05 20:19 ==
LOC: ER 15:05
DX: R07.89 Other chest pain (principal); R57.0 Cardiogenic shock; E78.00 Pure hypercholesterolemia, unspecified; I10 Essential (primary) hypertension; I25.2 Old myocardial infarction; J44.9 Chronic obstructive pulmonary disease, unspecified; J43.9 Emphysema, unspecified; E11.9 Type 2 diabetes mellitus without complications; G89.29 Other chronic pain; F15.90 Other stimulant use, unspecified, uncomplicated; Z72.89 Other problems related to lifestyle; Z90.49 Acquired absence of other specified parts of digestive tract; Z86.79 Personal history of other diseases of the circulatory system; Z79.899 Other long term (current) drug therapy; Z91.013 Allergy to seafood; Z88.0 Allergy status to penicillin; Z88.1 Allergy status to other antibiotic agents; Z88.8 Allergy status to other drugs, medicaments and biological substances
CPT/HCPCS: 31500; 36415; 71045; 80053; 83880; 84484; 85007; 85025; 85610; 85730; 92950; 99291; J3490; 94002; C1758; J0171